=== PATIENT | male | born 1960 | race Asian ===

== ENCOUNTER 2020-11-18 19:01 | Inpatient (IN) | payer MEDICARE, MEDICAID ==
[~2020-11-18] VITALS: Ht 177.8 cm; Wt 80.6 kg
[2020-11-18 19:50] VITALS: BP 101/56
--- NOTE | 2020-11-18 19:59 | PDOC1 ---
History and Physical Date of Admission Date of Admission DATE: 11/18/20 TIME: 19:45 Identification/Chief Complaint Chief Complaint Shortness of breath Source Source: Chart review, Patient History of Present Illness History of Present Illness Patient is a 59-year-old male past medical history CAD, who presents as a transfer from [facility] for concerns of malignant pleural effusion. Reports worsening shortness of breath over the past 2 to 3 weeks. Symptoms are worse with exertion, but he denies any chest pain. He does admit to approximately 90 pound unintentional weight loss over the past year. He is a former smoker, and reports significant coronary artery disease with history of 11 stents. His most recent stress test was 2 days ago and he is not aware of these results. He denies any history of blood clots, is not on anticoagulation, but does take daily aspirin. He was diagnosed with COVID-19 earlier in September 2020. Chest x-ray obtained at [facility] showed right pleural effusion with right basilar atelectasis or infiltrate. Given this medical history, patient was transferred to [facility] for further evaluation with cardiology consult. Labs obtained from [facility]: WBC 14.8, D-dimer 2.23, BNP 531, albumin 2.1 Past Medical History Past Medical History CAD, [place], GERD Past Surgical History Past Surgical History Tonsillectomy Social History Smoke: <1 pack per day ALCOHOL: none Drugs: None ROS Review of System GENERAL: Unintentional weight loss. Denies weakness or fevers. SKIN: No bruising, hair changes or rashes. EYES: No blurred, double or loss of vision. NOSE AND THROAT: No history of nosebleeds, hoarseness or sore throat. HEART: Denies chest pain, denies palpitations. LUNGS: Shortness of breath. Denies cough, hemoptysis, wheezing. GASTROINTESTINAL: Denies nausea, vomiting, abdominal pain. GENITOURINARY: Denies dysuria, frequency, urgency, hematuria. NEUROLOGIC: Denies history of numbness, tingling, tremor or weakness. PSYCHIATRIC: Denies anxiety, denies depression. ENDOCRINE: No history of heat or cold intolerance, polyuria or polydipsia. EXTREMITIES: Denies muscle weakness, joint pain, pain on walking or stiffness. Physical Exam Physical Exam General: Cachectic appearing. Alert, Oriented X3, Cooperative, No acute distress HEENT: PERRLA, EOMI Lungs: Decreased breath sounds on right lung base, Normal air movement Heart: RRR, no murmurs Cardiovascular: S1, S2 Abdomen: Normal bowel sounds, Soft, No tenderness Extremities: No clubbing, No cyanosis Skin: No rashes, No significant lesion Neuro: Normal speech, Normal tone, Sensation intact Psych/Mental Status: Mental status NL, Mood NL VTE Prophylaxis Ordered VTE Prophylaxis Devices: No VTE Pharmacological Prophylaxi: Yes Assessment/Plan Assessment/Plan Right pleural effusion COVID-19 PUI PRAVEENA Vasomotor nephropathy Elevated D-dimer Possible PE Severe malnutrition Plan: Patient's symptoms concerning for pneumonia no effusion Consult to pulmonology Provide IV fluids to resolve PRAVEENA; may be able to obtain CTA chest to rule out PE as well given possible hypercoagulable state when kidney function improves COVID-19 pending; if positive will treat symptomatically, patient currently breathing on room air Provide diuresis and repeat chest x-ray likely in a.m. or Thursday Resume home medications FEN - Cardiac diet PPX - Lovenox FULL CODE Dispo - inpatient for above Justifications for Admission Other Justification SONIYA CASE MD Nov 18, 2020 19:59
[2020-11-18] MEDS ORDERED: MORPHINE SULFATE 2 MG/ML VIAL. IV PRN (20:15)
[2020-11-18] MEDS ORDERED: ZOLPIDEM 5 MG TABLET. PO PRN (20:15)
[2020-11-18] MEDS ORDERED: CALCIUM CARBONATE 500 MG TAB.CHEW PO PRN (20:15)
[2020-11-18] MEDS ORDERED: MAG HYDROX/ALUMINUM HYD/SIMETH 30 ML ORAL.SUSP PO PRN (20:15)
[2020-11-18] MEDS ORDERED: MAGNESIUM HYDROXIDE 2,400 MG/30 ML ORAL.SUSP. PO PRN (20:15)
[2020-11-18] MEDS ORDERED: ACETAMINOPHEN 325 MG TABLET. PO PRN (20:15)
[2020-11-18] MEDS ORDERED: ONDANSETRON PF 4 MG/2 ML VIAL. IVP PRN (20:15)
[2020-11-18] MEDS ORDERED: BISACODYL 10 MG SUPP.RECT. PR PRN (20:15)
[2020-11-18] MEDS ORDERED: FUROSEMIDE 40 MG/4 ML VIAL. IVP ONE (21:15)
[2020-11-18] MEDS ORDERED: ENOXAPARIN 40 MG/0.4 ML SYRINGE. SQ SCH (21:30)
[2020-11-18] MEDS: IV NORMAL SALINE 1000ML BAG 1,000 ML IV SCH (21:47)
[2020-11-18 23:27] VITALS: BP 107/59
[2020-11-19] MEDS ORDERED: CARV12.5 PO (00:15)
[2020-11-19] MEDS ORDERED: FAMO40TA4 PO (00:15)
[2020-11-19] MEDS ORDERED: LEVO50TA5 PO (00:15)
[2020-11-19] MEDS ORDERED: ASPI-630 PO (00:15)
[2020-11-19] MEDS ORDERED: LOSA1TAB19 PO (00:15)
[2020-11-19] MEDS ORDERED: CYCL10TA2 PO (00:15)
[2020-11-19] MEDS ORDERED: TRAM50TA PO (00:15)
[2020-11-19] MEDS ORDERED: CRESTOR40 MG PO (00:15)
[2020-11-19] MEDS ORDERED: METF500T16 PO (00:15)
[2020-11-19] MEDS ORDERED: imdur PO (00:15)
[2020-11-19 03:57] VITALS: BP 102/68
[2020-11-19 07:42] VITALS: BP 116/74
--- NOTE | 2020-11-19 08:24 | PDOC ---
PROGRESS NOTES Date of Service: DATE: 11/19/20 TIME: 08:24 Chief Complaint Chief Complaint VTE Prophylaxis Ordered VTE Prophylaxis Devices: No VTE Pharmacological Prophylaxi: Yes IMPRESSION Assessment/Plan Right pleural effusion COVID-19 PUI PRAVEENA Vasomotor nephropathy Elevated D-dimer Possible PE Severe malnutrition Plan: Patient's symptoms concerning for pneumonia no effusion Consult to pulmonology Provide IV fluids to resolve PRAVEENA; may be able to obtain CTA chest to rule out PE as well given possible hypercoagulable state when kidney function improves COVID-19 pending; if positive will treat symptomatically, patient currently breathing on room air Provide diuresis and repeat chest x-ray likely in a.m. or Thursday Resume home medications FEN - Cardiac diet PPX - Lovenox FULL CODE Dispo - inpatient for above ct chest Justifications for Admission Justifications for Admission Other Justification History of Present Illness History of Present Illness Identification/Chief Complaint Chief Complaint Shortness of breath Source Source: Chart review, Patient History of Present Illness History of Present Illness Patient is a 59-year-old male past medical history CAD, who presents as a transfer from [facility] for concerns of malignant pleural effusion. Reports worsening shortness of breath over the past 2 to 3 weeks. Symptoms are worse with exertion, but he denies any chest pain. He does admit to approximately 90 pound unintentional weight loss over the past year. He is a former smoker, and reports significant coronary artery disease with history of 11 stents. His most recent stress test was 2 days ago and he is not aware of these results. He denies any history of blood clots, is not on anticoagulation, but does take daily aspirin. He was diagnosed with COVID-19 earlier in September 2020. Chest x-ray obtained at [facility] showed right pleural effusion with right basilar atelectasis or infiltrate. Given this medical history, patient was transferred to [facility] for further evaluation with cardiology consult. Labs obtained from [facility]: WBC 14.8, D-dimer 2.23, BNP 531, albumin 2.1 Past Medical History Past Medical History CAD, [place], GERD Past Surgical History Past Surgical History Tonsillectomy Social History Smoke: <1 pack per day ALCOHOL: none Drugs: None ROS Review of System GENERAL: Unintentional weight loss. Denies weakness or fevers. SKIN: No bruising, hair changes or rashes. EYES: No blurred, double or loss of vision. NOSE AND THROAT: No history of nosebleeds, hoarseness or sore throat. HEART: Denies chest pain, denies palpitations. LUNGS: Shortness of breath. Denies cough, hemoptysis, wheezing. GASTROINTESTINAL: Denies nausea, vomiting, abdominal pain. GENITOURINARY: Denies dysuria, frequency, urgency, hematuria. NEUROLOGIC: Denies history of numbness, tingling, tremor or weakness. PSYCHIATRIC: Denies anxiety, denies depression. ENDOCRINE: No history of heat or cold intolerance, polyuria or polydipsia. EXTREMITIES: Denies muscle weakness, joint pain, pain on walking or stiffness. Vitals Vitals Vital Signs Date Time Temp Pulse Resp B/P (MAP) Pulse Ox O2 Delivery O2 Flow Rate FiO2 11/19/20 07:42 97.9 92 18 116/74 (88) 95 Room Air 97.9 Physical Exam Physical Exam Physical Exam Physical Exam General: Cachectic appearing. Alert, Oriented X3, Cooperative, No acute distress HEENT: PERRLA, EOMI Lungs: Decreased breath sounds on right lung base, Normal air movement Heart: RRR, no murmurs Cardiovascular: S1, S2 Abdomen: Normal bowel sounds, Soft, No tenderness Extremities: No clubbing, No cyanosis Skin: No rashes, No significant lesion Neuro: Normal speech, Normal tone, Sensation intact Psych/Mental Status: Mental status NL, Mood NL General: Cooperative, No acute distress Abdomen: No tenderness Labs LABS Signed PATIENT: KENDRICK AGRAWAL ACCOUNT: [id number] : 1960 LOCATION: [address] [place] [address] AGE: 59 SEX: M EXAM STATUS: ADM IN ORD. PHYSICIAN: NIECY PEDERSON MD REASON: Effusion PROCEDURE: CT CHEST WO CONTRAST EXAM: CT Chest with and without IV contrast INDICATION: Reason: Effusion / Spl. Instructions: / History: TECHNIQUE: Multi-detector row CT images were acquired from the thoracic inlet through the upper abdomen with and without the use of IV contrast. Sagittal and coronal images were acquired from the transaxial data. All CT scans performed at this facility utilize dose optimization techniques as appropriate to the exam, including the following: Automated exposure control and adjustment of the mA and/or KV according to patient size (this includes techniques or standardized protocols for targeted exams where dose is indication/reason for exam). IV CONTRAST: Administered COMPARISON: Chest x-ray of 11/18/2020 FINDINGS: CARDIOVASCULAR: Dense multivessel coronary calcifications. Small pericardial effusion, measuring up to 1.1 cm anteriorly. MEDIASTINUM & MARI: Bulky mediastinal adenopathy is present with the largest lymph node measuring 3.5 cm in short axis diameter in the right lower paratracheal angy station. In addition, a right hilar mass is present, poorly delineated around the enlarged lymph nodes but circumferentially encasing and narrowing the right bronchus intermedius to occlusion. Densely calcified left hilar lymph nodes are also noted. LUNGS: Lobar atelectasis of the right middle and lower lobes is present. Patchy groundglass opacities in the peripheral posterior right upper lobe are also noted along with mild peribronchial thickening. PLEURAL SPACE: Small right pleural effusion is present. No pneumothorax. OSSEOUS & SOFT TISSUE: Unremarkable ABDOMEN: The visualized portions of the upper abdomen are unremarkable. IMPRESSION: Right hilar mass causing occlusion of the right middle and right lower lobes, associated with bulky mediastinal adenopathy. These are findings concerning for a primary lung malignancy. Recommend correlation with PET CT imaging and/or bronchoscopic findings. There is only a small right pleural effusion present, likely not sufficient to merit attempt at thoracentesis although could be assessed with ultrasound if so desired.. Electronically signed by: William Minor MD (11/19/2020 10:44 AM) [id number] DICTATED and SIGNED BY: WILLIAM MINOR MD DATE: 11/19/20 [id number] Laboratory Tests Test 11/18/20 21:13 11/19/20 07:03 Glucose (Fingerstick) 88 mg/dL (70-99) 108 mg/dL (70-99) Comment Review of Relevant I have reviewed the following items ranjit (where applicable) has been applied. Labs Laboratory Tests Test 11/18/20 21:13 11/19/20 07:03 Glucose (Fingerstick) 88 mg/dL (70-99) 108 mg/dL (70-99) Laboratory Tests Test 11/18/20 21:13 11/19/20 07:03 Glucose (Fingerstick) 88 mg/dL (70-99) 108 mg/dL (70-99) Medications Current Medications Sodium Chloride 1,000 ml @ 100 mls/hr Q10H IV Last administered on 11/18/20at 21:47; Start 11/18/20 at 20:00 Furosemide (Lasix) 40 mg 1X ONCE IVP Last administered on 11/18/20at 21:47; Start 11/18/20 at 21:15; Stop 11/18/20 at 21:16; Status DC Ondansetron HCl (Zofran) 4 mg PRN Q6HRS PRN IVP NAUSEA/VOMITING; Start 11/18/20 at 20:15 Al Hydroxide/Mg Hydroxide (Mylanta Plus Xs) 30 ml PRN Q3HRS PRN PO HEARTBURN / GAS; Start 11/18/20 at 20:15 Calcium Carbonate/ Glycine (Tums) 500 mg PRN Q3HRS PRN PO UPSET STOMACH; Start 11/18/20 at 20:15 Zolpidem Tartrate (Ambien) 5 mg PRN QHS PRN PO INSOMNIA, MAY REPEAT IN 1HR; Start 11/18/20 at 20:15 Morphine Sulfate (Morphine Sulfate) 2 mg PRN Q1HR PRN IV PAIN; Start 11/18/20 at 20:15 Acetaminophen (Tylenol) 650 mg PRN Q6HRS PRN PO Headaches, Temp > 101.5F; Start 11/18/20 at 20:15 Magnesium Hydroxide (Milk Of Magnesia) 2,400 mg PRN Q12HR PRN PO CONSTIPATION; Start 11/18/20 at 20:15 Bisacodyl (Dulcolax Supp) 10 mg PRN DAILY PRN WI CONSTIPATION; Start 11/18/20 at 20:15 Enoxaparin Sodium (Lovenox 40mg Syringe) 40 mg Q24H SQ Last administered on 11/18/20at 21:47; Start 11/18/20 at 21:30 Active Scripts Active Reported Tramadol Hcl 50 Mg Tablet 50 Mg PO DAILY PRN Aspirin 81 Mg Tab.chew 2 Tab PO HS Cyclobenzaprine Hcl 10 Mg Tablet 1 Tab PO TID PRN Famotidine 40 Mg Tablet 40 Mg PO BID Losartan-Hctz 50-12.5 Mg Tab (Losartan/Hydrochlorothiazide) 1 Each Tablet 1 Tab PO DAILY Coreg (Carvedilol) 12.5 Mg Tablet 12.5 Mg PO BIDWMEALS Levothyroxine Sodium 50 Mcg Tablet 1 Tab PO DAILY Crestor (Rosuvastatin Calcium) 40 Mg Tablet 20 Mg PO HS [imdur] 120 Mg PO DAILY Metformin Hcl 500 Mg Tablet 500 Mg PO BIDWMEALS Vitals/I & O Vital Sign - Last 24 Hours 11/18/20 11/18/20 11/19/20 11/19/20 19:50 23:27 03:57 07:42 Temp 95.5 97.5 97.5 97.9 95.5 97.5 97.5 97.9 Pulse 89 86 90 92 Resp 18 27 16 18 B/P (MAP) 101/56 (71) 107/59 (75) 102/68 (79) 116/74 (88) Pulse Ox 97 99 92 95 O2 Delivery Room Air Room Air Room Air Room Air Intake and Output 11/18/20 11/18/20 11/19/20 15:00 23:00 07:00 Intake Total 330 ml Output Total 1400 ml Balance -1070 ml Justicifation of Admission Dx: Justifications for Admission: Justification of Admission Dx: Yes Respiratory Failure: Severe Resp Distress Comminuty Aquired Pneumonia: Complicated pleural effus DON BURTON MD Nov 19, 2020 08:24
--- NOTE | 2020-11-19 09:07 | CONS ---
DATE OF CONSULTATION: PULMONARY CONSULTATION ATTENDING PHYSICIAN: Cj Lee MD REASON FOR CONSULTATION: Dyspnea, hypoxia, abnormal chest x-ray. HISTORY OF PRESENT ILLNESS: The patient is a 59-year-old male who smoked for 45 years. He recently quit. He has history of CAD and multiple stents. He was brought into the hospital with complaint of progressive shortness of breath for the last 3 weeks. He has some chest pain. He has been coughing and has not been productive of any sputum. No hemoptysis. He has about a 30-pound weight loss in the last few months and overall 90-pound unintentional loss over few years. The patient says he had stress test done 2 days ago and not aware of the results. No history of deep vein thrombosis or pulmonary embolism. He was diagnosed with COVID-19 earlier in 09/2020. Chest x-ray was reviewed and it showed right lower lobe pleural effusion with volume loss. I have been asked to see him for further evaluation. PAST MEDICAL HISTORY: Significant for CAD, multiple stents, history of ME, GERD and suspected COPD, could be severe. He smoked for 45 years. PAST SURGICAL HISTORY: Tonsillectomy. SOCIAL HISTORY: 45 years of tobacco use. No longer smokes cigarettes. ALLERGIES: None. MEDICATIONS: Reviewed as listed in the [facility]AD including Lovenox for DVT prophylaxis. REVIEW OF SYSTEMS: A 12-point system review obtained. Pertinent positives discussed in my history of present illness, otherwise noncontributory. All systems that were negative were reviewed as well. FAMILY HISTORY: Noncontributory to lungs. PHYSICAL EXAMINATION: VITAL SIGNS: Reviewed, pulse ox 95% on room air. GENERAL: Visual exam done due to COVID-19. No obvious respiratory distress. SKIN: No skin rash. EXTREMITIES: No leg edema. LABORATORY DATA: Reviewed. Blood glucose is 88. Rest of the labs are not available yet. IMPRESSION: 1. Dyspnea in a patient who is 59 years old, has significant volume loss right lower lobe could be mass vs pleural effusions vs consolidation. . He has a 30-pound weight loss in the last few months and overall 90-pound weight loss in past year and half. The etiology of his symptoms and x-rays concerning for malignancy. 2. History of COVID-19 pneumonia diagnosed in 09/2020. 3. Long history of tobacco use for 45 years, suspect underlying chronic obstructive pulmonary disease. 4. History of coronary artery disease with multiple stents placed. 5. 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 RECOMMENDATIONS: 1. We will obtain a CT of the chest to better assess for effusion and rule out any mass. 2. He also has hoarseness for the last 2-3 weeks. We will rule out any vocal cord abnormality as well. 3. Diuresis. 4. Empiric antibiotic 5. Obtain echocardiogram. 6. Obtain venous Dopplers of lower extremities since he has been complaining of leg pain. 7. Follow Cardiology recommendation, especially if ejection fraction, comes out to be low. 8. Hold Lovenox today in anticipation for possible thoracentesis. 9. Further recommendations to follow. 10. Discussed with RN. NIECY PEDERSON MD DR: NANCY/danette JOB#: [id number] / [id number] MELODY
[2020-11-19] MEDS: cefTRIAXone IV Push 1 GM VIAL. IVP SCH (10:38)
[2020-11-19 10:49] LABS: ALBUMIN 1.9 g/dL (3.4-5.0); ALBUMIN/GLOBULIN RATIO 0.4 (1.0-1.7); BASO % 0 % (0-3); CALCIUM 8.7 mg/dL (8.5-10.1); CREATININE 3.2 mg/dL (0.7-1.3); EOS % 0 % (0-3); GFR 19.8; HEMATOCRIT 32.8 % (39.0-53.0); HEMOGLOBIN 10.7 g/dL (13.0-17.5); LYMPH # 1.7 x10^3/uL (1.0-4.8); LYMPH % 13 % (24-48); MEAN CORPUSCULAR HEMOGLOBIN 27 pg (25-35); MEAN CORPUSCULAR HGB CONC 33 g/dL (31-37); MEAN CORPUSCULAR VOLUME 83 fL (79-100); MONO # 0.8 x10^3/uL (0.0-1.1); MONO % 6 % (0-9); NEUT # 10.4 x10^3/uL (1.8-7.7); NEUT % 80 % (31-73); PLATELET COUNT 367 x10^3/uL (140-400); POTASSIUM 3.7 mmol/L (3.5-5.1); RED BLOOD COUNT 3.96 x10^6/uL (4.30-5.70); RED CELL DISTRIBUTION WIDTH 14.6 % (11.5-14.5); TOTAL BILIRUBIN 0.4 mg/dL (0.2-1.0); TOTAL PROTEIN 7.1 g/dL (6.4-8.2)
--- NOTE | 2020-11-19 10:51 | RAD ---
EXAM: CT Chest with and without IV contrast INDICATION: Reason: Effusion / Spl. Instructions: / History: TECHNIQUE: Multi-detector row CT images were acquired from the thoracic inlet through the upper abdo men with and without the use of IV contrast. Sagittal and coronal images were acquired from the trans axial data. All CT scans performed at this facility utilize dose optimization techniques as appropria te to the exam, including the following: Automated exposure control and adjustment of the mA and/or K V according to patient size (this includes techniques or standardized protocols for targeted exams wh ere dose is indication/reason for exam). IV CONTRAST: Administered COMPARISON: Chest x-ray of 11/18/2020 FINDINGS: CARDIOVASCULAR: Dense multivessel coronary calcifications. Small pericardial effusion, measuring up to 1.1 cm anteriorly. MEDIASTINUM & MARI: Bulky mediastinal adenopathy is present with the largest lymph node measuring 3.5 cm in short axis diameter in the right lower paratracheal angy station. In addition, a right hilar mass is present, poorly delineated around the enlarged lymph nodes but circumferentially encasing and narrowing the right bronchus intermedius to occlusion. Densely calcified left hilar lymph nodes are also noted. LUNGS: Lobar atelectasis of the right middle and lower lobes is present. Patchy groundglass opacities in the peripheral posterior right upper lobe are also noted along with mild peribronchial thickening . PLEURAL SPACE: Small right pleural effusion is present. No pneumothorax. OSSEOUS & SOFT TISSUE: Unremarkable ABDOMEN: The visualized portions of the upper abdomen are unremarkable. IMPRESSION: Right hilar mass causing occlusion of the right middle and right lower lobes, associated with bulky m ediastinal adenopathy. These are findings concerning for a primary lung malignancy. Recommend correla tion with PET CT imaging and/or bronchoscopic findings. There is only a small right pleural effusion present, likely not sufficient to merit attempt at thoracentesis although could be assessed with ultr asound if so desired.. Electronically signed by: Aspen Minor MD (11/19/2020 10:44 AM) [id number]
[2020-11-19 11:00] VITALS: BP 109/66
[2020-11-19] MEDS: LOSARTAN POTASSIUM 50 MG TABLET. PO SCH (12:39)
[2020-11-19] MEDS: hydroCHLOROthiazide 12.5 MG CAPSULE PO SCH (12:40)
[2020-11-19] MEDS: FAMOTIDINE 20 MG TABLET. PO SCH ×2 (12:40→20:48)
[2020-11-19] MEDS: IV NORMAL SALINE 1000ML BAG 1,000 ML IV SCH ×3 (12:40→22:28)
[2020-11-19] MEDS: LEVOTHYROXINE 50 MCG TABLET PO SCH (12:40)
[2020-11-19 15:18] VITALS: BP 101/61
--- NOTE | 2020-11-19 16:08 | RAD ---
US BILATERAL LOWEREXTREMITY VENOUS DOPPLER History: Reason: pain/swelling / Spl. Instructions: / History: Comparison: None. Discussion: Multiple longitudinal and transverse high resolution real-time images of the venous system of [facility] lower extremity were obtained with color and Doppler sampling. The common femoral, superficial fem oral, popliteal and proximal calf veins are all patent and demonstrate normal flow and compressibilit y. Normal respiratory phasicity and augmentation is present. Impression: 1. No evidence of deep vein thrombosis. Electronically signed by: Harshil Smart DO (11/19/2020 4:05 PM) [facility]
--- NOTE | 2020-11-19 16:32 | RAD ---
Examination: Ultrasound right chest HISTORY: History of right pleural effusion COMPARISON: None available Findings/ impression: Ultrasound of the right chest wall is very limited due to artifact. Obvious pleural effusion is not e vident on the visualized images. Electronically signed by: Thai Dickinson MD (11/19/2020 4:29 PM) [id number]
[2020-11-19] MEDS: CARVEDILOL 12.5 MG TABLET. PO SCH (16:33)
--- NOTE | 2020-11-19 16:47 | NUR ---
SW following for discharge planning. Spoke with RN and reviewed chart. Pt currently NPO, room air, IV Rocephin, COVID negative. Discharge plan is home, self-care. SW available as needed.
[2020-11-19 19:00] VITALS: BP 114/76
--- NOTE | 2020-11-19 19:00 | RAD ---
EXAM: XR CHEST 1V INDICATION: Reason: Right pleural effusion / Spl. Instructions: / History: . TECHNIQUE: Single view COMPARISON: CT chest from earlier the same day and ultrasound chest same day FINDINGS: Stable cardiomegaly. Stable tortuosity to the thoracic aorta. Right hilar and mediastinal adenopathy is redemonstrated, better illustrated on earlier same day ches t CT Lungs again show complete collapse of the right middle and right lower lobes with a trace right pleur al effusion, unchanged in the interval. The patient's right pleural effusion was insufficient to atte mpt thoracentesis. Trace right pleural effusion. No left pleural effusion. No pneumothorax. Advanced degenerative changes in the bilateral glenohumeral joints. IMPRESSION: Bulky mediastinal adenopathy with right lower and middle lobe lobar atelectasis, similar to prior carol ng with a trace right pleural effusion. No pneumothorax. Electronically signed by: Aspen Minor MD (11/19/2020 6:57 PM) [id number]
[2020-11-19] MEDS: ASPIRIN CHEWABLE 81 MG TABLET. PO SCH (20:48)
[2020-11-19] MEDS: ATORVASTATIN CALCIUM 40 MG TABLET. PO SCH (20:48)
[2020-11-19 23:00] VITALS: BP 110/69
[2020-11-20] VITALS (7 sets, daily range): BP systolic 105–133; BP diastolic 67–86
[2020-11-20] MEDS: LEVOTHYROXINE 50 MCG TABLET PO SCH (06:00)
[2020-11-20] MEDS: CARVEDILOL 12.5 MG TABLET. PO SCH ×2 (08:00→16:43)
[2020-11-20] MEDS: LOSARTAN POTASSIUM 50 MG TABLET. PO SCH (08:51)
[2020-11-20] MEDS: hydroCHLOROthiazide 12.5 MG CAPSULE PO SCH (08:51)
[2020-11-20] MEDS: ISOSORBIDE MONONITRATE ER 30 MG TAB.ER.24H PO SCH (08:51)
[2020-11-20] MEDS: FAMOTIDINE 20 MG TABLET. PO SCH ×2 (08:52→20:36)
--- NOTE | 2020-11-20 08:52 | CARD ---
MR#: [id number] Date of Study: 11/20/2020 Ordering Physician: NIECY PEDERSON, Referring Physician: NIECY PEDERSON, Tech: Jaki Jackson [facility] APPROVED REPORT EXAM: Two-dimensional and M-mode echocardiogram with Doppler and color Doppler. Other Information Quality : GoodHR: 86bpm Rhythm : NSR INDICATION CAD Congestive Heart Failure RISK FACTORS Hypertension 2D DIMENSIONS RVDd2.8 (2.9-3.5cm)Left Atrium(2D)3.3 (1.6-4.0cm) IVSd1.5 (0.7-1.1cm)Aortic Root(2D)3.4 (2.0-3.7cm) LVDd3.9 (3.9-5.9cm)LVOT Diameter2.2 (1.8-2.4cm) PWd1.2 (0.7-1.1cm)LVDs2.2 (2.5-4.0cm) FS (%) 42.5 %SV48.2 ml LVEF(%)74.3 (>50%) Aortic Valve AoV Peak Jean.135.9cm/sAoV VTI21.6cm AO Peak GR.7.4mmHgLVOT Peak Jean.103.7cm/s AO Mean GR.4mmHgAVA (VMAX)2.87cm2 Mitral Valve MV E Olekwefj35.4cm/sMV DECEL [id number] MV A Bbujrdcu96.8cm/sE/A Ratio0.9 Pulmonary Valve PV Peak Ssmpjnsf56.6cm/s Tricuspid Valve TR P. Tnpasgpn045oo/sTR Peak Gr.25mmHg LEFT VENTRICLE There is mild concentric left ventricular hypertrophy. The left ventricular systolic function is norm al and the ejection fraction is within normal range. Estimated ejection fraction 60-65% There is norm al LV segmental wall motion. Transmitral Doppler flow pattern is Grade I-abnormal relaxation pattern. RIGHT VENTRICLE The right ventricle is normal size. The right ventricle is mildly hypertrophied. The right ventricula r systolic function is normal. ATRIA The left atrium size is normal. The right atrium size is normal. The interatrial septum is intact wit h no evidence for an atrial septal defect or patent foramen ovale as noted on 2-D or Doppler imaging. AORTIC VALVE The aortic valve is minimally calcified and opens well. Doppler and Color Flow revealed trace aortic regurgitation. There is no significant aortic valvular stenosis. MITRAL VALVE The mitral valve is normal in structure and function. There is no evidence of mitral valve prolapse. There is no mitral valve stenosis. Doppler and Color Flow revealed no mitral valve regurgitation note d. TRICUSPID VALVE The tricuspid valve is normal in structure and function. Doppler and Color Flow revealed mild tricusp id regurgitation. Estimated PAP 28 mmHg. There is no tricuspid valve stenosis. PULMONIC VALVE Doppler and Color Flow revealed mild pulmonic valvular regurgitation. There is no pulmonic valvular s tenosis. GREAT VESSELS The aortic root is normal in size. The ascending aorta is normal in size. The IVC is normal in size a nd collapses >50% with inspiration. PERICARDIAL EFFUSION Trivial anterior pericardial effusion. No evidence of hemodynamic compromise. Critical Notification Critical Value: No <Conclusion> The left ventricular systolic function is normal and the ejection fraction is within normal range. E stimated ejection fraction 60-65% There is normal LV segmental wall motion. Signed by : Aldo Cox, Electronically Approved : 11/20/2020 08:51:24
[2020-11-20] MEDS ORDERED: EPINEPHrine 1 MG/ML VIAL INJ PRN (09:00)
[2020-11-20] MEDS ORDERED: LIDOCAINE 4% TOPICAL 50 ML SOLUTION. MM PRN (09:00)
[2020-11-20] MEDS ORDERED: LIDOCAINE 1% Multi-Dose 20 ML VIAL. INJ PRN (09:00)
[2020-11-20] MEDS ORDERED: ALBUTEROL SULFATE 2.5 MG/3 ML NEBU. NEB PRN (09:00)
[2020-11-20] MEDS ORDERED: LIDOCAINE 2% VISCOUS 100 ML BOTTLE. MM PRN (09:00)
[2020-11-20] MEDS ORDERED: LIDOCAINE 4% TOPICAL 50 ML SOLUTION. ONE (09:04)
[2020-11-20] MEDS ORDERED: LIDOCAINE 2% VISCOUS 100 ML BOTTLE. ONE (09:04)
[2020-11-20] MEDS ORDERED: LIDOCAINE 1% Multi-Dose 20 ML VIAL. ONE (09:04)
[2020-11-20] MEDS ORDERED: EPINEPHrine 1 MG/ML VIAL ONE (09:04)
--- NOTE | 2020-11-20 09:34 | PDOC ---
PULMONARY PROGRESS NOTES DATE: 11/20/20 TIME: 09:28 Subjective no soa, hoarse Vitals Vital Signs Date Time Temp Pulse Resp B/P (MAP) Pulse Ox O2 Delivery O2 Flow Rate FiO2 11/20/20 08:51 97 116/78 11/20/20 07:44 97.3 20 97 Room Air 97.3 General: Alert, No acute distress Lungs: Clear Cardiovascular: S1 Abdomen: Soft Neuro Exam: Alert Extremities: No Edema Skin: Warm Labs Laboratory Tests Test 11/18/20 19:15 11/18/20 21:13 11/19/20 07:03 11/19/20 09:50 Coronavirus (PCR) Not detected (Not Detected) Glucose (Fingerstick) 88 mg/dL (70-99) 108 mg/dL (70-99) White Blood Count 13.0 x10^3/uL (4.0-11.0) Red Blood Count 3.96 x10^6/uL (4.30-5.70) Hemoglobin 10.7 g/dL (13.0-17.5) Hematocrit 32.8 % (39.0-53.0) Mean Corpuscular Volume 83 fL (79-100) Mean Corpuscular Hemoglobin 27 pg (25-35) Mean Corpuscular Hemoglobin Concent 33 g/dL (31-37) Red Cell Distribution Width 14.6 % (11.5-14.5) Platelet Count 367 x10^3/uL (140-400) Neutrophils (%) (Auto) 80 % (31-73) Lymphocytes (%) (Auto) 13 % (24-48) Monocytes (%) (Auto) 6 % (0-9) Eosinophils (%) (Auto) 0 % (0-3) Basophils (%) (Auto) 0 % (0-3) Neutrophils # (Auto) 10.4 x10^3/uL (1.8-7.7) Lymphocytes # (Auto) 1.7 x10^3/uL (1.0-4.8) Monocytes # (Auto) 0.8 x10^3/uL (0.0-1.1) Eosinophils # (Auto) 0.0 x10^3/uL (0.0-0.7) Basophils # (Auto) 0.0 x10^3/uL (0.0-0.2) Sodium Level 137 mmol/L (136-145) Potassium Level 3.7 mmol/L (3.5-5.1) Chloride Level 100 mmol/L (98-107) Carbon Dioxide Level 22 mmol/L (21-32) Anion Gap 15 (6-14) Blood Urea Nitrogen 39 mg/dL (8-26) Creatinine 3.2 mg/dL (0.7-1.3) Estimated GFR (Cockcroft-Gault) 19.8 BUN/Creatinine Ratio 12 (6-20) Glucose Level 139 mg/dL (70-99) Calcium Level 8.7 mg/dL (8.5-10.1) Total Bilirubin 0.4 mg/dL (0.2-1.0) Aspartate Amino Transf (AST/SGOT) 20 U/L (15-37) Alanine Aminotransferase (ALT/SGPT) 18 U/L (16-63) Alkaline Phosphatase 99 U/L (46-116) Total Protein 7.1 g/dL (6.4-8.2) Albumin 1.9 g/dL (3.4-5.0) Albumin/Globulin Ratio 0.4 (1.0-1.7) Procalcitonin 3.24 ng/mL (0.00-0.10) Test 11/19/20 11:31 11/19/20 16:14 11/19/20 20:16 11/20/20 07:42 Glucose (Fingerstick) 126 mg/dL (70-99) 158 mg/dL (70-99) 120 mg/dL (70-99) 116 mg/dL (70-99) Laboratory Tests Test 11/19/20 09:50 11/19/20 11:31 11/19/20 16:14 11/19/20 20:16 White Blood Count 13.0 x10^3/uL (4.0-11.0) Red Blood Count 3.96 x10^6/uL (4.30-5.70) Hemoglobin 10.7 g/dL (13.0-17.5) Hematocrit 32.8 % (39.0-53.0) Mean Corpuscular Volume 83 fL (79-100) Mean Corpuscular Hemoglobin 27 pg (25-35) Mean Corpuscular Hemoglobin Concent 33 g/dL (31-37) Red Cell Distribution Width 14.6 % (11.5-14.5) Platelet Count 367 x10^3/uL (140-400) Neutrophils (%) (Auto) 80 % (31-73) Lymphocytes (%) (Auto) 13 % (24-48) Monocytes (%) (Auto) 6 % (0-9) Eosinophils (%) (Auto) 0 % (0-3) Basophils (%) (Auto) 0 % (0-3) Neutrophils # (Auto) 10.4 x10^3/uL (1.8-7.7) Lymphocytes # (Auto) 1.7 x10^3/uL (1.0-4.8) Monocytes # (Auto) 0.8 x10^3/uL (0.0-1.1) Eosinophils # (Auto) 0.0 x10^3/uL (0.0-0.7) Basophils # (Auto) 0.0 x10^3/uL (0.0-0.2) Sodium Level 137 mmol/L (136-145) Potassium Level 3.7 mmol/L (3.5-5.1) Chloride Level 100 mmol/L (98-107) Carbon Dioxide Level 22 mmol/L (21-32) Anion Gap 15 (6-14) Blood Urea Nitrogen 39 mg/dL (8-26) Creatinine 3.2 mg/dL (0.7-1.3) Estimated GFR (Cockcroft-Gault) 19.8 BUN/Creatinine Ratio 12 (6-20) Glucose Level 139 mg/dL (70-99) Calcium Level 8.7 mg/dL (8.5-10.1) Total Bilirubin 0.4 mg/dL (0.2-1.0) Aspartate Amino Transf (AST/SGOT) 20 U/L (15-37) Alanine Aminotransferase (ALT/SGPT) 18 U/L (16-63) Alkaline Phosphatase 99 U/L (46-116) Total Protein 7.1 g/dL (6.4-8.2) Albumin 1.9 g/dL (3.4-5.0) Albumin/Globulin Ratio 0.4 (1.0-1.7) Procalcitonin 3.24 ng/mL (0.00-0.10) Glucose (Fingerstick) 126 mg/dL (70-99) 158 mg/dL (70-99) 120 mg/dL (70-99) Test 11/20/20 07:42 Glucose (Fingerstick) 116 mg/dL (70-99) Medications Active Scripts Medications Dose Route/Sig Max Daily Dose Days Date Category Tramadol Hcl 50 Mg Tablet 50 Mg PO DAILY PRN 11/19/20 Reported Aspirin 81 Mg Tab.chew 2 Tab PO HS 11/19/20 Reported Cyclobenzaprine Hcl 10 Mg Tablet 1 Tab PO TID PRN 11/19/20 Reported Famotidine 40 Mg Tablet 40 Mg PO BID 11/19/20 Reported Losartan-Hctz 50-12.5 Mg Tab (Losartan/Hydrochlorothiazide) 1 Each Tablet 1 Tab PO DAILY 11/19/20 Reported Coreg (Carvedilol) 12.5 Mg Tablet 12.5 Mg PO BIDWMEALS 11/19/20 Reported Levothyroxine Sodium 50 Mcg Tablet 1 Tab PO DAILY 11/19/20 Reported Crestor (Rosuvastatin Calcium) 40 Mg Tablet 20 Mg PO HS 11/19/20 Reported [imdur] 120 Mg PO DAILY 11/19/20 Reported Metformin Hcl 500 Mg Tablet 500 Mg PO BIDWMEALS 11/19/20 Reported Impression . 1. Dyspnea in a patient who is 59 years old, has significant volume loss right lower lobe could be mass vs pleural effusions vs consolidation. . He has a 30-pound weight loss in the last few months and overall 90-pound weight loss in past year and half. The etiology of his symptoms and x-rays concerning for malignancy. 2. History of COVID-19 pneumonia diagnosed in 09/2020. 3. Long history of tobacco use for 45 years, suspect underlying chronic obstructive pulmonary disease. 4. History of coronary artery disease with multiple stents placed. 5. 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 Page of Plan . 1. CT of the chest reviewed. Large right hilar mass with compression of RML/ RUL/ Mediastinal adenopathy, highly suggestive of lung primary. will proceed with Bronch 2. He also has hoarseness for the last 2-3 weeks. We will rule out any vocal cord abnormality as well. 3. US of chest with no effusion 4. Empiric antibiotic 5. Obtain echocardiogram. 6. Neg venous Dopplers of lower extremities 7. Follow Cardiology recommendation, 8. Hold Lovenox today for bronch 9. Further recommendations to follow. 10. Discussed with RN. NIECY PEDERSON MD DR: NANCY/danette JOB#: [id number] / [id number] NIECY PEDERSON MD Nov 20, 2020 09:34
[2020-11-20 09:35] LABS: BASO % 0 % (0-3); EOS % 0 % (0-3); HEMATOCRIT 33.7 % (39.0-53.0); HEMOGLOBIN 11.1 g/dL (13.0-17.5); LYMPH # 1.5 x10^3/uL (1.0-4.8); LYMPH % 16 % (24-48); MEAN CORPUSCULAR HEMOGLOBIN 27 pg (25-35); MEAN CORPUSCULAR HGB CONC 33 g/dL (31-37); MEAN CORPUSCULAR VOLUME 83 fL (79-100); MONO # 0.7 x10^3/uL (0.0-1.1); MONO % 7 % (0-9); NEUT # 7.2 x10^3/uL (1.8-7.7); NEUT % 76 % (31-73); PLATELET COUNT 367 x10^3/uL (140-400); RED BLOOD COUNT 4.05 x10^6/uL (4.30-5.70); RED CELL DISTRIBUTION WIDTH 14.5 % (11.5-14.5); WHITE BLOOD COUNT 9.4 x10^3/uL (4.0-11.0)
[2020-11-20 09:54] LABS: PROTHROMBIN TIME PATIENT 13.8 SEC (11.7-14.0)
[2020-11-20 10:04] LABS: GFR 21.4; POTASSIUM 3.7 mmol/L (3.5-5.1)
[2020-11-20] MEDS ORDERED: IV RINGERS,LACTATED 1000ML 1,000 ML IV ONE (10:30)
[2020-11-20] MEDS ORDERED: LIDOCAINE 2% PF 5 ML VIAL. ONE (11:08)
[2020-11-20] MEDS ORDERED: PROPOFOL 10 MG/ML (20ML) VIAL. IV ONE (11:08)
--- NOTE | 2020-11-20 11:37 | OP ---
DATE OF SURGERY: BRONCHOSCOPY NOTE INDICATIONS: Lung mass. DESCRIPTION OF PROCEDURE: Informed consent was obtained from the patient. All risks and benefits were explained. He agreed to proceed with the procedure. Propofol was used by Anesthesia for sedation. Bronch was introduced through the left nostril. The upper airway was passed. 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 The trachea was entered. Minimal white secretions seen. The juju was sharp. Upon inspection of the right upper lobe, there was significant narrowing of all the subsegments due to extrinsic compression. The bronchus intermedius was likewise completely compressed extrinsically. I could not pass the scope beyond the bronchus intermedius. There was some mucosal erythema suggestive of submucosal tumor. Cytology brush was obtained from this area and biopsy x 1 was obtained. The patient did have bleeding post-biopsy, which was controlled with epinephrine. No further attempts at biopsies were made. The patient did have a clot in the right main stem bronchus. No active bleeding was noticed. Left lung was examined. All subsegments of left upper lobe, lingula and left lower lobe were examined, no endobronchial lesions seen. Aspirated blood was removed from the left lower lobe. IMPRESSION: 1. Paralyzed left vocal cord. 2. Significant extrinsic compression of all the subsegments of the right upper lobe, but no endobronchial lesion seen. 3. Significant extrinsic compression of the bronchus intermedius. I was unable to pass the bronchoscope beyond bronchus intermedius. There was some mucosal erythema suggestive of mucosal tumor. 4. Biopsy and cytology brush x 1 was performed from this area. 5. Follow the results of the testing. NIECY PEDERSON MD DR: NANCY/danette JOB#: [id number] / [id number]
--- NOTE | 2020-11-20 11:53 | PDOC ---
PROGRESS NOTES Date of Service: DATE: 11/20/20 TIME: 11:51 Chief Complaint Chief Complaint VTE Prophylaxis Ordered VTE Prophylaxis Devices: No VTE Pharmacological Prophylaxi: Yes IMPRESSION Assessment/Plan Right pleural effusion Right hilar mass causing occlusion of the right middle and right lower lobes, associated with bulky mediastinal adenopathy. findings concerning for a primary lung malignancy. // correlation with PET CT imaging and/or bronchoscopic findings. COVID-19 PUI NEG PRAVEENA Vasomotor nephropathy Elevated D-dimer Possible PE RULED OUT Severe malnutrition Plan: Patient's symptoms concerning for pneumonia no effusion Consult to pulmonology Provide IV fluids to resolve PRAVEENA; may be able to obtain CTA chest to rule out PE as well given possible hypercoagulable state when kidney function improves COVID-19 pending; if positive will treat symptomatically, patient currently breathing on room air Provide diuresis and repeat chest x-ray likely in a.m. or Thursday Resume home medications FEN - Cardiac diet PPX - Lovenox FULL CODE Dispo - inpatient for above ct chest Justifications for Admission Justifications for Admission Other Justification History of Present Illness History of Present Illness Identification/Chief Complaint Chief Complaint Shortness of breath Source Source: Chart review, Patient History of Present Illness History of Present Illness Patient is a 59-year-old male past medical history CAD, who presents as a transfer from [facility] for concerns of malignant pleural effusion. Reports worsening shortness of breath over the past 2 to 3 weeks. Symptoms are worse with exertion, but he denies any chest pain. He does admit to approximately 90 pound unintentional weight loss over the past year. He is a former smoker, and reports significant coronary artery disease with history of 11 stents. His most recent stress test was 2 days ago and he is not aware of these results. He denies any history of blood clots, is not on anticoagulation, but does take daily aspirin. He was diagnosed with COVID-19 earlier in September 2020. Chest x-ray obtained at [facility] showed right pleural effusion with right basilar atelectasis or infiltrate. Given this medical history, patient was transferred to [facility] for further evaluation with cardiology consult. Labs obtained from [facility]: WBC 14.8, D-dimer 2.23, BNP 531, albumin 2.1 Past Medical History Past Medical History CAD, VA, GERD Past Surgical History Past Surgical History Tonsillectomy Social History Smoke: <1 pack per day ALCOHOL: none Drugs: None ROS Review of System GENERAL: Unintentional weight loss. Denies weakness or fevers. SKIN: No bruising, hair changes or rashes. EYES: No blurred, double or loss of vision. NOSE AND THROAT: No history of nosebleeds, hoarseness or sore throat. HEART: Denies chest pain, denies palpitations. LUNGS: Shortness of breath. Denies cough, hemoptysis, wheezing. GASTROINTESTINAL: Denies nausea, vomiting, abdominal pain. GENITOURINARY: Denies dysuria, frequency, urgency, hematuria. NEUROLOGIC: Denies history of numbness, tingling, tremor or weakness. PSYCHIATRIC: Denies anxiety, denies depression. ENDOCRINE: No history of heat or cold intolerance, polyuria or polydipsia. EXTREMITIES: Denies muscle weakness, joint pain, pain on walking or stiffness. Vitals Vitals Vital Signs Date Time Temp Pulse Resp B/P (MAP) Pulse Ox O2 Delivery O2 Flow Rate FiO2 11/20/20 11:41 88 18 104/69 97 Simple Mask 10 11/20/20 11:32 97.4 97.4 Physical Exam Physical Exam Physical Exam Physical Exam General: Cachectic appearing. Alert, Oriented X3, Cooperative, No acute distress HEENT: PERRLA, EOMI Lungs: Decreased breath sounds on right lung base, Normal air movement Heart: RRR, no murmurs Cardiovascular: S1, S2 Abdomen: Normal bowel sounds, Soft, No tenderness Extremities: No clubbing, No cyanosis Skin: No rashes, No significant lesion Neuro: Normal speech, Normal tone, Sensation intact Psych/Mental Status: Mental status NL, Mood NL General: Cooperative, No acute distress Lungs: Clear Abdomen: No tenderness Labs LABS PATIENT: KENDRICK AGRAWAL ACCOUNT: [id number] : 1960 LOC: [address] [place] [address] AGE: 59 SEX: M STATUS: ADM IN LOCATION: [address] [place] [address] DATE OF SURGERY: BRONCHOSCOPY NOTE INDICATIONS: Lung mass. DESCRIPTION OF PROCEDURE: Informed consent was obtained from the patient. All risks and benefits were explained. He agreed to proceed with the procedure. Propofol was used by Anesthesia for sedation. Bronch was introduced through the left nostril. The upper airway was passed. 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 The trachea was entered. Minimal white secretions seen. The juju was sharp. Upon inspection of the right upper lobe, there was significant narrowing of all the subsegments due to extrinsic compression. The bronchus intermedius was likewise completely compressed extrinsically. I could not pass the scope beyond the bronchus intermedius. There was some mucosal erythema suggestive of submucosal tumor. Cytology brush was obtained from this area and biopsy x 1 was obtained. The patient did have bleeding post-biopsy, which was controlled with epinephrine. No further attempts at biopsies were made. The patient did have a clot in the right main stem bronchus. No active bleeding was noticed. Left lung was examined. All subsegments of left upper lobe, lingula and left lower lobe were examined, no endobronchial lesions seen. Aspirated blood was removed from the left lower lobe. IMPRESSION: 1. Paralyzed left vocal cord. 2. Significant extrinsic compression of all the subsegments of the right upper lobe, but no endobronchial lesion seen. 3. Significant extrinsic compression of the bronchus intermedius. I was unable to pass the bronchoscope beyond bronchus intermedius. There was some mucosal erythema suggestive of mucosal tumor. 4. Biopsy and cytology brush x 1 was performed from this area. 5. Follow the results of the testing. Eufemia PEDROZA PATIENT: KENDRICK AGRAWAL ACCOUNT: [id number] : 1960 LOCATION: [address] [place] [address] AGE: 59 SEX: M EXAM STATUS: ADM IN ORD. PHYSICIAN: NIECY PEDERSON MD REASON: Effusion PROCEDURE: CT CHEST WO CONTRAST EXAM: CT Chest with and without IV contrast INDICATION: Reason: Effusion / Spl. Instructions: / History: TECHNIQUE: Multi-detector row CT images were acquired from the thoracic inlet through the upper abdomen with and without the use of IV contrast. Sagittal and coronal images were acquired from the transaxial data. All CT scans performed at this facility utilize dose optimization techniques as appropriate to the exam, including the following: Automated exposure control and adjustment of the mA and/or KV according to patient size (this includes techniques or standardized protocols for targeted exams where dose is indication/reason for exam). IV CONTRAST: Administered COMPARISON: Chest x-ray of 11/18/2020 FINDINGS: CARDIOVASCULAR: Dense multivessel coronary calcifications. Small pericardial effusion, measuring up to 1.1 cm anteriorly. MEDIASTINUM & MARI: Bulky mediastinal adenopathy is present with the largest lymph node measuring 3.5 cm in short axis diameter in the right lower paratracheal angy station. In addition, a right hilar mass is present, poorly delineated around the enlarged lymph nodes but circumferentially encasing and narrowing the right bronchus intermedius to occlusion. Densely calcified left hilar lymph nodes are also noted. LUNGS: Lobar atelectasis of the right middle and lower lobes is present. Patchy groundglass opacities in the peripheral posterior right upper lobe are also noted along with mild peribronchial thickening. PLEURAL SPACE: Small right pleural effusion is present. No pneumothorax. OSSEOUS & SOFT TISSUE: Unremarkable ABDOMEN: The visualized portions of the upper abdomen are unremarkable. IMPRESSION: Right hilar mass causing occlusion of the right middle and right lower lobes, associated with bulky mediastinal adenopathy. These are findings concerning for a primary lung malignancy. Recommend correlation with PET CT imaging and/or bronchoscopic findings. There is only a small right pleural effusion present, likely not sufficient to merit attempt at thoracentesis although could be assessed with ultrasound if so desired.. Electronically signed by: William Minor MD (11/19/2020 10:44 AM) [id number] DICTATED and SIGNED BY: WILLIAM MINOR MD DATE: 11/19/20 [id number] Laboratory Tests Test 11/19/20 16:14 11/19/20 20:16 11/20/20 07:42 11/20/20 08:48 Glucose (Fingerstick) 158 mg/dL (70-99) 120 mg/dL (70-99) 116 mg/dL (70-99) White Blood Count 9.4 x10^3/uL (4.0-11.0) Red Blood Count 4.05 x10^6/uL (4.30-5.70) Hemoglobin 11.1 g/dL (13.0-17.5) Hematocrit 33.7 % (39.0-53.0) Mean Corpuscular Volume 83 fL (79-100) Mean Corpuscular Hemoglobin 27 pg (25-35) Mean Corpuscular Hemoglobin Concent 33 g/dL (31-37) Red Cell Distribution Width 14.5 % (11.5-14.5) Platelet Count 367 x10^3/uL (140-400) Neutrophils (%) (Auto) 76 % (31-73) Lymphocytes (%) (Auto) 16 % (24-48) Monocytes (%) (Auto) 7 % (0-9) Eosinophils (%) (Auto) 0 % (0-3) Basophils (%) (Auto) 0 % (0-3) Neutrophils # (Auto) 7.2 x10^3/uL (1.8-7.7) Lymphocytes # (Auto) 1.5 x10^3/uL (1.0-4.8) Monocytes # (Auto) 0.7 x10^3/uL (0.0-1.1) Eosinophils # (Auto) 0.0 x10^3/uL (0.0-0.7) Basophils # (Auto) 0.0 x10^3/uL (0.0-0.2) Prothrombin Time 13.8 SEC (11.7-14.0) Prothromb Time International Ratio 1.1 (0.8-1.1) Sodium Level 137 mmol/L (136-145) Potassium Level 3.7 mmol/L (3.5-5.1) Chloride Level 101 mmol/L (98-107) Carbon Dioxide Level 23 mmol/L (21-32) Anion Gap 13 (6-14) Blood Urea Nitrogen 33 mg/dL (8-26) Creatinine 3.0 mg/dL (0.7-1.3) Estimated GFR (Cockcroft-Gault) 21.4 Glucose Level 121 mg/dL (70-99) Calcium Level 9.0 mg/dL (8.5-10.1) Comment Review of Relevant I have reviewed the following items ranjit (where applicable) has been applied. Labs Laboratory Tests Test 11/18/20 19:15 11/18/20 21:13 11/19/20 07:03 11/19/20 09:50 Coronavirus (PCR) Not detected (Not Detected) Glucose (Fingerstick) 88 mg/dL (70-99) 108 mg/dL (70-99) White Blood Count 13.0 x10^3/uL (4.0-11.0) Red Blood Count 3.96 x10^6/uL (4.30-5.70) Hemoglobin 10.7 g/dL (13.0-17.5) Hematocrit 32.8 % (39.0-53.0) Mean Corpuscular Volume 83 fL (79-100) Mean Corpuscular Hemoglobin 27 pg (25-35) Mean Corpuscular Hemoglobin Concent 33 g/dL (31-37) Red Cell Distribution Width 14.6 % (11.5-14.5) Platelet Count 367 x10^3/uL (140-400) Neutrophils (%) (Auto) 80 % (31-73) Lymphocytes (%) (Auto) 13 % (24-48) Monocytes (%) (Auto) 6 % (0-9) Eosinophils (%) (Auto) 0 % (0-3) Basophils (%) (Auto) 0 % (0-3) Neutrophils # (Auto) 10.4 x10^3/uL (1.8-7.7) Lymphocytes # (Auto) 1.7 x10^3/uL (1.0-4.8) Monocytes # (Auto) 0.8 x10^3/uL (0.0-1.1) Eosinophils # (Auto) 0.0 x10^3/uL (0.0-0.7) Basophils # (Auto) 0.0 x10^3/uL (0.0-0.2) Sodium Level 137 mmol/L (136-145) Potassium Level 3.7 mmol/L (3.5-5.1) Chloride Level 100 mmol/L (98-107) Carbon Dioxide Level 22 mmol/L (21-32) Anion Gap 15 (6-14) Blood Urea Nitrogen 39 mg/dL (8-26) Creatinine 3.2 mg/dL (0.7-1.3) Estimated GFR (Cockcroft-Gault) 19.8 BUN/Creatinine Ratio 12 (6-20) Glucose Level 139 mg/dL (70-99) Calcium Level 8.7 mg/dL (8.5-10.1) Total Bilirubin 0.4 mg/dL (0.2-1.0) Aspartate Amino Transf (AST/SGOT) 20 U/L (15-37) Alanine Aminotransferase (ALT/SGPT) 18 U/L (16-63) Alkaline Phosphatase 99 U/L (46-116) Total Protein 7.1 g/dL (6.4-8.2) Albumin 1.9 g/dL (3.4-5.0) Albumin/Globulin Ratio 0.4 (1.0-1.7) Procalcitonin 3.24 ng/mL (0.00-0.10) Test 11/19/20 11:31 11/19/20 16:14 11/19/20 20:16 11/20/20 07:42 Glucose (Fingerstick) 126 mg/dL (70-99) 158 mg/dL (70-99) 120 mg/dL (70-99) 116 mg/dL (70-99) Test 11/20/20 08:48 White Blood Count 9.4 x10^3/uL (4.0-11.0) Red Blood Count 4.05 x10^6/uL (4.30-5.70) Hemoglobin 11.1 g/dL (13.0-17.5) Hematocrit 33.7 % (39.0-53.0) Mean Corpuscular Volume 83 fL (79-100) Mean Corpuscular Hemoglobin 27 pg (25-35) Mean Corpuscular Hemoglobin Concent 33 g/dL (31-37) Red Cell Distribution Width 14.5 % (11.5-14.5) Platelet Count 367 x10^3/uL (140-400) Neutrophils (%) (Auto) 76 % (31-73) Lymphocytes (%) (Auto) 16 % (24-48) Monocytes (%) (Auto) 7 % (0-9) Eosinophils (%) (Auto) 0 % (0-3) Basophils (%) (Auto) 0 % (0-3) Neutrophils # (Auto) 7.2 x10^3/uL (1.8-7.7) Lymphocytes # (Auto) 1.5 x10^3/uL (1.0-4.8) Monocytes # (Auto) 0.7 x10^3/uL (0.0-1.1) Eosinophils # (Auto) 0.0 x10^3/uL (0.0-0.7) Basophils # (Auto) 0.0 x10^3/uL (0.0-0.2) Prothrombin Time 13.8 SEC (11.7-14.0) Prothromb Time International Ratio 1.1 (0.8-1.1) Sodium Level 137 mmol/L (136-145) Potassium Level 3.7 mmol/L (3.5-5.1) Chloride Level 101 mmol/L (98-107) Carbon Dioxide Level 23 mmol/L (21-32) Anion Gap 13 (6-14) Blood Urea Nitrogen 33 mg/dL (8-26) Creatinine 3.0 mg/dL (0.7-1.3) Estimated GFR (Cockcroft-Gault) 21.4 Glucose Level 121 mg/dL (70-99) Calcium Level 9.0 mg/dL (8.5-10.1) Laboratory Tests Test 11/19/20 16:14 11/19/20 20:16 11/20/20 07:42 11/20/20 08:48 Glucose (Fingerstick) 158 mg/dL (70-99) 120 mg/dL (70-99) 116 mg/dL (70-99) White Blood Count 9.4 x10^3/uL (4.0-11.0) Red Blood Count 4.05 x10^6/uL (4.30-5.70) Hemoglobin 11.1 g/dL (13.0-17.5) Hematocrit 33.7 % (39.0-53.0) Mean Corpuscular Volume 83 fL (79-100) Mean Corpuscular Hemoglobin 27 pg (25-35) Mean Corpuscular Hemoglobin Concent 33 g/dL (31-37) Red Cell Distribution Width 14.5 % (11.5-14.5) Platelet Count 367 x10^3/uL (140-400) Neutrophils (%) (Auto) 76 % (31-73) Lymphocytes (%) (Auto) 16 % (24-48) Monocytes (%) (Auto) 7 % (0-9) Eosinophils (%) (Auto) 0 % (0-3) Basophils (%) (Auto) 0 % (0-3) Neutrophils # (Auto) 7.2 x10^3/uL (1.8-7.7) Lymphocytes # (Auto) 1.5 x10^3/uL (1.0-4.8) Monocytes # (Auto) 0.7 x10^3/uL (0.0-1.1) Eosinophils # (Auto) 0.0 x10^3/uL (0.0-0.7) Basophils # (Auto) 0.0 x10^3/uL (0.0-0.2) Prothrombin Time 13.8 SEC (11.7-14.0) Prothromb Time International Ratio 1.1 (0.8-1.1) Sodium Level 137 mmol/L (136-145) Potassium Level 3.7 mmol/L (3.5-5.1) Chloride Level 101 mmol/L (98-107) Carbon Dioxide Level 23 mmol/L (21-32) Anion Gap 13 (6-14) Blood Urea Nitrogen 33 mg/dL (8-26) Creatinine 3.0 mg/dL (0.7-1.3) Estimated GFR (Cockcroft-Gault) 21.4 Glucose Level 121 mg/dL (70-99) Calcium Level 9.0 mg/dL (8.5-10.1) Medications Current Medications Sodium Chloride 1,000 ml @ 100 mls/hr Q10H IV Last administered on 11/19/20at 22:28; Start 11/18/20 at 20:00 Furosemide (Lasix) 40 mg 1X ONCE IVP Last administered on 11/18/20at 21:47; Start 11/18/20 at 21:15; Stop 11/18/20 at 21:16; Status DC Ondansetron HCl (Zofran) 4 mg PRN Q6HRS PRN IVP NAUSEA/VOMITING; Start 11/18/20 at 20:15 Al Hydroxide/Mg Hydroxide (Mylanta Plus Xs) 30 ml PRN Q3HRS PRN PO HEARTBURN / GAS; Start 11/18/20 at 20:15 Calcium Carbonate/ Glycine (Tums) 500 mg PRN Q3HRS PRN PO UPSET STOMACH; Start 11/18/20 at 20:15 Zolpidem Tartrate (Ambien) 5 mg PRN QHS PRN PO INSOMNIA, MAY REPEAT IN 1HR; Start 11/18/20 at 20:15 Morphine Sulfate (Morphine Sulfate) 2 mg PRN Q1HR PRN IV PAIN; Start 11/18/20 at 20:15 Acetaminophen (Tylenol) 650 mg PRN Q6HRS PRN PO Headaches, Temp > 101.5F; Start 11/18/20 at 20:15 Magnesium Hydroxide (Milk Of Magnesia) 2,400 mg PRN Q12HR PRN PO CONSTIPATION; Start 11/18/20 at 20:15 Bisacodyl (Dulcolax Supp) 10 mg PRN DAILY PRN [place] CONSTIPATION; Start 11/18/20 at 20:15 Enoxaparin Sodium (Lovenox 40mg Syringe) 40 mg Q24H SQ Last administered on 11/18/20at 21:47; Start 11/18/20 at 21:30; Stop 11/19/20 at 08:44; Status DC Ceftriaxone Sodium (Rocephin) 1 gm Q24H IVP Last administered on 11/19/20at 10:38; Start 11/19/20 at 09:00 Aspirin (Aspirin Chewable) 162 mg HS PO Last administered on 11/19/20at 20:48; Start 11/19/20 at 21:00 Carvedilol (Coreg) 12.5 mg BIDWMEALS PO ; Start 11/19/20 at 17:00 Cyclobenzaprine HCl (Flexeril) 10 mg PRN TID PRN PO MUSCLE PAIN; Start 11/19/20 at 10:45 Levothyroxine Sodium (Synthroid) 50 mcg DAILY06 PO Last administered on 11/19/20at 12:40; Start 11/19/20 at 12:00 Tramadol HCl (Ultram) 50 mg PRN DAILY PRN PO PAIN; Start 11/19/20 at 10:45 Famotidine (Pepcid) 20 mg BID PO Last administered on 11/19/20at 20:48; Start 11/19/20 at 12:00 Losartan Potassium (Cozaar) 50 mg DAILY PO Last administered on 11/19/20at 12:39; Start 11/19/20 at 12:00 Atorvastatin Calcium (Lipitor) 80 mg QHS PO Last administered on 11/19/20at 20:48; Start 11/19/20 at 21:00 Isosorbide Mononitrate (Imdur) 120 mg DAILY PO ; Start 11/20/20 at 09:00 Hydrochlorothiazide (Microzide) 12.5 mg DAILY PO Last administered on 11/19/20at 12:40; Start 11/19/20 at 12:00 Albuterol Sulfate (Ventolin Neb Soln) 2.5 mg PRN 1X PRN NEB SHORTNESS OF BREATH Last administered on 11/20/20at 10:32; Start 11/20/20 at 09:00; Stop 11/21/20 at 08:59 Lidocaine HCl (Lidocaine 2% Viscous) 100 ml PRN 1X PRN MM FOR PROCEDURE Last administered on 11/20/20at 10:28; Start 11/20/20 at 09:00; Stop 11/21/20 at 08:59 Lidocaine HCl (Lidocaine 1% 20ml Vial) 20 ml PRN 1X PRN INJ SEE COMMENTS Last administered on 11/20/20at 10:32; Start 11/20/20 at 09:00; Stop 11/21/20 at 08:59 Epinephrine HCl (Adrenalin) 1 mg PRN 1X PRN INJ SEE COMMENTS Last administered on 11/20/20at 11:30; Start 11/20/20 at 09:00; Stop 11/21/20 at 08:59 Lidocaine HCl (Lidocaine 4% Topical) 50 ml PRN 1X PRN MM SEE COMMENTS Last administered on 11/20/20at 10:33; Start 11/20/20 at 09:00; Stop 11/21/20 at 08:59 Epinephrine HCl (Adrenalin) 1 mg STK-MED ONCE .ROUTE ; Start 11/20/20 at 09:04; Stop 11/20/20 at 09:04; Status DC Lidocaine HCl (Lidocaine 1% 20ml Vial) 20 ml STK-MED ONCE .ROUTE ; Start 11/20/20 at 09:04; Stop 11/20/20 at 09:04; Status DC Lidocaine HCl (Lidocaine 2% Viscous) 100 ml STK-MED ONCE .ROUTE ; Start 11/20/20 at 09:04; Stop 11/20/20 at 09:04; Status DC Lidocaine HCl (Lidocaine 4% Topical) 50 ml STK-MED ONCE .ROUTE ; Start 11/20/20 at 09:04; Stop 11/20/20 at 09:04; Status DC Ringer's Solution 1,000 ml @ 75 mls/hr 1X ONCE IV Last administered on 11/20at 10:25; Start 11/20/20 at 10:30; Stop 11/20/20 at 23:49 Propofol (Diprivan) 200 mg STK-MED ONCE IV ; Start 11/20/20 at 11:08; Stop 11/20/20 at 11:08; Status DC Lidocaine HCl (Lidocaine Pf 2% Vial) 5 ml STK-MED ONCE .ROUTE ; Start 11/20/20 at 11:08; Stop 11/20/20 at 11:08; Status DC Active Scripts Active Reported Tramadol Hcl 50 Mg Tablet 50 Mg PO DAILY PRN Aspirin 81 Mg Tab.chew 2 Tab PO HS Cyclobenzaprine Hcl 10 Mg Tablet 1 Tab PO TID PRN Famotidine 40 Mg Tablet 40 Mg PO BID Losartan-Hctz 50-12.5 Mg Tab (Losartan/Hydrochlorothiazide) 1 Each Tablet 1 Tab PO DAILY Coreg (Carvedilol) 12.5 Mg Tablet 12.5 Mg PO BIDWMEALS Levothyroxine Sodium 50 Mcg Tablet 1 Tab PO DAILY Crestor (Rosuvastatin Calcium) 40 Mg Tablet 20 Mg PO HS [imdur] 120 Mg PO DAILY Metformin Hcl 500 Mg Tablet 500 Mg PO BIDWMEALS Vitals/I & O Vital Sign - Last 24 Hours 11/19/20 11/19/20 11/19/20 11/19/20 12:39 15:18 16:33 19:00 Temp 97.3 96.8 97.3 96.8 Pulse 90 98 98 86 Resp 18 18 B/P (MAP) 109/66 101/61 (74) 101/61 114/76 (89) Pulse Ox 98 93 O2 Delivery Room Air Room Air 11/19/20 11/19/20 11/20/20 11/20/20 20:00 23:00 03:00 07:44 Temp 98.0 95.6 97.3 98.0 95.6 97.3 Pulse 87 87 97 Resp 18 24 20 B/P (MAP) 110/69 (83) 108/72 (84) 116/78 (91) Pulse Ox 94 96 97 O2 Delivery Room Air Room Air Room Air Room Air 11/20/20 11/20/20 11/20/20 11/20/20 08:00 08:00 08:51 08:51 Pulse 97 97 97 B/P (MAP) 116/78 116/78 116/78 O2 Delivery Room Air 11/20/20 11/20/20 11/20/20 11/20/20 10:14 10:19 11:26 11:32 Temp 97.3 97.4 97.3 97.4 Pulse 106 89 90 Resp 20 16 20 B/P (MAP) 111/67 120/77 (91) Pulse Ox 96 97 97 O2 Delivery Room Air Simple Mask Room Air O2 Flow Rate 10 11/20/20 11:41 Pulse 88 Resp 18 B/P (MAP) 104/69 Pulse Ox 97 O2 Delivery Simple Mask O2 Flow Rate 10 Intake and Output 11/19/20 11/19/20 11/20/20 15:00 23:00 07:00 Intake Total 180 ml 640 ml 100 ml Output Total 500 ml 1100 ml 900 ml Balance -320 ml -460 ml -800 ml Justicifation of Admission Dx: Justifications for Admission: Justification of Admission Dx: Yes Respiratory Failure: Severe Resp Distress Comminuty Aquired Pneumonia: Complicated pleural effus DON BURTON MD Nov 20, 2020 11:53
[2020-11-20] MEDS: IV NORMAL SALINE 1000ML BAG 1,000 ML IV SCH (12:00)
[2020-11-20] MEDS: cefTRIAXone IV Push 1 GM VIAL. IVP SCH (12:09)
--- NOTE | 2020-11-20 14:06 | NUR ---
SW following for discharge planning. Spoke with RN and reviewed chart. Pt to get a bronchoscopy today. Discharge plan is home, self-care when stable. SW available as needed. Addendum: 11/21/20 at 1313 by AL OSULLIVAN Pt identified as BPCI. No further needs from this SW. Discharge planners to follow.
[2020-11-20] MEDS: ATORVASTATIN CALCIUM 40 MG TABLET. PO SCH (20:36)
[2020-11-20] MEDS: ASPIRIN CHEWABLE 81 MG TABLET. PO SCH (20:36)
[2020-11-21] MEDS: IV NORMAL SALINE 1000ML BAG 1,000 ML IV SCH ×3 (02:42→19:58)
[2020-11-21 03:00] VITALS: BP 105/74
[2020-11-21] MEDS: LEVOTHYROXINE 50 MCG TABLET PO SCH (06:02)
[2020-11-21 06:53] LABS: ALBUMIN 1.8 g/dL (3.4-5.0); ALBUMIN/GLOBULIN RATIO 0.4 (1.0-1.7); CALCIUM 8.7 mg/dL (8.5-10.1); CREATININE 2.7 mg/dL (0.7-1.3); GFR 24.1; POTASSIUM 3.1 mmol/L (3.5-5.1); TOTAL BILIRUBIN 0.4 mg/dL (0.2-1.0); TOTAL PROTEIN 6.5 g/dL (6.4-8.2)
[2020-11-21 06:55] LABS: BASO # 0.1 x10^3/uL (0.0-0.2); BASO % 1 % (0-3); EOS % 1 % (0-3); HEMATOCRIT 31.2 % (39.0-53.0); HEMOGLOBIN 10.5 g/dL (13.0-17.5); LYMPH # 1.5 x10^3/uL (1.0-4.8); LYMPH % 19 % (24-48); MEAN CORPUSCULAR HEMOGLOBIN 28 pg (25-35); MEAN CORPUSCULAR HGB CONC 34 g/dL (31-37); MEAN CORPUSCULAR VOLUME 83 fL (79-100); MONO # 0.6 x10^3/uL (0.0-1.1); MONO % 7 % (0-9); NEUT # 5.9 x10^3/uL (1.8-7.7); NEUT % 73 % (31-73); PLATELET COUNT 299 x10^3/uL (140-400); RED BLOOD COUNT 3.78 x10^6/uL (4.30-5.70); RED CELL DISTRIBUTION WIDTH 14.7 % (11.5-14.5); WHITE BLOOD COUNT 8.1 x10^3/uL (4.0-11.0)
[2020-11-21 07:00] VITALS: BP 109/76
--- NOTE | 2020-11-21 09:40 | PDOC ---
PULMONARY PROGRESS NOTES DATE: 11/21/20 TIME: 09:34 Subjective Remains on room air, continues to be hoarse NO SOA, No cough Vitals Vital Signs Date Time Temp Pulse Resp B/P (MAP) Pulse Ox O2 Delivery O2 Flow Rate FiO2 11/21/20 07:00 97.6 91 18 109/76 (87) 96 Room Air 97.6 11/20/20 11:41 10 ROS: No Nausea, No Chest Pain, No Abdominal Pain, No Increase Cough General: Alert, No acute distress Lungs: Clear Cardiovascular: S1 Abdomen: Soft Neuro Exam: Alert Extremities: No Edema Skin: Warm Labs Laboratory Tests Test 11/19/20 09:50 11/19/20 11:31 11/19/20 16:14 11/19/20 20:16 White Blood Count 13.0 x10^3/uL (4.0-11.0) Red Blood Count 3.96 x10^6/uL (4.30-5.70) Hemoglobin 10.7 g/dL (13.0-17.5) Hematocrit 32.8 % (39.0-53.0) Mean Corpuscular Volume 83 fL (79-100) Mean Corpuscular Hemoglobin 27 pg (25-35) Mean Corpuscular Hemoglobin Concent 33 g/dL (31-37) Red Cell Distribution Width 14.6 % (11.5-14.5) Platelet Count 367 x10^3/uL (140-400) Neutrophils (%) (Auto) 80 % (31-73) Lymphocytes (%) (Auto) 13 % (24-48) Monocytes (%) (Auto) 6 % (0-9) Eosinophils (%) (Auto) 0 % (0-3) Basophils (%) (Auto) 0 % (0-3) Neutrophils # (Auto) 10.4 x10^3/uL (1.8-7.7) Lymphocytes # (Auto) 1.7 x10^3/uL (1.0-4.8) Monocytes # (Auto) 0.8 x10^3/uL (0.0-1.1) Eosinophils # (Auto) 0.0 x10^3/uL (0.0-0.7) Basophils # (Auto) 0.0 x10^3/uL (0.0-0.2) Sodium Level 137 mmol/L (136-145) Potassium Level 3.7 mmol/L (3.5-5.1) Chloride Level 100 mmol/L (98-107) Carbon Dioxide Level 22 mmol/L (21-32) Anion Gap 15 (6-14) Blood Urea Nitrogen 39 mg/dL (8-26) Creatinine 3.2 mg/dL (0.7-1.3) Estimated GFR (Cockcroft-Gault) 19.8 BUN/Creatinine Ratio 12 (6-20) Glucose Level 139 mg/dL (70-99) Calcium Level 8.7 mg/dL (8.5-10.1) Total Bilirubin 0.4 mg/dL (0.2-1.0) Aspartate Amino Transf (AST/SGOT) 20 U/L (15-37) Alanine Aminotransferase (ALT/SGPT) 18 U/L (16-63) Alkaline Phosphatase 99 U/L (46-116) Total Protein 7.1 g/dL (6.4-8.2) Albumin 1.9 g/dL (3.4-5.0) Albumin/Globulin Ratio 0.4 (1.0-1.7) Procalcitonin 3.24 ng/mL (0.00-0.10) Glucose (Fingerstick) 126 mg/dL (70-99) 158 mg/dL (70-99) 120 mg/dL (70-99) Test 11/20/20 07:42 11/20/20 08:48 11/20/20 12:22 11/20/20 16:31 Glucose (Fingerstick) 116 mg/dL (70-99) 122 mg/dL (70-99) 102 mg/dL (70-99) White Blood Count 9.4 x10^3/uL (4.0-11.0) Red Blood Count 4.05 x10^6/uL (4.30-5.70) Hemoglobin 11.1 g/dL (13.0-17.5) Hematocrit 33.7 % (39.0-53.0) Mean Corpuscular Volume 83 fL (79-100) Mean Corpuscular Hemoglobin 27 pg (25-35) Mean Corpuscular Hemoglobin Concent 33 g/dL (31-37) Red Cell Distribution Width 14.5 % (11.5-14.5) Platelet Count 367 x10^3/uL (140-400) Neutrophils (%) (Auto) 76 % (31-73) Lymphocytes (%) (Auto) 16 % (24-48) Monocytes (%) (Auto) 7 % (0-9) Eosinophils (%) (Auto) 0 % (0-3) Basophils (%) (Auto) 0 % (0-3) Neutrophils # (Auto) 7.2 x10^3/uL (1.8-7.7) Lymphocytes # (Auto) 1.5 x10^3/uL (1.0-4.8) Monocytes # (Auto) 0.7 x10^3/uL (0.0-1.1) Eosinophils # (Auto) 0.0 x10^3/uL (0.0-0.7) Basophils # (Auto) 0.0 x10^3/uL (0.0-0.2) Prothrombin Time 13.8 SEC (11.7-14.0) Prothromb Time International Ratio 1.1 (0.8-1.1) Sodium Level 137 mmol/L (136-145) Potassium Level 3.7 mmol/L (3.5-5.1) Chloride Level 101 mmol/L (98-107) Carbon Dioxide Level 23 mmol/L (21-32) Anion Gap 13 (6-14) Blood Urea Nitrogen 33 mg/dL (8-26) Creatinine 3.0 mg/dL (0.7-1.3) Estimated GFR (Cockcroft-Gault) 21.4 Glucose Level 121 mg/dL (70-99) Calcium Level 9.0 mg/dL (8.5-10.1) Test 11/20/20 21:04 11/21/20 06:10 11/21/20 07:19 Glucose (Fingerstick) 109 mg/dL (70-99) 113 mg/dL (70-99) White Blood Count 8.1 x10^3/uL (4.0-11.0) Red Blood Count 3.78 x10^6/uL (4.30-5.70) Hemoglobin 10.5 g/dL (13.0-17.5) Hematocrit 31.2 % (39.0-53.0) Mean Corpuscular Volume 83 fL (79-100) Mean Corpuscular Hemoglobin 28 pg (25-35) Mean Corpuscular Hemoglobin Concent 34 g/dL (31-37) Red Cell Distribution Width 14.7 % (11.5-14.5) Platelet Count 299 x10^3/uL (140-400) Neutrophils (%) (Auto) 73 % (31-73) Lymphocytes (%) (Auto) 19 % (24-48) Monocytes (%) (Auto) 7 % (0-9) Eosinophils (%) (Auto) 1 % (0-3) Basophils (%) (Auto) 1 % (0-3) Neutrophils # (Auto) 5.9 x10^3/uL (1.8-7.7) Lymphocytes # (Auto) 1.5 x10^3/uL (1.0-4.8) Monocytes # (Auto) 0.6 x10^3/uL (0.0-1.1) Eosinophils # (Auto) 0.0 x10^3/uL (0.0-0.7) Basophils # (Auto) 0.1 x10^3/uL (0.0-0.2) Sodium Level 135 mmol/L (136-145) Potassium Level 3.1 mmol/L (3.5-5.1) Chloride Level 101 mmol/L (98-107) Carbon Dioxide Level 22 mmol/L (21-32) Anion Gap 12 (6-14) Blood Urea Nitrogen 27 mg/dL (8-26) Creatinine 2.7 mg/dL (0.7-1.3) Estimated GFR (Cockcroft-Gault) 24.1 BUN/Creatinine Ratio 10 (6-20) Glucose Level 112 mg/dL (70-99) Calcium Level 8.7 mg/dL (8.5-10.1) Total Bilirubin 0.4 mg/dL (0.2-1.0) Aspartate Amino Transf (AST/SGOT) 25 U/L (15-37) Alanine Aminotransferase (ALT/SGPT) 15 U/L (16-63) Alkaline Phosphatase 83 U/L (46-116) Total Protein 6.5 g/dL (6.4-8.2) Albumin 1.8 g/dL (3.4-5.0) Albumin/Globulin Ratio 0.4 (1.0-1.7) Laboratory Tests Test 1/12/21 12:22 11/20/20 16:31 11/20/20 21:04 11/21/20 06:10 Glucose (Fingerstick) 122 mg/dL (70-99) 102 mg/dL (70-99) 109 mg/dL (70-99) White Blood Count 8.1 x10^3/uL (4.0-11.0) Red Blood Count 3.78 x10^6/uL (4.30-5.70) Hemoglobin 10.5 g/dL (13.0-17.5) Hematocrit 31.2 % (39.0-53.0) Mean Corpuscular Volume 83 fL (79-100) Mean Corpuscular Hemoglobin 28 pg (25-35) Mean Corpuscular Hemoglobin Concent 34 g/dL (31-37) Red Cell Distribution Width 14.7 % (11.5-14.5) Platelet Count 299 x10^3/uL (140-400) Neutrophils (%) (Auto) 73 % (31-73) Lymphocytes (%) (Auto) 19 % (24-48) Monocytes (%) (Auto) 7 % (0-9) Eosinophils (%) (Auto) 1 % (0-3) Basophils (%) (Auto) 1 % (0-3) Neutrophils # (Auto) 5.9 x10^3/uL (1.8-7.7) Lymphocytes # (Auto) 1.5 x10^3/uL (1.0-4.8) Monocytes # (Auto) 0.6 x10^3/uL (0.0-1.1) Eosinophils # (Auto) 0.0 x10^3/uL (0.0-0.7) Basophils # (Auto) 0.1 x10^3/uL (0.0-0.2) Sodium Level 135 mmol/L (136-145) Potassium Level 3.1 mmol/L (3.5-5.1) Chloride Level 101 mmol/L (98-107) Carbon Dioxide Level 22 mmol/L (21-32) Anion Gap 12 (6-14) Blood Urea Nitrogen 27 mg/dL (8-26) Creatinine 2.7 mg/dL (0.7-1.3) Estimated GFR (Cockcroft-Gault) 24.1 BUN/Creatinine Ratio 10 (6-20) Glucose Level 112 mg/dL (70-99) Calcium Level 8.7 mg/dL (8.5-10.1) Total Bilirubin 0.4 mg/dL (0.2-1.0) Aspartate Amino Transf (AST/SGOT) 25 U/L (15-37) Alanine Aminotransferase (ALT/SGPT) 15 U/L (16-63) Alkaline Phosphatase 83 U/L (46-116) Total Protein 6.5 g/dL (6.4-8.2) Albumin 1.8 g/dL (3.4-5.0) Albumin/Globulin Ratio 0.4 (1.0-1.7) Test 11/21/20 07:19 Glucose (Fingerstick) 113 mg/dL (70-99) Medications Active Scripts Medications Dose Route/Sig Max Daily Dose Days Date Category Tramadol Hcl 50 Mg Tablet 50 Mg PO DAILY PRN 11/19/20 Reported Aspirin 81 Mg Tab.chew 2 Tab PO HS 11/19/20 Reported Cyclobenzaprine Hcl 10 Mg Tablet 1 Tab PO TID PRN 11/19/20 Reported Famotidine 40 Mg Tablet 40 Mg PO BID 11/19/20 Reported Losartan-Hctz 50-12.5 Mg Tab (Losartan/Hydrochlorothiazide) 1 Each Tablet 1 Tab PO DAILY 11/19/20 Reported Coreg (Carvedilol) 12.5 Mg Tablet 12.5 Mg PO BIDWMEALS 11/19/20 Reported Levothyroxine Sodium 50 Mcg Tablet 1 Tab PO DAILY 11/19/20 Reported Crestor (Rosuvastatin Calcium) 40 Mg Tablet 20 Mg PO HS 11/19/20 Reported [imdur] 120 Mg PO DAILY 11/19/20 Reported Metformin Hcl 500 Mg Tablet 500 Mg PO BIDWMEALS 11/19/20 Reported Impression . 1. Dyspnea in a patient who is 59 years old, has significant volume loss right lower lobe ct chest findings c/w Primary lung malignancy. . He has a 30-pound weight loss in the last few months and overall 90-pound weight loss in past year and half. The etiology of his symptoms and x-rays concerning for malignancy. 2. History of COVID-19 pneumonia diagnosed in 09/2020. 3. Long history of tobacco use for 45 years, suspect underlying chronic obstructive pulmonary disease. 4. History of coronary artery disease with multiple stents placed. 5. 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 Page of Plan . CT of the chest reviewed. Large right hilar mass with compression of RML/ RUL/ Mediastinal adenopathy, highly suggestive of lung primary S/P bronch on 11/20/20--Significant extrinsic compression of all the subsegments of the right upper lobe, but no endobronchial lesion seen---Significant extrinsic compression of the bronchus intermedius. s/p mucosal bx, await results.If non-diagnostic, consider ct guided lung mass Bx. consult HEM/ONC left vocal cord paralysis Empiric antibiotic ECHO- EF WNL Neg venous Dopplers of lower extremities Follow Cardiology recommendation DVT/GI PPX Discussed with RN and Patient NIECY PEDERSON MD Nov 21, 2020 09:40
[2020-11-21] MEDS: LOSARTAN POTASSIUM 50 MG TABLET. PO SCH (09:45)
[2020-11-21] MEDS: CARVEDILOL 12.5 MG TABLET. PO SCH ×2 (09:46→17:00)
[2020-11-21] MEDS: ASPIRIN CHEWABLE 81 MG TABLET. PO SCH (09:46)
[2020-11-21] MEDS: FAMOTIDINE 20 MG TABLET. PO SCH ×2 (09:46→20:05)
[2020-11-21] MEDS: ISOSORBIDE MONONITRATE ER 30 MG TAB.ER.24H PO SCH (09:47)
[2020-11-21] MEDS: hydroCHLOROthiazide 12.5 MG CAPSULE PO SCH (09:47)
[2020-11-21] MEDS: cefTRIAXone IV Push 1 GM VIAL. IVP SCH (09:48)
[2020-11-21] MEDS: CYCLOBENZAPRINE 10 MG TABLET. PO PRN (10:05)
[2020-11-21 11:00] VITALS: BP 100/65
--- NOTE | 2020-11-21 12:19 | PDOC ---
PROGRESS NOTES Date of Service: DATE: 11/21/20 TIME: 12:19 Chief Complaint Chief Complaint VTE Prophylaxis Ordered VTE Prophylaxis Devices: No VTE Pharmacological Prophylaxi: Yes IMPRESSION Assessment/Plan Right pleural effusion Right hilar mass causing occlusion of the right middle and right lower lobes, associated with bulky mediastinal adenopathy. findings concerning for a primary lung malignancy. // correlation with PET CT imaging and/or bronchoscopic findings. COVID-19 PUI NEG PRAVEENA Vasomotor nephropathy Elevated D-dimer Possible PE RULED OUT Severe malnutrition PRAVEENA Plan: Patient's symptoms concerning for pneumonia no effusion Consult to pulmonology Provide IV fluids to resolve PRAVEENA; may be able to obtain CTA chest to rule out PE as well given possible hypercoagulable state when kidney function improves COVID-19 pending; if positive will treat symptomatically, patient currently breathing on room air Provide diuresis and repeat chest x-ray likely in a.m. or Thursday Resume home medications FEN - Cardiac diet PPX - Lovenox FULL CODE Dispo - inpatient for above ct chest NEPHROLOGY CONSULT AVOID NEPHROTOXIC DRUGS 37 MIN PT EXAM, CHART REVIEW, > 50% OF TIME SPENT WITH EXAM, CHART REVIEW, PT CARE COORDINATUION Justifications for Admission Justifications for Admission Other Justification History of Present Illness History of Present Illness Identification/Chief Complaint Chief Complaint Shortness of breath Source Source: Chart review, Patient History of Present Illness History of Present Illness Patient is a 59-year-old male past medical history CAD, who presents as a transfer from [facility] for concerns of malignant pleural effusion. Reports worsening shortness of breath over the past 2 to 3 weeks. Symptoms are worse with exertion, but he denies any chest pain. He does admit to approximately 90 pound unintentional weight loss over the past year. He is a former smoker, and reports significant coronary artery disease with history of 11 stents. His most recent stress test was 2 days ago and he is not aware of these results. He denies any history of blood clots, is not on anticoagulation, but does take daily aspirin. He was diagnosed with COVID-19 earlier in September 2020. Chest x-ray obtained at [facility] showed right pleural effusion with right basilar atelectasis or infiltrate. Given this medical history, patient was transferred to [facility] for further evaluation with cardiology consult. Labs obtained from [facility]: WBC 14.8, D-dimer 2.23, BNP 531, albumin 2.1 Past Medical History Past Medical History CAD, PR, GERD Past Surgical History Past Surgical History Tonsillectomy Social History Smoke: <1 pack per day ALCOHOL: none Drugs: None ROS Review of System GENERAL: Unintentional weight loss. Denies weakness or fevers. SKIN: No bruising, hair changes or rashes. EYES: No blurred, double or loss of vision. NOSE AND THROAT: No history of nosebleeds, hoarseness or sore throat. HEART: Denies chest pain, denies palpitations. LUNGS: Shortness of breath. Denies cough, hemoptysis, wheezing. GASTROINTESTINAL: Denies nausea, vomiting, abdominal pain. GENITOURINARY: Denies dysuria, frequency, urgency, hematuria. NEUROLOGIC: Denies history of numbness, tingling, tremor or weakness. PSYCHIATRIC: Denies anxiety, denies depression. ENDOCRINE: No history of heat or cold intolerance, polyuria or polydipsia. EXTREMITIES: Denies muscle weakness, joint pain, pain on walking or stiffness. Vitals Vitals Vital Signs Date Time Temp Pulse Resp B/P (MAP) Pulse Ox O2 Delivery O2 Flow Rate FiO2 11/21/20 11:00 98.1 91 16 100/65 (77) 95 Room Air 98.1 11/20/20 11:41 10 Physical Exam Physical Exam Physical Exam Physical Exam General: Cachectic appearing. Alert, Oriented X3, Cooperative, No acute distress HEENT: PERRLA, EOMI Lungs: Decreased breath sounds on right lung base, Normal air movement Heart: RRR, no murmurs Cardiovascular: S1, S2 Abdomen: Normal bowel sounds, Soft, No tenderness Extremities: No clubbing, No cyanosis Skin: No rashes, No significant lesion Neuro: Normal speech, Normal tone, Sensation intact Psych/Mental Status: Mental status NL, Mood NL General: Cooperative, No acute distress Lungs: Clear Abdomen: No tenderness Labs LABS Laboratory Tests Test 11/20/20 12:22 11/20/20 16:31 11/20/20 21:04 11/21/20 06:10 Glucose (Fingerstick) 122 mg/dL (70-99) 102 mg/dL (70-99) 109 mg/dL (70-99) White Blood Count 8.1 x10^3/uL (4.0-11.0) Red Blood Count 3.78 x10^6/uL (4.30-5.70) Hemoglobin 10.5 g/dL (13.0-17.5) Hematocrit 31.2 % (39.0-53.0) Mean Corpuscular Volume 83 fL (79-100) Mean Corpuscular Hemoglobin 28 pg (25-35) Mean Corpuscular Hemoglobin Concent 34 g/dL (31-37) Red Cell Distribution Width 14.7 % (11.5-14.5) Platelet Count 299 x10^3/uL (140-400) Neutrophils (%) (Auto) 73 % (31-73) Lymphocytes (%) (Auto) 19 % (24-48) Monocytes (%) (Auto) 7 % (0-9) Eosinophils (%) (Auto) 1 % (0-3) Basophils (%) (Auto) 1 % (0-3) Neutrophils # (Auto) 5.9 x10^3/uL (1.8-7.7) Lymphocytes # (Auto) 1.5 x10^3/uL (1.0-4.8) Monocytes # (Auto) 0.6 x10^3/uL (0.0-1.1) Eosinophils # (Auto) 0.0 x10^3/uL (0.0-0.7) Basophils # (Auto) 0.1 x10^3/uL (0.0-0.2) Sodium Level 135 mmol/L (136-145) Potassium Level 3.1 mmol/L (3.5-5.1) Chloride Level 101 mmol/L (98-107) Carbon Dioxide Level 22 mmol/L (21-32) Anion Gap 12 (6-14) Blood Urea Nitrogen 27 mg/dL (8-26) Creatinine 2.7 mg/dL (0.7-1.3) Estimated GFR (Cockcroft-Gault) 24.1 BUN/Creatinine Ratio 10 (6-20) Glucose Level 112 mg/dL (70-99) Calcium Level 8.7 mg/dL (8.5-10.1) Total Bilirubin 0.4 mg/dL (0.2-1.0) Aspartate Amino Transf (AST/SGOT) 25 U/L (15-37) Alanine Aminotransferase (ALT/SGPT) 15 U/L (16-63) Alkaline Phosphatase 83 U/L (46-116) Total Protein 6.5 g/dL (6.4-8.2) Albumin 1.8 g/dL (3.4-5.0) Albumin/Globulin Ratio 0.4 (1.0-1.7) Test 11/21/20 07:19 11/21/20 10:52 Glucose (Fingerstick) 113 mg/dL (70-99) 157 mg/dL (70-99) Comment Review of Relevant I have reviewed the following items ranjit (where applicable) has been applied. Labs Laboratory Tests Test 11/19/20 16:14 11/19/20 20:16 11/20/20 07:42 11/20/20 08:48 Glucose (Fingerstick) 158 mg/dL (70-99) 120 mg/dL (70-99) 116 mg/dL (70-99) White Blood Count 9.4 x10^3/uL (4.0-11.0) Red Blood Count 4.05 x10^6/uL (4.30-5.70) Hemoglobin 11.1 g/dL (13.0-17.5) Hematocrit 33.7 % (39.0-53.0) Mean Corpuscular Volume 83 fL (79-100) Mean Corpuscular Hemoglobin 27 pg (25-35) Mean Corpuscular Hemoglobin Concent 33 g/dL (31-37) Red Cell Distribution Width 14.5 % (11.5-14.5) Platelet Count 367 x10^3/uL (140-400) Neutrophils (%) (Auto) 76 % (31-73) Lymphocytes (%) (Auto) 16 % (24-48) Monocytes (%) (Auto) 7 % (0-9) Eosinophils (%) (Auto) 0 % (0-3) Basophils (%) (Auto) 0 % (0-3) Neutrophils # (Auto) 7.2 x10^3/uL (1.8-7.7) Lymphocytes # (Auto) 1.5 x10^3/uL (1.0-4.8) Monocytes # (Auto) 0.7 x10^3/uL (0.0-1.1) Eosinophils # (Auto) 0.0 x10^3/uL (0.0-0.7) Basophils # (Auto) 0.0 x10^3/uL (0.0-0.2) Prothrombin Time 13.8 SEC (11.7-14.0) Prothromb Time International Ratio 1.1 (0.8-1.1) Sodium Level 137 mmol/L (136-145) Potassium Level 3.7 mmol/L (3.5-5.1) Chloride Level 101 mmol/L (98-107) Carbon Dioxide Level 23 mmol/L (21-32) Anion Gap 13 (6-14) Blood Urea Nitrogen 33 mg/dL (8-26) Creatinine 3.0 mg/dL (0.7-1.3) Estimated GFR (Cockcroft-Gault) 21.4 Glucose Level 121 mg/dL (70-99) Calcium Level 9.0 mg/dL (8.5-10.1) Test 11/20/20 12:22 11/20/20 16:31 11/20/20 21:04 11/21/20 06:10 Glucose (Fingerstick) 122 mg/dL (70-99) 102 mg/dL (70-99) 109 mg/dL (70-99) White Blood Count 8.1 x10^3/uL (4.0-11.0) Red Blood Count 3.78 x10^6/uL (4.30-5.70) Hemoglobin 10.5 g/dL (13.0-17.5) Hematocrit 31.2 % (39.0-53.0) Mean Corpuscular Volume 83 fL (79-100) Mean Corpuscular Hemoglobin 28 pg (25-35) Mean Corpuscular Hemoglobin Concent 34 g/dL (31-37) Red Cell Distribution Width 14.7 % (11.5-14.5) Platelet Count 299 x10^3/uL (140-400) Neutrophils (%) (Auto) 73 % (31-73) Lymphocytes (%) (Auto) 19 % (24-48) Monocytes (%) (Auto) 7 % (0-9) Eosinophils (%) (Auto) 1 % (0-3) Basophils (%) (Auto) 1 % (0-3) Neutrophils # (Auto) 5.9 x10^3/uL (1.8-7.7) Lymphocytes # (Auto) 1.5 x10^3/uL (1.0-4.8) Monocytes # (Auto) 0.6 x10^3/uL (0.0-1.1) Eosinophils # (Auto) 0.0 x10^3/uL (0.0-0.7) Basophils # (Auto) 0.1 x10^3/uL (0.0-0.2) Sodium Level 135 mmol/L (136-145) Potassium Level 3.1 mmol/L (3.5-5.1) Chloride Level 101 mmol/L (98-107) Carbon Dioxide Level 22 mmol/L (21-32) Anion Gap 12 (6-14) Blood Urea Nitrogen 27 mg/dL (8-26) Creatinine 2.7 mg/dL (0.7-1.3) Estimated GFR (Cockcroft-Gault) 24.1 BUN/Creatinine Ratio 10 (6-20) Glucose Level 112 mg/dL (70-99) Calcium Level 8.7 mg/dL (8.5-10.1) Total Bilirubin 0.4 mg/dL (0.2-1.0) Aspartate Amino Transf (AST/SGOT) 25 U/L (15-37) Alanine Aminotransferase (ALT/SGPT) 15 U/L (16-63) Alkaline Phosphatase 83 U/L (46-116) Total Protein 6.5 g/dL (6.4-8.2) Albumin 1.8 g/dL (3.4-5.0) Albumin/Globulin Ratio 0.4 (1.0-1.7) Test 11/21/20 07:19 11/21/20 10:52 Glucose (Fingerstick) 113 mg/dL (70-99) 157 mg/dL (70-99) Laboratory Tests Test 11/20/20 12:22 11/20/20 16:31 11/20/20 21:04 11/21/20 06:10 Glucose (Fingerstick) 122 mg/dL (70-99) 102 mg/dL (70-99) 109 mg/dL (70-99) White Blood Count 8.1 x10^3/uL (4.0-11.0) Red Blood Count 3.78 x10^6/uL (4.30-5.70) Hemoglobin 10.5 g/dL (13.0-17.5) Hematocrit 31.2 % (39.0-53.0) Mean Corpuscular Volume 83 fL (79-100) Mean Corpuscular Hemoglobin 28 pg (25-35) Mean Corpuscular Hemoglobin Concent 34 g/dL (31-37) Red Cell Distribution Width 14.7 % (11.5-14.5) Platelet Count 299 x10^3/uL (140-400) Neutrophils (%) (Auto) 73 % (31-73) Lymphocytes (%) (Auto) 19 % (24-48) Monocytes (%) (Auto) 7 % (0-9) Eosinophils (%) (Auto) 1 % (0-3) Basophils (%) (Auto) 1 % (0-3) Neutrophils # (Auto) 5.9 x10^3/uL (1.8-7.7) Lymphocytes # (Auto) 1.5 x10^3/uL (1.0-4.8) Monocytes # (Auto) 0.6 x10^3/uL (0.0-1.1) Eosinophils # (Auto) 0.0 x10^3/uL (0.0-0.7) Basophils # (Auto) 0.1 x10^3/uL (0.0-0.2) Sodium Level 135 mmol/L (136-145) Potassium Level 3.1 mmol/L (3.5-5.1) Chloride Level 101 mmol/L (98-107) Carbon Dioxide Level 22 mmol/L (21-32) Anion Gap 12 (6-14) Blood Urea Nitrogen 27 mg/dL (8-26) Creatinine 2.7 mg/dL (0.7-1.3) Estimated GFR (Cockcroft-Gault) 24.1 BUN/Creatinine Ratio 10 (6-20) Glucose Level 112 mg/dL (70-99) Calcium Level 8.7 mg/dL (8.5-10.1) Total Bilirubin 0.4 mg/dL (0.2-1.0) Aspartate Amino Transf (AST/SGOT) 25 U/L (15-37) Alanine Aminotransferase (ALT/SGPT) 15 U/L (16-63) Alkaline Phosphatase 83 U/L (46-116) Total Protein 6.5 g/dL (6.4-8.2) Albumin 1.8 g/dL (3.4-5.0) Albumin/Globulin Ratio 0.4 (1.0-1.7) Test 11/21/20 07:19 11/21/20 10:52 Glucose (Fingerstick) 113 mg/dL (70-99) 157 mg/dL (70-99) Medications Current Medications Sodium Chloride 1,000 ml @ 100 mls/hr Q10H IV Last administered on 11/21/20at 11:18; Start 11/18/20 at 20:00 Furosemide (Lasix) 40 mg 1X ONCE IVP Last administered on 11/18/20at 21:47; Start 11/18/20 at 21:15; Stop 11/18/20 at 21:16; Status DC Ondansetron HCl (Zofran) 4 mg PRN Q6HRS PRN IVP NAUSEA/VOMITING; Start 11/18/20 at 20:15 Al Hydroxide/Mg Hydroxide (Mylanta Plus Xs) 30 ml PRN Q3HRS PRN PO HEARTBURN / GAS; Start 11/18/20 at 20:15 Calcium Carbonate/ Glycine (Tums) 500 mg PRN Q3HRS PRN PO UPSET STOMACH; Start 11/18/20 at 20:15 Zolpidem Tartrate (Ambien) 5 mg PRN QHS PRN PO INSOMNIA, MAY REPEAT IN 1HR; Start 11/18/20 at 20:15 Morphine Sulfate (Morphine Sulfate) 2 mg PRN Q1HR PRN IV PAIN; Start 11/18/20 at 20:15 Acetaminophen (Tylenol) 650 mg PRN Q6HRS PRN PO Headaches, Temp > 101.5F; Start 11/18/20 at 20:15 Magnesium Hydroxide (Milk Of Magnesia) 2,400 mg PRN Q12HR PRN PO CONSTIPATION; Start 11/18/20 at 20:15 Bisacodyl (Dulcolax Supp) 10 mg PRN DAILY PRN NV CONSTIPATION; Start 11/18/20 at 20:15 Enoxaparin Sodium (Lovenox 40mg Syringe) 40 mg Q24H SQ Last administered on 11/18/20at 21:47; Start 11/18/20 at 21:30; Stop 11/19/20 at 08:44; Status DC Ceftriaxone Sodium (Rocephin) 1 gm Q24H IVP Last administered on 11/21/20 09:48; Start 11/19/20 at 09:00 Aspirin (Aspirin Chewable) 162 mg HS PO Last administered on 11/21/20 09:46; Start 11/19/20 at 21:00 Carvedilol (Coreg) 12.5 mg BIDWMEALS PO Last administered on 11/21/20 09:46; Start 11/19/20 at 17:00 Cyclobenzaprine HCl (Flexeril) 10 mg PRN TID PRN PO MUSCLE PAIN Last administered on 11/21/20 10:05; Start 11/19/20 at 10:45 Levothyroxine Sodium (Synthroid) 50 mcg DAILY06 PO Last administered on 11/21/20 06:02; Start 11/19/20 at 12:00 Tramadol HCl (Ultram) 50 mg PRN DAILY PRN PO PAIN; Start 11/19/20 at 10:45 Famotidine (Pepcid) 20 mg BID PO Last administered on 11/21/20 09:46; Start 11/19/20 at 12:00 Losartan Potassium (Cozaar) 50 mg DAILY PO Last administered on 11/21/20 09:45; Start 11/19/20 at 12:00 Atorvastatin Calcium (Lipitor) 80 mg QHS PO Last administered on 11/20/20 20:36; Start 11/19/20 at 21:00 Isosorbide Mononitrate (Imdur) 120 mg DAILY PO Last administered on 11/21/20 09:47; Start 11/20/20 at 09:00 Hydrochlorothiazide (Microzide) 12.5 mg DAILY PO Last administered on 11/21/20 09:47; Start 11/19/20 at 12:00 Albuterol Sulfate (Ventolin Neb Soln) 2.5 mg PRN 1X PRN NEB SHORTNESS OF BREATH Last administered on 11/20/20 10:32; Start 11/20/20 at 09:00; Stop 11/21/20 at 08:59; Status DC Lidocaine HCl (Lidocaine 2% Viscous) 100 ml PRN 1X PRN MM FOR PROCEDURE Last administered on 11/20/20 10:28; Start 11/20/20 at 09:00; Stop 11/21/20 at 08:59; Status DC Lidocaine HCl (Lidocaine 1% 20ml Vial) 20 ml PRN 1X PRN INJ SEE COMMENTS Last administered on 11/20/20at 10:32; Start 11/20/20 at 09:00; Stop 11/21/20 at 08:59; Status DC Epinephrine HCl (Adrenalin) 1 mg PRN 1X PRN INJ SEE COMMENTS Last administered on 11/20/20at 11:30; Start 11/20/20 at 09:00; Stop 11/21/20 at 08:59; Status DC Lidocaine HCl (Lidocaine 4% Topical) 50 ml PRN 1X PRN MM SEE COMMENTS Last administered on 11/20/20at 10:33; Start 11/20/20 at 09:00; Stop 11/21/20 at 08:59; Status DC Epinephrine HCl (Adrenalin) 1 mg STK-MED ONCE .ROUTE ; Start 11/20/20 at 09:04; Stop 11/20/20 at 09:04; Status DC Lidocaine HCl (Lidocaine 1% 20ml Vial) 20 ml STK-MED ONCE .ROUTE ; Start 11/20/20 at 09:04; Stop 11/20/20 at 09:04; Status DC Lidocaine HCl (Lidocaine 2% Viscous) 100 ml STK-MED ONCE .ROUTE ; Start 11/20/20 at 09:04; Stop 11/20/20 at 09:04; Status DC Lidocaine HCl (Lidocaine 4% Topical) 50 ml STK-MED ONCE .ROUTE ; Start 11/20/20 at 09:04; Stop 11/20/20 at 09:04; Status DC Ringer's Solution 1,000 ml @ 75 mls/hr 1X ONCE IV Last administered on 11/20/20at 10:25; Start 11/20/20 at 10:30; Stop 11/20/20 at 23:49; Status DC Propofol (Diprivan) 200 mg STK-MED ONCE IV ; Start 11/20/20 at 11:08; Stop 11/20/20 at 11:08; Status DC Lidocaine HCl (Lidocaine Pf 2% Vial) 5 ml STK-MED ONCE .ROUTE ; Start 11/20/20 at 11:08; Stop 11/20/20 at 11:08; Status DC Active Scripts Active Reported Tramadol Hcl 50 Mg Tablet 50 Mg PO DAILY PRN Aspirin 81 Mg Tab.chew 2 Tab PO HS Cyclobenzaprine Hcl 10 Mg Tablet 1 Tab PO TID PRN Famotidine 40 Mg Tablet 40 Mg PO BID Losartan-Hctz 50-12.5 Mg Tab (Losartan/Hydrochlorothiazide) 1 Each Tablet 1 Tab PO DAILY Coreg (Carvedilol) 12.5 Mg Tablet 12.5 Mg PO BIDWMEALS Levothyroxine Sodium 50 Mcg Tablet 1 Tab PO DAILY Crestor (Rosuvastatin Calcium) 40 Mg Tablet 20 Mg PO HS [imdur] 120 Mg PO DAILY Metformin Hcl 500 Mg Tablet 500 Mg PO BIDWMEALS Vitals/I & O Vital Sign - Last 24 Hours 11/20/20 11/20/20 11/20/20 11/20/20 15:13 16:43 17:50 19:00 Temp 97.6 98.4 98.7 97.6 98.4 98.7 Pulse 95 95 104 103 Resp 20 20 16 B/P (MAP) 105/67 (80) 105/67 133/86 (102) 124/82 (96) Pulse Ox 96 94 94 O2 Delivery Room Air Room Air 11/20/20 11/20/20 11/21/20 11/21/20 20:00 23:00 03:00 03:00 Temp 97.6 97.8 97.8 97.6 97.8 97.8 Pulse 93 93 93 Resp 18 18 18 B/P (MAP) 114/75 (88) 105/74 (84) 105/74 (84) Pulse Ox 96 96 96 O2 Delivery Room Air Room Air 11/21/20 11/21/20 11/21/20 11/21/20 07:00 09:45 09:46 09:47 Temp 97.6 97.6 Pulse 91 91 91 91 Resp 18 B/P (MAP) 109/76 (87) 109/76 109/76 109/76 Pulse Ox 96 O2 Delivery Room Air 11/21/20 11:00 Temp 98.1 98.1 Pulse 91 Resp 16 B/P (MAP) 100/65 (77) Pulse Ox 95 O2 Delivery Room Air Intake and Output 11/20/20 11/20/20 11/21/20 15:00 23:00 07:00 Intake Total 630 ml 400 ml 960 ml Output Total 600 ml 1800 ml Balance 30 ml 400 ml -840 ml Justicifation of Admission Dx: Justifications for Admission: Justification of Admission Dx: Yes Respiratory Failure: Severe Resp Distress Comminuty Aquired Pneumonia: Complicated pleural effus DON BURTON MD Nov 21, 2020 12:19
[2020-11-21 15:00] VITALS: BP_SYST 93; BP_SYST 96; BP_DIAS 56; BP_DIAS 57
--- NOTE | 2020-11-21 18:38 | PDOC2 ---
CONSULT Date of Consult Date of Consult DATE: 11/21/20 TIME: 18:29 Reason for Consult Reason for Consult: PRAVEENA Referring Physician Referring Physician: JOSEPHINE Identification/Chief Complaint Chief Complaint SOB Source Source: Chart review, Patient History of Present Illness Reason for Visit: THIS IS A 59 YR OLD WITH SOB. IMAGING IN WALKER NOTABLE FOR PLEURAL EFFUSION. PT ALSO NOTED TO HAVE PRAVEENA WITH CR OF 3.2. HAS HAD UNINTENTIONAL WT LOSS OF OVER 90 LBS IN LAST COUPLE YEARS. HAS SIGNIFICANT SMOKING HX. CURRENTLY BEING SEEN BY PULMONARY. HE HAD HAD A CT SCAN WITH AND WITHOUT CONTRAST AND NOTED TO HAVE A R HILAR MASS OCCLUDING THE RIGHT MIDDLE AND LOWER LOBES WITH MEDIASTINAL LYMPHADENOPATHY. NO KNOWN CKD. NO KNOWN HX OF ANY OTHER PROBLEMS. DENIED ANY NEPHROTOXIN USE. Past Medical History Cardiovascular: HTN Endocrine: Diabetes, Hypothyroidism Social History <1 pack per day ALCOHOL: none Drugs: None Lives: with Family Current Medications Current Medications Current Medications Sodium Chloride 1,000 ml @ 100 mls/hr Q10H IV Last administered on 11/21/20at 11:18; Start 11/18/20 at 20:00 Furosemide (Lasix) 40 mg 1X ONCE IVP Last administered on 11/18/20at 21:47; Start 11/18/20 at 21:15; Stop 11/18/20 at 21:16; Status DC Ondansetron HCl (Zofran) 4 mg PRN Q6HRS PRN IVP NAUSEA/VOMITING; Start 11/18/20 at 20:15 Al Hydroxide/Mg Hydroxide (Mylanta Plus Xs) 30 ml PRN Q3HRS PRN PO HEARTBURN / GAS; Start 11/18/20 at 20:15; Stop 11/21/20 at 14:55; Status DC Calcium Carbonate/ Glycine (Tums) 500 mg PRN Q3HRS PRN PO UPSET STOMACH; Start 11/18/20 at 20:15 Zolpidem Tartrate (Ambien) 5 mg PRN QHS PRN PO INSOMNIA, MAY REPEAT IN 1HR; Start 11/18/20 at 20:15 Morphine Sulfate (Morphine Sulfate) 2 mg PRN Q1HR PRN IV PAIN; Start 11/18/20 at 20:15 Acetaminophen (Tylenol) 650 mg PRN Q6HRS PRN PO Headaches, Temp > 101.5F; Start 11/18/20 at 20:15 Magnesium Hydroxide (Milk Of Magnesia) 2,400 mg PRN Q12HR PRN PO CONSTIPATION; Start 11/18/20 at 20:15; Stop 11/21/20 at 14:55; Status DC Bisacodyl (Dulcolax Supp) 10 mg PRN DAILY PRN MT CONSTIPATION; Start 11/18/20 at 20:15 Enoxaparin Sodium (Lovenox 40mg Syringe) 40 mg Q24H SQ Last administered on 11/18/20at 21:47; Start 11/18/20 at 21:30; Stop 11/19/20 at 08:44; Status DC Ceftriaxone Sodium (Rocephin) 1 gm Q24H IVP Last administered on 11/21/20at 09:48; Start 11/19/20 at 09:00; Stop 11/21/20 at 15:38; Status DC Aspirin (Aspirin Chewable) 162 mg HS PO Last administered on 11/21/20at 09:46; Start 11/19/20 at 21:00 Carvedilol (Coreg) 12.5 mg BIDWMEALS PO Last administered on 11/21/20at 09:46; Start 11/19/20 at 17:00 Cyclobenzaprine HCl (Flexeril) 10 mg PRN TID PRN PO MUSCLE PAIN Last administered on 11/21/20at 10:05; Start 11/19/20 at 10:45 Levothyroxine Sodium (Synthroid) 50 mcg DAILY06 PO Last administered on 11/21/20at 06:02; Start 11/19/20 at 12:00 Tramadol HCl (Ultram) 50 mg PRN DAILY PRN PO PAIN; Start 11/19/20 at 10:45 Famotidine (Pepcid) 20 mg BID PO Last administered on 11/21/20at 09:46; Start 11/19/20 at 12:00 Losartan Potassium (Cozaar) 50 mg DAILY PO Last administered on 11/21/20at 09:45; Start 11/19/20 at 12:00 Atorvastatin Calcium (Lipitor) 80 mg QHS PO Last administered on 11/20/20at 20:36; Start 11/19/20 at 21:00 Isosorbide Mononitrate (Imdur) 120 mg DAILY PO Last administered on 11/21/20at 09:47; Start 11/20/20 at 09:00 Hydrochlorothiazide (Microzide) 12.5 mg DAILY PO Last administered on 11/21/20at 09:47; Start 11/19/20 at 12:00 Albuterol Sulfate (Ventolin Neb Soln) 2.5 mg PRN 1X PRN NEB SHORTNESS OF BREATH Last administered on 11/20/20at 10:32; Start 11/20/20 at 09:00; Stop 11/21/20 at 08:59; Status DC Lidocaine HCl (Lidocaine 2% Viscous) 100 ml PRN 1X PRN MM FOR PROCEDURE Last administered on 11/20/20at 10:28; Start 11/20/20 at 09:00; Stop 11/21/20 at 08:59; Status DC Lidocaine HCl (Lidocaine 1% 20ml Vial) 20 ml PRN 1X PRN INJ SEE COMMENTS Last administered on 11/20/20at 10:32; Start 11/20/20 at 09:00; Stop 11/21/20 at 08:59; Status DC Epinephrine HCl (Adrenalin) 1 mg PRN 1X PRN INJ SEE COMMENTS Last administered on 11/20/20at 11:30; Start 11/20/20 at 09:00; Stop 11/21/20 at 08:59; Status DC Lidocaine HCl (Lidocaine 4% Topical) 50 ml PRN 1X PRN MM SEE COMMENTS Last administered on 11/20/20at 10:33; Start 11/20/20 at 09:00; Stop 11/21/20 at 08:59; Status DC Epinephrine HCl (Adrenalin) 1 mg STK-MED ONCE .ROUTE ; Start 11/20/20 at 09:04; Stop 11/20/20 at 09:04; Status DC Lidocaine HCl (Lidocaine 1% 20ml Vial) 20 ml STK-MED ONCE .ROUTE ; Start 11/20/20 at 09:04; Stop 11/20/20 at 09:04; Status DC Lidocaine HCl (Lidocaine 2% Viscous) 100 ml STK-MED ONCE .ROUTE ; Start 11/20/20 at 09:04; Stop 11/20/20 at 09:04; Status DC Lidocaine HCl (Lidocaine 4% Topical) 50 ml STK-MED ONCE .ROUTE ; Start 11/20/20 at 09:04; Stop 11/20/20 at 09:04; Status DC Ringer's Solution 1,000 ml @ 75 mls/hr 1X ONCE IV Last administered on 11/20/20at 10:25; Start 11/20/20 at 10:30; Stop 11/20/20 at 23:49; Status DC Propofol (Diprivan) 200 mg STK-MED ONCE IV ; Start 11/20/20 at 11:08; Stop 11/20/20 at 11:08; Status DC Lidocaine HCl (Lidocaine Pf 2% Vial) 5 ml STK-MED ONCE .ROUTE ; Start 11/20/20 at 11:08; Stop 11/20/20 at 11:08; Status DC Heparin Sodium (Porcine) (Heparin Sodium) 5,000 unit Q8HRS SQ ; Start 11/21/20 at 22:00 Cefdinir (Omnicef) 300 mg QHS PO ; Start 11/21/20 at 21:00 Active Scripts Active Reported Tramadol Hcl 50 Mg Tablet 50 Mg PO DAILY PRN Aspirin 81 Mg Tab.chew 2 Tab PO HS Cyclobenzaprine Hcl 10 Mg Tablet 1 Tab PO TID PRN Famotidine 40 Mg Tablet 40 Mg PO BID Losartan-Hctz 50-12.5 Mg Tab (Losartan/Hydrochlorothiazide) 1 Each Tablet 1 Tab PO DAILY Coreg (Carvedilol) 12.5 Mg Tablet 12.5 Mg PO BIDWMEALS Levothyroxine Sodium 50 Mcg Tablet 1 Tab PO DAILY Crestor (Rosuvastatin Calcium) 40 Mg Tablet 20 Mg PO HS [imdur] 120 Mg PO DAILY Metformin Hcl 500 Mg Tablet 500 Mg PO BIDWMEALS Allergies Allergies: Coded Allergies: No Known Drug Allergies (Unverified , 11/20/20) ROS General: YES: Fatigue, Malaise PSYCHOLOGICAL ROS: YES: Anxiety Eyes: Yes Decreased vision HEENT: YES: Heacaches Respiratory: YES: Cough, Shortness of breath Gastrointestinal: Yes Constipation Genitourinary: YES Other (NOCTURIA) Musculoskeletal: Yes Muscular Weakness Neurological: Yes Weakness Skin: Yes Dry Skin Physical Exam General: Alert, Oriented X3, Cooperative, No acute distress HEENT: Atraumatic, PERRLA Lungs: Other (DECREASED AT BASES) Heart: Regular rate Abdomen: Normal bowel sounds, Soft, No tenderness Extremities: No cyanosis Skin: No breakdown Neuro: Normal speech Psych/Mental Status: Mental status NL, Mood NL MUSCULOSKELETAL: No joint tenderness, No deformity, No swelling Vitals VITALS Vital Signs Date Time Temp Pulse Resp B/P (MAP) Pulse Ox O2 Delivery O2 Flow Rate FiO2 11/21/20 15:00 96/57 (70) 11/21/20 15:00 98.0 88 18 97 Room Air 98.0 11/20/20 11:41 10 Labs Labs Laboratory Tests Test 11/19/20 20:16 11/20/20 07:42 11/20/20 08:48 11/20/20 12:22 Glucose (Fingerstick) 120 mg/dL (70-99) 116 mg/dL (70-99) 122 mg/dL (70-99) White Blood Count 9.4 x10^3/uL (4.0-11.0) Red Blood Count 4.05 x10^6/uL (4.30-5.70) Hemoglobin 11.1 g/dL (13.0-17.5) Hematocrit 33.7 % (39.0-53.0) Mean Corpuscular Volume 83 fL (79-100) Mean Corpuscular Hemoglobin 27 pg (25-35) Mean Corpuscular Hemoglobin Concent 33 g/dL (31-37) Red Cell Distribution Width 14.5 % (11.5-14.5) Platelet Count 367 x10^3/uL (140-400) Neutrophils (%) (Auto) 76 % (31-73) Lymphocytes (%) (Auto) 16 % (24-48) Monocytes (%) (Auto) 7 % (0-9) Eosinophils (%) (Auto) 0 % (0-3) Basophils (%) (Auto) 0 % (0-3) Neutrophils # (Auto) 7.2 x10^3/uL (1.8-7.7) Lymphocytes # (Auto) 1.5 x10^3/uL (1.0-4.8) Monocytes # (Auto) 0.7 x10^3/uL (0.0-1.1) Eosinophils # (Auto) 0.0 x10^3/uL (0.0-0.7) Basophils # (Auto) 0.0 x10^3/uL (0.0-0.2) Prothrombin Time 13.8 SEC (11.7-14.0) Prothromb Time International Ratio 1.1 (0.8-1.1) Sodium Level 137 mmol/L (136-145) Potassium Level 3.7 mmol/L (3.5-5.1) Chloride Level 101 mmol/L (98-107) Carbon Dioxide Level 23 mmol/L (21-32) Anion Gap 13 (6-14) Blood Urea Nitrogen 33 mg/dL (8-26) Creatinine 3.0 mg/dL (0.7-1.3) Estimated GFR (Cockcroft-Gault) 21.4 Glucose Level 121 mg/dL (70-99) Calcium Level 9.0 mg/dL (8.5-10.1) Test 11/20/20 16:31 11/20/20 21:04 11/21/20 06:10 11/21/20 07:19 Glucose (Fingerstick) 102 mg/dL (70-99) 109 mg/dL (70-99) 113 mg/dL (70-99) White Blood Count 8.1 x10^3/uL (4.0-11.0) Red Blood Count 3.78 x10^6/uL (4.30-5.70) Hemoglobin 10.5 g/dL (13.0-17.5) Hematocrit 31.2 % (39.0-53.0) Mean Corpuscular Volume 83 fL (79-100) Mean Corpuscular Hemoglobin 28 pg (25-35) Mean Corpuscular Hemoglobin Concent 34 g/dL (31-37) Red Cell Distribution Width 14.7 % (11.5-14.5) Platelet Count 299 x10^3/uL (140-400) Neutrophils (%) (Auto) 73 % (31-73) Lymphocytes (%) (Auto) 19 % (24-48) Monocytes (%) (Auto) 7 % (0-9) Eosinophils (%) (Auto) 1 % (0-3) Basophils (%) (Auto) 1 % (0-3) Neutrophils # (Auto) 5.9 x10^3/uL (1.8-7.7) Lymphocytes # (Auto) 1.5 x10^3/uL (1.0-4.8) Monocytes # (Auto) 0.6 x10^3/uL (0.0-1.1) Eosinophils # (Auto) 0.0 x10^3/uL (0.0-0.7) Basophils # (Auto) 0.1 x10^3/uL (0.0-0.2) Sodium Level 135 mmol/L (136-145) Potassium Level 3.1 mmol/L (3.5-5.1) Chloride Level 101 mmol/L (98-107) Carbon Dioxide Level 22 mmol/L (21-32) Anion Gap 12 (6-14) Blood Urea Nitrogen 27 mg/dL (8-26) Creatinine 2.7 mg/dL (0.7-1.3) Estimated GFR (Cockcroft-Gault) 24.1 BUN/Creatinine Ratio 10 (6-20) Glucose Level 112 mg/dL (70-99) Calcium Level 8.7 mg/dL (8.5-10.1) Total Bilirubin 0.4 mg/dL (0.2-1.0) Aspartate Amino Transf (AST/SGOT) 25 U/L (15-37) Alanine Aminotransferase (ALT/SGPT) 15 U/L (16-63) Alkaline Phosphatase 83 U/L (46-116) Total Protein 6.5 g/dL (6.4-8.2) Albumin 1.8 g/dL (3.4-5.0) Albumin/Globulin Ratio 0.4 (1.0-1.7) Test 11/21/20 10:52 11/21/20 17:34 Glucose (Fingerstick) 157 mg/dL (70-99) 126 mg/dL (70-99) Laboratory Tests Test 11/20/20 21:04 11/21/20 06:10 11/21/20 07:19 11/21/20 10:52 Glucose (Fingerstick) 109 mg/dL (70-99) 113 mg/dL (70-99) 157 mg/dL (70-99) White Blood Count 8.1 x10^3/uL (4.0-11.0) Red Blood Count 3.78 x10^6/uL (4.30-5.70) Hemoglobin 10.5 g/dL (13.0-17.5) Hematocrit 31.2 % (39.0-53.0) Mean Corpuscular Volume 83 fL (79-100) Mean Corpuscular Hemoglobin 28 pg (25-35) Mean Corpuscular Hemoglobin Concent 34 g/dL (31-37) Red Cell Distribution Width 14.7 % (11.5-14.5) Platelet Count 299 x10^3/uL (140-400) Neutrophils (%) (Auto) 73 % (31-73) Lymphocytes (%) (Auto) 19 % (24-48) Monocytes (%) (Auto) 7 % (0-9) Eosinophils (%) (Auto) 1 % (0-3) Basophils (%) (Auto) 1 % (0-3) Neutrophils # (Auto) 5.9 x10^3/uL (1.8-7.7) Lymphocytes # (Auto) 1.5 x10^3/uL (1.0-4.8) Monocytes # (Auto) 0.6 x10^3/uL (0.0-1.1) Eosinophils # (Auto) 0.0 x10^3/uL (0.0-0.7) Basophils # (Auto) 0.1 x10^3/uL (0.0-0.2) Sodium Level 135 mmol/L (136-145) Potassium Level 3.1 mmol/L (3.5-5.1) Chloride Level 101 mmol/L (98-107) Carbon Dioxide Level 22 mmol/L (21-32) Anion Gap 12 (6-14) Blood Urea Nitrogen 27 mg/dL (8-26) Creatinine 2.7 mg/dL (0.7-1.3) Estimated GFR (Cockcroft-Gault) 24.1 BUN/Creatinine Ratio 10 (6-20) Glucose Level 112 mg/dL (70-99) Calcium Level 8.7 mg/dL (8.5-10.1) Total Bilirubin 0.4 mg/dL (0.2-1.0) Aspartate Amino Transf (AST/SGOT) 25 U/L (15-37) Alanine Aminotransferase (ALT/SGPT) 15 U/L (16-63) Alkaline Phosphatase 83 U/L (46-116) Total Protein 6.5 g/dL (6.4-8.2) Albumin 1.8 g/dL (3.4-5.0) Albumin/Globulin Ratio 0.4 (1.0-1.7) Test 11/21/20 17:34 Glucose (Fingerstick) 126 mg/dL (70-99) Assessment/Plan Assessment/Plan IMP PRAVEENA WITH CR OF 3.2 PROB ECVD DYSPNEA PROB LUNG CA WT LOSS HX OF COID 19 POS IN NOV TOBACCO USE PLAN CONT WITH HYDRATION HOLD HIS ARB CHECK UA IF CONCERNS OF [place] THEN WILL CONSIDER BX WILL FOLLOW IRENE ARIAS MD Nov 21, 2020 18:38
[2020-11-21 19:00] VITALS: BP 96/53
[2020-11-21] MEDS: CEFDINIR 300 MG CAPSULE PO SCH (20:05)
[2020-11-21] MEDS: ATORVASTATIN CALCIUM 40 MG TABLET. PO SCH (20:06)
[2020-11-21] MEDS: traMADol 50 MG TABLET PO PRN (20:06)
[2020-11-21] MEDS: HEPARIN for SUB-Q USE 5,000 UNIT/ML VIAL. SQ SCH (22:06)
[2020-11-21 23:00] VITALS: BP 111/69
[2020-11-22] VITALS (7 sets, daily range): BP systolic 98–122; BP diastolic 61–75
[2020-11-22] MEDS: HEPARIN for SUB-Q USE 5,000 UNIT/ML VIAL. SQ SCH ×3 (06:00→21:48)
[2020-11-22] MEDS: LEVOTHYROXINE 50 MCG TABLET PO SCH (06:31)
[2020-11-22] MEDS: IV NORMAL SALINE 1000ML BAG 1,000 ML IV SCH ×3 (06:33→21:40)
--- NOTE | 2020-11-22 06:48 | RAD ---
CLINICAL HISTORY: PRAVEENA COMPARISON: None available. TECHNIQUE: Ultrasound examination of the bilateral kidneys and urinary bladder was performed. FINDINGS: The right kidney measures 13.2 cm in bipolar length. The renal cortex is normal in thickness. Renal e chogenicity is normal. There is no evidence for hydronephrosis, shadowing renal calculus or focal ab normality . The left kidney measures 12.6 cm in bipolar length. The renal cortex is normal in thickness. Renal ec hogenicity is normal. There is no evidence for hydronephrosis, shadowing renal calculus or focal abno rmality. Images of the partially filled urinary bladder are unremarkable. IMPRESSION: Normal sonographic survey of the kidneys and bladder. Electronically signed by: Aman London MD (11/22/2020 6:45 AM) BAL
--- NOTE | 2020-11-22 08:32 | PDOC ---
PULMONARY PROGRESS NOTES DATE: 11/22/20 TIME: 08:32 Subjective Remains on room air, continues to be hoarse NO SOA, No cough Vitals Vital Signs Date Time Temp Pulse Resp B/P (MAP) Pulse Ox O2 Delivery O2 Flow Rate FiO2 11/22/20 03:00 97.7 88 20 107/72 (84) 97 Room Air 97.7 11/21/20 21:06 10.0 ROS: No Nausea, No Chest Pain, No Abdominal Pain, No Increase Cough General: Alert, No acute distress Lungs: Clear Cardiovascular: S1 Abdomen: Soft Neuro Exam: Alert Extremities: No Edema Skin: Warm Labs Laboratory Tests Test 11/20/20 08:48 11/20/20 12:22 11/20/20 16:31 11/20/20 21:04 White Blood Count 9.4 x10^3/uL (4.0-11.0) Red Blood Count 4.05 x10^6/uL (4.30-5.70) Hemoglobin 11.1 g/dL (13.0-17.5) Hematocrit 33.7 % (39.0-53.0) Mean Corpuscular Volume 83 fL (79-100) Mean Corpuscular Hemoglobin 27 pg (25-35) Mean Corpuscular Hemoglobin Concent 33 g/dL (31-37) Red Cell Distribution Width 14.5 % (11.5-14.5) Platelet Count 367 x10^3/uL (140-400) Neutrophils (%) (Auto) 76 % (31-73) Lymphocytes (%) (Auto) 16 % (24-48) Monocytes (%) (Auto) 7 % (0-9) Eosinophils (%) (Auto) 0 % (0-3) Basophils (%) (Auto) 0 % (0-3) Neutrophils # (Auto) 7.2 x10^3/uL (1.8-7.7) Lymphocytes # (Auto) 1.5 x10^3/uL (1.0-4.8) Monocytes # (Auto) 0.7 x10^3/uL (0.0-1.1) Eosinophils # (Auto) 0.0 x10^3/uL (0.0-0.7) Basophils # (Auto) 0.0 x10^3/uL (0.0-0.2) Prothrombin Time 13.8 SEC (11.7-14.0) Prothromb Time International Ratio 1.1 (0.8-1.1) Sodium Level 137 mmol/L (136-145) Potassium Level 3.7 mmol/L (3.5-5.1) Chloride Level 101 mmol/L (98-107) Carbon Dioxide Level 23 mmol/L (21-32) Anion Gap 13 (6-14) Blood Urea Nitrogen 33 mg/dL (8-26) Creatinine 3.0 mg/dL (0.7-1.3) Estimated GFR (Cockcroft-Gault) 21.4 Glucose Level 121 mg/dL (70-99) Calcium Level 9.0 mg/dL (8.5-10.1) Glucose (Fingerstick) 122 mg/dL (70-99) 102 mg/dL (70-99) 109 mg/dL (70-99) Test 11/21/20 06:10 11/21/20 07:19 11/21/20 10:52 11/21/20 17:34 White Blood Count 8.1 x10^3/uL (4.0-11.0) Red Blood Count 3.78 x10^6/uL (4.30-5.70) Hemoglobin 10.5 g/dL (13.0-17.5) Hematocrit 31.2 % (39.0-53.0) Mean Corpuscular Volume 83 fL (79-100) Mean Corpuscular Hemoglobin 28 pg (25-35) Mean Corpuscular Hemoglobin Concent 34 g/dL (31-37) Red Cell Distribution Width 14.7 % (11.5-14.5) Platelet Count 299 x10^3/uL (140-400) Neutrophils (%) (Auto) 73 % (31-73) Lymphocytes (%) (Auto) 19 % (24-48) Monocytes (%) (Auto) 7 % (0-9) Eosinophils (%) (Auto) 1 % (0-3) Basophils (%) (Auto) 1 % (0-3) Neutrophils # (Auto) 5.9 x10^3/uL (1.8-7.7) Lymphocytes # (Auto) 1.5 x10^3/uL (1.0-4.8) Monocytes # (Auto) 0.6 x10^3/uL (0.0-1.1) Eosinophils # (Auto) 0.0 x10^3/uL (0.0-0.7) Basophils # (Auto) 0.1 x10^3/uL (0.0-0.2) Sodium Level 135 mmol/L (136-145) Potassium Level 3.1 mmol/L (3.5-5.1) Chloride Level 101 mmol/L (98-107) Carbon Dioxide Level 22 mmol/L (21-32) Anion Gap 12 (6-14) Blood Urea Nitrogen 27 mg/dL (8-26) Creatinine 2.7 mg/dL (0.7-1.3) Estimated GFR (Cockcroft-Gault) 24.1 BUN/Creatinine Ratio 10 (6-20) Glucose Level 112 mg/dL (70-99) Calcium Level 8.7 mg/dL (8.5-10.1) Total Bilirubin 0.4 mg/dL (0.2-1.0) Aspartate Amino Transf (AST/SGOT) 25 U/L (15-37) Alanine Aminotransferase (ALT/SGPT) 15 U/L (16-63) Alkaline Phosphatase 83 U/L (46-116) Total Protein 6.5 g/dL (6.4-8.2) Albumin 1.8 g/dL (3.4-5.0) Albumin/Globulin Ratio 0.4 (1.0-1.7) Glucose (Fingerstick) 113 mg/dL (70-99) 157 mg/dL (70-99) 126 mg/dL (70-99) Test 11/21/20 20:36 11/22/20 07:16 Glucose (Fingerstick) 137 mg/dL (70-99) 121 mg/dL (70-99) Laboratory Tests Test 11/21/20 10:52 11/21/20 17:34 11/21/20 20:36 11/22/20 07:16 Glucose (Fingerstick) 157 mg/dL (70-99) 126 mg/dL (70-99) 137 mg/dL (70-99) 121 mg/dL (70-99) Medications Active Scripts Medications Dose Route/Sig Max Daily Dose Days Date Category Tramadol Hcl 50 Mg Tablet 50 Mg PO DAILY PRN 11/19/20 Reported Aspirin 81 Mg Tab.chew 2 Tab PO HS 11/19/20 Reported Cyclobenzaprine Hcl 10 Mg Tablet 1 Tab PO TID PRN 11/19/20 Reported Famotidine 40 Mg Tablet 40 Mg PO BID 11/19/20 Reported Losartan-Hctz 50-12.5 Mg Tab (Losartan/Hydrochlorothiazide) 1 Each Tablet 1 Tab PO DAILY 11/19/20 Reported Coreg (Carvedilol) 12.5 Mg Tablet 12.5 Mg PO BIDWMEALS 11/19/20 Reported Levothyroxine Sodium 50 Mcg Tablet 1 Tab PO DAILY 11/19/20 Reported Crestor (Rosuvastatin Calcium) 40 Mg Tablet 20 Mg PO HS 11/19/20 Reported [imdur] 120 Mg PO DAILY 11/19/20 Reported Metformin Hcl 500 Mg Tablet 500 Mg PO BIDWMEALS 11/19/[address] chest IMPRESSION: Right hilar mass causing occlusion of the right middle and right lower lobes, associated with bulky mediastinal adenopathy. These are findings concerning for a primary lung malignancy. Recommend correlation with PET CT imaging and/or bronchoscopic findings. There is only a small right pleural effusion present, likely not sufficient to merit attempt at thoracentesis although could be assessed with ultrasound if so desired.. Impression . 1. Dyspnea in a patient who is 59 years old, has significant volume loss right lower lobe ct chest findings c/w Primary lung malignancy. . He has a 30-pound weight loss in the last few months and overall 90-pound weight loss in past year and half. The etiology of his symptoms and x-rays concerning for malignancy. 2. History of COVID-19 pneumonia diagnosed in 09/2020. 3. Long history of tobacco use for 45 years, suspect underlying chronic obstructive pulmonary disease. 4. History of coronary artery disease with multiple stents placed. 5. 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 Plan . Patient is stable from a respiratory standpoint, remains on room air Follow hematology/oncology recommendations, currently awaiting biopsy results CT of the chest reviewed. Large right hilar mass with compression of RML/ RUL/ Mediastinal adenopathy, highly suggestive of lung primary S/P bronch on 11/20/20--Significant extrinsic compression of all the subsegments of the right upper lobe, but no endobronchial lesion seen---Significant extrinsic compression of the bronchus intermedius. s/p mucosal bx, await results.If non-diagnostic, consider ct guided lung mass Bx. left vocal cord paralysis Empiric antibiotic, now on p.o. cefdinir ECHO- EF WNL Neg venous Dopplers of lower extremities Follow Cardiology recommendation DVT/GI PPX Discussed with RN and Patient Disposition: Could discharge home in the next 24 to 48 hours once pathology from bronchoscopy is resulted and hematology and oncology is okay with discharge. Follow-up in the pulmonary office in January PRESTON VILLALPANDO MD Nov 22, 2020 08:32
--- NOTE | 2020-11-22 08:33 | PDOC2 ---
CONSULT Date of Consult Date of Consult DATE: 11/22/20 TIME: 08:26 Reason for Consult Reason for Consult: Suspected lung cancer Referring Physician Referring Physician: Dr. Santiago Identification/Chief Complaint Chief Complaint Shortness of breath Source Source: Chart review, Patient History of Present Illness Reason for Visit: Michele Abdul is a 59-year-old male with history of tobacco abuse and coronary artery disease who has been admitted to the hospital for further evaluation and management of suspected lung cancer. Michele reports that he has had progressively worsening dyspnea and chest pain over the past 3 weeks. He reports having had a stress test a week ago that he has not heard results of. He was seen in the [facility] emergency room. He received a CT chest for further evaluation of his symptoms. CT showed bulky mediastinal adenopathy with the largest lymph node measuring 3.5 cm in short axis diameter in the right lower paratracheal angy station. In addition, a right hilar mass was also noted, poorly delineated around the enlarged lymph nodes but circumferentially encasing and narrowing the right bronchus intermedius to occlusion. He has been seen by pulmonology and received bronchoscopy. This showed significant extrinsic compression of all the subsegments of the right upper lobe, but no endobronchial lesion. There was also significant compression of the bronchus intermedius. Biopsies were obtained and are pending at this time. Oncology consultation has been sought due to suspected malignancy Past Medical History Cardiovascular: HTN Endocrine: Diabetes, Hypothyroidism Social History <1 pack per day ALCOHOL: none Drugs: None Lives: with Family Current Medications Current Medications Current Medications Sodium Chloride 1,000 ml @ 100 mls/hr Q10H IV Last administered on 11/22/20at 06:33; Start 11/18/20 at 20:00 Furosemide (Lasix) 40 mg 1X ONCE IVP Last administered on 11/18/20at 21:47; Start 11/18/20 at 21:15; Stop 11/18/20 at 21:16; Status DC Ondansetron HCl (Zofran) 4 mg PRN Q6HRS PRN IVP NAUSEA/VOMITING; Start 11/18/20 at 20:15 Al Hydroxide/Mg Hydroxide (Mylanta Plus Xs) 30 ml PRN Q3HRS PRN PO HEARTBURN / GAS; Start 11/18/20 at 20:15; Stop 11/21/20 at 14:55; Status DC Calcium Carbonate/ Glycine (Tums) 500 mg PRN Q3HRS PRN PO UPSET STOMACH; Start 11/18/20 at 20:15 Zolpidem Tartrate (Ambien) 5 mg PRN QHS PRN PO INSOMNIA, MAY REPEAT IN 1HR; Start 11/18/20 at 20:15 Morphine Sulfate (Morphine Sulfate) 2 mg PRN Q1HR PRN IV PAIN; Start 11/18/20 at 20:15 Acetaminophen (Tylenol) 650 mg PRN Q6HRS PRN PO Headaches, Temp > 101.5F; Start 11/18/20 at 20:15 Magnesium Hydroxide (Milk Of Magnesia) 2,400 mg PRN Q12HR PRN PO CONSTIPATION; Start 11/18/20 at 20:15; Stop 11/21/20 at 14:55; Status DC Bisacodyl (Dulcolax Supp) 10 mg PRN DAILY PRN [place] CONSTIPATION; Start 11/18/20 at 20:15 Enoxaparin Sodium (Lovenox 40mg Syringe) 40 mg Q24H SQ Last administered on 11/18/20at 21:47; Start 11/18/20 at 21:30; Stop 11/19/20 at 08:44; Status DC Ceftriaxone Sodium (Rocephin) 1 gm Q24H IVP Last administered on 11/21/20at 09:48; Start 11/19/20 at 09:00; Stop 11/21/20 at 15:38; Status DC Aspirin (Aspirin Chewable) 162 mg HS PO Last administered on 11/21/20at 09:46; Start 11/19/20 at 21:00 Carvedilol (Coreg) 12.5 mg BIDWMEALS PO Last administered on 11/21/20at 09:46; Start 11/19/20 at 17:00 Cyclobenzaprine HCl (Flexeril) 10 mg PRN TID PRN PO MUSCLE PAIN Last administered on 11/21/20at 10:05; Start 11/19/20 at 10:45 Levothyroxine Sodium (Synthroid) 50 mcg DAILY06 PO Last administered on 11/22/20at 06:31; Start 11/19/20 at 12:00 Tramadol HCl (Ultram) 50 mg PRN DAILY PRN PO PAIN Last administered on 11/21/20at 20:06; Start 11/19/20 at 10:45 Famotidine (Pepcid) 20 mg BID PO Last administered on 11/21/20at 20:05; Start 11/19/20 at 12:00 Losartan Potassium (Cozaar) 50 mg DAILY PO Last administered on 11/21/20at 09:45; Start 11/19/20 at 12:00 Atorvastatin Calcium (Lipitor) 80 mg QHS PO Last administered on 11/21/20at 20:06; Start 11/19/20 at 21:00 Isosorbide Mononitrate (Imdur) 120 mg DAILY PO Last administered on 11/21/20at 09:47; Start 11/20/20 at 09:00 Hydrochlorothiazide (Microzide) 12.5 mg DAILY PO Last administered on 11/21/20at 09:47; Start 11/19/20 at 12:00 Albuterol Sulfate (Ventolin Neb Soln) 2.5 mg PRN 1X PRN NEB SHORTNESS OF BREATH Last administered on 11/20/20at 10:32; Start 11/20/20 at 09:00; Stop 11/21/20 at 08:59; Status DC Lidocaine HCl (Lidocaine 2% Viscous) 100 ml PRN 1X PRN MM FOR PROCEDURE Last administered on 11/20/20at 10:28; Start 11/20/20 at 09:00; Stop 11/21/20 at 08:59; Status DC Lidocaine HCl (Lidocaine 1% 20ml Vial) 20 ml PRN 1X PRN INJ SEE COMMENTS Last administered on 11/20/20at 10:32; Start 11/20/20 at 09:00; Stop 11/21/20 at 08:59; Status DC Epinephrine HCl (Adrenalin) 1 mg PRN 1X PRN INJ SEE COMMENTS Last administered on 11/20/20at 11:30; Start 11/20/20 at 09:00; Stop 11/21/20 at 08:59; Status DC Lidocaine HCl (Lidocaine 4% Topical) 50 ml PRN 1X PRN MM SEE COMMENTS Last administered on 11/20/20at 10:33; Start 11/20/20 at 09:00; Stop 11/21/20 at 0 8:59; Status DC Epinephrine HCl (Adrenalin) 1 mg STK-MED ONCE .ROUTE ; Start 11/20/20 at 09:04; Stop 11/20/20 at 09:04; Status DC Lidocaine HCl (Lidocaine 1% 20ml Vial) 20 ml STK-MED ONCE .ROUTE ; Start 11/20/20 at 09:04; Stop 11/20/20 at 09:04; Status DC Lidocaine HCl (Lidocaine 2% Viscous) 100 ml STK-MED ONCE .ROUTE ; Start 11/20/20 at 09:04; Stop 11/20/20 at 09:04; Status DC Lidocaine HCl (Lidocaine 4% Topical) 50 ml STK-MED ONCE .ROUTE ; Start 11/20/20 at 09:04; Stop 11/20/20 at 09:04; Status DC Ringer's Solution 1,000 ml @ 75 mls/hr 1X ONCE IV Last administered on 11/20/20at 10:25; Start 11/20/20 at 10:30; Stop 11/20/20 at 23:49; Status DC Propofol (Diprivan) 200 mg STK-MED ONCE IV ; Start 11/20/20 at 11:08; Stop 11/20/20 at 11:08; Status DC Lidocaine HCl (Lidocaine Pf 2% Vial) 5 ml STK-MED ONCE .ROUTE ; Start 11/20/20 at 11:08; Stop 11/20/20 at 11:08; Status DC Heparin Sodium (Porcine) (Heparin Sodium) 5,000 unit Q8HRS SQ Last administered on 11/21/20at 22:06; Start 11/21/20 at 22:00 Cefdinir (Omnicef) 300 mg QHS PO Last administered on 11/21/20at 20:05; Start 11/21/20 at 21:00 Active Scripts Active Reported Tramadol Hcl 50 Mg Tablet 50 Mg PO DAILY PRN Aspirin 81 Mg Tab.chew 2 Tab PO HS Cyclobenzaprine Hcl 10 Mg Tablet 1 Tab PO TID PRN Famotidine 40 Mg Tablet 40 Mg PO BID Losartan-Hctz 50-12.5 Mg Tab (Losartan/Hydrochlorothiazide) 1 Each Tablet 1 Tab PO DAILY Coreg (Carvedilol) 12.5 Mg Tablet 12.5 Mg PO BIDWMEALS Levothyroxine Sodium 50 Mcg Tablet 1 Tab PO DAILY Crestor (Rosuvastatin Calcium) 40 Mg Tablet 20 Mg PO HS [imdur] 120 Mg PO DAILY Metformin Hcl 500 Mg Tablet 500 Mg PO BIDWMEALS Allergies Allergies: Coded Allergies: No Known Drug Allergies (Unverified , 11/20/20) ROS General: YES: Fatigue, Malaise PSYCHOLOGICAL ROS: No: Hallucinations, Hostility Eyes: No Eye Pain, No Itchy Eyes HEENT: No: Oral lesions, Sinus pain Hematological and Lymphatic: No: Brusing, Night Sweats ENDOCRINE: YES: Malaise/lethargy Respiratory: YES: Cough, Pleuritic Pain, Shortness of breath Cardiovascular: No Palpitations Gastrointestinal: No Nausea, No Vomiting, No Abdominal Pain Genitourinary: No Dysuria, No Flank Pain Musculoskeletal: No Gait Disturbance, No Joint Pain Neurological: No Behavorial Changes, No Bowel/Bladder ControlChng Skin: No Dry Skin, No Eczema Physical Exam General: Alert, Oriented X3 HEENT: Atraumatic Lungs: Clear to auscultation Heart: Regular rate, Normal S1, Normal S2 Abdomen: Normal bowel sounds, Soft Extremities: No clubbing, No cyanosis Skin: No rashes Neuro: Normal speech Psych/Mental Status: Mental status NL MUSCULOSKELETAL: No deformity, No swelling Vitals VITALS Vital Signs Date Time Temp Pulse Resp B/P (MAP) Pulse Ox O2 Delivery O2 Flow Rate FiO2 11/22/20 03:00 97.7 88 20 107/72 (84) 97 Room Air 97.7 11/21/20 21:06 10.0 Labs Labs Laboratory Tests Test 11/20/20 08:48 11/20/20 12:22 11/20/20 16:31 11/20/20 21:04 White Blood Count 9.4 x10^3/uL (4.0-11.0) Red Blood Count 4.05 x10^6/uL (4.30-5.70) Hemoglobin 11.1 g/dL (13.0-17.5) Hematocrit 33.7 % (39.0-53.0) Mean Corpuscular Volume 83 fL (79-100) Mean Corpuscular Hemoglobin 27 pg (25-35) Mean Corpuscular Hemoglobin Concent 33 g/dL (31-37) Red Cell Distribution Width 14.5 % (11.5-14.5) Platelet Count 367 x10^3/uL (140-400) Neutrophils (%) (Auto) 76 % (31-73) Lymphocytes (%) (Auto) 16 % (24-48) Monocytes (%) (Auto) 7 % (0-9) Eosinophils (%) (Auto) 0 % (0-3) Basophils (%) (Auto) 0 % (0-3) Neutrophils # (Auto) 7.2 x10^3/uL (1.8-7.7) Lymphocytes # (Auto) 1.5 x10^3/uL (1.0-4.8) Monocytes # (Auto) 0.7 x10^3/uL (0.0-1.1) Eosinophils # (Auto) 0.0 x10^3/uL (0.0-0.7) Basophils # (Auto) 0.0 x10^3/uL (0.0-0.2) Prothrombin Time 13.8 SEC (11.7-14.0) Prothromb Time International Ratio 1.1 (0.8-1.1) Sodium Level 137 mmol/L (136-145) Potassium Level 3.7 mmol/L (3.5-5.1) Chloride Level 101 mmol/L (98-107) Carbon Dioxide Level 23 mmol/L (21-32) Anion Gap 13 (6-14) Blood Urea Nitrogen 33 mg/dL (8-26) Creatinine 3.0 mg/dL (0.7-1.3) Estimated GFR (Cockcroft-Gault) 21.4 Glucose Level 121 mg/dL (70-99) Calcium Level 9.0 mg/dL (8.5-10.1) Glucose (Fingerstick) 122 mg/dL (70-99) 102 mg/dL (70-99) 109 mg/dL (70-99) Test 11/21/20 06:10 11/21/20 07:19 11/21/20 10:52 11/21/20 17:34 White Blood Count 8.1 x10^3/uL (4.0-11.0) Red Blood Count 3.78 x10^6/uL (4.30-5.70) Hemoglobin 10.5 g/dL (13.0-17.5) Hematocrit 31.2 % (39.0-53.0) Mean Corpuscular Volume 83 fL (79-100) Mean Corpuscular Hemoglobin 28 pg (25-35) Mean Corpuscular Hemoglobin Concent 34 g/dL (31-37) Red Cell Distribution Width 14.7 % (11.5-14.5) Platelet Count 299 x10^3/uL (140-400) Neutrophils (%) (Auto) 73 % (31-73) Lymphocytes (%) (Auto) 19 % (24-48) Monocytes (%) (Auto) 7 % (0-9) Eosinophils (%) (Auto) 1 % (0-3) Basophils (%) (Auto) 1 % (0-3) Neutrophils # (Auto) 5.9 x10^3/uL (1.8-7.7) Lymphocytes # (Auto) 1.5 x10^3/uL (1.0-4.8) Monocytes # (Auto) 0.6 x10^3/uL (0.0-1.1) Eosinophils # (Auto) 0.0 x10^3/uL (0.0-0.7) Basophils # (Auto) 0.1 x10^3/uL (0.0-0.2) Sodium Level 135 mmol/L (136-145) Potassium Level 3.1 mmol/L (3.5-5.1) Chloride Level 101 mmol/L (98-107) Carbon Dioxide Level 22 mmol/L (21-32) Anion Gap 12 (6-14) Blood Urea Nitrogen 27 mg/dL (8-26) Creatinine 2.7 mg/dL (0.7-1.3) Estimated GFR (Cockcroft-Gault) 24.1 BUN/Creatinine Ratio 10 (6-20) Glucose Level 112 mg/dL (70-99) Calcium Level 8.7 mg/dL (8.5-10.1) Total Bilirubin 0.4 mg/dL (0.2-1.0) Aspartate Amino Transf (AST/SGOT) 25 U/L (15-37) Alanine Aminotransferase (ALT/SGPT) 15 U/L (16-63) Alkaline Phosphatase 83 U/L (46-116) Total Protein 6.5 g/dL (6.4-8.2) Albumin 1.8 g/dL (3.4-5.0) Albumin/Globulin Ratio 0.4 (1.0-1.7) Glucose (Fingerstick) 113 mg/dL (70-99) 157 mg/dL (70-99) 126 mg/dL (70-99) Test 11/21/20 20:36 11/22/20 07:16 Glucose (Fingerstick) 137 mg/dL (70-99) 121 mg/dL (70-99) Laboratory Tests Test 11/21/20 10:52 11/21/20 17:34 11/21/20 20:36 11/22/20 07:16 Glucose (Fingerstick) 157 mg/dL (70-99) 126 mg/dL (70-99) 137 mg/dL (70-99) 121 mg/dL (70-99) Assessment/Plan Assessment/Plan Assessment: Suspected lung cancer Coronary artery disease Tobacco use Normocytic anemia, likely anemia of chronic disease Recommendations: -Agree with following up results of bronchoscopy biopsy. Would recommend CT- guided lung biopsy if this is negative -Suspect primary lung cancer. He would require PET/CT and MRI brain that can be arranged as outpatient -No additional inpatient work-up required from my standpoint if bronchoscopy biopsy is diagnostic -Patient was provided contact information for my office for scheduling a follow- up visit. We will plan on seeing early next week to review results of biopsy and plan additional work-up -Continue to follow pulmonology recommendations -Rest per Dr. Lexa Burns MD Medical Oncology/Hematology Ph: [phone] ANASTASIYA BURNS MD Nov 22, 2020 08:33
--- NOTE | 2020-11-22 08:35 | PDOC ---
PROGRESS NOTES Date of Service: DATE: 11/22/20 TIME: 08:35 Chief Complaint Chief Complaint VTE Prophylaxis Ordered VTE Prophylaxis Devices: No VTE Pharmacological Prophylaxi: Yes IMPRESSION Assessment/Plan Right pleural effusion Right hilar mass causing occlusion of the right middle and right lower lobes, associated with bulky mediastinal adenopathy. findings concerning for a primary lung malignancy. // correlation with PET CT imaging and/or bronchoscopic findings. COVID-19 PUI NEG PRAVEENA Vasomotor nephropathy Elevated D-dimer Possible PE RULED OUT Severe malnutrition PRAVEENA, slow to improve require PET/CT and MRI brain that can be arranged as outpatient Plan: Patient's symptoms concerning for pneumonia no effusion Consult to pulmonology Provide IV fluids to resolve PRAVEENA; may be able to obtain CTA chest to rule out PE as well given possible hypercoagulable state when kidney function improves COVID-19 pending; if positive will treat symptomatically, patient currently breathing on room air Provide diuresis and repeat chest x-ray likely in a.m. or Thursday Resume home medications FEN - Cardiac diet PPX - Lovenox FULL CODE Dispo - inpatient for above ct chest NEPHROLOGY CONSULT AVOID NEPHROTOXIC DRUGS oncology consult 37 MIN PT EXAM, CHART REVIEW, > 50% OF TIME SPENT WITH EXAM, CHART REVIEW, PT CARE COORDINATUION Justifications for Admission Justifications for Admission Other Justification History of Present Illness History of Present Illness Identification/Chief Complaint Chief Complaint Shortness of breath Source Source: Chart review, Patient History of Present Illness History of Present Illness Patient is a 59-year-old male past medical history CAD, who presents as a transfer from [facility] for concerns of malignant pleural effusion. Reports worsening shortness of breath over the past 2 to 3 weeks. Symptoms are worse with exertion, but he denies any chest pain. He does admit to approximately 90 pound unintentional weight loss over the past year. He is a former smoker, and reports significant coronary artery disease with history of 11 stents. His most recent stress test was 2 days ago and he is not aware of these results. He denies any history of blood clots, is not on anticoagulation, but does take daily aspirin. He was diagnosed with COVID-19 earlier in September 2020. Chest x-ray obtained at [facility] showed right pleural effusion with right basilar atelectasis or infiltrate. Given this medical history, patient was transferred to [facility] for further evaluation with cardiology consult. Labs obtained from [facility]: WBC 14.8, D-dimer 2.23, BNP 531, albumin 2.1 Past Medical History Past Medical History CAD, AL, GERD Past Surgical History Past Surgical History Tonsillectomy Social History Smoke: <1 pack per day ALCOHOL: none Drugs: None ROS Review of System GENERAL: Unintentional weight loss. Denies weakness or fevers. SKIN: No bruising, hair changes or rashes. EYES: No blurred, double or loss of vision. NOSE AND THROAT: No history of nosebleeds, hoarseness or sore throat. HEART: Denies chest pain, denies palpitations. LUNGS: Shortness of breath. Denies cough, hemoptysis, wheezing. GASTROINTESTINAL: Denies nausea, vomiting, abdominal pain. GENITOURINARY: Denies dysuria, frequency, urgency, hematuria. NEUROLOGIC: Denies history of numbness, tingling, tremor or weakness. PSYCHIATRIC: Denies anxiety, denies depression. ENDOCRINE: No history of heat or cold intolerance, polyuria or polydipsia. EXTREMITIES: Denies muscle weakness, joint pain, pain on walking or stiffness. Vitals Vitals Vital Signs Date Time Temp Pulse Resp B/P (MAP) Pulse Ox O2 Delivery O2 Flow Rate FiO2 11/22/20 03:00 97.7 88 20 107/72 (84) 97 Room Air 97.7 11/21/20 21:06 10.0 Physical Exam Physical Exam Physical Exam Physical Exam General: Cachectic appearing. Alert, Oriented X3, Cooperative, No acute distress HEENT: PERRLA, EOMI Lungs: Decreased breath sounds on right lung base, Normal air movement Heart: RRR, no murmurs Cardiovascular: S1, S2 Abdomen: Normal bowel sounds, Soft, No tenderness Extremities: No clubbing, No cyanosis Skin: No rashes, No significant lesion Neuro: Normal speech, Normal tone, Sensation intact Psych/Mental Status: Mental status NL, Mood NL General: Alert, Oriented X3 Heart: Regular rate, Normal S1, Normal S2 Lungs: Clear Abdomen: Normal bowel sounds, Soft Extremities: No clubbing, No cyanosis Skin: No rashes Labs LABS Laboratory Tests Test 11/21/20 10:52 11/21/20 17:34 11/21/20 20:36 11/22/20 07:16 Glucose (Fingerstick) 157 mg/dL (70-99) 126 mg/dL (70-99) 137 mg/dL (70-99) 121 mg/dL (70-99) Comment Review of Relevant I have reviewed the following items ranjit (where applicable) has been applied. Labs Laboratory Tests Test 11/20/20 08:48 11/20/20 12:22 11/20/20 16:31 11/20/20 21:04 White Blood Count 9.4 x10^3/uL (4.0-11.0) Red Blood Count 4.05 x10^6/uL (4.30-5.70) Hemoglobin 11.1 g/dL (13.0-17.5) Hematocrit 33.7 % (39.0-53.0) Mean Corpuscular Volume 83 fL (79-100) Mean Corpuscular Hemoglobin 27 pg (25-35) Mean Corpuscular Hemoglobin Concent 33 g/dL (31-37) Red Cell Distribution Width 14.5 % (11.5-14.5) Platelet Count 367 x10^3/uL (140-400) Neutrophils (%) (Auto) 76 % (31-73) Lymphocytes (%) (Auto) 16 % (24-48) Monocytes (%) (Auto) 7 % (0-9) Eosinophils (%) (Auto) 0 % (0-3) Basophils (%) (Auto) 0 % (0-3) Neutrophils # (Auto) 7.2 x10^3/uL (1.8-7.7) Lymphocytes # (Auto) 1.5 x10^3/uL (1.0-4.8) Monocytes # (Auto) 0.7 x10^3/uL (0.0-1.1) Eosinophils # (Auto) 0.0 x10^3/uL (0.0-0.7) Basophils # (Auto) 0.0 x10^3/uL (0.0-0.2) Prothrombin Time 13.8 SEC (11.7-14.0) Prothromb Time International Ratio 1.1 (0.8-1.1) Sodium Level 137 mmol/L (136-145) Potassium Level 3.7 mmol/L (3.5-5.1) Chloride Level 101 mmol/L (98-107) Carbon Dioxide Level 23 mmol/L (21-32) Anion Gap 13 (6-14) Blood Urea Nitrogen 33 mg/dL (8-26) Creatinine 3.0 mg/dL (0.7-1.3) Estimated GFR (Cockcroft-Gault) 21.4 Glucose Level 121 mg/dL (70-99) Calcium Level 9.0 mg/dL (8.5-10.1) Glucose (Fingerstick) 122 mg/dL (70-99) 102 mg/dL (70-99) 109 mg/dL (70-99) Test 11/21/20 06:10 11/21/20 07:19 11/21/20 10:52 11/21/20 17:34 White Blood Count 8.1 x10^3/uL (4.0-11.0) Red Blood Count 3.78 x10^6/uL (4.30-5.70) Hemoglobin 10.5 g/dL (13.0-17.5) Hematocrit 31.2 % (39.0-53.0) Mean Corpuscular Volume 83 fL (79-100) Mean Corpuscular Hemoglobin 28 pg (25-35) Mean Corpuscular Hemoglobin Concent 34 g/dL (31-37) Red Cell Distribution Width 14.7 % (11.5-14.5) Platelet Count 299 x10^3/uL (140-400) Neutrophils (%) (Auto) 73 % (31-73) Lymphocytes (%) (Auto) 19 % (24-48) Monocytes (%) (Auto) 7 % (0-9) Eosinophils (%) (Auto) 1 % (0-3) Basophils (%) (Auto) 1 % (0-3) Neutrophils # (Auto) 5.9 x10^3/uL (1.8-7.7) Lymphocytes # (Auto) 1.5 x10^3/uL (1.0-4.8) Monocytes # (Auto) 0.6 x10^3/uL (0.0-1.1) Eosinophils # (Auto) 0.0 x10^3/uL (0.0-0.7) Basophils # (Auto) 0.1 x10^3/uL (0.0-0.2) Sodium Level 135 mmol/L (136-145) Potassium Level 3.1 mmol/L (3.5-5.1) Chloride Level 101 mmol/L (98-107) Carbon Dioxide Level 22 mmol/L (21-32) Anion Gap 12 (6-14) Blood Urea Nitrogen 27 mg/dL (8-26) Creatinine 2.7 mg/dL (0.7-1.3) Estimated GFR (Cockcroft-Gault) 24.1 BUN/Creatinine Ratio 10 (6-20) Glucose Level 112 mg/dL (70-99) Calcium Level 8.7 mg/dL (8.5-10.1) Total Bilirubin 0.4 mg/dL (0.2-1.0) Aspartate Amino Transf (AST/SGOT) 25 U/L (15-37) Alanine Aminotransferase (ALT/SGPT) 15 U/L (16-63) Alkaline Phosphatase 83 U/L (46-116) Total Protein 6.5 g/dL (6.4-8.2) Albumin 1.8 g/dL (3.4-5.0) Albumin/Globulin Ratio 0.4 (1.0-1.7) Glucose (Fingerstick) 113 mg/dL (70-99) 157 mg/dL (70-99) 126 mg/dL (70-99) Test 11/21/20 20:36 11/22/20 07:16 Glucose (Fingerstick) 137 mg/dL (70-99) 121 mg/dL (70-99) Laboratory Tests Test 11/21/20 10:52 11/21/20 17:34 11/21/20 20:36 11/22/20 07:16 Glucose (Fingerstick) 157 mg/dL (70-99) 126 mg/dL (70-99) 137 mg/dL (70-99) 121 mg/dL (70-99) Medications Current Medications Sodium Chloride 1,000 ml @ 100 mls/hr Q10H IV Last administered on 11/22/20at 06:33; Start 11/18/20 at 20:00 Furosemide (Lasix) 40 mg 1X ONCE IVP Last administered on 11/18/20at 21:47; Start 11/18/20 at 21:15; Stop 11/18/20 at 21:16; Status DC Ondansetron HCl (Zofran) 4 mg PRN Q6HRS PRN IVP NAUSEA/VOMITING; Start 11/18/20 at 20:15 Al Hydroxide/Mg Hydroxide (Mylanta Plus Xs) 30 ml PRN Q3HRS PRN PO HEARTBURN / GAS; Start 11/18/20 at 20:15; Stop 11/21/20 at 14:55; Status DC Calcium Carbonate/ Glycine (Tums) 500 mg PRN Q3HRS PRN PO UPSET STOMACH; Start 11/18/20 at 20:15 Zolpidem Tartrate (Ambien) 5 mg PRN QHS PRN PO INSOMNIA, MAY REPEAT IN 1HR; Start 11/18/20 at 20:15 Morphine Sulfate (Morphine Sulfate) 2 mg PRN Q1HR PRN IV PAIN; Start 11/18/20 at 20:15 Acetaminophen (Tylenol) 650 mg PRN Q6HRS PRN PO Headaches, Temp > 101.5F; Start 11/18/20 at 20:15 Magnesium Hydroxide (Milk Of Magnesia) 2,400 mg PRN Q12HR PRN PO CONSTIPATION; Start 11/18/20 at 20:15; Stop 11/21/20 at 14:55; Status DC Bisacodyl (Dulcolax Supp) 10 mg PRN DAILY PRN FL CONSTIPATION; Start 11/18/20 at 20:15 Enoxaparin Sodium (Lovenox 40mg Syringe) 40 mg Q24H SQ Last administered on 11/18/20at 21:47; Start 11/18/20 at 21:30; Stop 11/19/20 at 08:44; Status DC Ceftriaxone Sodium (Rocephin) 1 gm Q24H IVP Last administered on 11/21/20at 09:48; Start 11/19/20 at 09:00; Stop 11/21/20 at 15:38; Status DC Aspirin (Aspirin Chewable) 162 mg HS PO Last administered on 11/21/20at 09:46; Start 11/19/20 at 21:00 Carvedilol (Coreg) 12.5 mg BIDWMEALS PO Last administered on 11/21/20at 09:46; Start 11/19/20 at 17:00 Cyclobenzaprine HCl (Flexeril) 10 mg PRN TID PRN PO MUSCLE PAIN Last administered on 11/21/20 10:05; Start 11/19/20 at 10:45 Levothyroxine Sodium (Synthroid) 50 mcg DAILY06 PO Last administered on 11/22/20 06:31; Start 11/19/20 at 12:00 Tramadol HCl (Ultram) 50 mg PRN DAILY PRN PO PAIN Last administered on 11/21/20 20:06; Start 11/19/20 at 10:45 Famotidine (Pepcid) 20 mg BID PO Last administered on 11/21/20 20:05; Start 11/19/20 at 12:00 Losartan Potassium (Cozaar) 50 mg DAILY PO Last administered on 11/21/20 09:45; Start 11/19/20 at 12:00 Atorvastatin Calcium (Lipitor) 80 mg QHS PO Last administered on 11/21/20 20:06; Start 11/19/20 at 21:00 Isosorbide Mononitrate (Imdur) 120 mg DAILY PO Last administered on 11/21/20at 09:47; Start 11/20/20 at 09:00 Hydrochlorothiazide (Microzide) 12.5 mg DAILY PO Last administered on 11/21/20 09:47; Start 11/19/20 at 12:00 Albuterol Sulfate (Ventolin Neb Soln) 2.5 mg PRN 1X PRN NEB SHORTNESS OF BREATH Last administered on 11/20/20 10:32; Start 11/20/20 at 09:00; Stop 11/21/20 at 08:59; Status DC Lidocaine HCl (Lidocaine 2% Viscous) 100 ml PRN 1X PRN MM FOR PROCEDURE Last administered on 11/20/20 10:28; Start 11/20/20 at 09:00; Stop 11/21/20 at 08:59; Status DC Lidocaine HCl (Lidocaine 1% 20ml Vial) 20 ml PRN 1X PRN INJ SEE COMMENTS Last administered on 11/20/20 10:32; Start 11/20/20 at 09:00; Stop 11/21/20 at 08:59; Status DC Epinephrine HCl (Adrenalin) 1 mg PRN 1X PRN INJ SEE COMMENTS Last administered on 11/20/20 11:30; Start 11/20/20 at 09:00; Stop 11/21/20 at 08:59; Status DC Lidocaine HCl (Lidocaine 4% Topical) 50 ml PRN 1X PRN MM SEE COMMENTS Last administered on 11/20/20at 10:33; Start 11/20/20 at 09:00; Stop 11/21/20 at 08:59; Status DC Epinephrine HCl (Adrenalin) 1 mg STK-MED ONCE .ROUTE ; Start 11/20/20 at 09:04; Stop 11/20/20 at 09:04; Status DC Lidocaine HCl (Lidocaine 1% 20ml Vial) 20 ml STK-MED ONCE .ROUTE ; Start 11/20/20 at 09:04; Stop 11/20/20 at 09:04; Status DC Lidocaine HCl (Lidocaine 2% Viscous) 100 ml STK-MED ONCE .ROUTE ; Start 11/20/20 at 09:04; Stop 11/20/20 at 09:04; Status DC Lidocaine HCl (Lidocaine 4% Topical) 50 ml STK-MED ONCE .ROUTE ; Start 11/20/20 at 09:04; Stop 11/20/20 at 09:04; Status DC Ringer's Solution 1,000 ml @ 75 mls/hr 1X ONCE IV Last administered on 11/20/20at 10:25; Start 11/20/20 at 10:30; Stop 11/20/20 at 23:49; Status DC Propofol (Diprivan) 200 mg STK-MED ONCE IV ; Start 11/20/20 at 11:08; Stop 11/20/20 at 11:08; Status DC Lidocaine HCl (Lidocaine Pf 2% Vial) 5 ml STK-MED ONCE .ROUTE ; Start 11/20/20 at 11:08; Stop 11/20/20 at 11:08; Status DC Heparin Sodium (Porcine) (Heparin Sodium) 5,000 unit Q8HRS SQ Last administered on 11/21/20at 22:06; Start 11/21/20 at 22:00 Cefdinir (Omnicef) 300 mg QHS PO Last administered on 11/21/20at 20:05; Start 11/21/20 at 21:00 Active Scripts Active Reported Tramadol Hcl 50 Mg Tablet 50 Mg PO DAILY PRN Aspirin 81 Mg Tab.chew 2 Tab PO HS Cyclobenzaprine Hcl 10 Mg Tablet 1 Tab PO TID PRN Famotidine 40 Mg Tablet 40 Mg PO BID Losartan-Hctz 50-12.5 Mg Tab (Losartan/Hydrochlorothiazide) 1 Each Tablet 1 Tab PO DAILY Coreg (Carvedilol) 12.5 Mg Tablet 12.5 Mg PO BIDWMEALS Levothyroxine Sodium 50 Mcg Tablet 1 Tab PO DAILY Crestor (Rosuvastatin Calcium) 40 Mg Tablet 20 Mg PO HS [imdur] 120 Mg PO DAILY Metformin Hcl 500 Mg Tablet 500 Mg PO BIDWMEALS Vitals/I & O Vital Sign - Last 24 Hours 11/21/20 11/21/20 11/21/20 11/21/20 09:45 09:46 09:47 11:00 Temp 98.1 98.1 Pulse 91 91 91 91 Resp 16 B/P (MAP) 109/76 109/76 109/76 100/65 (77) Pulse Ox 95 O2 Delivery Room Air 11/21/20 11/21/20 11/21/20 11/21/20 15:00 15:00 17:00 19:00 Temp 98.0 97.9 98.0 97.9 Pulse 88 88 79 Resp 18 22 B/P (MAP) 93/56 (68) 96/57 (70) 96/57 96/53 (67) Pulse Ox 97 96 O2 Delivery Room Air Room Air 11/21/20 11/21/20 11/21/20 11/21/20 20:00 20:06 21:06 23:00 Temp 97.9 97.9 Pulse 90 Resp 20 18 20 B/P (MAP) 111/69 (83) Pulse Ox 97 97 95 O2 Delivery Room Air Room Air Room Air Room Air O2 Flow Rate 10.0 11/22/20 03:00 Temp 97.7 97.7 Pulse 88 Resp 20 B/P (MAP) 107/72 (84) Pulse Ox 97 O2 Delivery Room Air Intake and Output 11/21/20 11/21/20 11/22/20 15:00 23:00 07:00 Intake Total 500 ml 260 ml Output Total 250 ml 800 ml Balance 500 ml 10 ml -800 ml Justicifation of Admission Dx: Justifications for Admission: Justification of Admission Dx: Yes Respiratory Failure: Severe Resp Distress Comminuty Aquired Pneumonia: Complicated pleural effus DON BURTON MD Nov 22, 2020 08:35
[2020-11-22 09:30] LABS: BASO # 0.1 x10^3/uL (0.0-0.2); BASO % 1 % (0-3); EOS # 0.1 x10^3/uL (0.0-0.7); EOS % 1 % (0-3); HEMOGLOBIN 9.8 g/dL (13.0-17.5); LYMPH # 1.7 x10^3/uL (1.0-4.8); LYMPH % 19 % (24-48); MEAN CORPUSCULAR HEMOGLOBIN 27 pg (25-35); MEAN CORPUSCULAR HGB CONC 33 g/dL (31-37); MEAN CORPUSCULAR VOLUME 83 fL (79-100); MONO # 0.7 x10^3/uL (0.0-1.1); MONO % 8 % (0-9); NEUT # 6.4 x10^3/uL (1.8-7.7); NEUT % 72 % (31-73); PLATELET COUNT 318 x10^3/uL (140-400); RED BLOOD COUNT 3.62 x10^6/uL (4.30-5.70); RED CELL DISTRIBUTION WIDTH 14.7 % (11.5-14.5); WHITE BLOOD COUNT 8.9 x10^3/uL (4.0-11.0)
[2020-11-22] MEDS: hydroCHLOROthiazide 12.5 MG CAPSULE PO SCH (09:51)
[2020-11-22] MEDS: ISOSORBIDE MONONITRATE ER 30 MG TAB.ER.24H PO SCH (09:51)
[2020-11-22] MEDS: FAMOTIDINE 20 MG TABLET. PO SCH ×2 (09:51→21:40)
[2020-11-22] MEDS: LOSARTAN POTASSIUM 50 MG TABLET. PO SCH (09:52)
[2020-11-22] MEDS: CARVEDILOL 12.5 MG TABLET. PO SCH ×2 (09:52→18:36)
[2020-11-22 10:09] LABS: ALBUMIN 1.8 g/dL (3.4-5.0); ALBUMIN/GLOBULIN RATIO 0.4 (1.0-1.7); CALCIUM 8.8 mg/dL (8.5-10.1); CREATININE 2.3 mg/dL (0.7-1.3); GFR 29.1; POTASSIUM 3.4 mmol/L (3.5-5.1); TOTAL BILIRUBIN 0.4 mg/dL (0.2-1.0); TOTAL PROTEIN 6.6 g/dL (6.4-8.2)
--- NOTE | 2020-11-22 11:40 | PDOC ---
Renal-Progress Notes Vitals Vitals Vital Signs Date Time Temp Pulse Resp B/P (MAP) Pulse Ox O2 Delivery O2 Flow Rate FiO2 11/22/20 09:52 85 111/75 11/22/20 08:00 Room Air 11/22/20 07:00 97.7 16 93 97.7 11/21/20 21:06 10.0 Weight Weight [ ] I.O. Intake and Output Intake and Output 11/22/20 07:00 Intake Total 760 ml Output Total 1050 ml Balance -290 ml Intake Oral 760 ml Output Urine Total 1050 ml Labs Labs Laboratory Tests Test 11/21/20 17:34 11/21/20 20:36 11/22/20 07:16 11/22/20 08:35 Glucose (Fingerstick) 126 mg/dL (70-99) 137 mg/dL (70-99) 121 mg/dL (70-99) White Blood Count 8.9 x10^3/uL (4.0-11.0) Red Blood Count 3.62 x10^6/uL (4.30-5.70) Hemoglobin 9.8 g/dL (13.0-17.5) Hematocrit 30.0 % (39.0-53.0) Mean Corpuscular Volume 83 fL (79-100) Mean Corpuscular Hemoglobin 27 pg (25-35) Mean Corpuscular Hemoglobin Concent 33 g/dL (31-37) Red Cell Distribution Width 14.7 % (11.5-14.5) Platelet Count 318 x10^3/uL (140-400) Neutrophils (%) (Auto) 72 % (31-73) Lymphocytes (%) (Auto) 19 % (24-48) Monocytes (%) (Auto) 8 % (0-9) Eosinophils (%) (Auto) 1 % (0-3) Basophils (%) (Auto) 1 % (0-3) Neutrophils # (Auto) 6.4 x10^3/uL (1.8-7.7) Lymphocytes # (Auto) 1.7 x10^3/uL (1.0-4.8) Monocytes # (Auto) 0.7 x10^3/uL (0.0-1.1) Eosinophils # (Auto) 0.1 x10^3/uL (0.0-0.7) Basophils # (Auto) 0.1 x10^3/uL (0.0-0.2) Sodium Level 137 mmol/L (136-145) Potassium Level 3.4 mmol/L (3.5-5.1) Chloride Level 103 mmol/L (98-107) Carbon Dioxide Level 24 mmol/L (21-32) Anion Gap 10 (6-14) Blood Urea Nitrogen 21 mg/dL (8-26) Creatinine 2.3 mg/dL (0.7-1.3) Estimated GFR (Cockcroft-Gault) 29.1 BUN/Creatinine Ratio 9 (6-20) Glucose Level 110 mg/dL (70-99) Calcium Level 8.8 mg/dL (8.5-10.1) Total Bilirubin 0.4 mg/dL (0.2-1.0) Aspartate Amino Transf (AST/SGOT) 26 U/L (15-37) Alanine Aminotransferase (ALT/SGPT) 19 U/L (16-63) Alkaline Phosphatase 81 U/L (46-116) Total Protein 6.6 g/dL (6.4-8.2) Albumin 1.8 g/dL (3.4-5.0) Albumin/Globulin Ratio 0.4 (1.0-1.7) Review of Systems Constitutional: yes: alert Ears/Nose/Throat: Yes: no symptom reported Eyes: Yes: no symptom reported Pulmonary: Yes dyspnea Cardiovascular: Yes no symptom reported Gastrointestional: Yes: no symptom reported Genitourinary: Yes: no symptom reported Musculoskeletal: Yes: no symptom reported Skin: Yes no symptom reported Psychiatric/Neurological: Yes: no symptom reported Physical Exam General Appearance: no apparent distress Skin: warm Respiratory: decreased breath sounds Heart: S1S2 Abdomen: soft Genitourinary: bladder flat Extremities: pulses present Neurology: alert Assessment Assessment IMP PRAVEENA WITH CR DOWN TO 2.3 HYPOKALEMIA PROB ECVD DYSPNEA PROB LUNG CA WT LOSS HX OF COID 19 POS IN NOV TOBACCO USE PLAN CONT WITH HYDRATION HOLD HIS ARB REPLACE K CHECK UA IF CONCERNS OF [place] DUE TO SOLID TUMOR THEN WILL CONSIDER RENAL BX WILL FOLLOW IRENE ARIAS MD Nov 22, 2020 11:40
[2020-11-22] MEDS ORDERED: POTASSIUM CHLORIDE 20 MEQ TABLET.ER. PO ONE (11:45)
[2020-11-22] MEDS: CYCLOBENZAPRINE 10 MG TABLET. PO PRN ×2 (13:34→21:39)
--- NOTE | 2020-11-22 15:13 | PDOC2 ---
CONSULT Date of Consult Date of Consult DATE: 11/22/20 TIME: 14:42 Reason for Consult Reason for Consult: Lung cancer Identification/Chief Complaint Chief Complaint Dyspnea Source Source: Chart review, Patient History of Present Illness Reason for Visit: Mr. Abdul is a 59-year-old man who presented with 3 weeks of worsening dyspnea. He also has 90 pound unintentional weight loss over the past year. No chest pain or hemoptysis. Chest x-ray on 11/18/2020 from [facility] showed right basilar consolidation or atelectasis and concern for malignant pleural effusion. He was transferred to [facility]. Repeat chest x-ray on 11/19/2020 showed bulky mediastinal adenopathy with right lower lobe atelectasis. CT chest on 11/19/2020 showed a large right hilar mass causing occlusion of the right middle and lower lobe bronchi as well as bulky mediastinal adenopathy. Small right pleural effusion. Ultrasound right chest on 11/19/2020 showed pleural effusion was not evident on the visualized images. On 11/20/2020, he underwent bronchoscopy. 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 Significant extrinsic compression at all subsegments of the right upper lobe and bronchus intermedius. The bronchoscope was not able to be passed beyond bronchus intermedius. 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 He has new onset hoarseness for about 3 weeks. No headache, vision changes, chest pain, or bone pain. Past Medical History Cardiovascular: CAD, HTN, Hyperlipidemia Pulmonary: COPD Endocrine: Diabetes, Hypothyroidism Past Surgical History Past Surgical History Cardiac stent placement Family History Family History: Cancer (Sister with breast cancer.) Social History Social History He is a . Main supportive care is his sister. <1 pack per day ALCOHOL: none Drugs: None Lives: with Family Current Medications Current Medications Current Medications Sodium Chloride 1,000 ml @ 100 mls/hr Q10H IV Last administered on 11/22/20at 13:36; Start 11/18/20 at 20:00 Furosemide (Lasix) 40 mg 1X ONCE IVP Last administered on 11/18/20at 21:47; Start 11/18/20 at 21:15; Stop 11/18/20 at 21:16; Status DC Ondansetron HCl (Zofran) 4 mg PRN Q6HRS PRN IVP NAUSEA/VOMITING; Start 11/18/20 at 20:15 Al Hydroxide/Mg Hydroxide (Mylanta Plus Xs) 30 ml PRN Q3HRS PRN PO HEARTBURN / GAS; Start 11/18/20 at 20:15; Stop 11/21/20 at 14:55; Status DC Calcium Carbonate/ Glycine (Tums) 500 mg PRN Q3HRS PRN PO UPSET STOMACH; Start 11/18/20 at 20:15 Zolpidem Tartrate (Ambien) 5 mg PRN QHS PRN PO INSOMNIA, MAY REPEAT IN 1HR; Start 11/18/20 at 20:15 Morphine Sulfate (Morphine Sulfate) 2 mg PRN Q1HR PRN IV PAIN; Start 11/18/20 at 20:15 Acetaminophen (Tylenol) 650 mg PRN Q6HRS PRN PO Headaches, Temp > 101.5F; Start 11/18/20 at 20:15 Magnesium Hydroxide (Milk Of Magnesia) 2,400 mg PRN Q12HR PRN PO CONSTIPATION; Start 11/18/20 at 20:15; Stop 11/21/20 at 14:55; Status DC Bisacodyl (Dulcolax Supp) 10 mg PRN DAILY PRN ID CONSTIPATION; Start 11/18/20 at 20:15 Enoxaparin Sodium (Lovenox 40mg Syringe) 40 mg Q24H SQ Last administered on 11/18/20at 21:47; Start 11/18/20 at 21:30; Stop 11/19/20 at 08:44; Status DC Ceftriaxone Sodium (Rocephin) 1 gm Q24H IVP Last administered on 11/21/20at 09:48; Start 11/19/20 at 09:00; Stop 11/21/20 at 15:38; Status DC Aspirin (Aspirin Chewable) 162 mg HS PO Last administered on 11/21/20at 09:46; Start 11/19/20 at 21:00 Carvedilol (Coreg) 12.5 mg BIDWMEALS PO Last administered on 11/22/20at 09:52; Start 11/19/20 at 17:00 Cyclobenzaprine HCl (Flexeril) 10 mg PRN TID PRN PO MUSCLE PAIN Last administered on 11/22/20at 13:34; Start 11/19/20 at 10:45 Levothyroxine Sodium (Synthroid) 50 mcg DAILY06 PO Last administered on 11/22/20 06:31; Start 11/19/20 at 12:00 Tramadol HCl (Ultram) 50 mg PRN DAILY PRN PO PAIN Last administered on 11/21/20 20:06; Start 11/19/20 at 10:45 Famotidine (Pepcid) 20 mg BID PO Last administered on 11/22/20 09:51; Start 11/19/20 at 12:00 Losartan Potassium (Cozaar) 50 mg DAILY PO Last administered on 11/22/20 09:52; Start 11/19/20 at 12:00 Atorvastatin Calcium (Lipitor) 80 mg QHS PO Last administered on 11/21/20 20:06; Start 11/19/20 at 21:00 Isosorbide Mononitrate (Imdur) 120 mg DAILY PO Last administered on 11/22/20 09:51; Start 11/20/20 at 09:00 Hydrochlorothiazide (Microzide) 12.5 mg DAILY PO Last administered on 11/22/20 09:51; Start 11/19/20 at 12:00 Albuterol Sulfate (Ventolin Neb Soln) 2.5 mg PRN 1X PRN NEB SHORTNESS OF BREATH Last administered on 11/20/20 10:32; Start 11/20/20 at 09:00; Stop 11/21/20 at 08:59; Status DC Lidocaine HCl (Lidocaine 2% Viscous) 100 ml PRN 1X PRN MM FOR PROCEDURE Last administered on 11/20/20 10:28; Start 11/20/20 at 09:00; Stop 11/21/20 at 08:59; Status DC Lidocaine HCl (Lidocaine 1% 20ml Vial) 20 ml PRN 1X PRN INJ SEE COMMENTS Last administered on 11/20/20 10:32; Start 11/20/20 at 09:00; Stop 11/21/20 at 08:59; Status DC Epinephrine HCl (Adrenalin) 1 mg PRN 1X PRN INJ SEE COMMENTS Last administered on 11/20/20 11:30; Start 11/20/20 at 09:00; Stop 11/21/20 at 08:59; Status DC Lidocaine HCl (Lidocaine 4% Topical) 50 ml PRN 1X PRN MM SEE COMMENTS Last administered on 11/20/20at 10:33; Start 11/20/20 at 09:00; Stop 11/21/20 at 08:59; Status DC Epinephrine HCl (Adrenalin) 1 mg STK-MED ONCE .ROUTE ; Start 11/20/20 at 09:04; Stop 11/20/20 at 09:04; Status DC Lidocaine HCl (Lidocaine 1% 20ml Vial) 20 ml STK-MED ONCE .ROUTE ; Start 11/20/20 at 09:04; Stop 11/20/20 at 09:04; Status DC Lidocaine HCl (Lidocaine 2% Viscous) 100 ml STK-MED ONCE .ROUTE ; Start 11/20/20 at 09:04; Stop 11/20/20 at 09:04; Status DC Lidocaine HCl (Lidocaine 4% Topical) 50 ml STK-MED ONCE .ROUTE ; Start 11/20/20 at 09:04; Stop 11/20/20 at 09:04; Status DC Ringer's Solution 1,000 ml @ 75 mls/hr 1X ONCE IV Last administered on 11/20/20at 10:25; Start 11/20/20 at 10:30; Stop 11/20/20 at 23:49; Status DC Propofol (Diprivan) 200 mg STK-MED ONCE IV ; Start 11/20/20 at 11:08; Stop 11/20/20 at 11:08; Status DC Lidocaine HCl (Lidocaine Pf 2% Vial) 5 ml STK-MED ONCE .ROUTE ; Start 11/20/20 at 11:08; Stop 11/20/20 at 11:08; Status DC Heparin Sodium (Porcine) (Heparin Sodium) 5,000 unit Q8HRS SQ Last administered on 11/22/20at 13:58; Start 11/21/20 at 22:00 Cefdinir (Omnicef) 300 mg QHS PO Last administered on 11/21/20at 20:05; Start 11/21/20 at 21:00 Potassium Chloride (Klor-Con) 20 meq 1X ONCE PO Last administered on 11/22/20at 13:35; Start 11/22/20 at 11:45; Stop 11/22/20 at 11:46; Status DC Active Scripts Active Reported Tramadol Hcl 50 Mg Tablet 50 Mg PO DAILY PRN Aspirin 81 Mg Tab.chew 2 Tab PO HS Cyclobenzaprine Hcl 10 Mg Tablet 1 Tab PO TID PRN Famotidine 40 Mg Tablet 40 Mg PO BID Losartan-Hctz 50-12.5 Mg Tab (Losartan/Hydrochlorothiazide) 1 Each Tablet 1 Tab PO DAILY Coreg (Carvedilol) 12.5 Mg Tablet 12.5 Mg PO BIDWMEALS Levothyroxine Sodium 50 Mcg Tablet 1 Tab PO DAILY Crestor (Rosuvastatin Calcium) 40 Mg Tablet 20 Mg PO HS [imdur] 120 Mg PO DAILY Metformin Hcl 500 Mg Tablet 500 Mg PO BIDWMEALS Allergies Allergies: Coded Allergies: No Known Drug Allergies (Unverified , 11/20/20) Physical Exam General: Alert, Oriented X3, Cooperative, No acute distress HEENT: Atraumatic, PERRLA, EOMI, Mucous membr. moist/pink Lungs: Other (Dullness right base. No wheezing or crackles.) Heart: Regular rate, Normal S1, Normal S2, No murmurs Abdomen: Soft, No tenderness, No masses Extremities: No clubbing, No cyanosis, No edema Skin: No rashes Neuro: Normal speech (Hoarse), Strength at 5/5 X4 ext, Cranial nerves 3-12 NL Psych/Mental Status: Mental status NL MUSCULOSKELETAL: No swelling Vitals VITALS Vital Signs Date Time Temp Pulse Resp B/P (MAP) Pulse Ox O2 Delivery O2 Flow Rate FiO2 11/22/20 11:00 97.5 81 16 98/61 (73) 95 Room Air 97.5 11/21/20 21:06 10.0 Labs Labs Laboratory Tests Test 11/20/20 16:31 11/20/20 21:04 11/21/20 06:10 11/21/20 07:19 Glucose (Fingerstick) 102 mg/dL (70-99) 109 mg/dL (70-99) 113 mg/dL (70-99) White Blood Count 8.1 x10^3/uL (4.0-11.0) Red Blood Count 3.78 x10^6/uL (4.30-5.70) Hemoglobin 10.5 g/dL (13.0-17.5) Hematocrit 31.2 % (39.0-53.0) Mean Corpuscular Volume 83 fL (79-100) Mean Corpuscular Hemoglobin 28 pg (25-35) Mean Corpuscular Hemoglobin Concent 34 g/dL (31-37) Red Cell Distribution Width 14.7 % (11.5-14.5) Platelet Count 299 x10^3/uL (140-400) Neutrophils (%) (Auto) 73 % (31-73) Lymphocytes (%) (Auto) 19 % (24-48) Monocytes (%) (Auto) 7 % (0-9) Eosinophils (%) (Auto) 1 % (0-3) Basophils (%) (Auto) 1 % (0-3) Neutrophils # (Auto) 5.9 x10^3/uL (1.8-7.7) Lymphocytes # (Auto) 1.5 x10^3/uL (1.0-4.8) Monocytes # (Auto) 0.6 x10^3/uL (0.0-1.1) Eosinophils # (Auto) 0.0 x10^3/uL (0.0-0.7) Basophils # (Auto) 0.1 x10^3/uL (0.0-0.2) Sodium Level 135 mmol/L (136-145) Potassium Level 3.1 mmol/L (3.5-5.1) Chloride Level 101 mmol/L (98-107) Carbon Dioxide Level 22 mmol/L (21-32) Anion Gap 12 (6-14) Blood Urea Nitrogen 27 mg/dL (8-26) Creatinine 2.7 mg/dL (0.7-1.3) Estimated GFR (Cockcroft-Gault) 24.1 BUN/Creatinine Ratio 10 (6-20) Glucose Level 112 mg/dL (70-99) Calcium Level 8.7 mg/dL (8.5-10.1) Total Bilirubin 0.4 mg/dL (0.2-1.0) Aspartate Amino Transf (AST/SGOT) 25 U/L (15-37) Alanine Aminotransferase (ALT/SGPT) 15 U/L (16-63) Alkaline Phosphatase 83 U/L (46-116) Total Protein 6.5 g/dL (6.4-8.2) Albumin 1.8 g/dL (3.4-5.0) Albumin/Globulin Ratio 0.4 (1.0-1.7) Test 11/21/20 10:52 11/21/20 17:34 11/21/20 20:36 11/22/20 07:16 Glucose (Fingerstick) 157 mg/dL (70-99) 126 mg/dL (70-99) 137 mg/dL (70-99) 121 mg/dL (70-99) Test 11/22/20 08:35 11/22/20 12:15 White Blood Count 8.9 x10^3/uL (4.0-11.0) Red Blood Count 3.62 x10^6/uL (4.30-5.70) Hemoglobin 9.8 g/dL (13.0-17.5) Hematocrit 30.0 % (39.0-53.0) Mean Corpuscular Volume 83 fL (79-100) Mean Corpuscular Hemoglobin 27 pg (25-35) Mean Corpuscular Hemoglobin Concent 33 g/dL (31-37) Red Cell Distribution Width 14.7 % (11.5-14.5) Platelet Count 318 x10^3/uL (140-400) Neutrophils (%) (Auto) 72 % (31-73) Lymphocytes (%) (Auto) 19 % (24-48) Monocytes (%) (Auto) 8 % (0-9) Eosinophils (%) (Auto) 1 % (0-3) Basophils (%) (Auto) 1 % (0-3) Neutrophils # (Auto) 6.4 x10^3/uL (1.8-7.7) Lymphocytes # (Auto) 1.7 x10^3/uL (1.0-4.8) Monocytes # (Auto) 0.7 x10^3/uL (0.0-1.1) Eosinophils # (Auto) 0.1 x10^3/uL (0.0-0.7) Basophils # (Auto) 0.1 x10^3/uL (0.0-0.2) Sodium Level 137 mmol/L (136-145) Potassium Level 3.4 mmol/L (3.5-5.1) Chloride Level 103 mmol/L (98-107) Carbon Dioxide Level 24 mmol/L (21-32) Anion Gap 10 (6-14) Blood Urea Nitrogen 21 mg/dL (8-26) Creatinine 2.3 mg/dL (0.7-1.3) Estimated GFR (Cockcroft-Gault) 29.1 BUN/Creatinine Ratio 9 (6-20) Glucose Level 110 mg/dL (70-99) Calcium Level 8.8 mg/dL (8.5-10.1) Total Bilirubin 0.4 mg/dL (0.2-1.0) Aspartate Amino Transf (AST/SGOT) 26 U/L (15-37) Alanine Aminotransferase (ALT/SGPT) 19 U/L (16-63) Alkaline Phosphatase 81 U/L (46-116) Total Protein 6.6 g/dL (6.4-8.2) Albumin 1.8 g/dL (3.4-5.0) Albumin/Globulin Ratio 0.4 (1.0-1.7) Glucose (Fingerstick) 156 mg/dL (70-99) Laboratory Tests Test 11/21/20 17:34 11/21/20 20:36 11/22/20 07:16 11/22/20 08:35 Glucose (Fingerstick) 126 mg/dL (70-99) 137 mg/dL (70-99) 121 mg/dL (70-99) White Blood Count 8.9 x10^3/uL (4.0-11.0) Red Blood Count 3.62 x10^6/uL (4.30-5.70) Hemoglobin 9.8 g/dL (13.0-17.5) Hematocrit 30.0 % (39.0-53.0) Mean Corpuscular Volume 83 fL (79-100) Mean Corpuscular Hemoglobin 27 pg (25-35) Mean Corpuscular Hemoglobin Concent 33 g/dL (31-37) Red Cell Distribution Width 14.7 % (11.5-14.5) Platelet Count 318 x10^3/uL (140-400) Neutrophils (%) (Auto) 72 % (31-73) Lymphocytes (%) (Auto) 19 % (24-48) Monocytes (%) (Auto) 8 % (0-9) Eosinophils (%) (Auto) 1 % (0-3) Basophils (%) (Auto) 1 % (0-3) Neutrophils # (Auto) 6.4 x10^3/uL (1.8-7.7) Lymphocytes # (Auto) 1.7 x10^3/uL (1.0-4.8) Monocytes # (Auto) 0.7 x10^3/uL (0.0-1.1) Eosinophils # (Auto) 0.1 x10^3/uL (0.0-0.7) Basophils # (Auto) 0.1 x10^3/uL (0.0-0.2) Sodium Level 137 mmol/L (136-145) Potassium Level 3.4 mmol/L (3.5-5.1) Chloride Level 103 mmol/L (98-107) Carbon Dioxide Level 24 mmol/L (21-32) Anion Gap 10 (6-14) Blood Urea Nitrogen 21 mg/dL (8-26) Creatinine 2.3 mg/dL (0.7-1.3) Estimated GFR (Cockcroft-Gault) 29.1 BUN/Creatinine Ratio 9 (6-20) Glucose Level 110 mg/dL (70-99) Calcium Level 8.8 mg/dL (8.5-10.1) Total Bilirubin 0.4 mg/dL (0.2-1.0) Aspartate Amino Transf (AST/SGOT) 26 U/L (15-37) Alanine Aminotransferase (ALT/SGPT) 19 U/L (16-63) Alkaline Phosphatase 81 U/L (46-116) Total Protein 6.6 g/dL (6.4-8.2) Albumin 1.8 g/dL (3.4-5.0) Albumin/Globulin Ratio 0.4 (1.0-1.7) Test 11/22/20 12:15 Glucose (Fingerstick) 156 mg/dL (70-99) Assessment/Plan Assessment/Plan 59-year-old male with small cell carcinoma of the right lung, 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 Plan We discussed staging work-up with PET/CT and MRI brain with patient and his sister, who called in on the phone. We discussed outpatient follow-up in 1-2 weeks to review imaging results and to formulate a treatment plan. His sister also request for medical records to be sent to for second opinion. Patient and his sister , however, agreed that we should proceed with PET/CT and MRI brain so as not to delay his care. WOODY COOMBS MD Nov 22, 2020 15:13
--- NOTE | 2020-11-22 17:39 | PATHOLOGY ---
Note [facility] Accession Number: [id number] TESTS RESULT FLAG UNITS REF RANGE LAB Clinician Provided Cytology Information No. of containers..01 Slide Source: [A] 01 BRUSHING RUL DIAGNOSIS: [A] 02 BRUSHING RUL POSITIVE FOR MALIGNANCY. 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 RESULTS REPORTED TO DR MARTÍNEZ ON 11/22/20 AT 1:30 PM. Signed out by: 02 Dez Patterson MD, Pathologist NPI- [id number] Performed by: Edith Echeverria, Delivery Room Clerk ([facility]) Gross description: 1 FX /LCS 11/21/2020 1807 Local FLAG LEGEND: L-Low Normal,H-High Normal,LL-Alert Low,HH-Alert High <-Panic Low,>-Panic High,A-Abnormal,AA-Critical Abnormal Performed at: [address] [place] [address] Lamonte Barth MD, [address] [facility] [address] [place] [address] Dez Patterson MD, Performed at: [address], [place], [place] [id number] MD Lamonte Barth MD Phone: [phone]
--- NOTE | 2020-11-22 17:39 | PATHOLOGY ---
Note [facility] Accession Number: [id number] TESTS RESULT FLAG UNITS REF RANGE LAB Clinician Provided Cytology Information No. of containers..01 Other (Miscellaneous) Source: [A] 01 BRUSH TIP DIAGNOSIS: [A] 02 BRUSH TIP POSITVE FOR MALIGNANT CELLS. 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 RESULTS ARE REPORTED TO DR MARTÍNEZ ON 11/22/20 AT 1:30 PM. Signed out by: 02 Dez Patterson MD, Pathologist NPI- [id number] Performed by: Edith Echeverria, Receptionist/Telephone Operator ([facility]) Gross description: 1 TP /LCS 11/21/2020 1809 Local FLAG LEGEND: L-Low Normal,H-High Normal,LL-Alert Low,HH-Alert High <-Panic Low,>-Panic High,A-Abnormal,AA-Critical Abnormal Performed at: [address] [place] [address] Lamonte Barth MD, 02 [facility] [address] [place] [address] Dez Patterson MD, Performed at: [address], [place], [place] [id number] MD Lamonte Barth MD Phone: [phone]
[2020-11-22] MEDS: traMADol 50 MG TABLET PO PRN (18:42)
[2020-11-22] MEDS: ASPIRIN CHEWABLE 81 MG TABLET. PO SCH (21:39)
[2020-11-22] MEDS: CEFDINIR 300 MG CAPSULE PO SCH (21:40)
[2020-11-22] MEDS: ATORVASTATIN CALCIUM 40 MG TABLET. PO SCH (21:40)
[2020-11-23 03:00] VITALS: BP 112/68
[2020-11-23] MEDS: LEVOTHYROXINE 50 MCG TABLET PO SCH (05:49)
[2020-11-23] MEDS: HEPARIN for SUB-Q USE 5,000 UNIT/ML VIAL. SQ SCH (05:53)
[2020-11-23 06:51] LABS: BILIRUBIN,URINE NEGATIVE (NEG); CLARITY,URINE CLEAR; COLOR,URINE YELLOW; NITRITE,URINE NEGATIVE (NEG); PROTEIN,URINE NEGATIVE (NEG-TRACE); UROBILINOGEN,URINE 0.2 mg/dL (0.2 mg/dL)
[2020-11-23 07:00] VITALS: BP 117/78
[2020-11-23 07:11] LABS: HYALINE CASTS, URINE OCCASIONAL /HPF
[2020-11-23 07:12] LABS: BACTERIA,URINE 0 /HPF (0-FEW); RBC,URINE 0 /HPF (0-2); WBC,URINE 0 /HPF (0-4)
[2020-11-23 08:34] LABS: BASO # 0.1 x10^3/uL (0.0-0.2); BASO % 1 % (0-3); EOS # 0.1 x10^3/uL (0.0-0.7); EOS % 2 % (0-3); HEMOGLOBIN 9.9 g/dL (13.0-17.5); LYMPH # 1.6 x10^3/uL (1.0-4.8); LYMPH % 20 % (24-48); MEAN CORPUSCULAR HEMOGLOBIN 28 pg (25-35); MEAN CORPUSCULAR HGB CONC 33 g/dL (31-37); MEAN CORPUSCULAR VOLUME 83 fL (79-100); MONO # 0.6 x10^3/uL (0.0-1.1); MONO % 7 % (0-9); NEUT # 5.8 x10^3/uL (1.8-7.7); NEUT % 70 % (31-73); PLATELET COUNT 288 x10^3/uL (140-400); RED CELL DISTRIBUTION WIDTH 14.5 % (11.5-14.5); WHITE BLOOD COUNT 8.2 x10^3/uL (4.0-11.0)
--- NOTE | 2020-11-23 08:43 | PDOC ---
PROGRESS NOTES Date of Service: DATE: 11/23/20 TIME: 08:43 Chief Complaint Chief Complaint VTE Prophylaxis Ordered VTE Prophylaxis Devices: No VTE Pharmacological Prophylaxi: Yes DISCHARGE DX Assessment/Plan Right pleural effusion Right hilar mass causing occlusion of the right middle and right lower lobes, associated with bulky mediastinal adenopathy. findings concerning for a primary lung malignancy. // correlation with PET CT imaging and/or bronchoscopic findings. SMALL CELL CARCINOMA COVID-19 PUI NEG PRAVEENA Vasomotor nephropathy, ACUTE Elevated D-dimer Possible PE RULED OUT Severe malnutrition PRAVEENA, slow to improve require PET/CT and MRI brain that can be arranged as outpatient Plan: Patient's symptoms concerning for pneumonia no effusion Consult to pulmonology Provide IV fluids to resolve PRAVEENA; may be able to obtain CTA chest to rule out PE as well given possible hypercoagulable state when kidney function improves COVID-19 pending; if positive will treat symptomatically, patient currently breathing on room air Provide diuresis and repeat chest x-ray likely in a.m or Thursday Resume home medications FEN - Cardiac diet PPX - Lovenox FULL CODE Dispo - inpatient for above ct chest NEPHROLOGY CONSULT AVOID NEPHROTOXIC DRUGS oncology consult MRI HEAD PET SCAN OUTPT D/W DR VILALLPANDO Note [facility] Accession Number: [id number] TESTS RESULT FLAG UNITS REF RANGE LAB Clinician Provided Cytology Information No. of containers..01 Slide Source: [A] 01 BRUSHING RUL DIAGNOSIS: [A] 02 BRUSHING RUL POSITIVE FOR MALIGNANCY. 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 RESULTS REPORTED TO DR MARTÍNEZ ON 11/22/20 AT 1:30 PM. Signed out by: 02 Dez Patterson MD, Pathologist NPI- [id number] Performed by: 01 Edith Echeverria, Dental Hygienist Mobile Coordinator ([facility]) Gross description: 1 FX /LCS 11/21/2020 1807 Local FLAG LEGEND: L-Low Normal,H-High Normal,LL-Alert Low,HH-Alert High <-Panic Low,>-Panic High,A-Abnormal,AA-Critical Abnormal Performed at: 01 [facility] 37 MIN PT EXAM, D/C PLANNING CHART REVIEW, > 50% OF TIME SPENT WITH EXAM, CHART REVIEW, PT CARE COORDINATUION Justifications for Admission Justifications for Admission Other Justification History of Present Illness History of Present Illness Identification/Chief Complaint Chief Complaint Shortness of breath Source Source: Chart review, Patient History of Present Illness History of Present Illness Patient is a 59-year-old male past medical history CAD, who presents as a transfer from [facility] for concerns of malignant pleural effusion. Reports worsening shortness of breath over the past 2 to 3 weeks. Symptoms are worse with exertion, but he denies any chest pain. He does admit to approximately 90 pound unintentional weight loss over the past year. He is a former smoker, and reports significant coronary artery disease with history of 11 stents. His most recent stress test was 2 days ago and he is not aware of these results. He denies any history of blood clots, is not on anticoagulation, but does take daily aspirin. He was diagnosed with COVID-19 earlier in September 2020. Chest x-ray obtained at [facility] showed right pleural effusion with right basilar atelectasis or infiltrate. Given this medical history, humera velez was transferred to [facility] for further evaluation with cardiology consult. Labs obtained from [facility]: WBC 14.8, D-dimer 2.23, BNP 531, albumin 2.1 Past Medical History Past Medical History CAD, [place], GERD Past Surgical History Past Surgical History Tonsillectomy Social History Smoke: <1 pack per day ALCOHOL: none Drugs: None ROS Review of System GENERAL: Unintentional weight loss. Denies weakness or fevers. SKIN: No bruising, hair changes or rashes. EYES: No blurred, double or loss of vision. NOSE AND THROAT: No history of nosebleeds, hoarseness or sore throat. HEART: Denies chest pain, denies palpitations. LUNGS: Shortness of breath. Denies cough, hemoptysis, wheezing. GASTROINTESTINAL: Denies nausea, vomiting, abdominal pain. GENITOURINARY: Denies dysuria, frequency, urgency, hematuria. NEUROLOGIC: Denies history of numbness, tingling, tremor or weakness. PSYCHIATRIC: Denies anxiety, denies depression. ENDOCRINE: No history of heat or cold intolerance, polyuria or polydipsia. EXTREMITIES: Denies muscle weakness, joint pain, pain on walking or stiffness. Vitals Vitals Vital Signs Date Time Temp Pulse Resp B/P (MAP) Pulse Ox O2 Delivery O2 Flow Rate FiO2 11/23/20 03:00 97.5 87 20 112/68 (83) 94 Room Air 97.5 Physical Exam Physical Exam Physical Exam Physical Exam General: Cachectic appearing. Alert, Oriented X3, Cooperative, No acute distress HEENT: PERRLA, EOMI Lungs: Decreased breath sounds on right lung base, Normal air movement Heart: RRR, no murmurs Cardiovascular: S1, S2 Abdomen: Normal bowel sounds, Soft, No tenderness Extremities: No clubbing, No cyanosis Skin: No rashes, No significant lesion Neuro: Normal speech, Normal tone, Sensation intact Psych/Mental Status: Mental status NL, Mood NL General: Alert, Oriented X3, Cooperative, No acute distress Heart: Regular rate, Normal S1, Normal S2, No murmurs Lungs: Clear Abdomen: Normal bowel sounds, Soft, No tenderness, No masses Extremities: No clubbing, No cyanosis, No edema Skin: No rashes Labs LABS Laboratory Tests Test 11/22/20 12:15 11/22/20 16:35 11/22/20 21:09 11/23/20 01:25 Glucose (Fingerstick) 156 mg/dL (70-99) 109 mg/dL (70-99) 131 mg/dL (70-99) Urine Collection Type Unknown Urine Color Yellow Urine Clarity Clear Urine pH 5.0 (<5.0-8.0) Urine Specific [place] 1.010 (1.000-1.030) Urine Protein Negative mg/dL (NEG-TRACE) Urine Glucose (UA) Negative mg/dL (NEG) Urine Ketones (Stick) Negative mg/dL (NEG) Urine Blood Negative (NEG) Urine Nitrite Negative (NEG) Urine Bilirubin Negative (NEG) Urine Urobilinogen Dipstick 0.2 mg/dL (0.2 mg/dL) Urine Leukocyte Esterase Negative (NEG) Urine RBC 0 /HPF (0-2) Urine WBC 0 /HPF (0-4) Urine Squamous Epithelial Cells Occ /LPF Urine Bacteria 0 /HPF (0-FEW) Urine Hyaline Casts Occasional /HPF Test 11/23/20 07:49 11/23/20 07:55 White Blood Count 8.2 x10^3/uL (4.0-11.0) Red Blood Count 3.60 x10^6/uL (4.30-5.70) Hemoglobin 9.9 g/dL (13.0-17.5) Hematocrit 30.0 % (39.0-53.0) Mean Corpuscular Volume 83 fL (79-100) Mean Corpuscular Hemoglobin 28 pg (25-35) Mean Corpuscular Hemoglobin Concent 33 g/dL (31-37) Red Cell Distribution Width 14.5 % (11.5-14.5) Platelet Count 288 x10^3/uL (140-400) Neutrophils (%) (Auto) 70 % (31-73) Lymphocytes (%) (Auto) 20 % (24-48) Monocytes (%) (Auto) 7 % (0-9) Eosinophils (%) (Auto) 2 % (0-3) Basophils (%) (Auto) 1 % (0-3) Neutrophils # (Auto) 5.8 x10^3/uL (1.8-7.7) Lymphocytes # (Auto) 1.6 x10^3/uL (1.0-4.8) Monocytes # (Auto) 0.6 x10^3/uL (0.0-1.1) Eosinophils # (Auto) 0.1 x10^3/uL (0.0-0.7) Basophils # (Auto) 0.1 x10^3/uL (0.0-0.2) Glucose (Fingerstick) 117 mg/dL (70-99) Comment Review of Relevant I have reviewed the following items ranjit (where applicable) has been applied. Labs Laboratory Tests Test 11/21/20 10:52 11/21/20 17:34 11/21/20 20:36 11/22/20 07:16 Glucose (Fingerstick) 157 mg/dL (70-99) 126 mg/dL (70-99) 137 mg/dL (70-99) 121 mg/dL (70-99) Test 11/22/20 08:35 11/22/20 12:15 11/22/20 16:35 11/22/20 21:09 White Blood Count 8.9 x10^3/uL (4.0-11.0) Red Blood Count 3.62 x10^6/uL (4.30-5.70) Hemoglobin 9.8 g/dL (13.0-17.5) Hematocrit 30.0 % (39.0-53.0) Mean Corpuscular Volume 83 fL (79-100) Mean Corpuscular Hemoglobin 27 pg (25-35) Mean Corpuscular Hemoglobin Concent 33 g/dL (31-37) Red Cell Distribution Width 14.7 % (11.5-14.5) Platelet Count 318 x10^3/uL (140-400) Neutrophils (%) (Auto) 72 % (31-73) Lymphocytes (%) (Auto) 19 % (24-48) Monocytes (%) (Auto) 8 % (0-9) Eosinophils (%) (Auto) 1 % (0-3) Basophils (%) (Auto) 1 % (0-3) Neutrophils # (Auto) 6.4 x10^3/uL (1.8-7.7) Lymphocytes # (Auto) 1.7 x10^3/uL (1.0-4.8) Monocytes # (Auto) 0.7 x10^3/uL (0.0-1.1) Eosinophils # (Auto) 0.1 x10^3/uL (0.0-0.7) Basophils # (Auto) 0.1 x10^3/uL (0.0-0.2) Sodium Level 137 mmol/L (136-145) Potassium Level 3.4 mmol/L (3.5-5.1) Chloride Level 103 mmol/L (98-107) Carbon Dioxide Level 24 mmol/L (21-32) Anion Gap 10 (6-14) Blood Urea Nitrogen 21 mg/dL (8-26) Creatinine 2.3 mg/dL (0.7-1.3) Estimated GFR (Cockcroft-Gault) 29.1 BUN/Creatinine Ratio 9 (6-20) Glucose Level 110 mg/dL (70-99) Calcium Level 8.8 mg/dL (8.5-10.1) Total Bilirubin 0.4 mg/dL (0.2-1.0) Aspartate Amino Transf (AST/SGOT) 26 U/L (15-37) Alanine Aminotransferase (ALT/SGPT) 19 U/L (16-63) Alkaline Phosphatase 81 U/L (46-116) Total Protein 6.6 g/dL (6.4-8.2) Albumin 1.8 g/dL (3.4-5.0) Albumin/Globulin Ratio 0.4 (1.0-1.7) Glucose (Fingerstick) 156 mg/dL (70-99) 109 mg/dL (70-99) 131 mg/dL (70-99) Test 11/23/20 01:25 11/23/20 07:49 11/23/20 07:55 Urine Collection Type Unknown Urine Color Yellow Urine Clarity Clear Urine pH 5.0 (<5.0-8.0) Urine Specific [place] 1.010 (1.000-1.030) Urine Protein Negative mg/dL (NEG-TRACE) Urine Glucose (UA) Negative mg/dL (NEG) Urine Ketones (Stick) Negative mg/dL (NEG) Urine Blood Negative (NEG) Urine Nitrite Negative (NEG) Urine Bilirubin Negative (NEG) Urine Urobilinogen Dipstick 0.2 mg/dL (0.2 mg/dL) Urine Leukocyte Esterase Negative (NEG) Urine RBC 0 /HPF (0-2) Urine WBC 0 /HPF (0-4) Urine Squamous Epithelial Cells Occ /LPF Urine Bacteria 0 /HPF (0-FEW) Urine Hyaline Casts Occasional /HPF White Blood Count 8.2 x10^3/uL (4.0-11.0) Red Blood Count 3.60 x10^6/uL (4.30-5.70) Hemoglobin 9.9 g/dL (13.0-17.5) Hematocrit 30.0 % (39.0-53.0) Mean Corpuscular Volume 83 fL (79-100) Mean Corpuscular Hemoglobin 28 pg (25-35) Mean Corpuscular Hemoglobin Concent 33 g/dL (31-37) Red Cell Distribution Width 14.5 % (11.5-14.5) Platelet Count 288 x10^3/uL (140-400) Neutrophils (%) (Auto) 70 % (31-73) Lymphocytes (%) (Auto) 20 % (24-48) Monocytes (%) (Auto) 7 % (0-9) Eosinophils (%) (Auto) 2 % (0-3) Basophils (%) (Auto) 1 % (0-3) Neutrophils # (Auto) 5.8 x10^3/uL (1.8-7.7) Lymphocytes # (Auto) 1.6 x10^3/uL (1.0-4.8) Monocytes # (Auto) 0.6 x10^3/uL (0.0-1.1) Eosinophils # (Auto) 0.1 x10^3/uL (0.0-0.7) Basophils # (Auto) 0.1 x10^3/uL (0.0-0.2) Glucose (Fingerstick) 117 mg/dL (70-99) Laboratory Tests Test 11/22/20 12:15 11/22/20 16:35 11/22/20 21:09 11/23/20 01:25 Glucose (Fingerstick) 156 mg/dL (70-99) 109 mg/dL (70-99) 131 mg/dL (70-99) Urine Collection Type Unknown Urine Color Yellow Urine Clarity Clear Urine pH 5.0 (<5.0-8.0) Urine Specific [place] 1.010 (1.000-1.030) Urine Protein Negative mg/dL (NEG-TRACE) Urine Glucose (UA) Negative mg/dL (NEG) Urine Ketones (Stick) Negative mg/dL (NEG) Urine Blood Negative (NEG) Urine Nitrite Negative (NEG) Urine Bilirubin Negative (NEG) Urine Urobilinogen Dipstick 0.2 mg/dL (0.2 mg/dL) Urine Leukocyte Esterase Negative (NEG) Urine RBC 0 /HPF (0-2) Urine WBC 0 /HPF (0-4) Urine Squamous Epithelial Cells Occ /LPF Urine Bacteria 0 /HPF (0-FEW) Urine Hyaline Casts Occasional /HPF Test 11/23/20 07:49 11/23/20 07:55 White Blood Count 8.2 x10^3/uL (4.0-11.0) Red Blood Count 3.60 x10^6/uL (4.30-5.70) Hemoglobin 9.9 g/dL (13.0-17.5) Hematocrit 30.0 % (39.0-53.0) Mean Corpuscular Volume 83 fL (79-100) Mean Corpuscular Hemoglobin 28 pg (25-35) Mean Corpuscular Hemoglobin Concent 33 g/dL (31-37) Red Cell Distribution Width 14.5 % (11.5-14.5) Platelet Count 288 x10^3/uL (140-400) Neutrophils (%) (Auto) 70 % (31-73) Lymphocytes (%) (Auto) 20 % (24-48) Monocytes (%) (Auto) 7 % (0-9) Eosinophils (%) (Auto) 2 % (0-3) Basophils (%) (Auto) 1 % (0-3) Neutrophils # (Auto) 5.8 x10^3/uL (1.8-7.7) Lymphocytes # (Auto) 1.6 x10^3/uL (1.0-4.8) Monocytes # (Auto) 0.6 x10^3/uL (0.0-1.1) Eosinophils # (Auto) 0.1 x10^3/uL (0.0-0.7) Basophils # (Auto) 0.1 x10^3/uL (0.0-0.2) Glucose (Fingerstick) 117 mg/dL (70-99) Medications Current Medications Sodium Chloride 1,000 ml @ 100 mls/hr Q10H IV Last administered on 11/22/20at 21:40; Start 11/18/20 at 20:00 Furosemide (Lasix) 40 mg 1X ONCE IVP Last administered on 11/18/20at 21:47; Start 11/18/20 at 21:15; Stop 11/18/20 at 21:16; Status DC Ondansetron HCl (Zofran) 4 mg PRN Q6HRS PRN IVP NAUSEA/VOMITING; Start 11/18/20 at 20:15 Al Hydroxide/Mg Hydroxide (Mylanta Plus Xs) 30 ml PRN Q3HRS PRN PO HEARTBURN / GAS; Start 11/18/20 at 20:15; Stop 11/21/20 at 14:55; Status DC Calcium Carbonate/ Glycine (Tums) 500 mg PRN Q3HRS PRN PO UPSET STOMACH; Start 11/18/20 at 20:15 Zolpidem Tartrate (Ambien) 5 mg PRN QHS PRN PO INSOMNIA, MAY REPEAT IN 1HR; Start 11/18/20 at 20:15 Morphine Sulfate (Morphine Sulfate) 2 mg PRN Q1HR PRN IV PAIN; Start 11/18/20 at 20:15 Acetaminophen (Tylenol) 650 mg PRN Q6HRS PRN PO Headaches, Temp > 101.5F; Start 11/18/20 at 20:15 Magnesium Hydroxide (Milk Of Magnesia) 2,400 mg PRN Q12HR PRN PO CONSTIPATION; Start 11/18/20 at 20:15; Stop 11/21/20 at 14:55; Status DC Bisacodyl (Dulcolax Supp) 10 mg PRN DAILY PRN [place] CONSTIPATION; Start 11/18/20 at 20:15 Enoxaparin Sodium (Lovenox 40mg Syringe) 40 mg Q24H SQ Last administered on 11/18/20at 21:47; Start 11/18/20 at 21:30; Stop 11/19/20 at 08:44; Status DC Ceftriaxone Sodium (Rocephin) 1 gm Q24H IVP Last administered on 11/21/20at 09:48; Start 11/19/20 at 09:00; Stop 11/21/20 at 15:38; Status DC Aspirin (Aspirin Chewable) 162 mg HS PO Last administered on 11/22/20at 21:39; Start 11/19/20 at 21:00 Carvedilol (Coreg) 12.5 mg BIDWMEALS PO Last administered on 11/22/20at 18:36; Start 11/19/20 at 17:00 Cyclobenzaprine HCl (Flexeril) 10 mg PRN TID PRN PO MUSCLE PAIN Last administer ed on 11/22/20at 21:39; Start 11/19/20 at 10:45 Levothyroxine Sodium (Synthroid) 50 mcg DAILY06 PO Last administered on 11/23/20at 05:49; Start 11/19/20 at 12:00 Tramadol HCl (Ultram) 50 mg PRN DAILY PRN PO PAIN Last administered on 11/22/20at 18:42; Start 11/19/20 at 10:45 Famotidine (Pepcid) 20 mg BID PO Last administered on 11/22/20at 21:40; Start 11/19/20 at 12:00 Losartan Potassium (Cozaar) 50 mg DAILY PO Last administered on 11/22/20at 09:52; Start 11/19/20 at 12:00 Atorvastatin Calcium (Lipitor) 80 mg QHS PO Last administered on 11/22/20at 21:40; Start 11/19/20 at 21:00 Isosorbide Mononitrate (Imdur) 120 mg DAILY PO Last administered on 11/22/20at 09:51; Start 11/20/20 at 09:00 Hydrochlorothiazide (Microzide) 12.5 mg DAILY PO Last administered on 11/22/20at 09:51; Start 11/19/20 at 12:00 Albuterol Sulfate (Ventolin Neb Soln) 2.5 mg PRN 1X PRN NEB SHORTNESS OF BREATH Last administered on 11/20/20at 10:32; Start 11/20/20 at 09:00; Stop 11/21/20 at 08:59; Status DC Lidocaine HCl (Lidocaine 2% Viscous) 100 ml PRN 1X PRN MM FOR PROCEDURE Last administered on 11/20/20at 10:28; Start 11/20/20 at 09:00; Stop 11/21/20 at 08:59; Status DC Lidocaine HCl (Lidocaine 1% 20ml Vial) 20 ml PRN 1X PRN INJ SEE COMMENTS Last administered on 11/20/20at 10:32; Start 11/20/20 at 09:00; Stop 11/21/20 at 08:59; Status DC Epinephrine HCl (Adrenalin) 1 mg PRN 1X PRN INJ SEE COMMENTS Last administered on 11/20/20at 11:30; Start 11/20/20 at 09:00; Stop 11/21/20 at 08:59; Status DC Lidocaine HCl (Lidocaine 4% Topical) 50 ml PRN 1X PRN MM SEE COMMENTS Last administered on 11/20/20at 10:33; Start 11/20/20 at 09:00; Stop 11/21/20 at 08:59; Status DC Epinephrine HCl (Adrenalin) 1 mg STK-MED ONCE .ROUTE ; Start 11/20/20 at 09:04; Stop 11/20/20 at 09:04; Status DC Lidocaine HCl (Lidocaine 1% 20ml Vial) 20 ml STK-MED ONCE .ROUTE ; Start 11/20/20 at 09:04; Stop 11/20/20 at 09:04; Status DC Lidocaine HCl (Lidocaine 2% Viscous) 100 ml STK-MED ONCE .ROUTE ; Start 11/20/20 at 09:04; Stop 11/20/20 at 09:04; Status DC Lidocaine HCl (Lidocaine 4% Topical) 50 ml STK-MED ONCE .ROUTE ; Start 11/20/20 at 09:04; Stop 11/20/20 at 09:04; Status DC Ringer's Solution 1,000 ml @ 75 mls/hr 1X ONCE IV Last administered on 11/20/20at 10:25; Start 11/20/20 at 10:30; Stop 11/20/20 at 23:49; Status DC Propofol (Diprivan) 200 mg STK-MED ONCE IV ; Start 11/20/20 at 11:08; Stop 11/20/20 at 11:08; Status DC Lidocaine HCl (Lidocaine Pf 2% Vial) 5 ml STK-MED ONCE .ROUTE ; Start 11/20/20 at 11:08; Stop 11/20/20 at 11:08; Status DC Heparin Sodium (Porcine) (Heparin Sodium) 5,000 unit Q8HRS SQ Last administered on 11/23/20at 05:53; Start 11/21/20 at 22:00 Cefdinir (Omnicef) 300 mg QHS PO Last administered on 11/22/20at 21:40; Start 11/21/20 at 21:00 Potassium Chloride (Klor-Con) 20 meq 1X ONCE PO Last administered on 11/22/20at 13:35; Start 11/22/20 at 11:45; Stop 11/22/20 at 11:46; Status DC Active Scripts Active Reported Tramadol Hcl 50 Mg Tablet 50 Mg PO DAILY PRN Aspirin 81 Mg Tab.chew 2 Tab PO HS Cyclobenzaprine Hcl 10 Mg Tablet 1 Tab PO TID PRN Famotidine 40 Mg Tablet 40 Mg PO BID Losartan-Hctz 50-12.5 Mg Tab (Losartan/Hydrochlorothiazide) 1 Each Tablet 1 Tab PO DAILY Coreg (Carvedilol) 12.5 Mg Tablet 12.5 Mg PO BIDWMEALS Levothyroxine Sodium 50 Mcg Tablet 1 Tab PO DAILY Crestor (Rosuvastatin Calcium) 40 Mg Tablet 20 Mg PO HS [imdur] 120 Mg PO DAILY Metformin Hcl 500 Mg Tablet 500 Mg PO BIDWMEALS Vitals/I & O Vital Sign - Last 24 Hours 11/22/20 11/22/20 11/22/20 11/22/20 09:51 09:52 09:52 11:00 Temp 97.5 97.5 Pulse 85 85 85 81 Resp 16 B/P (MAP) 111/75 111/75 111/75 98/61 (73) Pulse Ox 95 O2 Delivery Room Air 11/22/20 11/22/20 11/22/20 11/22/20 15:00 18:36 18:42 19:00 Temp 97.7 98.1 97.7 98.1 Pulse 81 81 85 Resp 16 18 20 B/P (MAP) 111/68 (82) 111/68 118/72 (87) Pulse Ox 92 92 93 O2 Delivery Room Air Room Air Room Air 11/22/20 11/22/20 11/22/20 11/23/20 20:00 20:00 23:00 03:00 Temp 98.1 97.5 98.1 97.5 Pulse 85 87 Resp 14 18 20 B/P (MAP) 122/75 (91) 112/68 (83) Pulse Ox 92 94 O2 Delivery Room Air Room Air Room Air Room Air Intake and Output 11/22/20 11/22/20 11/23/20 15:00 23:00 07:00 Intake Total 800 ml 2200 ml 450 ml Output Total 1000 ml Balance 800 ml 2200 ml -550 ml Justicifation of Admission Dx: Justifications for Admission: Justification of Admission Dx: Yes Respiratory Failure: Severe Resp Distress Comminuty Aquired Pneumonia: Complicated pleural effus DON BURTON MD Nov 23, 2020 08:43
--- NOTE | 2020-11-23 08:46 | PDOC ---
PULMONARY PROGRESS NOTES DATE: 11/23/20 TIME: 08:46 Subjective Remains on room air, continues to be hoarse NO SOA, No cough Vitals Vital Signs Date Time Temp Pulse Resp B/P (MAP) Pulse Ox O2 Delivery O2 Flow Rate FiO2 11/23/20 03:00 97.5 87 20 112/68 (83) 94 Room Air 97.5 ROS: No Nausea, No Chest Pain, No Abdominal Pain, No Increase Cough General: Alert, No acute distress Lungs: Clear Cardiovascular: S1 Abdomen: Soft Neuro Exam: Alert Extremities: No Edema Skin: Warm Labs Laboratory Tests Test 11/21/20 10:52 11/21/20 17:34 11/21/20 20:36 11/22/20 07:16 Glucose (Fingerstick) 157 mg/dL (70-99) 126 mg/dL (70-99) 137 mg/dL (70-99) 121 mg/dL (70-99) Test 11/22/20 08:35 11/22/20 12:15 11/22/20 16:35 11/22/20 21:09 White Blood Count 8.9 x10^3/uL (4.0-11.0) Red Blood Count 3.62 x10^6/uL (4.30-5.70) Hemoglobin 9.8 g/dL (13.0-17.5) Hematocrit 30.0 % (39.0-53.0) Mean Corpuscular Volume 83 fL (79-100) Mean Corpuscular Hemoglobin 27 pg (25-35) Mean Corpuscular Hemoglobin Concent 33 g/dL (31-37) Red Cell Distribution Width 14.7 % (11.5-14.5) Platelet Count 318 x10^3/uL (140-400) Neutrophils (%) (Auto) 72 % (31-73) Lymphocytes (%) (Auto) 19 % (24-48) Monocytes (%) (Auto) 8 % (0-9) Eosinophils (%) (Auto) 1 % (0-3) Basophils (%) (Auto) 1 % (0-3) Neutrophils # (Auto) 6.4 x10^3/uL (1.8-7.7) Lymphocytes # (Auto) 1.7 x10^3/uL (1.0-4.8) Monocytes # (Auto) 0.7 x10^3/uL (0.0-1.1) Eosinophils # (Auto) 0.1 x10^3/uL (0.0-0.7) Basophils # (Auto) 0.1 x10^3/uL (0.0-0.2) Sodium Level 137 mmol/L (136-145) Potassium Level 3.4 mmol/L (3.5-5.1) Chloride Level 103 mmol/L (98-107) Carbon Dioxide Level 24 mmol/L (21-32) Anion Gap 10 (6-14) Blood Urea Nitrogen 21 mg/dL (8-26) Creatinine 2.3 mg/dL (0.7-1.3) Estimated GFR (Cockcroft-Gault) 29.1 BUN/Creatinine Ratio 9 (6-20) Glucose Level 110 mg/dL (70-99) Calcium Level 8.8 mg/dL (8.5-10.1) Total Bilirubin 0.4 mg/dL (0.2-1.0) Aspartate Amino Transf (AST/SGOT) 26 U/L (15-37) Alanine Aminotransferase (ALT/SGPT) 19 U/L (16-63) Alkaline Phosphatase 81 U/L (46-116) Total Protein 6.6 g/dL (6.4-8.2) Albumin 1.8 g/dL (3.4-5.0) Albumin/Globulin Ratio 0.4 (1.0-1.7) Glucose (Fingerstick) 156 mg/dL (70-99) 109 mg/dL (70-99) 131 mg/dL (70-99) Test 11/23/20 01:25 11/23/20 07:49 11/23/20 07:55 Urine Collection Type Unknown Urine Color Yellow Urine Clarity Clear Urine pH 5.0 (<5.0-8.0) Urine Specific [place] 1.010 (1.000-1.030) Urine Protein Negative mg/dL (NEG-TRACE) Urine Glucose (UA) Negative mg/dL (NEG) Urine Ketones (Stick) Negative mg/dL (NEG) Urine Blood Negative (NEG) Urine Nitrite Negative (NEG) Urine Bilirubin Negative (NEG) Urine Urobilinogen Dipstick 0.2 mg/dL (0.2 mg/dL) Urine Leukocyte Esterase Negative (NEG) Urine RBC 0 /HPF (0-2) Urine WBC 0 /HPF (0-4) Urine Squamous Epithelial Cells Occ /LPF Urine Bacteria 0 /HPF (0-FEW) Urine Hyaline Casts Occasional /HPF White Blood Count 8.2 x10^3/uL (4.0-11.0) Red Blood Count 3.60 x10^6/uL (4.30-5.70) Hemoglobin 9.9 g/dL (13.0-17.5) Hematocrit 30.0 % (39.0-53.0) Mean Corpuscular Volume 83 fL (79-100) Mean Corpuscular Hemoglobin 28 pg (25-35) Mean Corpuscular Hemoglobin Concent 33 g/dL (31-37) Red Cell Distribution Width 14.5 % (11.5-14.5) Platelet Count 288 x10^3/uL (140-400) Neutrophils (%) (Auto) 70 % (31-73) Lymphocytes (%) (Auto) 20 % (24-48) Monocytes (%) (Auto) 7 % (0-9) Eosinophils (%) (Auto) 2 % (0-3) Basophils (%) (Auto) 1 % (0-3) Neutrophils # (Auto) 5.8 x10^3/uL (1.8-7.7) Lymphocytes # (Auto) 1.6 x10^3/uL (1.0-4.8) Monocytes # (Auto) 0.6 x10^3/uL (0.0-1.1) Eosinophils # (Auto) 0.1 x10^3/uL (0.0-0.7) Basophils # (Auto) 0.1 x10^3/uL (0.0-0.2) Glucose (Fingerstick) 117 mg/dL (70-99) Laboratory Tests Test 11/22/20 12:15 11/22/20 16:35 11/22/20 21:09 11/23/20 01:25 Glucose (Fingerstick) 156 mg/dL (70-99) 109 mg/dL (70-99) 131 mg/dL (70-99) Urine Collection Type Unknown Urine Color Yellow Urine Clarity Clear Urine pH 5.0 (<5.0-8.0) Urine Specific [place] 1.010 (1.000-1.030) Urine Protein Negative mg/dL (NEG-TRACE) Urine Glucose (UA) Negative mg/dL (NEG) Urine Ketones (Stick) Negative mg/dL (NEG) Urine Blood Negative (NEG) Urine Nitrite Negative (NEG) Urine Bilirubin Negative (NEG) Urine Urobilinogen Dipstick 0.2 mg/dL (0.2 mg/dL) Urine Leukocyte Esterase Negative (NEG) Urine RBC 0 /HPF (0-2) Urine WBC 0 /HPF (0-4) Urine Squamous Epithelial Cells Occ /LPF Urine Bacteria 0 /HPF (0-FEW) Urine Hyaline Casts Occasional /HPF Test 11/23/20 07:49 11/23/20 07:55 White Blood Count 8.2 x10^3/uL (4.0-11.0) Red Blood Count 3.60 x10^6/uL (4.30-5.70) Hemoglobin 9.9 g/dL (13.0-17.5) Hematocrit 30.0 % (39.0-53.0) Mean Corpuscular Volume 83 fL (79-100) Mean Corpuscular Hemoglobin 28 pg (25-35) Mean Corpuscular Hemoglobin Concent 33 g/dL (31-37) Red Cell Distribution Width 14.5 % (11.5-14.5) Platelet Count 288 x10^3/uL (140-400) Neutrophils (%) (Auto) 70 % (31-73) Lymphocytes (%) (Auto) 20 % (24-48) Monocytes (%) (Auto) 7 % (0-9) Eosinophils (%) (Auto) 2 % (0-3) Basophils (%) (Auto) 1 % (0-3) Neutrophils # (Auto) 5.8 x10^3/uL (1.8-7.7) Lymphocytes # (Auto) 1.6 x10^3/uL (1.0-4.8) Monocytes # (Auto) 0.6 x10^3/uL (0.0-1.1) Eosinophils # (Auto) 0.1 x10^3/uL (0.0-0.7) Basophils # (Auto) 0.1 x10^3/uL (0.0-0.2) Glucose (Fingerstick) 117 mg/dL (70-99) Medications Active Scripts Medications Dose Route/Sig Max Daily Dose Days Date Category Tramadol Hcl 50 Mg Tablet 50 Mg PO DAILY PRN 11/19/20 Reported Aspirin 81 Mg Tab.chew 2 Tab PO HS 11/19/20 Reported Cyclobenzaprine Hcl 10 Mg Tablet 1 Tab PO TID PRN 11/19/20 Reported Famotidine 40 Mg Tablet 40 Mg PO BID 11/19/20 Reported Losartan-Hctz 50-12.5 Mg Tab (Losartan/Hydrochlorothiazide) 1 Each Tablet 1 Tab PO DAILY 11/19/20 Reported Coreg (Carvedilol) 12.5 Mg Tablet 12.5 Mg PO BIDWMEALS 11/19/20 Reported Levothyroxine Sodium 50 Mcg Tablet 1 Tab PO DAILY 11/19/20 Reported Crestor (Rosuvastatin Calcium) 40 Mg Tablet 20 Mg PO HS 11/19/20 Reported [imdur] 120 Mg PO DAILY 11/19/20 Reported Metformin Hcl 500 Mg Tablet 500 Mg PO BIDWMEALS 11/19/[address] chest IMPRESSION: Right hilar mass causing occlusion of the right middle and right lower lobes, associated with bulky mediastinal adenopathy. These are findings concerning for a primary lung malignancy. Recommend correlation with PET CT imaging and/or bronchoscopic findings. There is only a small right pleural effusion present, likely not sufficient to merit attempt at thoracentesis although could be assessed with ultrasound if so desired.. PATHO: Source: [A] 01 BRUSHING RUL DIAGNOSIS: [A] 02 BRUSHING RUL POSITIVE FOR MALIGNANCY. 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 RESULTS REPORTED TO DR MARTÍNEZ ON 11/22/20 AT 1:30 PM. Signed out by: Jayde Patterson MD, Pathologist NPI- [id number] Performed by: Jason Echeverria, Faculty Physician ([facility]) Gross description: 1 FX /LCS 11/21/2020 1807 Local FLAG LEGEND: L-Low Normal,H-High Normal,LL-Alert Low,HH-Alert High <-Panic Low,>-Panic High,A-Abnormal,AA-Critical Abnormal Source: [A] 01 BRUSH TIP DIAGNOSIS: [A] 02 BRUSH TIP POSITVE FOR MALIGNANT CELLS. 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 RESULTS ARE REPORTED TO DR MARTÍNEZ ON 11/22/20 AT 1:30 PM. Signed out by: 02 Dez Patterson MD, Pathologist NPI- [id number] Performed by: 01 Edith Echeverria, Faculty Physician ([facility]) Gross description: 01 1 TP /LCS 11/21/2020 1809 Local Impression . 1. Dyspnea in a patient who is 59 years old, has significant volume loss right lower lobe ct chest findings c/w Primary lung malignancy status post bronchoscopy with positive pathology for small cell [place] . He has a 30-pound weight loss in the last few months and overall 90-pound weight loss in past year and half. The etiology of his symptoms and x-rays concerning for malignancy. 2. History of COVID-19 pneumonia diagnosed in 09/2020. 3. Long history of tobacco use for 45 years, suspect underlying chronic obstructive pulmonary disease. 4. History of coronary artery disease with multiple stents placed. 5. 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 Plan . Patient is stable from a respiratory standpoint, remains on room air Follow hematology/oncology recommendations, plan for outpatient MRI CT of the chest reviewed. Large right hilar mass with compression of RML/ RUL/ Mediastinal adenopathy, S/P bronch on 11/20/20--Significant extrinsic compression of all the subsegments of the right upper lobe, but no endobronchial lesion seen---Significant extrinsic compression of the bronchus intermedius. 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 cefdinir ECHO- EF WNL Neg venous Dopplers of lower extremities Follow Cardiology recommendation DVT/GI PPX Discussed with RN and Patient Okay to discharge home today Follow-up in the pulmonary office in January PRESTON VILLALPANDO MD Nov 23, 2020 08:46
[2020-11-23 08:48] LABS: ALBUMIN 1.8 g/dL (3.4-5.0); CALCIUM 8.4 mg/dL (8.5-10.1); CREATININE 1.9 mg/dL (0.7-1.3); GFR 36.2; PHOSPHORUS 2.9 mg/dL (2.6-4.7); POTASSIUM 3.5 mmol/L (3.5-5.1)
[2020-11-23] MEDS: FAMOTIDINE 20 MG TABLET. PO SCH (09:46)
[2020-11-23] MEDS: LOSARTAN POTASSIUM 50 MG TABLET. PO SCH (09:46)
[2020-11-23] MEDS: hydroCHLOROthiazide 12.5 MG CAPSULE PO SCH (09:46)
[2020-11-23] MEDS: CARVEDILOL 12.5 MG TABLET. PO SCH (09:47)
[2020-11-23] MEDS: ISOSORBIDE MONONITRATE ER 30 MG TAB.ER.24H PO SCH (09:47)
[2020-11-23 11:00] VITALS: BP 103/66
--- NOTE | 2020-11-23 11:19 | PDOC3 ---
Discharge Summary Date of Admission: Nov 18, 2020 Date of Discharge: Nov 23, 2020 Follow-Up: Other (1 WEEK) Admitting Diagnosis comment: DISCHARGE DX Assessment/Plan Right pleural effusion Right hilar mass causing occlusion of the right middle and right lower lobes, associated with bulky mediastinal adenopathy. findings concerning for a primary lung malignancy. // correlation with PET CT imaging and/or bronchoscopic findings. SMALL CELL CARCINOMA COVID-19 PUI NEG PRAVEENA Vasomotor nephropathy, ACUTE WITH HYPOTENSION CR 3.2 ON ADMIT Elevated D-dimer Possible PE RULED OUT Severe malnutrition PRAVEENA, slow to improve require PET/CT and MRI brain that can be arranged as outpatient Plan: Patient's symptoms concerning for pneumonia no effusion Consult to pulmonology Provide IV fluids to resolve PRAVEENA; may be able to obtain CTA chest to rule out PE as well given possible hypercoagulable state when kidney function improves COVID-19 pending; if positive will treat symptomatically, patient currently breathing on room air Provide diuresis and repeat chest x-ray /CT Resume home medications FEN - Cardiac diet PPX - Lovenox FULL CODE Dispo - inpatient for above ct chest NEPHROLOGY CONSULT IV FLUID SUPPORT AVOID NEPHROTOXIC DRUGS oncology consult MRI HEAD PET SCAN OUTPT D/W DR VILLALPANDO Note [facility] Accession Number: [id number] TESTS RESULT FLAG UNITS REF RANGE LAB Clinician Provided Cytology Information No. of containers..01 Slide Source: [A] 01 BRUSHING RUL DIAGNOSIS: [A] 02 BRUSHING RUL POSITIVE FOR MALIGNANCY. 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 RESULTS REPORTED TO DR MARTÍNEZ ON 11/22/20 AT 1:30 PM. Signed out by: 02 Dez Patterson MD, Pathologist NPI- [id number] Performed by: Edith Echeverria, Medical Records Clerk ([facility]) Gross description: 01 1 FX /LCS 11/21/2020 1807 Local FLAG LEGEND: L-Low Normal,H-High Normal,LL-Alert Low,HH-Alert High <-Panic Low,>-Panic High,A-Abnormal,AA-Critical Abnormal Performed at: 01 [facility] PATIENT: KENDRICK ABDUL ACCOUNT: [id number] : 1960 LOCATION: [address] [place] [address] AGE: 59 SEX: M EXAM STATUS: ADM IN ORD. PHYSICIAN: NIECY PEDERSON MD REASON: Effusion PROCEDURE: CT CHEST WO CONTRAST EXAM: CT Chest with and without IV contrast INDICATION: Reason: Effusion / Spl. Instructions: / History: TECHNIQUE: Multi-detector row CT images were acquired from the thoracic inlet through the upper abdomen with and without the use of IV contrast. Sagittal and coronal images were acquired from the transaxial data. All CT scans performed at this facility utilize dose optimization techniques as appropriate to the exam, including the following: Automated exposure control and adjustment of the mA and/or KV according to patient size (this includes techniques or standardized protocols for targeted exams where dose is indication/reason for exam). IV CONTRAST: Administered COMPARISON: Chest x-ray of 11/18/2020 FINDINGS: CARDIOVASCULAR: Dense multivessel coronary calcifications. Small pericardial effusion, measuring up to 1.1 cm anteriorly. MEDIASTINUM & MARI: Bulky mediastinal adenopathy is present with the largest lymph node measuring 3.5 cm in short axis diameter in the right lower paratracheal angy station. In addition, a right hilar mass is present, poorly delineated around the enlarged lymph nodes but circumferentially encasing and narrowing the right bronchus intermedius to occlusion. Densely calcified left hilar lymph nodes are also noted. LUNGS: Lobar atelectasis of the right middle and lower lobes is present. Patchy groundglass opacities in the peripheral posterior right upper lobe are also noted along with mild peribronchial thickening. PLEURAL SPACE: Small right pleural effusion is present. No pneumothorax. OSSEOUS & SOFT TISSUE: Unremarkable ABDOMEN: The visualized portions of the upper abdomen are unremarkable. IMPRESSION: Right hilar mass causing occlusion of the right middle and right lower lobes, associated with bulky mediastinal adenopathy. These are findings concerning for a primary lung malignancy. Recommend correlation with PET CT imaging and/or bronchoscopic findings. There is only a small right pleural effusion present, likely not sufficient to merit attempt at thoracentesis although could be assessed with ultrasound if so desired.. Electronically signed by: William Minor MD (11/19/2020 10:44 AM) [id number] DICTATED and SIGNED BY: WILLIAM MINOR MD DATE: 11/19/20 [id number] 0 37 MIN PT EXAM, D/C PLANNING CHART REVIEW, > 50% OF TIME SPENT WITH EXAM, CHART REVIEW, PT CARE COORDINATUION Justifications for Admission Justifications for Admission Other Justification History of Present Illness History of Present Illness Identification/Chief Complaint Chief Complaint Shortness of breath Source Source: Chart review, Patient History of Present Illness History of Present Illness Patient is a 59-year-old male past medical history CAD, who presents as a transfer from [facility] for concerns of malignant pleural effusion. Reports worsening shortness of breath over the past 2 to 3 weeks. Symptoms are worse with exertion, but he denies any chest pain. He does admit to approximately 90 pound unintentional weight loss over the past year. He is a former smoker, and reports significant coronary artery disease with history of 11 stents. His most recent stress test was 2 days ago and he is not aware of these results. He denies any history of blood clots, is not on anticoagulation, but does take daily aspirin. He was diagnosed with COVID-19 earlier in September 2020. Chest x-ray obtained at [facility] showed right pleural effusion with right basilar atelectasis or infiltrate. Given this medical history, patient was transferred to [facility] for further evaluation with cardiology consult. Labs obtained from [facility]: WBC 14.8, D-dimer 2.23, BNP 531, albumin 2.1 Past Medical History Past Medical History CAD, [place], GERD Past Surgical History Past Surgical History Tonsillectomy Social History Smoke: <1 pack per day ALCOHOL: none Drugs: None ROS Review of System GENERAL: Unintentional weight loss. Denies weakness or fevers. SKIN: No bruising, hair changes or rashes. EYES: No blurred, double or loss of vision. NOSE AND THROAT: No history of nosebleeds, hoarseness or sore throat. HEART: Denies chest pain, denies palpitations. LUNGS: Shortness of breath. Denies cough, hemoptysis, wheezing. GASTROINTESTINAL: Denies nausea, vomiting, abdominal pain. GENITOURINARY: Denies dysuria, frequency, urgency, hematuria. NEUROLOGIC: Denies history of numbness, tingling, tremor or weakness. PSYCHIATRIC: Denies anxiety, denies depression. ENDOCRINE: No history of heat or cold intolerance, polyuria or polydipsia. EXTREMITIES: Denies muscle weakness, joint pain, pain on walking or stiffness. Vitals Vitals Vital Signs Date Time Temp Pulse Resp B/P (MAP) Pulse Ox O2 Delivery O2 Flow Rate FiO2 11/23/20 03:00 97.5 87 20 112/68 (83) 94 Room Air 97.5 Physical Exam Physical Exam Physical Exam Physical Exam General: Cachectic appearing. Alert, Oriented X3, Cooperative, No acute distress HEENT: PERRLA, EOMI Lungs: Decreased breath sounds on right lung base, Normal air movement Heart: RRR, no murmurs Cardiovascular: S1, S2 Abdomen: Normal bowel sounds, Soft, No tenderness Extremities: No clubbing, No cyanosis Skin: No rashes, No significant lesion Neuro: Normal speech, Normal tone, Sensation intact Psych/Mental Status: Mental status NL, Mood NL General: Alert, Oriented X3, Cooperative, No acute distress Heart: Regular rate, Normal S1, Normal S2, No murmurs Lungs: Clear Abdomen: Normal bowel sounds, Soft, No tenderness, No masses Extremities: No clubbing, No cyanosis, No edema Skin: No rashes Brief Hospital Course Mr. Abdul is a 59 old [sex] who presented with [ ] Discharge Medications Current Medications Sodium Chloride 1,000 ml @ 100 mls/hr Q10H IV Last administered on 11/22/20at 21:40; Start 11/18/20 at 20:00 Furosemide (Lasix) 40 mg 1X ONCE IVP Last administered on 11/18/20at 21:47; Start 11/18/20 at 21:15; Stop 11/18/20 at 21:16; Status DC Ondansetron HCl (Zofran) 4 mg PRN Q6HRS PRN IVP NAUSEA/VOMITING; Start 11/18/20 at 20:15 Al Hydroxide/Mg Hydroxide (Mylanta Plus Xs) 30 ml PRN Q3HRS PRN PO HEARTBURN / GAS; Start 11/18/20 at 20:15; Stop 11/21/20 at 14:55; Status DC Calcium Carbonate/ Glycine (Tums) 500 mg PRN Q3HRS PRN PO UPSET STOMACH; Start 11/18/20 at 20:15 Zolpidem Tartrate (Ambien) 5 mg PRN QHS PRN PO INSOMNIA, MAY REPEAT IN 1HR; Start 11/18/20 at 20:15 Morphine Sulfate (Morphine Sulfate) 2 mg PRN Q1HR PRN IV PAIN; Start 11/18/20 at 20:15 Acetaminophen (Tylenol) 650 mg PRN Q6HRS PRN PO Headaches, Temp > 101.5F; Start 11/18/20 at 20:15 Magnesium Hydroxide (Milk Of Magnesia) 2,400 mg PRN Q12HR PRN PO CONSTIPATION; Start 11/18/20 at 20:15; Stop 11/21/20 at 14:55; Status DC Bisacodyl (Dulcolax Supp) 10 mg PRN DAILY PRN MI CONSTIPATION; Start 11/18/20 at 20:15 Enoxaparin Sodium (Lovenox 40mg Syringe) 40 mg Q24H SQ Last administered on 11/18/20at 21:47; Start 11/18/20 at 21:30; Stop 11/19/20 at 08:44; Status DC Ceftriaxone Sodium (Rocephin) 1 gm Q24H IVP Last administered on 11/21/20at 0 9:48; Start 11/19/20 at 09:00; Stop 11/21/20 at 15:38; Status DC Aspirin (Aspirin Chewable) 162 mg HS PO Last administered on 11/22/20at 21:39; Start 11/19/20 at 21:00 Carvedilol (Coreg) 12.5 mg BIDWMEALS PO Last administered on 11/23/20 09:47; Start 11/19/20 at 17:00 Cyclobenzaprine HCl (Flexeril) 10 mg PRN TID PRN PO MUSCLE PAIN Last administered on 11/22/20 21:39; Start 11/19/20 at 10:45 Levothyroxine Sodium (Synthroid) 50 mcg DAILY06 PO Last administered on 11/23/20 05:49; Start 11/19/20 at 12:00 Tramadol HCl (Ultram) 50 mg PRN DAILY PRN PO PAIN Last administered on 11/22/20 18:42; Start 11/19/20 at 10:45 Famotidine (Pepcid) 20 mg BID PO Last administered on 11/23/20 09:46; Start 11/19/20 at 12:00 Losartan Potassium (Cozaar) 50 mg DAILY PO Last administered on 11/23/20 09:46; Start 11/19/20 at 12:00 Atorvastatin Calcium (Lipitor) 80 mg QHS PO Last administered on 11/22/20 21:40; Start 11/19/20 at 21:00 Isosorbide Mononitrate (Imdur) 120 mg DAILY PO Last administered on 11/23/20 09:47; Start 11/20/20 at 09:00 Hydrochlorothiazide (Microzide) 12.5 mg DAILY PO Last administered on 11/23/20 09:46; Start 11/19/20 at 12:00 Albuterol Sulfate (Ventolin Neb Soln) 2.5 mg PRN 1X PRN NEB SHORTNESS OF BREATH Last administered on 11/20/20 10:32; Start 11/20/20 at 09:00; Stop 11/21/20 at 08:59; Status DC Lidocaine HCl (Lidocaine 2% Viscous) 100 ml PRN 1X PRN MM FOR PROCEDURE Last administered on 11/20/20 10:28; Start 11/20/20 at 09:00; Stop 11/21/20 at 08:59; Status DC Lidocaine HCl (Lidocaine 1% 20ml Vial) 20 ml PRN 1X PRN INJ SEE COMMENTS Last administered on 11/20/20 10:32; Start 11/20/20 at 09:00; Stop 11/21/20 at 08: 59; Status DC Epinephrine HCl (Adrenalin) 1 mg PRN 1X PRN INJ SEE COMMENTS Last administered on 11/20/20at 11:30; Start 11/20/20 at 09:00; Stop 11/21/20 at 08:59; Status DC Lidocaine HCl (Lidocaine 4% Topical) 50 ml PRN 1X PRN MM SEE COMMENTS Last administered on 11/20/20at 10:33; Start 11/20/20 at 09:00; Stop 11/21/20 at 08:59; Status DC Epinephrine HCl (Adrenalin) 1 mg STK-MED ONCE .ROUTE ; Start 11/20/20 at 09:04; Stop 11/20/20 at 09:04; Status DC Lidocaine HCl (Lidocaine 1% 20ml Vial) 20 ml STK-MED ONCE .ROUTE ; Start 11/20/20 at 09:04; Stop 11/20/20 at 09:04; Status DC Lidocaine HCl (Lidocaine 2% Viscous) 100 ml STK-MED ONCE .ROUTE ; Start 11/20/20 at 09:04; Stop 11/20/20 at 09:04; Status DC Lidocaine HCl (Lidocaine 4% Topical) 50 ml STK-MED ONCE .ROUTE ; Start 11/20/20 at 09:04; Stop 11/20/20 at 09:04; Status DC Ringer's Solution 1,000 ml @ 75 mls/hr 1X ONCE IV Last administered on 11/20/20at 10:25; Start 11/20/20 at 10:30; Stop 11/20/20 at 23:49; Status DC Propofol (Diprivan) 200 mg STK-MED ONCE IV ; Start 11/20/20 at 11:08; Stop 11/20/20 at 11:08; Status DC Lidocaine HCl (Lidocaine Pf 2% Vial) 5 ml STK-MED ONCE .ROUTE ; Start 11/20/20 at 11:08; Stop 11/20/20 at 11:08; Status DC Heparin Sodium (Porcine) (Heparin Sodium) 5,000 unit Q8HRS SQ Last administered on 11/23/20at 05:53; Start 11/21/20 at 22:00 Cefdinir (Omnicef) 300 mg QHS PO Last administered on 11/22/20at 21:40; Start 11/21/20 at 21:00 Potassium Chloride (Klor-Con) 20 meq 1X ONCE PO Last administered on 11/22/20at 13:35; Start 11/22/20 at 11:45; Stop 11/22/20 at 11:46; Status DC Active Scripts Active Reported Tramadol Hcl 50 Mg Tablet 50 Mg PO DAILY PRN Aspirin 81 Mg Tab.chew 2 Tab PO HS Cyclobenzaprine Hcl 10 Mg Tablet 1 Tab PO TID PRN Famotidine 40 Mg Tablet 40 Mg PO BID Losartan-Hctz 50-12.5 Mg Tab (Losartan/Hydrochlorothiazide) 1 Each Tablet 1 Tab PO DAILY Coreg (Carvedilol) 12.5 Mg Tablet 12.5 Mg PO BIDWMEALS Levothyroxine Sodium 50 Mcg Tablet 1 Tab PO DAILY Crestor (Rosuvastatin Calcium) 40 Mg Tablet 20 Mg PO HS [imdur] 120 Mg PO DAILY Metformin Hcl 500 Mg Tablet 500 Mg PO BIDWMEALS Vital Signs Vital Signs Date Time Temp Pulse Resp B/P (MAP) Pulse Ox O2 Delivery O2 Flow Rate FiO2 11/23/20 09:47 81 117/78 11/23/20 07:00 97.9 18 94 Room Air 97.9 Labs Laboratory Tests Test 11/21/20 17:34 11/21/20 20:36 11/22/20 07:16 11/22/20 08:35 Glucose (Fingerstick) 126 mg/dL (70-99) 137 mg/dL (70-99) 121 mg/dL (70-99) White Blood Count 8.9 x10^3/uL (4.0-11.0) Red Blood Count 3.62 x10^6/uL (4.30-5.70) Hemoglobin 9.8 g/dL (13.0-17.5) Hematocrit 30.0 % (39.0-53.0) Mean Corpuscular Volume 83 fL (79-100) Mean Corpuscular Hemoglobin 27 pg (25-35) Mean Corpuscular Hemoglobin Concent 33 g/dL (31-37) Red Cell Distribution Width 14.7 % (11.5-14.5) Platelet Count 318 x10^3/uL (140-400) Neutrophils (%) (Auto) 72 % (31-73) Lymphocytes (%) (Auto) 19 % (24-48) Monocytes (%) (Auto) 8 % (0-9) Eosinophils (%) (Auto) 1 % (0-3) Basophils (%) (Auto) 1 % (0-3) Neutrophils # (Auto) 6.4 x10^3/uL (1.8-7.7) Lymphocytes # (Auto) 1.7 x10^3/uL (1.0-4.8) Monocytes # (Auto) 0.7 x10^3/uL (0.0-1.1) Eosinophils # (Auto) 0.1 x10^3/uL (0.0-0.7) Basophils # (Auto) 0.1 x10^3/uL (0.0-0.2) Sodium Level 137 mmol/L (136-145) Potassium Level 3.4 mmol/L (3.5-5.1) Chloride Level 103 mmol/L (98-107) Carbon Dioxide Level 24 mmol/L (21-32) Anion Gap 10 (6-14) Blood Urea Nitrogen 21 mg/dL (8-26) Creatinine 2.3 mg/dL (0.7-1.3) Estimated GFR (Cockcroft-Gault) 29.1 BUN/Creatinine Ratio 9 (6-20) Glucose Level 110 mg/dL (70-99) Calcium Level 8.8 mg/dL (8.5-10.1) Total Bilirubin 0.4 mg/dL (0.2-1.0) Aspartate Amino Transf (AST/SGOT) 26 U/L (15-37) Alanine Aminotransferase (ALT/SGPT) 19 U/L (16-63) Alkaline Phosphatase 81 U/L (46-116) Total Protein 6.6 g/dL (6.4-8.2) Albumin 1.8 g/dL (3.4-5.0) Albumin/Globulin Ratio 0.4 (1.0-1.7) Test 11/22/20 12:15 11/22/20 16:35 11/22/20 21:09 11/23/20 01:25 Glucose (Fingerstick) 156 mg/dL (70-99) 109 mg/dL (70-99) 131 mg/dL (70-99) Urine Collection Type Unknown Urine Color Yellow Urine Clarity Clear Urine pH 5.0 (<5.0-8.0) Urine Specific [place] 1.010 (1.000-1.030) Urine Protein Negative mg/dL (NEG-TRACE) Urine Glucose (UA) Negative mg/dL (NEG) Urine Ketones (Stick) Negative mg/dL (NEG) Urine Blood Negative (NEG) Urine Nitrite Negative (NEG) Urine Bilirubin Negative (NEG) Urine Urobilinogen Dipstick 0.2 mg/dL (0.2 mg/dL) Urine Leukocyte Esterase Negative (NEG) Urine RBC 0 /HPF (0-2) Urine WBC 0 /HPF (0-4) Urine Squamous Epithelial Cells Occ /LPF Urine Bacteria 0 /HPF (0-FEW) Urine Hyaline Casts Occasional /HPF Test 11/23/20 07:49 11/23/20 07:55 White Blood Count 8.2 x10^3/uL (4.0-11.0) Red Blood Count 3.60 x10^6/uL (4.30-5.70) Hemoglobin 9.9 g/dL (13.0-17.5) Hematocrit 30.0 % (39.0-53.0) Mean Corpuscular Volume 83 fL (79-100) Mean Corpuscular Hemoglobin 28 pg (25-35) Mean Corpuscular Hemoglobin Concent 33 g/dL (31-37) Red Cell Distribution Width 14.5 % (11.5-14.5) Platelet Count 288 x10^3/uL (140-400) Neutrophils (%) (Auto) 70 % (31-73) Lymphocytes (%) (Auto) 20 % (24-48) Monocytes (%) (Auto) 7 % (0-9) Eosinophils (%) (Auto) 2 % (0-3) Basophils (%) (Auto) 1 % (0-3) Neutrophils # (Auto) 5.8 x10^3/uL (1.8-7.7) Lymphocytes # (Auto) 1.6 x10^3/uL (1.0-4.8) Monocytes # (Auto) 0.6 x10^3/uL (0.0-1.1) Eosinophils # (Auto) 0.1 x10^3/uL (0.0-0.7) Basophils # (Auto) 0.1 x10^3/uL (0.0-0.2) Sodium Level 137 mmol/L (136-145) Potassium Level 3.5 mmol/L (3.5-5.1) Chloride Level 102 mmol/L (98-107) Carbon Dioxide Level 25 mmol/L (21-32) Anion Gap 10 (6-14) Blood Urea Nitrogen 19 mg/dL (8-26) Creatinine 1.9 mg/dL (0.7-1.3) Estimated GFR (Cockcroft-Gault) 36.2 Glucose Level 107 mg/dL (70-99) Calcium Level 8.4 mg/dL (8.5-10.1) Phosphorus Level 2.9 mg/dL (2.6-4.7) Magnesium Level 1.5 mg/dL (1.8-2.4) Albumin 1.8 g/dL (3.4-5.0) Glucose (Fingerstick) 117 mg/dL (70-99) Laboratory Tests Test 11/22/20 12:15 11/22/20 16:35 11/22/20 21:09 11/23/20 01:25 Glucose (Fingerstick) 156 mg/dL (70-99) 109 mg/dL (70-99) 131 mg/dL (70-99) Urine Collection Type Unknown Urine Color Yellow Urine Clarity Clear Urine pH 5.0 (<5.0-8.0) Urine Specific [place] 1.010 (1.000-1.030) Urine Protein Negative mg/dL (NEG-TRACE) Urine Glucose (UA) Negative mg/dL (NEG) Urine Ketones (Stick) Negative mg/dL (NEG) Urine Blood Negative (NEG) Urine Nitrite Negative (NEG) Urine Bilirubin Negative (NEG) Urine Urobilinogen Dipstick 0.2 mg/dL (0.2 mg/dL) Urine Leukocyte Esterase Negative (NEG) Urine RBC 0 /HPF (0-2) Urine WBC 0 /HPF (0-4) Urine Squamous Epithelial Cells Occ /LPF Urine Bacteria 0 /HPF (0-FEW) Urine Hyaline Casts Occasional /HPF Test 11/23/20 07:49 11/23/20 07:55 White Blood Count 8.2 x10^3/uL (4.0-11.0) Red Blood Count 3.60 x10^6/uL (4.30-5.70) Hemoglobin 9.9 g/dL (13.0-17.5) Hematocrit 30.0 % (39.0-53.0) Mean Corpuscular Volume 83 fL (79-100) Mean Corpuscular Hemoglobin 28 pg (25-35) Mean Corpuscular Hemoglobin Concent 33 g/dL (31-37) Red Cell Distribution Width 14.5 % (11.5-14.5) Platelet Count 288 x10^3/uL (140-400) Neutrophils (%) (Auto) 70 % (31-73) Lymphocytes (%) (Auto) 20 % (24-48) Monocytes (%) (Auto) 7 % (0-9) Eosinophils (%) (Auto) 2 % (0-3) Basophils (%) (Auto) 1 % (0-3) Neutrophils # (Auto) 5.8 x10^3/uL (1.8-7.7) Lymphocytes # (Auto) 1.6 x10^3/uL (1.0-4.8) Monocytes # (Auto) 0.6 x10^3/uL (0.0-1.1) Eosinophils # (Auto) 0.1 x10^3/uL (0.0-0.7) Basophils # (Auto) 0.1 x10^3/uL (0.0-0.2) Sodium Level 137 mmol/L (136-145) Potassium Level 3.5 mmol/L (3.5-5.1) Chloride Level 102 mmol/L (98-107) Carbon Dioxide Level 25 mmol/L (21-32) Anion Gap 10 (6-14) Blood Urea Nitrogen 19 mg/dL (8-26) Creatinine 1.9 mg/dL (0.7-1.3) Estimated GFR (Cockcroft-Gault) 36.2 Glucose Level 107 mg/dL (70-99) Calcium Level 8.4 mg/dL (8.5-10.1) Phosphorus Level 2.9 mg/dL (2.6-4.7) Magnesium Level 1.5 mg/dL (1.8-2.4) Albumin 1.8 g/dL (3.4-5.0) Glucose (Fingerstick) 117 mg/dL (70-99) Allergies Allergies Coded Allergies Type Severity Reaction Last Updated Verified No Known Drug Allergies 11/20/20 No Justicifation of Admission Dx: Justifications for Admission: Justification of Admission Dx: Yes Respiratory Failure: Severe Resp Distress Comminuty Aquired Pneumonia: Complicated pleural effus FULBRDON PALM MD 15, 2021 11:19
[2020-11-23] MEDS ORDERED: BISA10SU4 PR (11:21)
[2020-11-23] MEDS ORDERED: ACET325T9 PO (11:21)
[2020-11-23] MEDS ORDERED: CEFD300C PO (11:21)
--- NOTE | 2020-11-23 11:23 | DISCH ---
DISCHARGE INSTRUCTIONS Condition on Discharge Condition on Discharge: Guarded Activity After Discharge Activity Instructions for Disc: Activity as tolerated, Avoid exertion Lifting Instructions after Dis: No heavy lifting, No pulling or pushing Driving Instructions after Dis: Do not drive Diet after Discharge Diet after Discharge: Diabetic No Calorie Level Liquid Texture: Thin Liquid Checks after Discharge Checks after discharge: Check blood press - daily Contacting the DRAlia after DC Call your doctor for: If your condition worsens Follow-Up Follow up with: SEE DR [facility] Treatment/Equipment after DC Adaptive Equipment Issued: None DON BURTON MD Nov 23, 2020 11:23
--- NOTE | 2020-11-23 13:12 | PDOC ---
Renal-Progress Notes Subjective Notes Notes NO NEW COMPLAINTS History of Present Illness Hx of present illness STABLE Vitals Vitals Vital Signs Date Time Temp Pulse Resp B/P (MAP) Pulse Ox O2 Delivery O2 Flow Rate FiO2 11/23/20 11:00 97.8 72 18 103/66 (78) 97 Room Air 97.8 Weight Weight [ ] I.O. Intake and Output Intake and Output 11/23/20 07:00 Intake Total 3450 ml Output Total 1000 ml Balance 2450 ml Intake Oral 450 ml IV Total 3000 ml Output Urine Total 1000 ml # Voids 1 Labs Labs Laboratory Tests Test 11/22/20 16:35 11/22/20 21:09 11/23/20 01:25 11/23/20 07:49 Glucose (Fingerstick) 109 mg/dL (70-99) 131 mg/dL (70-99) Urine Collection Type Unknown Urine Color Yellow Urine Clarity Clear Urine pH 5.0 (<5.0-8.0) Urine Specific [place] 1.010 (1.000-1.030) Urine Protein Negative mg/dL (NEG-TRACE) Urine Glucose (UA) Negative mg/dL (NEG) Urine Ketones (Stick) Negative mg/dL (NEG) Urine Blood Negative (NEG) Urine Nitrite Negative (NEG) Urine Bilirubin Negative (NEG) Urine Urobilinogen Dipstick 0.2 mg/dL (0.2 mg/dL) Urine Leukocyte Esterase Negative (NEG) Urine RBC 0 /HPF (0-2) Urine WBC 0 /HPF (0-4) Urine Squamous Epithelial Cells Occ /LPF Urine Bacteria 0 /HPF (0-FEW) Urine Hyaline Casts Occasional /HPF White Blood Count 8.2 x10^3/uL (4.0-11.0) Red Blood Count 3.60 x10^6/uL (4.30-5.70) Hemoglobin 9.9 g/dL (13.0-17.5) Hematocrit 30.0 % (39.0-53.0) Mean Corpuscular Volume 83 fL (79-100) Mean Corpuscular Hemoglobin 28 pg (25-35) Mean Corpuscular Hemoglobin Concent 33 g/dL (31-37) Red Cell Distribution Width 14.5 % (11.5-14.5) Platelet Count 288 x10^3/uL (140-400) Neutrophils (%) (Auto) 70 % (31-73) Lymphocytes (%) (Auto) 20 % (24-48) Monocytes (%) (Auto) 7 % (0-9) Eosinophils (%) (Auto) 2 % (0-3) Basophils (%) (Auto) 1 % (0-3) Neutrophils # (Auto) 5.8 x10^3/uL (1.8-7.7) Lymphocytes # (Auto) 1.6 x10^3/uL (1.0-4.8) Monocytes # (Auto) 0.6 x10^3/uL (0.0-1.1) Eosinophils # (Auto) 0.1 x10^3/uL (0.0-0.7) Basophils # (Auto) 0.1 x10^3/uL (0.0-0.2) Sodium Level 137 mmol/L (136-145) Potassium Level 3.5 mmol/L (3.5-5.1) Chloride Level 102 mmol/L (98-107) Carbon Dioxide Level 25 mmol/L (21-32) Anion Gap 10 (6-14) Blood Urea Nitrogen 19 mg/dL (8-26) Creatinine 1.9 mg/dL (0.7-1.3) Estimated GFR (Cockcroft-Gault) 36.2 Glucose Level 107 mg/dL (70-99) Calcium Level 8.4 mg/dL (8.5-10.1) Phosphorus Level 2.9 mg/dL (2.6-4.7) Magnesium Level 1.5 mg/dL (1.8-2.4) Albumin 1.8 g/dL (3.4-5.0) Test 11/23/20 07:55 11/23/20 12:16 Glucose (Fingerstick) 117 mg/dL (70-99) 141 mg/dL (70-99) Review of Systems Constitutional: yes: alert Ears/Nose/Throat: Yes: no symptom reported Eyes: Yes: no symptom reported Pulmonary: Yes dyspnea Cardiovascular: Yes no symptom reported Gastrointestional: Yes: no symptom reported Genitourinary: Yes: no symptom reported Musculoskeletal: Yes: no symptom reported Skin: Yes no symptom reported Psychiatric/Neurological: Yes: no symptom reported Physical Exam General Appearance: no apparent distress Skin: warm Respiratory: decreased breath sounds Heart: S1S2 Abdomen: soft Genitourinary: bladder flat Extremities: pulses present Neurology: alert Assessment Assessment IMP PRAVEENA WITH CR DOWN TO 1.9 HYPOKALEMIA PROB ECVD DYSPNEA PROB LUNG CA WT LOSS HX OF COID 19 POS IN NOV TOBACCO USE PLAN CONT WITH HYDRATION HOLD HIS ARB WILL FOLLOW IRENE ARIAS MD Nov 23, 2020 13:12
--- NOTE | 2020-11-23 14:00 | NUR ---
DISCHARGE INSTRUCTIONS GIVEN, QUESTIONS AND CONCERNS ANSWERED, PATIENT VERBALIZED UNDERSTANDING OF DISCHARGE INFORMATION INCLUDING TAKING ALL MEDICATIONS INSTRUCTED AND FOLLOWING UP WITH HIS PRIMARY PROVIDER AND DR. COOMBS INSTRUCTED WELL OBTAINING HIS BRAIN MRI OUTPATIENT.
--- NOTE | 2020-11-23 14:20 | NUR ---
PATIENT LEAVES THE UNIT PER W/C AND ACCOMPANIED BY HIS FAMILY MEMBER, EMOTIONAL SUPPORT GIVEN, FOLLOW UP APPOINTMENTS ENCOURAGED.
--- NOTE | 2020-11-26 10:07 | PATHOLOGY ---
[facility] Accession Number: [id number] . 01 Material submitted: . lung - BBX RUL. Modifiers: right, upper . 01 Clinical history: . LUNG MASS BRONCHOSCOPY . 02 Diagnosis: Bronchial biopsy, right upper lobe mass bronchial biopsy: - SMALL CELL UNDIFFERENTIATED CARCINOMA. SEE COMMENT. LBQ 11/23/2020 0933 Local . 02 Comment: Sections of the right upper lobe mass bronchial biopsy reveal a malignant epithelial neoplasm. The neoplasm appears to undermine the bronchial mucosal epithelium. The malignant cells are present in solid sheets and cords and is composed of small cells having a high N/C ratio. The tumor cells possess rounded to ovoid nuclei having a finely dispersed chromatin. There is nuclear molding. The tumor shows crush artifact. Mitotic figures and apoptosis are present. The tumor does not show evidence of keratinization or gland formation. A panel of immunoperoxidase stains is obtained on A1 and yields the following results: . Cytokeratin 7: Tumor cells positive AE1/AE3: Tumor cells positive TTF-1: Tumor cells positive Synaptophysin: Tumor cells positive CD56: Tumor cells positive CK5/6: Tumor cells negative . The morphologic and immunophenotypic findings are supportive of the diagnosis of small cell undifferentiated carcinoma. The results are reported to Dr. Santiago on 11/22/2020 at 1:30 pm. The case is also examined by Dr. Barth, who concurs with the diagnosis. . (JPM/db/pit; 11/22/2020) . Special stains performed: CK7, AE1/AE3, TTF-1, synaptophysin, CD56, CK5/6 all performed on A1 . 02 Electronically signed: . Dez Patterson MD, Pathologist NPI- [id number] . 01 Gross description: . The specimen is received in formalin, labeled "Michele Abdul, BBX". The specimen is additionally labeled on the requisition as, "BBX RUL". Received is a segment of pale jang soft tissue measuring 0.3 cm in maximum dimensions. The specimen is submitted entirely in cassette A1. (CAA; 11/21/2020) QAC/QAC 11/21/2020 1248 Local . 02 Pathologist provided ICD-10: C34.11 . 02 CPT . 936975, [id number], [id number] Specimen Comment: A courtesy copy of this report has been sent to [phone] Specimen Comment: Report sent to Specimen Comment: A duplicate report has been generated due to demographic updates. Performed at: 01 [facility] [address], [place] [id number] MD Lamonte Barth MD Phone: [phone] Performed at: 02 [facility] [address] [place], [place] [id number] MD Dez Patterson MD Phone: [phone]
[2020-11-28] MEDS ORDERED: SERT-266 PO (08:19)
[2020-11-28] MEDS ORDERED: LIDO30CR2 TP (08:19)
[2021-02-16] MEDS ORDERED: MAGN400C PO (16:30)
[2021-02-16] MEDS ORDERED: BENZ100C PO (16:30)
== END 2020-11-23 14:20 | disposition home or self-care (01) | DRG 180 ==
LOC: 6 SOUTH 19:01 → 5 NORTH 11-20 18:03
PROVIDERS: ADMIT Family Medicine; ATTEND Family Medicine
PROC: 0BB38ZX Excision of Right Main Bronchus, Via Natural or Artificial Opening Endoscopic, Diagnostic (ICD-10-PCS; principal; 2020-11-18)
DX: C34.91 Malignant neoplasm of unspecified part of right bronchus or lung (principal); N17.0 Acute kidney failure with tubular necrosis; E43 Unspecified severe protein-calorie malnutrition; J96.90 Respiratory failure, unspecified, unspecified whether with hypoxia or hypercapnia; J18.9 Pneumonia, unspecified organism; J90 Pleural effusion, not elsewhere classified; J98.11 Atelectasis; R64 Cachexia; D63.8 Anemia in other chronic diseases classified elsewhere; E03.9 Hypothyroidism, unspecified; E11.9 Type 2 diabetes mellitus without complications; E78.5 Hyperlipidemia, unspecified; E87.6 Hypokalemia; K21.9 Gastro-esophageal reflux disease without esophagitis; F17.210 Nicotine dependence, cigarettes, uncomplicated; I10 Essential (primary) hypertension; I25.10 Atherosclerotic heart disease of native coronary artery without angina pectoris; I25.2 Old myocardial infarction; J38.01 Paralysis of vocal cords and larynx, unilateral; J44.9 Chronic obstructive pulmonary disease, unspecified; J98.09 Other diseases of bronchus, not elsewhere classified; Z79.82 Long term (current) use of aspirin; Z80.3 Family history of malignant neoplasm of breast; Z85.118 Personal history of other malignant neoplasm of bronchus and lung; Z87.01 Personal history of pneumonia (recurrent); Z95.5 Presence of coronary angioplasty implant and graft; Z20.822 Contact with and (suspected) exposure to COVID-19
CPT/HCPCS: 31622; 36415; 71045; 71250; 76604; 76770; 80048; 80053; 80069; 81001; 82962; 83735; 84145; 85025; 85610; 88104; 88112; 88305; 88341; 88342; 93306; 93970; 94640; J0171; J0696; J1644; J1650; J1940; J2704; J3490; J7030; J7120; U0003; G0378; J7613

== ENCOUNTER 2020-11-28 07:17 | Outpatient (CLI) | payer MEDICARE, MEDICAID ==
[~2020-11-28] VITALS: Ht 177.8 cm; Wt 77.1 kg
[2020-11-28] VITALS (7 sets, daily range): BP systolic 114–144; BP diastolic 73–87
[~2020-11-28 07:17] MED LIST: ACET325T9 PO; ASPI-630 PO; BISA10SU4 PR; CARV12.5 PO; CEFD300C PO; CRESTOR40 MG PO; CYCL10TA2 PO; FAMO40TA4 PO; LEVO50TA5 PO; LOSA1TAB19 PO; METF500T16 PO; TRAM50TA PO; imdur PO
[2020-11-28] MEDS ORDERED: LIDOCAINE 2%/EPI 1:100,000 20 ML VIAL. ONE (08:18)
[2020-11-28] MEDS ORDERED: ONDA8TAB15 PO (08:19)
[2020-11-28] MEDS ORDERED: PANT20TA2 PO (08:19)
[2020-11-28] MEDS ORDERED: LACT20SO PO (08:19)
[2020-11-28] MEDS ORDERED: CYCL10TA2 PO (08:19)
[2020-11-28] MEDS ORDERED: PROC10TA57 PO (08:19)
[2020-11-28] MEDS ORDERED: LIDO30CR TP (08:19)
[2020-11-28] MEDS ORDERED: SERT25TA4 PO (08:19)
[2020-11-28] MEDS ORDERED: ceFAZolin SODIUM IV Push 1 GM VIAL. IVP ONE ×2 (08:30→08:39)
[2020-11-28] MEDS ORDERED: MIDAZOLAM HCL/PF 2 MG/2 ML VIAL. ONE (08:39)
[2020-11-28] MEDS ORDERED: fentaNYL PF VIAL 100 MCG/2 ML VIAL ONE (08:39)
[2020-11-28] MEDS ORDERED: LIDOCAINE 1%/EPI 1:100,000 20 ML VIAL. INJ ONE (09:00)
[2020-11-28] MEDS ORDERED: ceFAZolin SODIUM IV Push 1 GM VIAL. IVP PRN (09:00)
[2020-11-28] MEDS ORDERED: fentaNYL PF VIAL 100 MCG/2 ML VIAL IV ONE (09:00)
[2020-11-28] MEDS ORDERED: MIDAZOLAM HCL/PF 2 MG/2 ML VIAL. IV ONE (09:00)
[2020-11-28] MEDS ORDERED: HEPARIN PF 500 UNIT/5 ML DISP.SYRIN. IVP ONE ×2 (09:17→09:30)
--- NOTE | 2020-11-28 09:45 | PDOC ---
MODERATE SEDATION ASSESSMENT RISKS/ALTERNATIVES Risks/Alternatives Risks and alternatives of this type of sedation and procedure discussed with: RISK/ALTERNATIVES: Patient H & P ON CHART H & P H & P on chart and reviewed for co-morbid conditions and appropriate labs. H&P ON CHART: Yes STATUS PREG STATUS ASSESSED: Yes MEDS/ALLERGIES REVIEWED Meds/Allergies Reviewed Medications and Allergies including time and route of recently administered narcotics and sedatives. MEDS/ALLERGIES REVIEWED: Yes ASA RATING ASA RATING: III AIRWAY ASSESSMENT Airway Assessment Airway patency, oral function limitations, presence of caps, crowns, dentures, partials, and ability to extend neck assessed. AIRWAY ASSESSMENT: Yes MALLAMPATI SCORE MALLAMPATI SCORE: II PRE-SEDATION ASSESSMENT PRE-SEDATION ASSESSMENT: Yes DAISHA GORDILLO MD Nov 28, 2020 09:45
--- NOTE | 2020-11-28 09:47 | PDOC ---
Exam Plant Quality Manager Plant Quality Manager amy Bmw Sales Consultant Bmw Sales Consultant dinh Pre-Procedure Diagnosis Pre-Procedure Diagnosis Lung cancer Post-Procedure Diagnosis Post-Procedure Diagnosis Same Procedure Performed Procedure Performed Placement of left IJport Type of Anesthesia Type of Anesthesia Mod Sed Estimated Blood Loss EBL: 10 Specimens Specimans None Drain/Tubes Drains/Tubes Left IJ bard powerport Condition of Patient Condition of Patient Stable Disposition Disposition To [facility] for recovery DAISHA GORDILLO MD Nov 28, 2020 09:47
--- NOTE | 2020-11-28 11:03 | NUR ---
Patient d/c, taken to vehicle via wheelchair. All belongings w/ patient at time of d/c. VS stable. No bleeding at site. Instructions provided on incision care, sedation. Patient verbalized understanding. Patient's sister transporting.
--- NOTE | 2020-11-28 15:41 | RAD ---
Procedure: Ultrasound and fluoroscopically guided placement of left internal jugular power port.. 11/28/2020 1:33 PM Clinical Indication: CANCER TREATMENT Sedation: Conscious sedation was administered for 47 minutes. The patient was monitored by a qualified independent observer throughout the time of sedation. Please refer to the medical record for exact doses of medications utilized to achieve moderate sedation. Fluoroscopy time: 6.7 minutes Dose area product: 14 Gycm2 Consent: The procedure was explained in its entirety to the patient or the patients designated call center representative by a member of the treatment team, including a discussion of the risks, benefits and commonly accepted alternatives to the procedure, as well as the expected consequences of no therapy whatsoever. Discussion of the risks included, but was not limited to, those that are most frequent and those that are rare but possibly severe or life-threatening, as well as the possibility of unforeseen complications. Technique and Findings: All elements of maximal sterile barrier technique including the use of a cap, mask, sterile gown, sterile gloves, large sterile sheet, appropriate hand hygiene, and 2% chlorhexidine for cutaneous antisepsis (or acceptable alternative antiseptic per current guidelines) were followed for this procedure. Following informed consent, and a timeout procedure, the patient was prepped and draped in the usual sterile fashion. Ultrasound interrogation of the left neck revealed patency and compressibility of the left internal jugular vein. A 21-gauge micropuncture was then used to gain access to this vein under ultrasound guidance. A hard copy ultrasound image was recorded. The needle was exchanged over a wire for a sheath. Notably, due to a large right hilar/mediastinal mass, a wire would not easily pass into the IVC. This required various guidewire/catheter combinations to achieve. A 1 inch incision was made several centimeters inferior to the venotomy site. A catheter was tunneled from this site dermatotomy site in the neck. Catheter was advanced through peel-away sheath such that its tip was in the proximal right atrium with the patient supine. The catheter was trimmed to length and connected to the port reservoir. The port was found to flush and aspirate normally. The wound was closed in layers using 4-0 Vicryl suture. Sterile dressings were applied. Impression: Successful ultrasound and fluoroscopically guided placement of a left internal jugular PowerPort
== END 2020-11-28 11:02 | disposition home or self-care (01) ==
LOC: INTRAD 07:17
PROVIDERS: ATTEND Physician Assistant
DX: Z45.2 Encounter for adjustment and management of vascular access device (principal); C34.90 Malignant neoplasm of unspecified part of unspecified bronchus or lung
CPT/HCPCS: 36561; 76937; 77001; 99152; 99153; C1751; C1769; C1892; J0690; J1642; J2250; J3010; J3490

== ENCOUNTER → 2020-11-30 | Outpatient (CLI) | payer MEDICARE, MEDICAID ==
[2020-11-28 10:50] VITALS: BP 116/73
[~2020-11-30] MED LIST changes: +BENZ100C PO; +GADOTERATE 7.5 MMOL/15ML VIAL. IVP ONE; +LACT20SO PO; +LIDO30CR2 TP; +MAGN400C PO; +ONDA8TAB15 PO; +PANT20TA2 PO; +PROC10TA57 PO; +SERT-266 PO
--- NOTE | 2020-11-30 10:10 | RAD ---
MRI BRAIN WO+W Date: 11/30/2020 8:09 AM Indication: Reason: METS CHECK. Hx LESION ON LUNG /15mL CLARISCAN / Spl. Instructions: / History: Comparison: None. Technique: Multiplanar multisequence MRI of the brain was performed with and without intravenous cont rast using the standard protocol. 15 cc Clariscan contrast was administered intravenously during the exam. Findings: No acute infarct. No acute or chronic hemorrhage. The ventricles are normal in size and configuration without hydrocephalus. Mild scattered FLAIR hyperintensities in the subcortical and periventricular deep white matter, a nonspecific finding, most commonly seen with chronic small vessel ischemic disea se. No abnormal enhancement. The scalp and calvarium are normal. The pituitary and sella are normal. No Chiari malformation. The v isualized upper cervical spine is normal. The visualized orbits and globes are normal. Moderate to severe left maxillary sinus mucosal thickeni ng. The mastoid air cells are clear. Abnormal left vertebral artery flow-void. IMPRESSION: 1. No evidence of intracranial metastatic disease. 2. Mild chronic small vessel ischemic disease. 3. Abnormal left vertebral artery flow-void, which could indicate slow flow or occlusion. This could be further characterized with CTA or MRA. Electronically signed by: Robbie Diaz MD (11/30/2020 10:07 AM) [id number]
--- NOTE | 2020-11-30 14:53 | RAD ---
EXAM: NM PET/CT SKULL BASE TO MID THIGH EXAM DATE: 11/30/2020 INDICATION: Initial staging lung cancer. RADIOPHARMACEUTICAL: 11.65 mCi of F-18 Fluorodeoxyglucose (FDG) I.V. via the left antecubital fossa. TECHNIQUE: Patient weight: 170 pounds. Following at least four-hour fasting, the patient's blood gluc ose was 119 mg/dl. Approximately 1 hour after administration of FDG, overlapping emission scanning w as performed from the orbital meatal line through the pelvis. A low-dose CT was performed for attenu ation correction purposes and anatomic localization. Fused images of PET and CT were reviewed. Any s tandardized uptake values (SUV) reported are maximum values within a volume region of interest, expre ssed in gm/ml. COMPARISON: CT chest without IV contrast of 11/19/2020 FINDINGS: PET: In the head and neck, asymmetric right-sided lower neck FDG uptake to max SUV of 6.15 is seen, in the approximate location of the right level 4 cervical lymph nodes although a discrete lymph node is not confidently identified. Note is made that patient has bilateral carotid calcifications, bulkier on t he right than on the left. Atherosclerotic uptake is not excluded. Otherwise, no abnormal FDG uptake in the head and neck is identified. In the chest, previously described bulky mediastinal lymph nodes show abnormal FDG uptake to max SUV of 8.54. Soft tissue mass encasing and occluding the bronchus intermedius shows FDG uptake to max SUV of 9.13. There is extensive mediastinal and right greater than left hilar uptake but in the infrahil ar angy station on the left, FDG uptake to max SUV of 6.98 is seen. The consolidated right lower lobe shows extensive abnormal FDG uptake to max SUV of 10.9 with areas o f central photopenia that could reflect atelectatic lung. In the abdomen, there is focal uptake to max SUV of 4.71 directly beneath the celiac artery which is densely calcified. This focal uptake likely correlates with a lymph node measuring 5.6 mm (image 199 of series 3). Otherwise, no abnormal FDG uptake in the abdomen is identified. In the pelvis, there is equivocal focal uptake along the left iliac bone to max SUV of 4.26. No assoc iated osseous abnormality seen on CT correlate of images. Bones otherwise show degenerative changes w ith no abnormal FDG uptake. CT: In the head and neck, no adenopathy is seen. A left tunneled chest port from a jugular approach is present, tip terminating in the distal SVC. In the chest, bulky mediastinal adenopathy is partly obscured by lack of IV contrast and by consolida maia right lower lobe. A large right pleural effusion is present and there is low density in the right lower lobe that could represent necrotic tumor. It correlates with the area of photopenia in the cor relate of PET images. No pneumothorax. Dense multivessel coronary calcifications. In the abdomen and pelvis, liver shows a 1.1 cm low-density oval lesion in hepatic segment 6 (image 2 43 of series 3). No mass, adenopathy, ascites, fluid collection. Scattered colonic diverticulosis. Sc attered arterial calcifications with tortuosity of the abdominal aorta. In the pelvis, prostate measures 4.7 cm. No pelvic adenopathy, mass or fluid collection. No ascites. The urinary bladder is unremarkable. IMPRESSION: 1. Very large tumor burden in the right chest infiltrating the mediastinum and right hilum including the bronchus intermedius with extensive uptake in the periphery of the consolidated right lower lobe, some of which could represent postobstructive pneumonitis. There is a large right pleural effusion t hat may be loculated. 2. Abnormal uptake in the right lower neck could represent adenopathy but more detailed anatomic eval uation could be pursued if clinically warranted with soft tissue neck CT with IV contrast. 3. Abnormal FDG uptake in a infraceliac upper abdominal lymph node is also suspicious for angy metas tatic disease. Electronically signed by: Aspen Minor MD (11/30/2020 2:51 PM) [id number]
== END ==
LOC: MRI 09:56
PROVIDERS: ATTEND Radiology Radiation Oncology
DX: C34.31 Malignant neoplasm of lower lobe, right bronchus or lung (principal); C34.01 Malignant neoplasm of right main bronchus; J34.89 Other specified disorders of nose and nasal sinuses; I67.82 Cerebral ischemia; K57.30 Diverticulosis of large intestine without perforation or abscess without bleeding; I70.8 Atherosclerosis of other arteries; J90 Pleural effusion, not elsewhere classified
CPT/HCPCS: 70553; 78815; A9552; A9575

== ENCOUNTER → 2020-12-03 | Outpatient (CLI) | payer MEDICARE, MEDICAID ==
[2020-11-28 10:50] VITALS: BP 116/73
[~2020-12-03] MED LIST changes: -BENZ100C PO; -GADOTERATE 7.5 MMOL/15ML VIAL. IVP ONE; +LIDO30CR TP; -LIDO30CR2 TP; -MAGN400C PO; -SERT-266 PO; +SERT25TA4 PO
[2020-12-03 09:26] LABS: BASO # 0.1 x10^3/uL (0.0-0.2); BASO % 1 % (0-3); EOS # 0.1 x10^3/uL (0.0-0.7); EOS % 1 % (0-3); HEMATOCRIT 27.9 % (39.0-53.0); HEMOGLOBIN 9.2 g/dL (13.0-17.5); LYMPH # 1.4 x10^3/uL (1.0-4.8); LYMPH % 18 % (24-48); MEAN CORPUSCULAR HEMOGLOBIN 27 pg (25-35); MEAN CORPUSCULAR HGB CONC 33 g/dL (31-37); MEAN CORPUSCULAR VOLUME 83 fL (79-100); MONO # 0.4 x10^3/uL (0.0-1.1); MONO % 6 % (0-9); NEUT # 5.4 x10^3/uL (1.8-7.7); NEUT % 74 % (31-73); PLATELET COUNT 235 x10^3/uL (140-400); RED BLOOD COUNT 3.36 x10^6/uL (4.30-5.70); RED CELL DISTRIBUTION WIDTH 15.5 % (11.5-14.5); WHITE BLOOD COUNT 7.3 x10^3/uL (4.0-11.0)
[2020-12-03 09:42] LABS: CALCIUM 8.3 mg/dL (8.5-10.1); CREATININE 1.8 mg/dL (0.7-1.3); GFR 38.6; POTASSIUM 3.1 mmol/L (3.5-5.1)
[2020-12-03 09:48] LABS: ALBUMIN/GLOBULIN RATIO 0.4 (1.0-1.7); TOTAL BILIRUBIN 0.4 mg/dL (0.2-1.0); TOTAL PROTEIN 6.9 g/dL (6.4-8.2)
== END ==
LOC: ONCLAB 09:05
PROVIDERS: ATTEND Internal Medicine Hematology & Oncology
DX: C34.01 Malignant neoplasm of right main bronchus (principal)
CPT/HCPCS: 36415; 80053; 85025

== ENCOUNTER → 2020-12-10 | Outpatient (CLI) | payer MEDICARE, MEDICAID ==
[2020-11-28 10:50] VITALS: BP 116/73
[~2020-12-10] MED LIST changes: +SERT-266 PO; -SERT25TA4 PO
--- NOTE | 2020-12-11 08:19 | RAD ---
AP and Lateral Views of the Chest 12/10/2020 1:22 PM Indication: Reason: SMALL CELL CARCINOMA OF LUNG. INCREASED COUGH. / Spl. Instructions: / History: Comparison: Interval increase in right pleural effusion now moderate. Underlying atelectasis, with li armand postobstructive component is again present. Left lung remains grossly clear. Left internal jugu lar port is in expected position. Severe degenerative changes of the shoulders. No acute osseous dickey ges are identified. IMPRESSION: 1. Increased right pleural effusion now moderate 2. persistent right hilar fullness with likely component of postobstructive atelectasis Electronically signed by: Mauro Arroyo MD (12/11/2020 8:17 AM) [id number]
--- NOTE | 2021-01-16 13:48 | EKG ---
SINUS TACHYCARDIA VENTRICULAR PREMATURE COMPLEX(ES) Electronically Signed On 12-10-2020 14:37:13 [employer]AC[employer] by Aldo Cox MD No previous ECG available for comparison MTDD
== END ==
LOC: EKG 12:56
PROVIDERS: ATTEND Physician Assistant
DX: C34.01 Malignant neoplasm of right main bronchus (principal); J90 Pleural effusion, not elsewhere classified
CPT/HCPCS: 71046; 93005

== ENCOUNTER → 2020-12-14 | Outpatient (CLI) | payer MEDICARE, MEDICAID ==
[2020-12-11 10:54] VITALS: BP 128/84
[~2020-12-14] MED LIST changes: +BENZ100C PO; -LIDO30CR TP; +LIDO30CR2 TP; +MAGN400C PO
[2020-12-14 12:33] LABS: BASO % 1 % (0-3); EOS # 0.1 x10^3/uL (0.0-0.7); EOS % 9 % (0-3); HEMATOCRIT 23.5 % (39.0-53.0); HEMOGLOBIN 7.8 g/dL (13.0-17.5); LYMPH # 0.3 x10^3/uL (1.0-4.8); LYMPH % 50 % (24-48); MEAN CORPUSCULAR HEMOGLOBIN 27 pg (25-35); MEAN CORPUSCULAR HGB CONC 33 g/dL (31-37); MEAN CORPUSCULAR VOLUME 81 fL (79-100); MONO # 0.1 x10^3/uL (0.0-1.1); MONO % 14 % (0-9); NEUT # 0.2 x10^3/uL (1.8-7.7); NEUT % 26 % (31-73); PLATELET COUNT 117 x10^3/uL (140-400); RED CELL DISTRIBUTION WIDTH 15.7 % (11.5-14.5)
[2020-12-14 12:41] LABS: CALCIUM 9.2 mg/dL (8.5-10.1); CREATININE 1.1 mg/dL (0.7-1.3); GFR 68.1; POTASSIUM 4.1 mmol/L (3.5-5.1)
[2020-12-14 12:49] LABS: WHITE BLOOD COUNT 0.6 x10^3/uL (4.0-11.0)
== END ==
LOC: ONCLAB 11:20
PROVIDERS: ATTEND Physician Assistant
DX: C34.01 Malignant neoplasm of right main bronchus (principal)
CPT/HCPCS: 36415; 80048; 85025

== ENCOUNTER → 2020-12-17 | Outpatient (CLI) | payer MEDICARE, MEDICAID ==
[2020-12-11 10:54] VITALS: BP 128/84
[~2020-12-17] MED LIST changes: -BENZ100C PO; +LIDO30CR TP; -LIDO30CR2 TP; -MAGN400C PO
[2020-12-17 09:57] LABS: BASO % 1 % (0-3); EOS # 0.1 x10^3/uL (0.0-0.7); EOS % 3 % (0-3); HEMATOCRIT 26.6 % (39.0-53.0); HEMOGLOBIN 8.8 g/dL (13.0-17.5); LYMPH # 0.4 x10^3/uL (1.0-4.8); LYMPH % 14 % (24-48); MEAN CORPUSCULAR HEMOGLOBIN 27 pg (25-35); MEAN CORPUSCULAR HGB CONC 33 g/dL (31-37); MEAN CORPUSCULAR VOLUME 82 fL (79-100); MONO # 0.5 x10^3/uL (0.0-1.1); MONO % 16 % (0-9); NEUT # 1.9 x10^3/uL (1.8-7.7); NEUT % 67 % (31-73); PLATELET COUNT 145 x10^3/uL (140-400); RED BLOOD COUNT 3.25 x10^6/uL (4.30-5.70); RED CELL DISTRIBUTION WIDTH 16.3 % (11.5-14.5); WHITE BLOOD COUNT 2.9 x10^3/uL (4.0-11.0)
[2020-12-17 10:06] LABS: CALCIUM 8.8 mg/dL (8.5-10.1); CREATININE 1.2 mg/dL (0.7-1.3); GFR 61.6; POTASSIUM 4.3 mmol/L (3.5-5.1)
== END ==
LOC: ONCLAB 09:42
PROVIDERS: ATTEND Physician Assistant
DX: C34.01 Malignant neoplasm of right main bronchus (principal); E55.9 Vitamin D deficiency, unspecified
CPT/HCPCS: 36415; 80048; 82306; 83735; 85025

== ENCOUNTER → 2020-12-21 | Outpatient (CLI) | payer MEDICARE, MEDICAID ==
[2020-12-11 10:54] VITALS: BP 128/84
[2020-12-21 11:34] LABS: BASO % 1 % (0-3); EOS # 0.1 x10^3/uL (0.0-0.7); EOS % 2 % (0-3); HEMOGLOBIN 8.3 g/dL (13.0-17.5); LYMPH # 0.3 x10^3/uL (1.0-4.8); LYMPH % 9 % (24-48); MEAN CORPUSCULAR HEMOGLOBIN 28 pg (25-35); MEAN CORPUSCULAR HGB CONC 35 g/dL (31-37); MEAN CORPUSCULAR VOLUME 81 fL (79-100); MONO # 0.8 x10^3/uL (0.0-1.1); MONO % 22 % (0-9); NEUT # 2.5 x10^3/uL (1.8-7.7); NEUT % 67 % (31-73); PLATELET COUNT 172 x10^3/uL (140-400); RED BLOOD COUNT 2.96 x10^6/uL (4.30-5.70); WHITE BLOOD COUNT 3.8 x10^3/uL (4.0-11.0)
[2020-12-21 11:54] LABS: CALCIUM 8.9 mg/dL (8.5-10.1); CREATININE 1.1 mg/dL (0.7-1.3); GFR 68.1; POTASSIUM 4.2 mmol/L (3.5-5.1)
[2020-12-21 11:59] LABS: % BANDS 8 % (0-9); % BASOS 1 % (0-3); % EOS 2 % (0-5); % LYMPHS 9 % (24-48); % METAS 1 % (0-0); % MONOS 14 % (0-10); % SEGS 65 % (35-66)
[2020-12-21 12:00] LABS: ANISOCYTOSIS SLIGHT; PLT ESTIMATE ADEQUATE (ADEQUATE)
== END ==
LOC: ONCLAB 10:09
PROVIDERS: ATTEND Physician Assistant
DX: C34.01 Malignant neoplasm of right main bronchus (principal)
CPT/HCPCS: 36415; 80048; 85007; 85025

== ENCOUNTER → 2020-12-24 | Outpatient (CLI) | payer MEDICARE, MEDICAID ==
[2020-12-11 10:54] VITALS: BP 128/84
[2020-12-24 09:16] LABS: BASO # 0.1 x10^3/uL (0.0-0.2); BASO % 0 % (0-3); EOS % 0 % (0-3); HEMATOCRIT 23.6 % (39.0-53.0); HEMOGLOBIN 7.6 g/dL (13.0-17.5); LYMPH # 0.5 x10^3/uL (1.0-4.8); LYMPH % 2 % (24-48); MEAN CORPUSCULAR HEMOGLOBIN 27 pg (25-35); MEAN CORPUSCULAR HGB CONC 32 g/dL (31-37); MEAN CORPUSCULAR VOLUME 83 fL (79-100); MONO # 0.6 x10^3/uL (0.0-1.1); MONO % 2 % (0-9); NEUT # 28.6 x10^3/uL (1.8-7.7); NEUT % 96 % (31-73); PLATELET COUNT 294 x10^3/uL (140-400); RED BLOOD COUNT 2.86 x10^6/uL (4.30-5.70); RED CELL DISTRIBUTION WIDTH 17.3 % (11.5-14.5); WHITE BLOOD COUNT 29.8 x10^3/uL (4.0-11.0)
[2020-12-24 09:30] LABS: CALCIUM 8.9 mg/dL (8.5-10.1); CREATININE 1.1 mg/dL (0.7-1.3); GFR 67.8; POTASSIUM 4.1 mmol/L (3.5-5.1)
[2020-12-24 09:35] LABS: ALBUMIN 2.3 g/dL (3.4-5.0); ALBUMIN/GLOBULIN RATIO 0.5 (1.0-1.7); TOTAL BILIRUBIN 0.2 mg/dL (0.2-1.0); TOTAL PROTEIN 6.6 g/dL (6.4-8.2)
== END ==
LOC: ONCLAB 09:01
PROVIDERS: ATTEND Internal Medicine Hematology & Oncology
DX: C34.01 Malignant neoplasm of right main bronchus (principal)
CPT/HCPCS: 36415; 80053; 85025

== ENCOUNTER → 2020-12-31 | Outpatient (CLI) | payer MEDICARE, MEDICAID ==
[2020-12-11 10:54] VITALS: BP 128/84
[2020-12-31 09:19] LABS: BASO % 1 % (0-3); EOS # 0.1 x10^3/uL (0.0-0.7); EOS % 2 % (0-3); LYMPH # 0.2 x10^3/uL (1.0-4.8); LYMPH % 5 % (24-48); MEAN CORPUSCULAR HEMOGLOBIN 27 pg (25-35); MEAN CORPUSCULAR HGB CONC 33 g/dL (31-37); MEAN CORPUSCULAR VOLUME 83 fL (79-100); MONO # 0.1 x10^3/uL (0.0-1.1); MONO % 3 % (0-9); NEUT # 4.2 x10^3/uL (1.8-7.7); NEUT % 91 % (31-73); PLATELET COUNT 222 x10^3/uL (140-400); RED BLOOD COUNT 2.49 x10^6/uL (4.30-5.70); RED CELL DISTRIBUTION WIDTH 18.6 % (11.5-14.5); WHITE BLOOD COUNT 4.6 x10^3/uL (4.0-11.0)
[2020-12-31 09:26] LABS: HEMATOCRIT 20.6 % (39.0-53.0); HEMOGLOBIN 6.7 g/dL (13.0-17.5)
[2020-12-31 09:30] LABS: CALCIUM 8.5 mg/dL (8.5-10.1); CREATININE 1.1 mg/dL (0.7-1.3); GFR 67.8; POTASSIUM 4.6 mmol/L (3.5-5.1)
[2020-12-31 09:33] LABS: ALBUMIN 2.5 g/dL (3.4-5.0); ALBUMIN/GLOBULIN RATIO 0.7 (1.0-1.7); TOTAL BILIRUBIN 0.3 mg/dL (0.2-1.0); TOTAL PROTEIN 6.3 g/dL (6.4-8.2)
[2020-12-31 10:56] LABS: % BANDS 2 % (0-9); % EOS 2 % (0-5); % LYMPHS 8 % (24-48); % MONOS 2 % (0-10); % SEGS 86 % (35-66)
[2020-12-31 10:57] LABS: ANISOCYTOSIS PRESENT; PLT ESTIMATE ADEQUATE (ADEQUATE)
[2020-12-31 11:00] LABS: BASO % 1 % (0-3); EOS # 0.1 x10^3/uL (0.0-0.7); EOS % 2 % (0-3); HEMOGLOBIN 7.2 g/dL (13.0-17.5); LYMPH # 0.3 x10^3/uL (1.0-4.8); LYMPH % 6 % (24-48); MEAN CORPUSCULAR HEMOGLOBIN 27 pg (25-35); MEAN CORPUSCULAR HGB CONC 33 g/dL (31-37); MEAN CORPUSCULAR VOLUME 83 fL (79-100); MONO # 0.2 x10^3/uL (0.0-1.1); MONO % 3 % (0-9); NEUT # 4.3 x10^3/uL (1.8-7.7); NEUT % 89 % (31-73); PLATELET COUNT 231 x10^3/uL (140-400); RED BLOOD COUNT 2.66 x10^6/uL (4.30-5.70); RED CELL DISTRIBUTION WIDTH 18.4 % (11.5-14.5); WHITE BLOOD COUNT 4.8 x10^3/uL (4.0-11.0)
[2020-12-31 13:13] LABS: MAGNESIUM 1.7 mg/dL (1.8-2.4)
== END ==
LOC: ONCLAB 08:40
PROVIDERS: ATTEND Physician Assistant
DX: C34.01 Malignant neoplasm of right main bronchus (principal)
CPT/HCPCS: 36415; 80053; 83735; 85007; 85025

== ENCOUNTER → 2021-01-03 | Outpatient (CLI) | payer MEDICARE, OTHER ==
[2021-01-01 10:55] VITALS: BP 135/68
[~2021-01-03] MED LIST changes: +BENZ100C PO; -LIDO30CR TP; +LIDO30CR2 TP; +MAGN400C PO
[2021-01-03 09:20] LABS: BASO % 2 % (0-3); EOS % 5 % (0-3); HEMATOCRIT 23.1 % (39.0-53.0); HEMOGLOBIN 7.6 g/dL (13.0-17.5); LYMPH # 0.1 x10^3/uL (1.0-4.8); LYMPH % 12 % (24-48); MEAN CORPUSCULAR HEMOGLOBIN 27 pg (25-35); MEAN CORPUSCULAR HGB CONC 33 g/dL (31-37); MEAN CORPUSCULAR VOLUME 83 fL (79-100); MONO # 0.3 x10^3/uL (0.0-1.1); MONO % 25 % (0-9); NEUT # 0.6 x10^3/uL (1.8-7.7); NEUT % 56 % (31-73); PLATELET COUNT 107 x10^3/uL (140-400); RED BLOOD COUNT 2.77 x10^6/uL (4.30-5.70); RED CELL DISTRIBUTION WIDTH 17.5 % (11.5-14.5)
[2021-01-03 09:24] LABS: CALCIUM 8.2 mg/dL (8.5-10.1); CREATININE 1.1 mg/dL (0.7-1.3); GFR 67.8; POTASSIUM 4.4 mmol/L (3.5-5.1)
[2021-01-03 09:26] LABS: WHITE BLOOD COUNT 1.1 x10^3/uL (4.0-11.0)
== END ==
LOC: ONCLAB 08:53
PROVIDERS: ATTEND Physician Assistant
DX: C34.01 Malignant neoplasm of right main bronchus (principal)
CPT/HCPCS: 36415; 80048; 85025

== ENCOUNTER → 2021-01-07 | Outpatient (CLI) | payer MEDICARE, OTHER ==
[2021-01-01 10:55] VITALS: BP 135/68
[2021-01-07 09:23] LABS: BASO % 1 % (0-3); EOS # 0.1 x10^3/uL (0.0-0.7); EOS % 2 % (0-3); HEMATOCRIT 22.9 % (39.0-53.0); HEMOGLOBIN 7.7 g/dL (13.0-17.5); LYMPH # 0.3 x10^3/uL (1.0-4.8); LYMPH % 6 % (24-48); MEAN CORPUSCULAR HEMOGLOBIN 28 pg (25-35); MEAN CORPUSCULAR HGB CONC 34 g/dL (31-37); MEAN CORPUSCULAR VOLUME 85 fL (79-100); MONO # 0.4 x10^3/uL (0.0-1.1); MONO % 10 % (0-9); NEUT # 3.5 x10^3/uL (1.8-7.7); NEUT % 81 % (31-73); RED BLOOD COUNT 2.71 x10^6/uL (4.30-5.70); RED CELL DISTRIBUTION WIDTH 18.1 % (11.5-14.5); WHITE BLOOD COUNT 4.4 x10^3/uL (4.0-11.0)
[2021-01-07 09:33] LABS: CALCIUM 8.5 mg/dL (8.5-10.1); CREATININE 1.1 mg/dL (0.7-1.3); GFR 67.8
[2021-01-07 09:41] LABS: ALBUMIN 2.6 g/dL (3.4-5.0); ALBUMIN/GLOBULIN RATIO 0.7 (1.0-1.7); MAGNESIUM 1.8 mg/dL (1.8-2.4); TOTAL BILIRUBIN 0.4 mg/dL (0.2-1.0); TOTAL PROTEIN 6.3 g/dL (6.4-8.2)
[2021-01-07 10:03] LABS: PLATELET COUNT 38 x10^3/uL (140-400)
[2021-01-07 10:05] LABS: ANISOCYTOSIS PRESENT; PLT ESTIMATE DECREASED (ADEQUATE)
== END ==
LOC: ONCLAB 09:03
PROVIDERS: ATTEND Physician Assistant
DX: C34.01 Malignant neoplasm of right main bronchus (principal)
CPT/HCPCS: 36415; 80053; 83735; 85025

== ENCOUNTER → 2021-01-10 | Outpatient (CLI) | payer MEDICARE, OTHER ==
[2021-01-01 10:55] VITALS: BP 135/68
[~2021-01-10] MED LIST changes: -BENZ100C PO; +LIDO30CR TP; -LIDO30CR2 TP; -MAGN400C PO
[2021-01-10 11:23] LABS: BASO % 1 % (0-3); EOS % 2 % (0-3); HEMATOCRIT 21.8 % (39.0-53.0); HEMOGLOBIN 7.3 g/dL (13.0-17.5); LYMPH # 0.2 x10^3/uL (1.0-4.8); LYMPH % 10 % (24-48); MEAN CORPUSCULAR HEMOGLOBIN 29 pg (25-35); MEAN CORPUSCULAR HGB CONC 34 g/dL (31-37); MEAN CORPUSCULAR VOLUME 85 fL (79-100); MONO # 0.3 x10^3/uL (0.0-1.1); MONO % 15 % (0-9); NEUT # 1.5 x10^3/uL (1.8-7.7); NEUT % 72 % (31-73); PLATELET COUNT 39 x10^3/uL (140-400); RED BLOOD COUNT 2.55 x10^6/uL (4.30-5.70); WHITE BLOOD COUNT 2.1 x10^3/uL (4.0-11.0)
[2021-01-10 12:45] LABS: % BANDS 6 % (0-9); % EOS 2 % (0-5); % LYMPHS 11 % (24-48); % MONOS 9 % (0-10); % SEGS 72 % (35-66); PLT ESTIMATE DECREASED (ADEQUATE)
[2021-01-10 12:46] LABS: ANISOCYTOSIS SLIGHT
== END ==
LOC: ONCLAB 10:48
PROVIDERS: ATTEND Physician Assistant
DX: C34.01 Malignant neoplasm of right main bronchus (principal)
CPT/HCPCS: 36415; 85007; 85025

== ENCOUNTER → 2021-01-14 | Outpatient (CLI) | payer MEDICARE, OTHER ==
[2021-01-01 10:55] VITALS: BP 135/68
[2021-01-14 09:11] LABS: BASO % 0 % (0-3); EOS # 0.1 x10^3/uL (0.0-0.7); EOS % 1 % (0-3); LYMPH # 0.3 x10^3/uL (1.0-4.8); LYMPH % 5 % (24-48); MEAN CORPUSCULAR HEMOGLOBIN 29 pg (25-35); MEAN CORPUSCULAR HGB CONC 34 g/dL (31-37); MEAN CORPUSCULAR VOLUME 87 fL (79-100); MONO # 0.3 x10^3/uL (0.0-1.1); MONO % 5 % (0-9); NEUT # 5.3 x10^3/uL (1.8-7.7); NEUT % 88 % (31-73); PLATELET COUNT 63 x10^3/uL (140-400); RED BLOOD COUNT 2.33 x10^6/uL (4.30-5.70); RED CELL DISTRIBUTION WIDTH 20.7 % (11.5-14.5)
[2021-01-14 09:18] LABS: CALCIUM 8.5 mg/dL (8.5-10.1); GFR 75.7; POTASSIUM 4.1 mmol/L (3.5-5.1)
[2021-01-14 09:24] LABS: ALBUMIN 2.6 g/dL (3.4-5.0); ALBUMIN/GLOBULIN RATIO 0.7 (1.0-1.7); MAGNESIUM 1.8 mg/dL (1.8-2.4); TOTAL BILIRUBIN 0.3 mg/dL (0.2-1.0); TOTAL PROTEIN 6.2 g/dL (6.4-8.2)
[2021-01-14 09:35] LABS: HEMATOCRIT 20.2 % (39.0-53.0); HEMOGLOBIN 6.8 g/dL (13.0-17.5)
[2021-01-14 12:36] LABS: % EOS 1 % (0-5); % LYMPHS 7 % (24-48); % MONOS 2 % (0-10); % SEGS 90 % (35-66)
[2021-01-14 12:37] LABS: PLT ESTIMATE DECREASED (ADEQUATE)
[2021-01-14 12:38] LABS: ANISOCYTOSIS MOD
== END ==
LOC: ONCLAB 08:49
PROVIDERS: ATTEND Internal Medicine Hematology & Oncology
DX: C34.01 Malignant neoplasm of right main bronchus (principal)
CPT/HCPCS: 36415; 80053; 83735; 85007; 85025

== ENCOUNTER → 2021-01-21 | Outpatient (CLI) | payer MEDICARE, OTHER ==
[2021-01-14 13:31] VITALS: BP 140/81
[2021-01-21 09:07] LABS: BASO % 0 % (0-3); EOS # 0.1 x10^3/uL (0.0-0.7); EOS % 1 % (0-3); HEMOGLOBIN 8.7 g/dL (13.0-17.5); LYMPH % 10 % (24-48); MEAN CORPUSCULAR HEMOGLOBIN 30 pg (25-35); MEAN CORPUSCULAR HGB CONC 34 g/dL (31-37); MEAN CORPUSCULAR VOLUME 90 fL (79-100); MONO # 0.9 x10^3/uL (0.0-1.1); MONO % 9 % (0-9); NEUT % 79 % (31-73); PLATELET COUNT 149 x10^3/uL (140-400); RED CELL DISTRIBUTION WIDTH 25.3 % (11.5-14.5); WHITE BLOOD COUNT 10.1 x10^3/uL (4.0-11.0)
[2021-01-21 09:17] LABS: CALCIUM 8.6 mg/dL (8.5-10.1); CREATININE 1.2 mg/dL (0.7-1.3); GFR 61.3; POTASSIUM 3.7 mmol/L (3.5-5.1)
[2021-01-21 09:23] LABS: ALBUMIN 2.8 g/dL (3.4-5.0); ALBUMIN/GLOBULIN RATIO 0.7 (1.0-1.7); MAGNESIUM 1.9 mg/dL (1.8-2.4); TOTAL BILIRUBIN 0.4 mg/dL (0.2-1.0); TOTAL PROTEIN 6.7 g/dL (6.4-8.2)
== END ==
LOC: ONCLAB 08:46
PROVIDERS: ATTEND Physician Assistant
DX: C34.01 Malignant neoplasm of right main bronchus (principal)
CPT/HCPCS: 36415; 80053; 83735; 85025

== ENCOUNTER → 2021-01-28 | Outpatient (CLI) | payer MEDICARE, OTHER ==
[2021-01-14 13:31] VITALS: BP 140/81
[2021-01-28 09:34] LABS: CALCIUM 8.5 mg/dL (8.5-10.1); GFR 75.7; POTASSIUM 4.6 mmol/L (3.5-5.1)
[2021-01-28 09:40] LABS: ALBUMIN 2.8 g/dL (3.4-5.0); ALBUMIN/GLOBULIN RATIO 0.8 (1.0-1.7); BASO % 1 % (0-3); EOS % 2 % (0-3); HEMATOCRIT 22.7 % (39.0-53.0); HEMOGLOBIN 7.6 g/dL (13.0-17.5); LYMPH # 0.3 x10^3/uL (1.0-4.8); LYMPH % 17 % (24-48); MAGNESIUM 1.9 mg/dL (1.8-2.4); MEAN CORPUSCULAR HEMOGLOBIN 30 pg (25-35); MEAN CORPUSCULAR HGB CONC 33 g/dL (31-37); MEAN CORPUSCULAR VOLUME 90 fL (79-100); MONO # 0.2 x10^3/uL (0.0-1.1); MONO % 11 % (0-9); NEUT # 1.3 x10^3/uL (1.8-7.7); NEUT % 70 % (31-73); PLATELET COUNT 106 x10^3/uL (140-400); RED BLOOD COUNT 2.52 x10^6/uL (4.30-5.70); RED CELL DISTRIBUTION WIDTH 23.3 % (11.5-14.5); TOTAL BILIRUBIN 0.4 mg/dL (0.2-1.0); TOTAL PROTEIN 6.5 g/dL (6.4-8.2)
[2021-01-28 09:44] LABS: WHITE BLOOD COUNT 1.8 x10^3/uL (4.0-11.0)
[2021-01-28 12:30] LABS: % BANDS 23 % (0-9); % BASOS 1 % (0-3); % EOS 4 % (0-5); % LYMPHS 18 % (24-48); % MONOS 8 % (0-10); % SEGS 46 % (35-66)
[2021-01-28 12:31] LABS: PLT ESTIMATE DECREASED (ADEQUATE)
[2021-01-28 12:33] LABS: ANISOCYTOSIS SLIGHT; HYPOCHROMIA SLIGHT; POIKILOCYTOSIS SLIGHT
[2021-01-28 12:36] LABS: TOXIC GRANULATION SLIGHT
== END ==
LOC: ONCLAB 09:00
PROVIDERS: ATTEND Physician Assistant
DX: C34.01 Malignant neoplasm of right main bronchus (principal)
CPT/HCPCS: 36415; 80053; 83735; 85007; 85025

== ENCOUNTER → 2021-01-31 | Outpatient (CLI) | payer MEDICARE, OTHER ==
[2021-01-14 13:31] VITALS: BP 140/81
[2021-01-31 09:24] LABS: BASO % 1 % (0-3); EOS % 1 % (0-3); HEMATOCRIT 21.3 % (39.0-53.0); HEMOGLOBIN 7.2 g/dL (13.0-17.5); LYMPH # 0.4 x10^3/uL (1.0-4.8); LYMPH % 13 % (24-48); MEAN CORPUSCULAR HEMOGLOBIN 30 pg (25-35); MEAN CORPUSCULAR HGB CONC 34 g/dL (31-37); MEAN CORPUSCULAR VOLUME 89 fL (79-100); MONO # 0.5 x10^3/uL (0.0-1.1); MONO % 17 % (0-9); NEUT % 69 % (31-73); PLATELET COUNT 67 x10^3/uL (140-400); RED CELL DISTRIBUTION WIDTH 23.3 % (11.5-14.5); WHITE BLOOD COUNT 2.9 x10^3/uL (4.0-11.0)
== END ==
LOC: ONCLAB 09:07
PROVIDERS: ATTEND Physician Assistant
DX: C34.01 Malignant neoplasm of right main bronchus (principal)
CPT/HCPCS: 36415; 85025

== ENCOUNTER → 2021-02-05 | Outpatient (CLI) | payer MEDICARE, OTHER ==
[2021-02-01 11:48] VITALS: BP 122/75
[2021-02-05 09:28] LABS: BASO % 0 % (0-3); EOS # 0.1 x10^3/uL (0.0-0.7); EOS % 1 % (0-3); HEMATOCRIT 23.9 % (39.0-53.0); HEMOGLOBIN 8.1 g/dL (13.0-17.5); LYMPH # 0.6 x10^3/uL (1.0-4.8); LYMPH % 8 % (24-48); MEAN CORPUSCULAR HEMOGLOBIN 31 pg (25-35); MEAN CORPUSCULAR HGB CONC 34 g/dL (31-37); MEAN CORPUSCULAR VOLUME 92 fL (79-100); MONO # 0.6 x10^3/uL (0.0-1.1); MONO % 8 % (0-9); NEUT # 6.3 x10^3/uL (1.8-7.7); NEUT % 82 % (31-73); PLATELET COUNT 79 x10^3/uL (140-400); RED BLOOD COUNT 2.61 x10^6/uL (4.30-5.70); RED CELL DISTRIBUTION WIDTH 23.3 % (11.5-14.5); WHITE BLOOD COUNT 7.7 x10^3/uL (4.0-11.0)
[2021-02-05 09:33] LABS: CALCIUM 8.3 mg/dL (8.5-10.1); CREATININE 1.2 mg/dL (0.7-1.3); GFR 61.3; POTASSIUM 4.1 mmol/L (3.5-5.1)
[2021-02-05 09:39] LABS: ALBUMIN 2.8 g/dL (3.4-5.0); ALBUMIN/GLOBULIN RATIO 0.8 (1.0-1.7); TOTAL BILIRUBIN 0.4 mg/dL (0.2-1.0); TOTAL PROTEIN 6.4 g/dL (6.4-8.2)
[2021-02-05 10:13] LABS: % BANDS 15 % (0-9); % EOS 1 % (0-5); % LYMPHS 7 % (24-48); % MONOS 7 % (0-10); % SEGS 70 % (35-66); PLT ESTIMATE DECREASED (ADEQUATE); POLYCHROMASIA PRESENT
[2021-02-05 10:14] LABS: ANISOCYTOSIS MOD
== END ==
LOC: ONCLAB 09:03
PROVIDERS: ATTEND Physician Assistant
DX: C34.01 Malignant neoplasm of right main bronchus (principal)
CPT/HCPCS: 36415; 80053; 85007; 85025

== ENCOUNTER → 2021-02-11 | Outpatient (CLI) | payer MEDICARE, OTHER ==
[2021-02-01 11:48] VITALS: BP 122/75
[2021-02-11 09:48] LABS: BASO # 0.1 x10^3/uL (0.0-0.2); BASO % 1 % (0-3); EOS # 0.1 x10^3/uL (0.0-0.7); EOS % 1 % (0-3); HEMATOCRIT 25.7 % (39.0-53.0); HEMOGLOBIN 8.8 g/dL (13.0-17.5); LYMPH # 0.8 x10^3/uL (1.0-4.8); LYMPH % 11 % (24-48); MEAN CORPUSCULAR HEMOGLOBIN 32 pg (25-35); MEAN CORPUSCULAR HGB CONC 34 g/dL (31-37); MEAN CORPUSCULAR VOLUME 93 fL (79-100); MONO # 0.8 x10^3/uL (0.0-1.1); MONO % 12 % (0-9); NEUT # 5.4 x10^3/uL (1.8-7.7); NEUT % 76 % (31-73); PLATELET COUNT 177 x10^3/uL (140-400); RED BLOOD COUNT 2.77 x10^6/uL (4.30-5.70); RED CELL DISTRIBUTION WIDTH 24.4 % (11.5-14.5); WHITE BLOOD COUNT 7.1 x10^3/uL (4.0-11.0)
[2021-02-11 09:53] LABS: CALCIUM 8.8 mg/dL (8.5-10.1); CREATININE 1.2 mg/dL (0.7-1.3); GFR 61.3; POTASSIUM 4.2 mmol/L (3.5-5.1)
[2021-02-11 09:59] LABS: ALBUMIN 3.1 g/dL (3.4-5.0); ALBUMIN/GLOBULIN RATIO 0.8 (1.0-1.7); TOTAL BILIRUBIN 0.4 mg/dL (0.2-1.0); TOTAL PROTEIN 7.1 g/dL (6.4-8.2)
== END ==
LOC: ONCLAB 09:26
PROVIDERS: ATTEND Internal Medicine Hematology & Oncology
DX: C34.01 Malignant neoplasm of right main bronchus (principal)
CPT/HCPCS: 36415; 80053; 83735; 85025

== ENCOUNTER → 2021-02-18 | Outpatient (CLI) | payer MEDICARE, OTHER ==
[2021-02-17 15:00] VITALS: BP 135/91
[~2021-02-18] MED LIST changes: +BENZ100C PO; +MAGN400C PO
[2021-02-18 09:31] LABS: BASO % 1 % (0-3); EOS % 1 % (0-3); HEMOGLOBIN 8.1 g/dL (13.0-17.5); LYMPH # 0.8 x10^3/uL (1.0-4.8); LYMPH % 22 % (24-48); MEAN CORPUSCULAR HEMOGLOBIN 32 pg (25-35); MEAN CORPUSCULAR HGB CONC 34 g/dL (31-37); MEAN CORPUSCULAR VOLUME 94 fL (79-100); MONO # 0.5 x10^3/uL (0.0-1.1); MONO % 13 % (0-9); NEUT # 2.4 x10^3/uL (1.8-7.7); NEUT % 63 % (31-73); PLATELET COUNT 124 x10^3/uL (140-400); RED BLOOD COUNT 2.55 x10^6/uL (4.30-5.70); RED CELL DISTRIBUTION WIDTH 23.2 % (11.5-14.5); WHITE BLOOD COUNT 3.8 x10^3/uL (4.0-11.0)
[2021-02-18 09:40] LABS: CALCIUM 7.9 mg/dL (8.5-10.1); GFR 75.7; POTASSIUM 4.1 mmol/L (3.5-5.1)
[2021-02-18 09:46] LABS: ALBUMIN 2.8 g/dL (3.4-5.0); ALBUMIN/GLOBULIN RATIO 0.8 (1.0-1.7); MAGNESIUM 1.7 mg/dL (1.8-2.4); TOTAL BILIRUBIN 0.4 mg/dL (0.2-1.0); TOTAL PROTEIN 6.5 g/dL (6.4-8.2)
== END ==
LOC: ONCLAB 08:46
PROVIDERS: ATTEND Internal Medicine Hematology & Oncology
DX: C34.01 Malignant neoplasm of right main bronchus (principal)
CPT/HCPCS: 36415; 80053; 83735; 85025

== ENCOUNTER → 2021-02-25 | Outpatient (CLI) | payer MEDICARE, OTHER ==
[2021-02-17 15:00] VITALS: BP 135/91
[2021-02-25 09:18] LABS: BASO % 1 % (0-3); EOS # 0.2 x10^3/uL (0.0-0.7); EOS % 3 % (0-3); HEMATOCRIT 24.8 % (39.0-53.0); HEMOGLOBIN 8.3 g/dL (13.0-17.5); LYMPH % 18 % (24-48); MEAN CORPUSCULAR HEMOGLOBIN 32 pg (25-35); MEAN CORPUSCULAR HGB CONC 34 g/dL (31-37); MEAN CORPUSCULAR VOLUME 96 fL (79-100); MONO # 0.6 x10^3/uL (0.0-1.1); MONO % 11 % (0-9); NEUT # 3.7 x10^3/uL (1.8-7.7); NEUT % 67 % (31-73); PLATELET COUNT 185 x10^3/uL (140-400); RED BLOOD COUNT 2.58 x10^6/uL (4.30-5.70); RED CELL DISTRIBUTION WIDTH 22.2 % (11.5-14.5); WHITE BLOOD COUNT 5.5 x10^3/uL (4.0-11.0)
[2021-02-25 09:21] LABS: CALCIUM 8.4 mg/dL (8.5-10.1); GFR 75.7; POTASSIUM 3.9 mmol/L (3.5-5.1)
[2021-02-25 09:28] LABS: ALBUMIN 2.7 g/dL (3.4-5.0); ALBUMIN/GLOBULIN RATIO 0.7 (1.0-1.7); MAGNESIUM 1.5 mg/dL (1.8-2.4); TOTAL BILIRUBIN 0.3 mg/dL (0.2-1.0); TOTAL PROTEIN 6.6 g/dL (6.4-8.2)
== END ==
LOC: ONCLAB 08:44
PROVIDERS: ATTEND Internal Medicine Hematology & Oncology
DX: C34.01 Malignant neoplasm of right main bronchus (principal)
CPT/HCPCS: 36415; 80053; 83735; 85025

== ENCOUNTER → 2021-03-04 | Outpatient (CLI) | payer MEDICARE, OTHER ==
[2021-02-17 15:00] VITALS: BP 135/91
[2021-03-04 10:34] LABS: BASO % 0 % (0-3); EOS # 0.3 x10^3/uL (0.0-0.7); EOS % 4 % (0-3); HEMATOCRIT 25.5 % (39.0-53.0); HEMOGLOBIN 8.5 g/dL (13.0-17.5); LYMPH # 0.7 x10^3/uL (1.0-4.8); LYMPH % 9 % (24-48); MEAN CORPUSCULAR HEMOGLOBIN 33 pg (25-35); MEAN CORPUSCULAR HGB CONC 33 g/dL (31-37); MEAN CORPUSCULAR VOLUME 98 fL (79-100); MONO # 0.1 x10^3/uL (0.0-1.1); MONO % 2 % (0-9); NEUT # 6.3 x10^3/uL (1.8-7.7); NEUT % 85 % (31-73); PLATELET COUNT 102 x10^3/uL (140-400); RED BLOOD COUNT 2.61 x10^6/uL (4.30-5.70); RED CELL DISTRIBUTION WIDTH 20.3 % (11.5-14.5); WHITE BLOOD COUNT 7.4 x10^3/uL (4.0-11.0)
[2021-03-04 10:36] LABS: CALCIUM 7.9 mg/dL (8.5-10.1); CREATININE 0.8 mg/dL (0.7-1.3); POTASSIUM 4.5 mmol/L (3.5-5.1)
[2021-03-04 10:38] LABS: ALBUMIN 2.9 g/dL (3.4-5.0); ALBUMIN/GLOBULIN RATIO 0.8 (1.0-1.7); MAGNESIUM 1.6 mg/dL (1.8-2.4); PHOSPHORUS 4.4 mg/dL (2.6-4.7); TOTAL BILIRUBIN 0.4 mg/dL (0.2-1.0); TOTAL PROTEIN 6.4 g/dL (6.4-8.2)
[2021-03-04 14:52] LABS: % BANDS 6 % (0-9); % EOS 3 % (0-5); % LYMPHS 9 % (24-48); % MONOS 3 % (0-10); % SEGS 79 % (35-66); PLT ESTIMATE DECREASED (ADEQUATE)
[2021-03-04 14:53] LABS: ANISOCYTOSIS MOD
== END ==
LOC: ONCLAB 09:48
PROVIDERS: ATTEND Physician Assistant
DX: C34.01 Malignant neoplasm of right main bronchus (principal)
CPT/HCPCS: 36415; 80053; 83735; 84100; 85007; 85025

== ENCOUNTER → 2021-03-11 | Outpatient (CLI) | payer MEDICARE, OTHER ==
[2021-02-17 15:00] VITALS: BP 135/91
[~2021-03-11] MED LIST changes: -LIDO30CR TP; +LIDO30CR2 TP
[2021-03-11 10:21] LABS: BASO % 0 % (0-3); EOS # 0.2 x10^3/uL (0.0-0.7); EOS % 4 % (0-3); HEMATOCRIT 23.3 % (39.0-53.0); HEMOGLOBIN 7.9 g/dL (13.0-17.5); LYMPH # 0.6 x10^3/uL (1.0-4.8); LYMPH % 13 % (24-48); MEAN CORPUSCULAR HEMOGLOBIN 33 pg (25-35); MEAN CORPUSCULAR HGB CONC 34 g/dL (31-37); MEAN CORPUSCULAR VOLUME 98 fL (79-100); MONO # 0.4 x10^3/uL (0.0-1.1); MONO % 9 % (0-9); NEUT # 3.5 x10^3/uL (1.8-7.7); NEUT % 73 % (31-73); PLATELET COUNT 42 x10^3/uL (140-400); RED BLOOD COUNT 2.39 x10^6/uL (4.30-5.70); RED CELL DISTRIBUTION WIDTH 19.2 % (11.5-14.5); WHITE BLOOD COUNT 4.8 x10^3/uL (4.0-11.0)
[2021-03-11 10:26] LABS: CALCIUM 8.8 mg/dL (8.5-10.1); CREATININE 1.2 mg/dL (0.7-1.3); GFR 61.3; POTASSIUM 4.3 mmol/L (3.5-5.1)
[2021-03-11 10:32] LABS: ALBUMIN 2.9 g/dL (3.4-5.0); ALBUMIN/GLOBULIN RATIO 0.8 (1.0-1.7); MAGNESIUM 1.9 mg/dL (1.8-2.4); TOTAL BILIRUBIN 0.4 mg/dL (0.2-1.0); TOTAL PROTEIN 6.5 g/dL (6.4-8.2)
[2021-03-11 11:58] LABS: ANISOCYTOSIS SLIGHT; OVALOCYTES FEW; PLT ESTIMATE DECREASED (ADEQUATE); TEAR DROP CELLS FEW
== END ==
LOC: ONCLAB 09:57
PROVIDERS: ATTEND Physician Assistant
DX: C34.01 Malignant neoplasm of right main bronchus (principal)
CPT/HCPCS: 36415; 80053; 83735; 85025

== ENCOUNTER → 2021-03-15 | Outpatient (CLI) | payer MEDICARE, OTHER ==
[2021-03-12 10:30] VITALS: BP 112/72
[2021-03-15 09:59] LABS: BASO % 0 % (0-3); EOS # 0.1 x10^3/uL (0.0-0.7); EOS % 1 % (0-3); HEMATOCRIT 27.2 % (39.0-53.0); HEMOGLOBIN 9.2 g/dL (13.0-17.5); LYMPH # 0.7 x10^3/uL (1.0-4.8); LYMPH % 10 % (24-48); MEAN CORPUSCULAR HEMOGLOBIN 33 pg (25-35); MEAN CORPUSCULAR HGB CONC 34 g/dL (31-37); MEAN CORPUSCULAR VOLUME 97 fL (79-100); MONO # 0.4 x10^3/uL (0.0-1.1); MONO % 6 % (0-9); NEUT # 5.8 x10^3/uL (1.8-7.7); NEUT % 82 % (31-73); PLATELET COUNT 66 x10^3/uL (140-400); RED CELL DISTRIBUTION WIDTH 18.2 % (11.5-14.5); WHITE BLOOD COUNT 7.1 x10^3/uL (4.0-11.0)
== END ==
LOC: ONCLAB 09:40
PROVIDERS: ATTEND Physician Assistant
DX: C34.01 Malignant neoplasm of right main bronchus (principal)
CPT/HCPCS: 36415; 85025

== ENCOUNTER → 2021-03-18 | Outpatient (CLI) | payer MEDICARE, OTHER ==
[2021-03-12 10:30] VITALS: BP 112/72
[2021-03-18 10:24] LABS: BASO % 0 % (0-3); EOS # 0.1 x10^3/uL (0.0-0.7); EOS % 1 % (0-3); HEMATOCRIT 26.8 % (39.0-53.0); HEMOGLOBIN 9.1 g/dL (13.0-17.5); LYMPH # 0.7 x10^3/uL (1.0-4.8); LYMPH % 10 % (24-48); MEAN CORPUSCULAR HEMOGLOBIN 33 pg (25-35); MEAN CORPUSCULAR HGB CONC 34 g/dL (31-37); MEAN CORPUSCULAR VOLUME 97 fL (79-100); MONO # 0.7 x10^3/uL (0.0-1.1); MONO % 10 % (0-9); NEUT # 5.4 x10^3/uL (1.8-7.7); NEUT % 78 % (31-73); PLATELET COUNT 112 x10^3/uL (140-400); RED BLOOD COUNT 2.75 x10^6/uL (4.30-5.70); RED CELL DISTRIBUTION WIDTH 18.4 % (11.5-14.5); WHITE BLOOD COUNT 6.9 x10^3/uL (4.0-11.0)
[2021-03-18 10:43] LABS: CALCIUM 8.3 mg/dL (8.5-10.1); CREATININE 1.2 mg/dL (0.7-1.3); GFR 61.3; POTASSIUM 4.3 mmol/L (3.5-5.1)
[2021-03-18 10:49] LABS: ALBUMIN/GLOBULIN RATIO 0.8 (1.0-1.7); MAGNESIUM 1.8 mg/dL (1.8-2.4); TOTAL BILIRUBIN 0.4 mg/dL (0.2-1.0); TOTAL PROTEIN 6.8 g/dL (6.4-8.2)
== END ==
LOC: ONCLAB 09:52
PROVIDERS: ATTEND Internal Medicine Hematology & Oncology
DX: C34.01 Malignant neoplasm of right main bronchus (principal)
CPT/HCPCS: 36415; 80053; 83735; 85025

== ENCOUNTER → 2021-03-28 | Outpatient (CLI) | payer MEDICARE, OTHER ==
[2021-03-12 10:30] VITALS: BP 112/72
[2021-03-28 11:04] LABS: BASO % 1 % (0-3); EOS % 1 % (0-3); LYMPH # 0.4 x10^3/uL (1.0-4.8); LYMPH % 25 % (24-48); MEAN CORPUSCULAR HEMOGLOBIN 33 pg (25-35); MEAN CORPUSCULAR HGB CONC 34 g/dL (31-37); MEAN CORPUSCULAR VOLUME 99 fL (79-100); MONO # 0.2 x10^3/uL (0.0-1.1); MONO % 14 % (0-9); NEUT # 0.9 x10^3/uL (1.8-7.7); NEUT % 60 % (31-73); PLATELET COUNT 39 x10^3/uL (140-400); RED BLOOD COUNT 2.09 x10^6/uL (4.30-5.70); RED CELL DISTRIBUTION WIDTH 17.6 % (11.5-14.5)
[2021-03-28 11:07] LABS: CALCIUM 8.2 mg/dL (8.5-10.1); GFR 75.7; HEMATOCRIT 20.6 % (39.0-53.0); POTASSIUM 4.3 mmol/L (3.5-5.1); WHITE BLOOD COUNT 1.6 x10^3/uL (4.0-11.0)
[2021-03-28 11:12] LABS: ALBUMIN 2.8 g/dL (3.4-5.0); ALBUMIN/GLOBULIN RATIO 0.8 (1.0-1.7); MAGNESIUM 1.9 mg/dL (1.8-2.4); TOTAL BILIRUBIN 0.3 mg/dL (0.2-1.0); TOTAL PROTEIN 6.4 g/dL (6.4-8.2)
[2021-03-28 11:40] LABS: % BANDS 16 % (0-9); % EOS 2 % (0-5); % LYMPHS 32 % (24-48); % MONOS 6 % (0-10); % SEGS 44 % (35-66); PLT ESTIMATE DECREASED (ADEQUATE)
== END ==
LOC: ONCLAB 10:18
PROVIDERS: ATTEND Internal Medicine Hematology & Oncology
DX: C34.01 Malignant neoplasm of right main bronchus (principal)
CPT/HCPCS: 36415; 80053; 83735; 85007; 85025

== ENCOUNTER → 2021-04-09 | Outpatient (CLI) | payer MEDICARE, OTHER ==
[2021-03-29 14:18] VITALS: BP 140/85
[2021-04-09 12:09] LABS: BASO % 0 % (0-3); EOS # 0.1 x10^3/uL (0.0-0.7); EOS % 1 % (0-3); HEMATOCRIT 25.2 % (39.0-53.0); HEMOGLOBIN 8.5 g/dL (13.0-17.5); LYMPH # 0.6 x10^3/uL (1.0-4.8); LYMPH % 9 % (24-48); MEAN CORPUSCULAR HEMOGLOBIN 33 pg (25-35); MEAN CORPUSCULAR HGB CONC 34 g/dL (31-37); MEAN CORPUSCULAR VOLUME 99 fL (79-100); MONO # 0.8 x10^3/uL (0.0-1.1); MONO % 13 % (0-9); NEUT # 4.8 x10^3/uL (1.8-7.7); NEUT % 77 % (31-73); PLATELET COUNT 173 x10^3/uL (140-400); RED BLOOD COUNT 2.56 x10^6/uL (4.30-5.70); RED CELL DISTRIBUTION WIDTH 18.3 % (11.5-14.5); WHITE BLOOD COUNT 6.2 x10^3/uL (4.0-11.0)
[2021-04-09 12:25] LABS: CALCIUM 8.7 mg/dL (8.5-10.1); CREATININE 1.1 mg/dL (0.7-1.3); GFR 67.8; POTASSIUM 4.1 mmol/L (3.5-5.1)
[2021-04-09 12:33] LABS: ALBUMIN 2.9 g/dL (3.4-5.0); ALBUMIN/GLOBULIN RATIO 0.7 (1.0-1.7); MAGNESIUM 1.8 mg/dL (1.8-2.4); TOTAL BILIRUBIN 0.4 mg/dL (0.2-1.0)
== END ==
LOC: ONCLAB 08:00
PROVIDERS: ATTEND Internal Medicine Hematology & Oncology
DX: C34.01 Malignant neoplasm of right main bronchus (principal)
CPT/HCPCS: 36415; 80053; 83735; 85025

== ENCOUNTER → 2021-04-16 | Outpatient (CLI) | payer MEDICARE, OTHER ==
[2021-03-29 14:18] VITALS: BP 140/85
[2021-04-16 12:26] LABS: BASO % 0 % (0-3); EOS % 1 % (0-3); HEMATOCRIT 22.9 % (39.0-53.0); HEMOGLOBIN 7.9 g/dL (13.0-17.5); LYMPH # 0.5 x10^3/uL (1.0-4.8); LYMPH % 8 % (24-48); MEAN CORPUSCULAR HEMOGLOBIN 34 pg (25-35); MEAN CORPUSCULAR HGB CONC 35 g/dL (31-37); MEAN CORPUSCULAR VOLUME 99 fL (79-100); MONO # 0.3 x10^3/uL (0.0-1.1); MONO % 6 % (0-9); NEUT # 4.7 x10^3/uL (1.8-7.7); NEUT % 85 % (31-73); PLATELET COUNT 116 x10^3/uL (140-400); RED BLOOD COUNT 2.32 x10^6/uL (4.30-5.70); RED CELL DISTRIBUTION WIDTH 17.8 % (11.5-14.5); WHITE BLOOD COUNT 5.5 x10^3/uL (4.0-11.0)
[2021-04-16 12:32] LABS: GFR 75.7; POTASSIUM 4.7 mmol/L (3.5-5.1)
[2021-04-16 12:38] LABS: ALBUMIN/GLOBULIN RATIO 0.8 (1.0-1.7); MAGNESIUM 1.6 mg/dL (1.8-2.4); TOTAL BILIRUBIN 0.4 mg/dL (0.2-1.0); TOTAL PROTEIN 6.8 g/dL (6.4-8.2)
== END ==
LOC: ONCLAB 11:24
PROVIDERS: ATTEND Internal Medicine Hematology & Oncology
DX: C34.01 Malignant neoplasm of right main bronchus (principal)
CPT/HCPCS: 36415; 80053; 83735; 85025

== ENCOUNTER → 2021-04-19 | Outpatient (CLI) | payer MEDICARE, MEDICAID ==
[2021-03-29 14:18] VITALS: BP 140/85
[~2021-04-19] MED LIST changes: +CONTRAST GIVEN. MC PRN; +GADOTERATE 5 MMOL/10ML VIAL. IVP ONE; +IOHEXOL 240 MG/ML 50ML VIAL. PO ONE; +IOHEXOL 300 MG/ML 100ML VIAL. IV ONE
--- NOTE | 2021-04-19 09:57 | RAD ---
MRI BRAIN WO+W Date: 04/19/2021 8:04 AM Indication: CANCER RESTAGING. Hx SMALL CELL CARCINOMA OF RIGHT LUNG Comparison: 11/30/2020. Technique: Multiplanar multisequence MRI of the brain was performed with and without intravenous cont rast using the standard protocol. 17 cc Clariscan contrast was administered intravenously during the exam. Findings: No acute infarct. No acute or chronic hemorrhage. The ventricles are normal in size and configuration without hydrocephalus. Mild scattered FLAIR hyperintensities in the subcortical and periventricular deep white matter, a nonspecific finding, most commonly seen with chronic small vessel ischemic disea se. No abnormal enhancement. The scalp and calvarium are normal. The pituitary and sella are normal. No Chiari malformation. The v isualized upper cervical spine is normal. The visualized orbits and globes are normal. Moderate left maxillary sinus mucosal thickening. Trace left mastoid fluid. Unchanged abnormal left vertebral artery flow-void which could represent slow flow or occlusion. IMPRESSION: No evidence of intracranial metastatic disease. Electronically signed by: Robbie Diaz MD (04/19/2021 9:55 AM) [id number]
--- NOTE | 2021-04-19 12:36 | RAD ---
Study: CT chest, abdomen and pelvis with contrast INDICATION: Small cell carcinoma of the lung. COMPARISON: CTA chest 02/16/2021; PET/CT 11/30/2020 TECHNIQUE: Helical CT imaging performed of the chest, abdomen and pelvis after the intravenous admini stration of 75 cc Omnipaque 300. Coronal and sagittal reformats were obtained. One or more of the following individualized dose reduction techniques were utilized for this examinat ion: 1. Automated exposure control 2. Adjustment of the mA and/or kV according to patient size 3. Use of iterative reconstruction technique. FINDINGS: CT Chest: Left chest wall Port-A-Cath with the tube tip terminating within the SVC. Scattered calcific atherosclerosis to include extensive coronary artery involvement. No aneurysm or d issection of the thoracic aorta. The visualized great vessels are patent. Mediastinal and right hilar adenopathy appears decreased though difficult to closely measure, a pretr acheal lymph node to the right of midline on image 22 series 2 now measures approximately 1.5 cm shor t axis compared to 1.8 cm. Persistent soft tissue fullness at the subcarinal region and surrounding t he bronchus intermedius and additional airways to the right lower lung. No newly identified./Hilar ly mph node with pathologic enlargement. Small amount of pericardial fluid. Loculated pleural effusion on the right is similar to slightly larger in size at a few locations and faintly smaller at others. A loculated component posterior to the right hilum on image 32 series 2 is measured at 4.6 cm transverse by 2.8 cm AP compared to 4.6 cm transverse by 3.2 cm AP. The right low er lobe is again noted to be collapsed. Slightly improved aeration of the bronchi to the collapsed ri ght lower lobe. Similar aeration of bronchi the right middle lobe. Passive atelectasis along the aera maia right upper lobe without a newly seen focal airspace opacity. Left lower lobe granulomas. No newl y seen left lung nodule or localized infiltrate. Axillary lymph nodes have decreased in size. No adenopathy has developed at the lower neck. No change in vertebral body height. No focally aggressive osseous lesion. Multilevel spondylosis and degenerative changes at the shoulders. CT Abdomen/Pelvis: No newly seen focal hepatic parenchymal abnormality. A subcentimeter cystic focus in the left hepatic lobe is unchanged as are cystic foci at the inferior aspect of the right hepatic lobe. Within normal limits gallbladder, biliary tree and pancreas. Splenic granulomas. Splenomegaly at 16 cm craniocauda l with an increase in size from the PET/CT. No newly seen adrenal gland mass. Unchanged kidneys and p rostate. Increased density within the urinary bladder potentially from excreted contrast. Colonic diverticulosis without diverticulitis. Mild constipation. Normal appendix. Nonobstructed smal l bowel. No discrete gastric wall abnormality. Metabolically active lymph node at the right paramidline upper abdomen on the PET/CT is not well iden tified on this exam. No pathologically enlarged lymph nodes seen throughout the abdomen or pelvis. No free fluid or pneumoperitoneum. Scattered calcified and noncalcified atheromatous plaque. Newly identified sclerosis the left iliac bone, image 58 series 4 which was at a site of metabolic ac tivity on the comparison PET/CT suggesting a treated metastasis. A small focus of sclerosis in the ri ght iliac bone on image 59 series 4 measures 5 mm and is unchanged. IMPRESSION: CT Chest: 1. Mediastinal and right hilar adenopathy appears to have decreased in bulk. A senior patient account representative pretra cheal lymph node to the right of midline on image 22 series 2 is now measured at 1.5 cm compared to 1 .8 cm. Persistence of soft tissue fullness at the subcarinal region extending along the airways to th e right lower lung but also appearing slightly decreased in extent from the 02/16/2021 CT chest. Decre ased size of right axillary lymph nodes. 2. Loculated pleural effusion on the right has not significantly changed in the interim. CT Abdomen/Pelvis: 1. Better visualization of a sclerotic focus in the posterior left iliac bone from the comparison PE T/CT. Given positive treatment response elsewhere this is favored to represent a treated metastasis a s opposed to an enlarging sclerotic metastasis. Attention on follow-up. 2. No newly seen liver lesion, adrenal gland nodule or pathologically enlarged lymph nodes. The meta bolically active upper abdominal lymph node on the prior PET/CT is no longer visualized. Electronically signed by: ALEJO RUFF MD (04/19/2021 12:34 PM) [facility]
== END ==
LOC: MRI 07:55
PROVIDERS: ATTEND Internal Medicine Hematology & Oncology
DX: C34.01 Malignant neoplasm of right main bronchus (principal); C34.31 Malignant neoplasm of lower lobe, right bronchus or lung
CPT/HCPCS: 70553; 71260; 74177; A9575; Q9966; Q9967

== ENCOUNTER → 2021-05-02 | Outpatient (CLI) | payer MEDICARE, MEDICAID ==
[2021-03-29 14:18] VITALS: BP 140/85
[~2021-05-02] MED LIST changes: -CONTRAST GIVEN. MC PRN; -GADOTERATE 5 MMOL/10ML VIAL. IVP ONE; -IOHEXOL 240 MG/ML 50ML VIAL. PO ONE; -IOHEXOL 300 MG/ML 100ML VIAL. IV ONE
[2021-05-02 11:39] LABS: BASO % 1 % (0-3); EOS # 0.1 x10^3/uL (0.0-0.7); EOS % 1 % (0-3); HEMATOCRIT 21.4 % (39.0-53.0); HEMOGLOBIN 7.2 g/dL (13.0-17.5); LYMPH # 0.5 x10^3/uL (1.0-4.8); LYMPH % 9 % (24-48); MEAN CORPUSCULAR HEMOGLOBIN 34 pg (25-35); MEAN CORPUSCULAR HGB CONC 34 g/dL (31-37); MEAN CORPUSCULAR VOLUME 102 fL (79-100); MONO # 0.8 x10^3/uL (0.0-1.1); MONO % 13 % (0-9); NEUT # 4.8 x10^3/uL (1.8-7.7); NEUT % 77 % (31-73); PLATELET COUNT 137 x10^3/uL (140-400); RED CELL DISTRIBUTION WIDTH 21.1 % (11.5-14.5); WHITE BLOOD COUNT 6.2 x10^3/uL (4.0-11.0)
[2021-05-02 11:51] LABS: CALCIUM 8.4 mg/dL (8.5-10.1); CREATININE 1.2 mg/dL (0.7-1.3); GFR 61.3; POTASSIUM 4.1 mmol/L (3.5-5.1)
[2021-05-02 12:09] LABS: ALBUMIN 2.9 g/dL (3.4-5.0); ALBUMIN/GLOBULIN RATIO 0.7 (1.0-1.7); TOTAL BILIRUBIN 0.4 mg/dL (0.2-1.0); TOTAL PROTEIN 6.8 g/dL (6.4-8.2)
[2021-05-02 13:15] LABS: PLT ESTIMATE DECREASED (ADEQUATE)
[2021-05-02 13:17] LABS: ANISOCYTOSIS MOD
== END ==
LOC: ONCLAB 10:54
PROVIDERS: ATTEND Internal Medicine Hematology & Oncology
DX: C34.01 Malignant neoplasm of right main bronchus (principal)
CPT/HCPCS: 36415; 80053; 83735; 85025

== ENCOUNTER → 2021-05-14 | Outpatient (CLI) | payer MEDICARE, MEDICAID ==
[2021-03-29 14:18] VITALS: BP 140/85
[2021-05-14 08:58] LABS: BASO % 1 % (0-3); EOS # 0.2 x10^3/uL (0.0-0.7); EOS % 3 % (0-3); HEMATOCRIT 22.7 % (39.0-53.0); HEMOGLOBIN 7.6 g/dL (13.0-17.5); LYMPH # 0.5 x10^3/uL (1.0-4.8); LYMPH % 10 % (24-48); MEAN CORPUSCULAR HEMOGLOBIN 34 pg (25-35); MEAN CORPUSCULAR HGB CONC 33 g/dL (31-37); MEAN CORPUSCULAR VOLUME 102 fL (79-100); MONO # 0.5 x10^3/uL (0.0-1.1); MONO % 11 % (0-9); NEUT # 3.6 x10^3/uL (1.8-7.7); NEUT % 75 % (31-73); PLATELET COUNT 175 x10^3/uL (140-400); RED BLOOD COUNT 2.23 x10^6/uL (4.30-5.70); RED CELL DISTRIBUTION WIDTH 19.6 % (11.5-14.5); WHITE BLOOD COUNT 4.8 x10^3/uL (4.0-11.0)
[2021-05-14 09:06] LABS: CALCIUM 8.7 mg/dL (8.5-10.1); CREATININE 1.1 mg/dL (0.7-1.3)
[2021-05-14 09:07] LABS: GFR 67.8
[2021-05-14 09:13] LABS: ALBUMIN 2.9 g/dL (3.4-5.0); ALBUMIN/GLOBULIN RATIO 0.8 (1.0-1.7); MAGNESIUM 1.9 mg/dL (1.8-2.4); TOTAL BILIRUBIN 0.4 mg/dL (0.2-1.0); TOTAL PROTEIN 6.7 g/dL (6.4-8.2)
== END ==
LOC: ONCLAB 08:08
PROVIDERS: ATTEND Physician Assistant
DX: C34.01 Malignant neoplasm of right main bronchus (principal); Z79.899 Other long term (current) drug therapy
CPT/HCPCS: 36415; 80053; 83735; 84443; 85025

== ENCOUNTER → 2021-05-23 | Outpatient (CLI) | payer MEDICARE, MEDICAID ==
[2021-03-29 14:18] VITALS: BP 140/85
[2021-05-23 10:23] LABS: BASO % 1 % (0-3); EOS # 0.2 x10^3/uL (0.0-0.7); EOS % 4 % (0-3); HEMATOCRIT 25.6 % (39.0-53.0); HEMOGLOBIN 8.5 g/dL (13.0-17.5); LYMPH # 0.6 x10^3/uL (1.0-4.8); LYMPH % 12 % (24-48); MEAN CORPUSCULAR HEMOGLOBIN 33 pg (25-35); MEAN CORPUSCULAR HGB CONC 33 g/dL (31-37); MEAN CORPUSCULAR VOLUME 100 fL (79-100); MONO # 0.4 x10^3/uL (0.0-1.1); MONO % 8 % (0-9); NEUT # 3.8 x10^3/uL (1.8-7.7); NEUT % 75 % (31-73); PLATELET COUNT 157 x10^3/uL (140-400); RED BLOOD COUNT 2.56 x10^6/uL (4.30-5.70); RED CELL DISTRIBUTION WIDTH 17.7 % (11.5-14.5); WHITE BLOOD COUNT 5.1 x10^3/uL (4.0-11.0)
[2021-05-23 10:35] LABS: CALCIUM 8.8 mg/dL (8.5-10.1); CREATININE 1.2 mg/dL (0.7-1.3); GFR 61.3; POTASSIUM 4.1 mmol/L (3.5-5.1)
[2021-05-23 10:42] LABS: ALBUMIN 2.8 g/dL (3.4-5.0); ALBUMIN/GLOBULIN RATIO 0.7 (1.0-1.7); TOTAL BILIRUBIN 0.4 mg/dL (0.2-1.0)
== END ==
LOC: ONCLAB 09:22
PROVIDERS: ATTEND Physician Assistant
DX: C34.01 Malignant neoplasm of right main bronchus (principal); R06.09 Other forms of dyspnea
CPT/HCPCS: 36415; 80053; 83735; 84443; 85025

== ENCOUNTER → 2021-06-06 | Outpatient (CLI) | payer MEDICARE, MEDICAID ==
[2021-03-29 14:18] VITALS: BP 140/85
[2021-06-06 09:50] LABS: BASO % 0 % (0-3); EOS # 0.1 x10^3/uL (0.0-0.7); EOS % 2 % (0-3); HEMATOCRIT 25.8 % (39.0-53.0); HEMOGLOBIN 8.4 g/dL (13.0-17.5); LYMPH # 2.8 x10^3/uL (1.0-4.8); LYMPH % 54 % (24-48); MEAN CORPUSCULAR HEMOGLOBIN 32 pg (25-35); MEAN CORPUSCULAR HGB CONC 33 g/dL (31-37); MEAN CORPUSCULAR VOLUME 98 fL (79-100); MONO # 0.4 x10^3/uL (0.0-1.1); MONO % 8 % (0-9); NEUT # 1.9 x10^3/uL (1.8-7.7); NEUT % 36 % (31-73); PLATELET COUNT 89 x10^3/uL (140-400); RED BLOOD COUNT 2.63 x10^6/uL (4.30-5.70); RED CELL DISTRIBUTION WIDTH 17.2 % (11.5-14.5); WHITE BLOOD COUNT 5.3 x10^3/uL (4.0-11.0)
[2021-06-06 09:55] LABS: CALCIUM 8.4 mg/dL (8.5-10.1); CREATININE 1.2 mg/dL (0.7-1.3); GFR 61.3; POTASSIUM 4.1 mmol/L (3.5-5.1)
[2021-06-06 10:01] LABS: ALBUMIN 2.6 g/dL (3.4-5.0); ALBUMIN/GLOBULIN RATIO 0.7 (1.0-1.7); MAGNESIUM 1.9 mg/dL (1.8-2.4); TOTAL BILIRUBIN 0.3 mg/dL (0.2-1.0); TOTAL PROTEIN 6.6 g/dL (6.4-8.2)
[2021-06-06 13:29] LABS: % ATYL 9 % (0-0); % BANDS 6 % (0-9); % BASOS 1 % (0-3); % EOS 1 % (0-5); % LYMPHS 34 % (24-48); % MONOS 3 % (0-10); % SEGS 46 % (35-66)
[2021-06-06 13:30] LABS: PLT ESTIMATE DECREASED (ADEQUATE)
[2021-06-06 13:31] LABS: ANISOCYTOSIS SLIGHT; OVALOCYTES FEW; POLYCHROMASIA SLIGHT
== END ==
LOC: ONCLAB 09:23
PROVIDERS: ATTEND Physician Assistant
DX: C34.01 Malignant neoplasm of right main bronchus (principal); R06.09 Other forms of dyspnea
CPT/HCPCS: 36415; 80053; 82607; 82746; 83735; 83921; 84443; 85007; 85025

== ENCOUNTER → 2021-06-13 | Outpatient (CLI) | payer MEDICARE, MEDICAID ==
[2021-03-29 14:18] VITALS: BP 140/85
[2021-06-13 09:43] LABS: BASO % 1 % (0-3); EOS # 0.1 x10^3/uL (0.0-0.7); EOS % 3 % (0-3); HEMATOCRIT 27.3 % (39.0-53.0); LYMPH # 1.1 x10^3/uL (1.0-4.8); LYMPH % 28 % (24-48); MEAN CORPUSCULAR HEMOGLOBIN 32 pg (25-35); MEAN CORPUSCULAR HGB CONC 33 g/dL (31-37); MEAN CORPUSCULAR VOLUME 97 fL (79-100); MONO # 0.4 x10^3/uL (0.0-1.1); MONO % 11 % (0-9); NEUT # 2.4 x10^3/uL (1.8-7.7); NEUT % 59 % (31-73); PLATELET COUNT 108 x10^3/uL (140-400); RED BLOOD COUNT 2.81 x10^6/uL (4.30-5.70); RED CELL DISTRIBUTION WIDTH 17.2 % (11.5-14.5); WHITE BLOOD COUNT 4.1 x10^3/uL (4.0-11.0)
[2021-06-13 10:09] LABS: CALCIUM 8.6 mg/dL (8.5-10.1); CREATININE 1.1 mg/dL (0.7-1.3); GFR 67.8; POTASSIUM 4.3 mmol/L (3.5-5.1)
[2021-06-13 10:17] LABS: ALBUMIN 2.7 g/dL (3.4-5.0); ALBUMIN/GLOBULIN RATIO 0.6 (1.0-1.7); MAGNESIUM 1.9 mg/dL (1.8-2.4); TOTAL BILIRUBIN 0.3 mg/dL (0.2-1.0); TOTAL PROTEIN 6.9 g/dL (6.4-8.2)
== END ==
LOC: ONCLAB 08:58
PROVIDERS: ATTEND Physician Assistant
DX: C34.01 Malignant neoplasm of right main bronchus (principal); R00.0 Tachycardia, unspecified; E55.9 Vitamin D deficiency, unspecified
CPT/HCPCS: 36415; 80053; 82306; 83735; 84443; 85025

== ENCOUNTER → 2021-06-27 | Outpatient (CLI) | payer MEDICARE, MEDICAID ==
[2021-03-29 14:18] VITALS: BP 140/85
[2021-06-27 09:48] LABS: ALBUMIN 2.8 g/dL (3.4-5.0); ALBUMIN/GLOBULIN RATIO 0.7 (1.0-1.7); CALCIUM 8.8 mg/dL (8.5-10.1); CREATININE 1.2 mg/dL (0.7-1.3); GFR 61.3; MAGNESIUM 1.8 mg/dL (1.8-2.4); POTASSIUM 4.1 mmol/L (3.5-5.1); TOTAL BILIRUBIN 0.4 mg/dL (0.2-1.0); TOTAL PROTEIN 7.1 g/dL (6.4-8.2)
[2021-06-27 09:56] LABS: BASO % 0 % (0-3); EOS # 0.1 x10^3/uL (0.0-0.7); EOS % 2 % (0-3); HEMATOCRIT 29.3 % (39.0-53.0); HEMOGLOBIN 9.7 g/dL (13.0-17.5); LYMPH # 0.9 x10^3/uL (1.0-4.8); LYMPH % 21 % (24-48); MEAN CORPUSCULAR HEMOGLOBIN 32 pg (25-35); MEAN CORPUSCULAR HGB CONC 33 g/dL (31-37); MEAN CORPUSCULAR VOLUME 95 fL (79-100); MONO # 0.3 x10^3/uL (0.0-1.1); MONO % 7 % (0-9); NEUT # 2.8 x10^3/uL (1.8-7.7); NEUT % 69 % (31-73); PLATELET COUNT 138 x10^3/uL (140-400); RED BLOOD COUNT 3.07 x10^6/uL (4.30-5.70); RED CELL DISTRIBUTION WIDTH 17.2 % (11.5-14.5); WHITE BLOOD COUNT 4.1 x10^3/uL (4.0-11.0)
== END ==
LOC: ONCLAB 09:00
PROVIDERS: ATTEND Physician Assistant
DX: C34.01 Malignant neoplasm of right main bronchus (principal); I10 Essential (primary) hypertension
CPT/HCPCS: 36415; 80053; 83735; 84443; 85025

== ENCOUNTER → 2021-07-17 | Outpatient (CLI) | payer MEDICARE, MEDICAID ==
[2021-03-29 14:18] VITALS: BP 140/85
[2021-07-17 11:30] LABS: BASO % 1 % (0-3); EOS # 0.1 x10^3/uL (0.0-0.7); EOS % 3 % (0-3); HEMOGLOBIN 9.9 g/dL (13.0-17.5); LYMPH # 0.8 x10^3/uL (1.0-4.8); LYMPH % 21 % (24-48); MEAN CORPUSCULAR HEMOGLOBIN 31 pg (25-35); MEAN CORPUSCULAR HGB CONC 33 g/dL (31-37); MEAN CORPUSCULAR VOLUME 93 fL (79-100); MONO # 0.3 x10^3/uL (0.0-1.1); MONO % 8 % (0-9); NEUT # 2.8 x10^3/uL (1.8-7.7); NEUT % 68 % (31-73); PLATELET COUNT 137 x10^3/uL (140-400); RED BLOOD COUNT 3.21 x10^6/uL (4.30-5.70); RED CELL DISTRIBUTION WIDTH 16.8 % (11.5-14.5); WHITE BLOOD COUNT 4.1 x10^3/uL (4.0-11.0)
[2021-07-17 11:40] LABS: CALCIUM 9.1 mg/dL (8.5-10.1); CREATININE 1.4 mg/dL (0.7-1.3); GFR 51.4
[2021-07-17 12:00] LABS: ALBUMIN 2.8 g/dL (3.4-5.0); ALBUMIN/GLOBULIN RATIO 0.7 (1.0-1.7); TOTAL BILIRUBIN 0.3 mg/dL (0.2-1.0); TOTAL PROTEIN 7.1 g/dL (6.4-8.2)
== END ==
LOC: ONCLAB 10:16
PROVIDERS: ATTEND Physician Assistant
DX: C34.01 Malignant neoplasm of right main bronchus (principal); R00.0 Tachycardia, unspecified
CPT/HCPCS: 36415; 80053; 82728; 83540; 83550; 83735; 84443; 85025

== ENCOUNTER → 2021-08-07 | Outpatient (CLI) | payer MEDICARE, MEDICAID ==
[2021-03-29 14:18] VITALS: BP 140/85
[2021-08-07 12:32] LABS: BASO % 1 % (0-3); EOS # 0.1 x10^3/uL (0.0-0.7); EOS % 3 % (0-3); HEMATOCRIT 31.6 % (39.0-53.0); HEMOGLOBIN 10.4 g/dL (13.0-17.5); LYMPH # 0.8 x10^3/uL (1.0-4.8); LYMPH % 19 % (24-48); MEAN CORPUSCULAR HEMOGLOBIN 30 pg (25-35); MEAN CORPUSCULAR HGB CONC 33 g/dL (31-37); MEAN CORPUSCULAR VOLUME 93 fL (79-100); MONO # 0.4 x10^3/uL (0.0-1.1); MONO % 9 % (0-9); NEUT % 69 % (31-73); PLATELET COUNT 147 x10^3/uL (140-400); RED BLOOD COUNT 3.41 x10^6/uL (4.30-5.70); RED CELL DISTRIBUTION WIDTH 17.5 % (11.5-14.5); WHITE BLOOD COUNT 4.4 x10^3/uL (4.0-11.0)
[2021-08-07 12:41] LABS: CREATININE 1.3 mg/dL (0.7-1.3); GFR 55.9; POTASSIUM 3.9 mmol/L (3.5-5.1)
[2021-08-07 12:48] LABS: ALBUMIN 2.8 g/dL (3.4-5.0); ALBUMIN/GLOBULIN RATIO 0.7 (1.0-1.7); TOTAL BILIRUBIN 0.3 mg/dL (0.2-1.0); TOTAL PROTEIN 7.1 g/dL (6.4-8.2)
== END ==
LOC: ONCLAB 10:34
PROVIDERS: ATTEND Internal Medicine Hematology & Oncology
DX: C34.01 Malignant neoplasm of right main bronchus (principal)
CPT/HCPCS: 36415; 80053; 85025

== ENCOUNTER → 2021-08-08 | Outpatient (CLI) | payer MEDICARE, MEDICAID ==
[2021-03-29 14:18] VITALS: BP 140/85
[~2021-08-08] MED LIST changes: +CONTRAST GIVEN. MC PRN; +GADOTERATE 7.5 MMOL/15ML VIAL. IVP ONE; +IOHEXOL 240 MG/ML 50ML VIAL. PO ONE; +IOHEXOL 300 MG/ML 100ML VIAL. IV ONE
--- NOTE | 2021-08-08 13:33 | RAD ---
MRI of the Brain without and with Contrast 08/08/2020 Clinical History: Metastatic Small cell lung cancer. Technique: Unenhanced T2-weighted sagittal and axial and FLAIR, T1-weightedgradient, echo and diffusi on-weighted axial images of the brain were obtained. After the intravenous administration of 15 cc of Clariscan, enhanced T1-weighted axial, sagittal and coronal images of the brain were obtained. Findings: Comparison study is dated 04/19/2021. There is generalized parenchymal atrophy. Patchy, confluent and multiple small focal areas of abnorma lly increased signal intensity are seen within the periventricular and subcortical white matter poste rolateral hemispheres on the FLAIR and T2-weighted images consistent with areas of small vessel ische shira disease. Two ring enhancing mass lesions are seen immediately adjacent to one another within the right occipit al lobe. The smaller medial lesion measures 1.5 x 1.4 x 1.1 cm in craniocaudal, AP and transverse dim ensions. The larger more lateral lesion measures 2.9 x 2.6 x 1.9 cm in AP, craniocaudal and transvers e dimensions. A ring-enhancing mass lesion is seen involving the posterior left temporal lobe. This m easures 0.9 x 0.9 x 0.7 cm in AP, transverse and craniocaudal dimensions. These are consistent with b rain metastasis. There is surrounding edema and associated mass effect without evidence of midline sh ift. No additional area of abnormal contrast enhancement is seen. There is no MRI evidence of acute ischemia/infarction. No extra-axial fluid collection is seen. Technique complete opacification of the left maxillary sinus due to mucosal thickening and secretions is seen. Mild mucosal thickening is seen scattered throughout the remaining paranasal sinuses. There is a minimal right mastoid effusion. A small left mastoid effusion is seen. Normal flow voids are se en within the major vascular structures surrounding the brain parenchyma. IMPRESSION: New enhancing lesions are seen involving the right occipital lobe of the left posterior t emporal lobe concerning for brain metastasis. These measure 0.9 to 2.9 cm in size. There is surroundi ng edema and associated mass effect without evidence of midline shift. These findings were discussed with Dr. Reece's nurse. Electronically signed by: Jason Payne MD (08/08/2021 1:31 PM) [id number]
--- NOTE | 2021-08-08 18:21 | RAD ---
EXAM: CT CHEST, ABDOMEN, AND PELVIS WITH CONTRAST INDICATION: Lung cancer restaging COMPARISON: CT chest abdomen and pelvis 04/19/2021 TECHNIQUE: Helical CT imaging performed of the chest, abdomen and pelvis after administration of 60 m L Omnipaque 300 Sagittal and coronal reformats were obtained. One or more of the following individualized dose reduction techniques were utilized for this examinat ion: 1. Automated exposure control 2. Adjustment of the mA and/or kV according to patient size 3. Use of iterative reconstruction technique. FINDINGS: CHEST: Thyroid gland and thoracic inlet: Normal. Heart and great vessels: Heart is normal in size. There are extensive coronary artery calcifications. Slightly increased, small pericardial effusion. Thoracic aorta is normal in caliber with mild calcif ied atherosclerosis. There is a left chest wall port with tip at the superior cavoatrial junction. Mediastinum and tomasa: No significant change in ill-defined soft tissue in the right hilum encasing ce ntral bronchovascular structures, and ill-defined soft tissue the right paratracheal and subcarinal r egion. There is diffuse esophageal wall thickening and mild esophageal distention. Lungs and pleura: A chronic loculated right pleural effusion is unchanged. There is unchanged right l wilfrido volume loss. Increased right paramediastinal groundglass opacities. Near-complete consolidation o f the right middle and lower lobes is unchanged. There are some areas of hypoattenuation within the c onsolidated lung that have slightly decreased. The left lung is clear. Chest wall and axillae: No axillary lymphadenopathy. Bones: There is moderate degenerative disc disease in the thoracic spine ABDOMEN AND PELVIS: Liver: A few probable cysts in the liver are unchanged. There is no suspicious liver lesion. Gallbladder/Biliary Tree: Normal. Pancreas: Normal. Spleen: No splenomegaly. There are calcified splenic granulomas. Adrenal Glands: Normal. Kidneys/Ureters/Bladder: Normal. No hydronephrosis. Reproductive Organs: Prostate gland is normal. Stomach, small bowel, and colon: The stomach is normal. There is no small bowel obstruction. There is mild sigmoid diverticulosis. Colon is normal. Appendix is normal. Vasculature: No aortic aneurysm. There is severe calcified aortoiliac atherosclerosis. Lymph Nodes: No lymphadenopathy. Peritoneum and retroperitoneum: No free fluid or free air Bones: Unchanged sclerotic lesions in the posterior iliac bones and small scattered sclerotic foci in the pelvis and proximal femora. No definite new bone lesions. There is mild lumbar degenerative disc disease. IMPRESSION: 1. New right paramediastinal groundglass opacities, likely reflecting pneumonitis or radiation peng es. Malignancy not excluded. 2. Unchanged ill-defined soft tissue at the right hilum encasing the central bronchovascular structu res, and in the subcarinal region and low right paratracheal region. This is inseparable from consoli dation of the right middle and lower lobes, which could be due to malignancy, infection, or atelectas is, unchanged. 3. Unchanged loculated right pleural effusion. 4. Unchanged sclerotic lesions in the pelvis. Electronically signed by: Maribel Smith MD (08/08/2021 6:19 PM) [id number]
== END ==
LOC: MRI 09:59
PROVIDERS: ATTEND Internal Medicine Hematology & Oncology
DX: C34.01 Malignant neoplasm of right main bronchus (principal); G93.89 Other specified disorders of brain; R60.0 Localized edema; I31.3 Pericardial effusion (noninflammatory); I25.10 Atherosclerotic heart disease of native coronary artery without angina pectoris; K57.30 Diverticulosis of large intestine without perforation or abscess without bleeding; M99.85 Other biomechanical lesions of pelvic region; I70.0 Atherosclerosis of aorta; J90 Pleural effusion, not elsewhere classified; M47.814 Spondylosis without myelopathy or radiculopathy, thoracic region
CPT/HCPCS: 70553; 71260; 74177; A9575; Q9966; Q9967

== ENCOUNTER → 2021-08-28 | Outpatient (CLI) | payer MEDICARE, MEDICAID ==
[2021-03-29 14:18] VITALS: BP 140/85
[~2021-08-28] MED LIST changes: -CONTRAST GIVEN. MC PRN; +CYCL10TA19 PO; -CYCL10TA2 PO; -GADOTERATE 7.5 MMOL/15ML VIAL. IVP ONE; -IOHEXOL 240 MG/ML 50ML VIAL. PO ONE; -IOHEXOL 300 MG/ML 100ML VIAL. IV ONE
[2021-08-28 10:57] LABS: BASO % 1 % (0-3); EOS # 0.2 x10^3/uL (0.0-0.7); EOS % 4 % (0-3); HEMOGLOBIN 10.4 g/dL (13.0-17.5); LYMPH # 0.7 x10^3/uL (1.0-4.8); LYMPH % 16 % (24-48); MEAN CORPUSCULAR HEMOGLOBIN 30 pg (25-35); MEAN CORPUSCULAR HGB CONC 33 g/dL (31-37); MEAN CORPUSCULAR VOLUME 92 fL (79-100); MONO # 0.4 x10^3/uL (0.0-1.1); MONO % 9 % (0-9); NEUT % 70 % (31-73); PLATELET COUNT 143 x10^3/uL (140-400); RED CELL DISTRIBUTION WIDTH 17.6 % (11.5-14.5); WHITE BLOOD COUNT 4.2 x10^3/uL (4.0-11.0)
[2021-08-28 11:11] LABS: CALCIUM 8.7 mg/dL (8.5-10.1); CREATININE 1.3 mg/dL (0.7-1.3); GFR 55.9; POTASSIUM 4.3 mmol/L (3.5-5.1)
[2021-08-28 11:16] LABS: ALBUMIN/GLOBULIN RATIO 0.7 (1.0-1.7); TOTAL BILIRUBIN 0.4 mg/dL (0.2-1.0); TOTAL PROTEIN 7.1 g/dL (6.4-8.2)
== END ==
LOC: ONCLAB 10:23
PROVIDERS: ATTEND Internal Medicine Hematology & Oncology
DX: C34.01 Malignant neoplasm of right main bronchus (principal); C79.31 Secondary malignant neoplasm of brain
CPT/HCPCS: 36415; 80053; 84443; 85025

== ENCOUNTER → 2021-09-19 | Outpatient (CLI) | payer MEDICARE, MEDICAID ==
[2021-03-29 14:18] VITALS: BP 140/85
[2021-09-19 09:02] LABS: BASO % 1 % (0-3); EOS # 0.1 x10^3/uL (0.0-0.7); EOS % 3 % (0-3); HEMATOCRIT 32.9 % (39.0-53.0); HEMOGLOBIN 10.7 g/dL (13.0-17.5); LYMPH # 0.8 x10^3/uL (1.0-4.8); LYMPH % 19 % (24-48); MEAN CORPUSCULAR HEMOGLOBIN 30 pg (25-35); MEAN CORPUSCULAR HGB CONC 33 g/dL (31-37); MEAN CORPUSCULAR VOLUME 91 fL (79-100); MONO # 0.4 x10^3/uL (0.0-1.1); MONO % 9 % (0-9); NEUT # 2.8 x10^3/uL (1.8-7.7); NEUT % 69 % (31-73); PLATELET COUNT 133 x10^3/uL (140-400); RED CELL DISTRIBUTION WIDTH 17.3 % (11.5-14.5); WHITE BLOOD COUNT 4.1 x10^3/uL (4.0-11.0)
[2021-09-19 09:17] LABS: CALCIUM 8.8 mg/dL (8.5-10.1); CREATININE 1.2 mg/dL (0.7-1.3); GFR 61.3; POTASSIUM 4.3 mmol/L (3.5-5.1)
[2021-09-19 09:23] LABS: ALBUMIN/GLOBULIN RATIO 0.7 (1.0-1.7); TOTAL BILIRUBIN 0.4 mg/dL (0.2-1.0); TOTAL PROTEIN 7.3 g/dL (6.4-8.2)
== END ==
LOC: ONCLAB 08:44
PROVIDERS: ATTEND Internal Medicine Hematology & Oncology
DX: C79.31 Secondary malignant neoplasm of brain (principal); Z79.899 Other long term (current) drug therapy
CPT/HCPCS: 36415; 80053; 80061; 85025

== ENCOUNTER → 2021-10-09 | Outpatient (CLI) | payer MEDICARE, MEDICAID ==
[2021-03-29 14:18] VITALS: BP 140/85
[2021-10-09 12:33] LABS: BASO % 1 % (0-3); EOS # 0.2 x10^3/uL (0.0-0.7); EOS % 4 % (0-3); HEMATOCRIT 33.2 % (39.0-53.0); HEMOGLOBIN 10.6 g/dL (13.0-17.5); LYMPH # 0.8 x10^3/uL (1.0-4.8); LYMPH % 20 % (24-48); MEAN CORPUSCULAR HEMOGLOBIN 30 pg (25-35); MEAN CORPUSCULAR HGB CONC 32 g/dL (31-37); MEAN CORPUSCULAR VOLUME 92 fL (79-100); MONO # 0.4 x10^3/uL (0.0-1.1); MONO % 9 % (0-9); NEUT # 2.6 x10^3/uL (1.8-7.7); NEUT % 67 % (31-73); PLATELET COUNT 112 x10^3/uL (140-400); RED BLOOD COUNT 3.59 x10^6/uL (4.30-5.70); RED CELL DISTRIBUTION WIDTH 16.9 % (11.5-14.5); WHITE BLOOD COUNT 3.9 x10^3/uL (4.0-11.0)
[2021-10-09 12:44] LABS: CALCIUM 8.5 mg/dL (8.5-10.1); CREATININE 1.4 mg/dL (0.7-1.3); GFR 51.4; POTASSIUM 4.3 mmol/L (3.5-5.1)
[2021-10-09 12:50] LABS: ALBUMIN 2.9 g/dL (3.4-5.0); ALBUMIN/GLOBULIN RATIO 0.7 (1.0-1.7); TOTAL BILIRUBIN 0.4 mg/dL (0.2-1.0); TOTAL PROTEIN 6.9 g/dL (6.4-8.2)
== END ==
LOC: ONCLAB 12:12
PROVIDERS: ATTEND Internal Medicine Hematology & Oncology
DX: C79.31 Secondary malignant neoplasm of brain (principal)
CPT/HCPCS: 36415; 80053; 85025

== ENCOUNTER → 2021-10-15 | Outpatient (CLI) | payer MEDICARE, MEDICAID ==
[2021-03-29 14:18] VITALS: BP 140/85
[~2021-10-15] MED LIST changes: +CONTRAST GIVEN. MC PRN; +IOHEXOL 240 MG/ML 50ML VIAL. PO ONE; +IOHEXOL 300 MG/ML 100ML VIAL. IV ONE
--- NOTE | 2021-10-15 16:45 | RAD ---
EXAM: CT CHEST, ABDOMEN, AND PELVIS WITH CONTRAST INDICATION: Lung cancer with metastasis to brain. Restaging. COMPARISON: CT chest abdomen pelvis 08/08/2021 TECHNIQUE: Helical CT imaging performed of the chest, abdomen and pelvis after administration of 60 m L Omnipaque 300 intravenous contrast. Sagittal and coronal reformats were obtained. One or more of the following individualized dose reduction techniques were utilized for this examinat ion: 1. Automated exposure control 2. Adjustment of the mA and/or kV according to patient size 3. Use of iterative reconstruction technique. FINDINGS: CHEST: Thyroid gland and thoracic inlet: The thyroid gland is unremarkable Heart and great vessels: The heart is normal in size. There are extensive coronary calcifications. Sm all pericardial effusion is unchanged. The thoracic aorta is normal in caliber. Mediastinum and tomasa: Ill-defined solid tissue at the right hilum is unchanged. Calcified hilar lymph nodes are unchanged. Lungs and pleura: There is mildly increased right lung volume loss. Perihilar and paramediastinal opa cities in the right upper lobe have mildly increased. Evaluation of the right middle and lower lobes has decreased and areas of low-attenuation within the consolidation are no longer seen. Unchanged chr onic small loculated right pleural effusion. There are calcified granulomas in the left lower lobe. Chest wall and axillae: No axillary lymphadenopathy. There is a left chest wall Port-A-Cath with tip at the superior cavoatrial junction. Bones: No suspicious osseous lesion in the chest. Moderate multilevel degenerative disc disease. ABDOMEN AND PELVIS: Liver: Possible new 5 mm hypodensity in segment 7, evaluation limited by streak artifact. A 1 cm well -circumscribed low-density lesion in segment 6 is unchanged and likely a cyst. A few other subcentime ter hypodensities in the liver are also unchanged. Gallbladder/Biliary Tree: Normal. Pancreas: Normal. Spleen: No splenomegaly. There are calcified granulomas. Adrenal Glands: There is a new 2 cm left adrenal nodule (image 18, series 4). The right adrenal gland is normal. Kidneys/Ureters/Bladder: Kidneys are normal in size and enhance symmetrically. No hydronephrosis. Ure ters are unremarkable. Bladder is normal. Reproductive Organs: Prostate gland is normal. Stomach, small bowel, and colon: Stomach, small bowel, and appendix are normal. There is sigmoid dive rticulosis. Vasculature: Abdominal aorta is normal in caliber. Moderate calcified aortoiliac atherosclerosis. Lymph Nodes: Slightly increased size of small left periaortic lymph nodes adjacent to the left adrena l nodule. Peritoneum and retroperitoneum: No free fluid or free air. Bones: Unchanged ill-defined sclerotic lesion in the left iliac bone. Small scattered sclerotic foci elsewhere in the pelvis are unchanged and nonspecific. No new osseous lesion. IMPRESSION: 1. New 2 cm left adrenal nodule suspicious for metastatic disease. Slightly increased size of small adjacent periaortic lymph nodes. 2. Possible new 5 mm hypodensity in segment 7 of the liver, indeterminate. 3. Slightly increased right paramediastinal and perihilar opacities with associated right lung volum e loss. Findings are likely due to evolving treatment-related changes although residual malignancy no t excluded. Ill-defined soft tissue at the right hilum is unchanged. 4. Mildly decreased consolidative opacities in the right middle and lower lobes with areas of low-at tenuation no longer seen. 5. Unchanged chronic loculated right pleural effusion. 6. Unchanged left posterior iliac bone lesion. Electronically signed by: Maribel Smith MD (10/15/2021 4:42 PM) [id number]
== END ==
LOC: CT 10:02
PROVIDERS: ATTEND Internal Medicine Hematology & Oncology
DX: C79.31 Secondary malignant neoplasm of brain (principal); E27.8 Other specified disorders of adrenal gland; R91.8 Other nonspecific abnormal finding of lung field; K76.89 Other specified diseases of liver; J90 Pleural effusion, not elsewhere classified; M89.9 Disorder of bone, unspecified; I25.10 Atherosclerotic heart disease of native coronary artery without angina pectoris; I70.0 Atherosclerosis of aorta; I89.8 Other specified noninfective disorders of lymphatic vessels and lymph nodes; D73.89 Other diseases of spleen
CPT/HCPCS: 71260; 74177; Q9966; Q9967

== ENCOUNTER → 2021-10-15 | Outpatient (CLI) | payer MEDICARE, MEDICAID ==
[2021-03-29 14:18] VITALS: BP 140/85
[~2021-10-15] MED LIST changes: +ACYC-12 PO; +CALC500T54 PO; +CARV25TA2 PO; -CONTRAST GIVEN. MC PRN; +GABA600T7 PO; +GADOTERATE 7.5 MMOL/15ML VIAL. IVP ONE; -IOHEXOL 240 MG/ML 50ML VIAL. PO ONE; -IOHEXOL 300 MG/ML 100ML VIAL. IV ONE; +ISOS120T4 PO; +LOSA50TA15 PO; +TRAZ-118 PO
--- NOTE | 2021-10-15 13:41 | RAD ---
MRI BRAIN WO+W Date: 10/15/2021 9:19 AM Indication: mets staging to brain Comparison: 08/08/2021. Technique: Multiplanar multisequence MRI of the brain was performed with and without intravenous cont rast using the standard protocol. 15 cc Clariscan contrast was administered intravenously during the exam. Findings: Right occipital peripherally enhancing lesion measuring 1.9 x 1.2 cm previously measured 3.1 x 1.8 cm when measured in the same fashion. Additional previously seen lesion just medial to this lesion as w ell as previously seen left posterior temporal lobe lesions are no longer visualized. Decreased assoc iated edema. No acute infarct. No acute hemorrhage. The ventricles are normal in size and configuration without hy drocephalus. Mild to moderate scattered FLAIR hyperintensities in the subcortical and periventricular deep white matter, a nonspecific finding, most commonly seen with chronic small vessel ischemic dise ase. Mild cerebral volume loss. The scalp and calvarium are normal. The pituitary and sella are normal. No Chiari malformation. The v isualized upper cervical spine is normal. The visualized orbits and globes are normal. Opacification of the left maxillary sinus. The mastoid a ir cells are clear. Normal flow voids within the vertebral, basilar, and internal carotid arteries indicating patency. IMPRESSION: Right occipital lobe 1.9 cm lesion previously measured 3.1 cm. Additional smaller right occipital and left temporal lobe lesions seen on the prior exam are not seen on today's exam. No new enhancing les ions. Electronically signed by: Robbie Diaz MD (10/15/2021 1:39 PM) [id number]
== END ==
LOC: MRI 10:06
PROVIDERS: ATTEND Radiology Radiation Oncology
DX: C79.31 Secondary malignant neoplasm of brain (principal); G93.89 Other specified disorders of brain
CPT/HCPCS: 70553; A9575

== ENCOUNTER → 2021-10-16 | Outpatient (CLI) | payer MEDICARE, MEDICAID ==
[2021-03-29 14:18] VITALS: BP 140/85
[~2021-10-16] MED LIST changes: -ACYC-12 PO; -CALC500T54 PO; -CARV25TA2 PO; -GABA600T7 PO; -GADOTERATE 7.5 MMOL/15ML VIAL. IVP ONE; -ISOS120T4 PO; -LOSA50TA15 PO; -TRAZ-118 PO
[2021-10-16 09:35] LABS: BASO % 1 % (0-3); EOS # 0.1 x10^3/uL (0.0-0.7); EOS % 3 % (0-3); HEMATOCRIT 33.8 % (39.0-53.0); HEMOGLOBIN 10.8 g/dL (13.0-17.5); LYMPH # 0.7 x10^3/uL (1.0-4.8); LYMPH % 17 % (24-48); MEAN CORPUSCULAR HEMOGLOBIN 29 pg (25-35); MEAN CORPUSCULAR HGB CONC 32 g/dL (31-37); MEAN CORPUSCULAR VOLUME 92 fL (79-100); MONO # 0.3 x10^3/uL (0.0-1.1); MONO % 9 % (0-9); NEUT # 2.8 x10^3/uL (1.8-7.7); NEUT % 71 % (31-73); PLATELET COUNT 106 x10^3/uL (140-400); RED BLOOD COUNT 3.69 x10^6/uL (4.30-5.70); WHITE BLOOD COUNT 3.9 x10^3/uL (4.0-11.0)
[2021-10-16 09:50] LABS: CALCIUM 8.7 mg/dL (8.5-10.1); CREATININE 1.2 mg/dL (0.7-1.3); GFR 61.3; POTASSIUM 4.2 mmol/L (3.5-5.1)
[2021-10-16 09:57] LABS: ALBUMIN 2.6 g/dL (3.4-5.0); ALBUMIN/GLOBULIN RATIO 0.6 (1.0-1.7); TOTAL BILIRUBIN 0.4 mg/dL (0.2-1.0); TOTAL PROTEIN 6.8 g/dL (6.4-8.2)
== END ==
LOC: ONCLAB 09:11
PROVIDERS: ATTEND Internal Medicine Hematology & Oncology
DX: C79.31 Secondary malignant neoplasm of brain (principal); E03.9 Hypothyroidism, unspecified; Z79.899 Other long term (current) drug therapy
CPT/HCPCS: 36415; 80053; 84443; 85025

== ENCOUNTER 2021-10-24 08:20 | Outpatient (CLI) | payer MEDICARE, MEDICAID ==
[~2021-10-24] VITALS: Ht 177.8 cm; Wt 88.6 kg
[2021-10-24] VITALS (17 sets, daily range): BP systolic 94–141; BP diastolic 67–92
[2021-10-24] MEDS ORDERED: CARV25TA2 PO (09:09)
[2021-10-24] MEDS ORDERED: TRAZ-118 PO (09:09)
[2021-10-24] MEDS ORDERED: ISOS120T4 PO (09:09)
[2021-10-24] MEDS ORDERED: CALC500T54 PO (09:09)
[2021-10-24] MEDS ORDERED: LOSA50TA15 PO (09:09)
[2021-10-24] MEDS ORDERED: ACYC-12 PO (09:09)
[2021-10-24] MEDS ORDERED: GABA600T7 PO (09:09)
[2021-10-24 09:25] LABS: PROTHROMBIN TIME PATIENT 13.9 SEC (11.7-14.0)
[2021-10-24 09:44] LABS: HEMATOCRIT 34.3 % (39.0-53.0); HEMOGLOBIN 11.1 g/dL (13.0-17.5); RED BLOOD COUNT 3.75 x10^6/uL (4.30-5.70); RED CELL DISTRIBUTION WIDTH 16.9 % (11.5-14.5); WHITE BLOOD COUNT 3.7 x10^3/uL (4.0-11.0)
[2021-10-24] MEDS ORDERED: LIDOCAINE WITH 8.4% SOD BICARB 3 ML DISP.SYRIN. ONE (10:42)
[2021-10-24] MEDS ORDERED: NALOXONE 0.4 MG/ML VIAL. ONE (11:08)
[2021-10-24] MEDS ORDERED: fentaNYL PF VIAL 100 MCG/2 ML VIAL ONE (11:08)
[2021-10-24] MEDS ORDERED: MIDAZOLAM HCL/PF 2 MG/2 ML VIAL. ONE (11:08)
[2021-10-24] MEDS ORDERED: LIDOCAINE WITH 8.4% SOD BICARB 3 ML DISP.SYRIN. IJ ONE (11:45)
[2021-10-24] MEDS ORDERED: fentaNYL PF VIAL 100 MCG/2 ML VIAL IV ONE (11:45)
[2021-10-24] MEDS ORDERED: MIDAZOLAM HCL/PF 5 MG/5 ML VIAL. IV ONE (11:45)
[2021-10-24] MEDS ORDERED: MIDAZOLAM HCL/PF 2 MG/2 ML VIAL. IV ONE (12:00)
--- NOTE | 2021-10-24 13:36 | RAD ---
Site ID: [id number] EXAMINATION: XR CHEST 1V. HISTORY: 60 years Male Reason: check for pneumo post procedure. COMPARISON: February 16, 2021. Findings: There is slightly increased the dwllf-dw-sexiqqjs right pleural effusion loculated laterall y in the right the hemithorax with associated the right basilar infiltrate and perihilar consolidatio n and fullness. The left lung is clear. No pneumothorax after adrenal biopsy with needle passes near the lung base. There is an infusion port through the left IJ vein with the tip of the catheter at the SVC level. Impression: No pneumothorax after left adrenal biopsy. Right lung perihilar consolidation, increased basilar infiltrate and atelectasis and small to moderate right effusion. Electronically signed by: Johnie Ann MD (10/24/2021 1:34 PM) [id number]
--- NOTE | 2021-10-24 14:08 | NUR ---
Discharge Note: KENDRICK AGRAWAL Discharge instructions and discharge home medications reviewed with Patient and a copy given. All questions have been answered and understanding verbalized. Dressing to back clean and dry The following instructions and handouts were given: sedation, biopsy post care Discontinued lines and drains: Peripheral IV intact. Patient discharged to Home or Self Care with Family Member via Wheelchair JN
--- NOTE | 2021-10-24 16:46 | RAD ---
Site ID: [id number] EXAMINATION: CT Guided needle placement (CPT 68212) Biopsy of adrenal. (92844) Moderate sedation (CPT fill) One or more of the following radiation dose reduction techniques was used: automated exposure control , adjustment of mA and/or KV according to patient size, and/or utilization of iterative reconstructio n technique. INDICATION: Left adrenal nodule. SEDATION: Under physician supervision, Versed and fentanyl were administered intravenously for moder ate sedation. Pulse oximetry, heart rate, and BP were continuously monitored by a dedicated qualifie d nurse. The physician spent 42 minutes of czoz-wc-uncg sedation time with the patient. Current history and physical and other medical records are reviewed prior to the procedure. CONSENT: Informed consent was obtained. The risks, benefits, potential complications and alternatives were reviewed and all questions answered. PROCEDURE: After maximal sterile barrier technique preparation and draping, 1% lidocaine was utilized for local anesthesia. With the patient in prone position, and via posterior subcostal approach, a 17-gauge guide needle is introduced into the left adrenal mass under CT scan guidance. After confirming adequate positioning w ith saved CT images, multiple 18 gauge core biopsy specimens were obtained. Tract embolization is per formed with Gelfoam injected in the tract via the guide needle and then the needle was removed. The patient tolerated the procedure well with no immediate complications. FINDINGS: Left adrenal solid mass. No pneumothorax seen. IMPRESSION: Successful CT-guided biopsy of left adrenal mass. Electronically signed by: Johnie Ann MD (10/24/2021 4:44 PM) [id number]
--- NOTE | 2021-10-25 08:29 | RAD ---
Site ID: [id number] EXAMINATION: CT Guided needle placement (CPT 42998) Biopsy of adrenal. (86294) Moderate sedation (CPT fill) One or more of the following radiation dose reduction techniques was used: automated exposure control , adjustment of mA and/or KV according to patient size, and/or utilization of iterative reconstructio n technique. INDICATION: Left adrenal nodule. SEDATION: Under physician supervision, Versed and fentanyl were administered intravenously for moder ate sedation. Pulse oximetry, heart rate, and BP were continuously monitored by a dedicated qualifie d nurse. The physician spent 42 minutes of ldbr-vm-abxi sedation time with the patient. Current history and physical and other medical records are reviewed prior to the procedure. CONSENT: Informed consent was obtained. The risks, benefits, potential complications and alternatives were reviewed and all questions answered. PROCEDURE: After maximal sterile barrier technique preparation and draping, 1% lidocaine was utilized for local anesthesia. With the patient in prone position, and via posterior subcostal approach, a 17-gauge guide needle is introduced into the left adrenal mass under CT scan guidance. After confirming adequate positioning w ith saved CT images, multiple 18 gauge core biopsy specimens were obtained. Tract embolization is per formed with Gelfoam injected in the tract via the guide needle and then the needle was removed. The patient tolerated the procedure well with no immediate complications. FINDINGS: Left adrenal solid mass. No pneumothorax seen. IMPRESSION: Successful CT-guided biopsy of left adrenal mass. Electronically signed by: Johnie Ann MD (10/24/2021 4:44 PM) [id number]
--- NOTE | 2021-10-28 17:06 | PATHOLOGY ---
[facility] Accession Number: [id number] . 01 Material submitted: . adrenal gland - LEFT ADRENAL MASS. Modifiers: left . 01 Clinical history: . LUNG CA WITH METS LEFT ADRENAL BIOPSY . 02 Diagnosis: Segments of fibroadipose and skeletal muscle tissue, left adrenal mass CT-guided needle biopsies: - METASTATIC SMALL CELL UNDIFFERENTIATED CARCINOMA. SEE COMMENT. (JPM:patricia; 10/25/2021) MBR 10/28/2021 1002 Local . 02 Comment: Sections of the left adrenal mass CT-guided needle biopsy reveal segments of fibroadipose tissue in addition to small fragment of skeletal muscle tissue and blood vessel. There is extensive replacement of fibroadipose tissue by a malignant epithelial neoplasm. The tumor cells are present in solid nests and show no evidence of acinar formation or squamous differentiation. The tumor cells are small and have a high N/C ratio. The tumor cells possess rounded to ovoid nuclei having a finely dispersed chromatin. There is nuclear molding. Mitotic figures are present. A panel of immunoperoxidase stains is obtained on A3 and yields the following results: . Cytokeratin 7: Tumor cells positive. AE1/AE3: Tumor cells positive. Synaptophysin: Tumor cells positive. TTF-1: Tumor cells positive. CD56: Tumor cells positive. MART-1: Tumor cells negative; no residual adrenal cortical cells identified. Inhibin: Tumor cells negative; no residual adrenal cortical cells identified. . The morphologic and immunophenotypic findings are supportive of the diagnosis of metastatic small cell undifferentiated carcinoma. The case is also examined by Dr. Butler, who concurs with the diagnosis. The results are reported to Dr. Burns on 10/28/2021 at 4:35 PM. . (VINCENT:patricia; 10/25/2021) . . Special stains performed: Immunoperoxidase stains for CK7, AE1/AE3, TTF-1, synaptophysin, CD56, melan-a and inhibin on A3. . 02 Electronically signed: . Dez Patterson MD, Pathologist NPI- [id number] . 01 Gross description: . The specimen is received in formalin, labeled "Michele Abdul, Lt. adrenal mass" and consists of eight ramos, hemorrhagic and cylindrical tissues ranging in length from 0.5 cm to 1.0 cm and each averaging 0.1 cm in diameter. The specimen is submitted in toto in A1-A3.([place]; 10/24/2021) DKA/DKA 10/24/2021 1742 Local . 02 Pathologist provided ICD-10: C74.92 . 02 CPT . 532985, [id number], [id number] Specimen Comment: A courtesy copy of this report has been sent to [phone], [phone] Specimen Comment: [id number], Specimen Comment: Report sent to , DR HORN / DR BURNS Specimen Comment: A duplicate report has been generated due to demographic updates. Performed at: 01 [facility] [address], [place], [place] [id number] MD Lamonte Barth MD Phone: [phone] Performed at: 02 [facility] [address], [place] [id number] MD Dez Patterson MD Phone: [phone]
== END 2021-10-24 14:00 | disposition home or self-care (01) ==
LOC: INTRAD 08:20
PROVIDERS: ATTEND Internal Medicine Hematology & Oncology
DX: C74.92 Malignant neoplasm of unspecified part of left adrenal gland (principal); I25.10 Atherosclerotic heart disease of native coronary artery without angina pectoris; I10 Essential (primary) hypertension; E78.00 Pure hypercholesterolemia, unspecified; K21.9 Gastro-esophageal reflux disease without esophagitis; E11.9 Type 2 diabetes mellitus without complications; F41.9 Anxiety disorder, unspecified; F32.9 Major depressive disorder, single episode, unspecified; E03.9 Hypothyroidism, unspecified; M19.90 Unspecified osteoarthritis, unspecified site; G47.30 Sleep apnea, unspecified; Z87.891 Personal history of nicotine dependence; Z79.82 Long term (current) use of aspirin; Z79.899 Other long term (current) drug therapy; Z98.890 Other specified postprocedural states
CPT/HCPCS: 36415; 49180; 71045; 77012; 85027; 85610; 88307; 88341; 88342; 99152; 99153; J2250; J3010; J3490

== ENCOUNTER → 2021-10-30 | Outpatient (CLI) | payer MEDICARE, MEDICAID ==
[2021-10-24 14:00] VITALS: BP 96/67
[~2021-10-30] MED LIST changes: +ACYC-12 PO; +CALC500T54 PO; +CARV25TA2 PO; +GABA600T7 PO; +ISOS120T4 PO; +LOSA50TA15 PO; +TRAZ-118 PO
[2021-10-30 13:39] LABS: BASO % 1 % (0-3); EOS # 0.1 x10^3/uL (0.0-0.7); EOS % 3 % (0-3); HEMATOCRIT 34.9 % (39.0-53.0); HEMOGLOBIN 11.2 g/dL (13.0-17.5); LYMPH # 0.8 x10^3/uL (1.0-4.8); LYMPH % 20 % (24-48); MEAN CORPUSCULAR HEMOGLOBIN 29 pg (25-35); MEAN CORPUSCULAR HGB CONC 32 g/dL (31-37); MEAN CORPUSCULAR VOLUME 92 fL (79-100); MONO # 0.4 x10^3/uL (0.0-1.1); MONO % 10 % (0-9); NEUT # 2.6 x10^3/uL (1.8-7.7); NEUT % 66 % (31-73); PLATELET COUNT 103 x10^3/uL (140-400); RED BLOOD COUNT 3.81 x10^6/uL (4.30-5.70); WHITE BLOOD COUNT 3.9 x10^3/uL (4.0-11.0)
[2021-10-30 13:47] LABS: CREATININE 1.3 mg/dL (0.7-1.3); GFR 55.9; POTASSIUM 4.1 mmol/L (3.5-5.1)
[2021-10-30 13:52] LABS: ALBUMIN/GLOBULIN RATIO 0.7 (1.0-1.7); TOTAL BILIRUBIN 0.4 mg/dL (0.2-1.0); TOTAL PROTEIN 7.5 g/dL (6.4-8.2)
== END ==
LOC: ONCLAB 13:18
PROVIDERS: ATTEND Internal Medicine Hematology & Oncology
DX: C79.31 Secondary malignant neoplasm of brain (principal)
CPT/HCPCS: 36415; 80053; 85025

== ENCOUNTER → 2021-11-04 | Outpatient (CLI) | payer MEDICARE, MEDICAID ==
[2021-10-24 14:00] VITALS: BP 96/67
--- NOTE | 2021-11-04 15:57 | RAD ---
EXAM: CT OF THE CHEST WITHOUT CONTRAST. HISTORY: Lung cancer. Preprocedural planning. TECHNIQUE: Computed tomography of the chest was performed without intravenous contrast. One or more o f the following individualized dose reduction techniques were utilized for this examination: 1. Automated exposure control. 2. Adjustment of the mA and/or kV according to patient size. 3. Use of iterative reconstruction technique. COMPARISON: 10/15/2021. FINDINGS: Images of the upper abdomen reveal a left adrenal nodule measures 2.4 x 1.5 cm and is consi stent with a metastasis. Bone windows reveal no suspicious lesions. A left-sided port catheter has it s tip in the superior cavoatrial junction. Post radiation scarring is noted in the right perihilar region. No clear recurrent hilar mass is appr eciable by this technique. A right lower lobe is mostly consolidated secondary to scarring and is les s well aerated than on the recent study. There is a small to moderate right pleural effusion with dif fuse pleural thickening. No focal pleural masses are seen. There is no pericardial effusion. The heart is not enlarged. There are atherosclerotic calcifications of the coronary arteries. Calcified mediastinal lymph nodes are likely secondary to old granulomatou s disease. There is a calcified granuloma in the left lower lobe. There is mild paraseptal emphysema in the apic es. IMPRESSION: 1. Increased consolidation of the right lower lobe may reflect progression of posttreatment scarring or atelectasis. Correlate to exclude superimposed infection. 2. Stable right pleural thickening with a [id number]-xq-okrmhtbn right pleural effusion. 3. 2.4 cm left adrenal metastasis. Electronically signed by: Madalyn Silva MD (11/04/2021 3:55 PM) [id number]
== END ==
LOC: CT 12:13
PROVIDERS: ATTEND Radiology Radiation Oncology
DX: C79.31 Secondary malignant neoplasm of brain (principal); C34.31 Malignant neoplasm of lower lobe, right bronchus or lung; J90 Pleural effusion, not elsewhere classified; J84.10 Pulmonary fibrosis, unspecified; J43.9 Emphysema, unspecified
CPT/HCPCS: 36415; 76380; 80053; 85025

== ENCOUNTER → 2021-11-04 | Outpatient (CLI) | payer MEDICARE, MEDICAID ==
[2021-10-24 14:00] VITALS: BP 96/67
[2021-11-04 14:18] LABS: BASO % 1 % (0-3); EOS # 0.1 x10^3/uL (0.0-0.7); EOS % 3 % (0-3); HEMOGLOBIN 10.2 g/dL (13.0-17.5); LYMPH # 0.6 x10^3/uL (1.0-4.8); LYMPH % 25 % (24-48); MEAN CORPUSCULAR HEMOGLOBIN 29 pg (25-35); MEAN CORPUSCULAR HGB CONC 32 g/dL (31-37); MEAN CORPUSCULAR VOLUME 92 fL (79-100); MONO % 1 % (0-9); NEUT # 1.6 x10^3/uL (1.8-7.7); NEUT % 70 % (31-73); PLATELET COUNT 71 x10^3/uL (140-400); WHITE BLOOD COUNT 2.3 x10^3/uL (4.0-11.0)
[2021-11-04 14:24] LABS: CALCIUM 8.3 mg/dL (8.5-10.1); CREATININE 1.5 mg/dL (0.7-1.3); GFR 47.4; POTASSIUM 4.5 mmol/L (3.5-5.1)
[2021-11-04 14:40] LABS: ALBUMIN 2.9 g/dL (3.4-5.0); ALBUMIN/GLOBULIN RATIO 0.7 (1.0-1.7); TOTAL BILIRUBIN 0.4 mg/dL (0.2-1.0)
== END ==
LOC: ONCLAB 13:55
PROVIDERS: ATTEND Internal Medicine Hematology & Oncology
DX: C79.31 Secondary malignant neoplasm of brain (principal)
CPT/HCPCS: 36415; 80053; 85025

== ENCOUNTER → 2021-11-11 | Outpatient (CLI) | payer MEDICARE, MEDICAID ==
[2021-10-24 14:00] VITALS: BP 96/67
[2021-11-11 12:38] LABS: BASO % 0 % (0-3); EOS % 5 % (0-3); HEMATOCRIT 29.8 % (39.0-53.0); HEMOGLOBIN 9.9 g/dL (13.0-17.5); LYMPH # 0.5 x10^3/uL (1.0-4.8); LYMPH % 61 % (24-48); MEAN CORPUSCULAR HEMOGLOBIN 30 pg (25-35); MEAN CORPUSCULAR HGB CONC 33 g/dL (31-37); MEAN CORPUSCULAR VOLUME 90 fL (79-100); MONO # 0.1 x10^3/uL (0.0-1.1); MONO % 15 % (0-9); NEUT # 0.1 x10^3/uL (1.8-7.7); NEUT % 19 % (31-73); RED BLOOD COUNT 3.33 x10^6/uL (4.30-5.70); RED CELL DISTRIBUTION WIDTH 15.9 % (11.5-14.5)
[2021-11-11 12:48] LABS: PLATELET COUNT 25 x10^3/uL (140-400); WHITE BLOOD COUNT 0.8 x10^3/uL (4.0-11.0)
[2021-11-11 12:55] LABS: CALCIUM 8.2 mg/dL (8.5-10.1); CREATININE 1.5 mg/dL (0.7-1.3); GFR 47.4; POTASSIUM 4.6 mmol/L (3.5-5.1)
[2021-11-11 13:01] LABS: ALBUMIN/GLOBULIN RATIO 0.7 (1.0-1.7); TOTAL BILIRUBIN 0.4 mg/dL (0.2-1.0); TOTAL PROTEIN 7.3 g/dL (6.4-8.2)
[2021-11-11 13:17] LABS: % LYMPHS 56 % (24-48); % MONOS 14 % (0-10); % SEGS 30 % (35-66)
[2021-11-11 13:18] LABS: ANISOCYTOSIS SLIGHT; PLT ESTIMATE DECREASED (ADEQUATE); POLYCHROMASIA OCCASIONAL
== END ==
LOC: ONCLAB 12:18
PROVIDERS: ATTEND Internal Medicine Hematology & Oncology
DX: C79.31 Secondary malignant neoplasm of brain (principal)
CPT/HCPCS: 36415; 80053; 85007; 85025

== ENCOUNTER → 2021-11-13 | Outpatient (CLI) | payer MEDICARE, MEDICAID ==
[2021-10-24 14:00] VITALS: BP 96/67
[2021-11-13 10:44] LABS: BASO % 0 % (0-3); EOS # 0.1 x10^3/uL (0.0-0.7); EOS % 4 % (0-3); HEMATOCRIT 29.8 % (39.0-53.0); HEMOGLOBIN 9.9 g/dL (13.0-17.5); LYMPH # 0.5 x10^3/uL (1.0-4.8); LYMPH % 34 % (24-48); MEAN CORPUSCULAR HEMOGLOBIN 30 pg (25-35); MEAN CORPUSCULAR HGB CONC 33 g/dL (31-37); MEAN CORPUSCULAR VOLUME 90 fL (79-100); MONO # 0.4 x10^3/uL (0.0-1.1); MONO % 27 % (0-9); NEUT # 0.5 x10^3/uL (1.8-7.7); PLATELET COUNT 31 x10^3/uL (140-400); RED BLOOD COUNT 3.32 x10^6/uL (4.30-5.70); RED CELL DISTRIBUTION WIDTH 16.4 % (11.5-14.5)
[2021-11-13 10:48] LABS: WHITE BLOOD COUNT 1.4 x10^3/uL (4.0-11.0)
[2021-11-13 11:41] LABS: NEUT % 35 % (31-73)
== END ==
LOC: ONCLAB 10:22
PROVIDERS: ATTEND Physician Assistant
DX: D70.1 Agranulocytosis secondary to cancer chemotherapy (principal)
CPT/HCPCS: 36415; 85025

== ENCOUNTER → 2021-11-15 | Outpatient (CLI) | payer MEDICARE, MEDICAID ==
[2021-10-24 14:00] VITALS: BP 96/67
[2021-11-15 12:21] LABS: BASO % 0 % (0-3); EOS % 1 % (0-3); HEMATOCRIT 29.3 % (39.0-53.0); HEMOGLOBIN 9.7 g/dL (13.0-17.5); LYMPH # 0.4 x10^3/uL (1.0-4.8); LYMPH % 8 % (24-48); MEAN CORPUSCULAR HEMOGLOBIN 30 pg (25-35); MEAN CORPUSCULAR HGB CONC 33 g/dL (31-37); MEAN CORPUSCULAR VOLUME 91 fL (79-100); MONO # 0.9 x10^3/uL (0.0-1.1); MONO % 16 % (0-9); NEUT # 4.2 x10^3/uL (1.8-7.7); NEUT % 76 % (31-73); PLATELET COUNT 60 x10^3/uL (140-400); RED BLOOD COUNT 3.22 x10^6/uL (4.30-5.70); RED CELL DISTRIBUTION WIDTH 16.7 % (11.5-14.5); WHITE BLOOD COUNT 5.6 x10^3/uL (4.0-11.0)
[2021-11-15 13:04] LABS: % BANDS 20 % (0-9); % EOS 1 % (0-5); % LYMPHS 13 % (24-48); % MONOS 16 % (0-10); % MYELOS 2 % (0-0); % SEGS 48 % (35-66); NUCLEATED RBC 1; PLT ESTIMATE DECREASED (ADEQUATE)
== END ==
LOC: ONCLAB 11:57
PROVIDERS: ATTEND Physician Assistant
DX: D70.1 Agranulocytosis secondary to cancer chemotherapy (principal)
CPT/HCPCS: 36415; 85007; 85025

== ENCOUNTER → 2021-11-21 | Outpatient (CLI) | payer MEDICARE, MEDICAID ==
[2021-10-24 14:00] VITALS: BP 96/67
[2021-11-21 09:13] LABS: BASO % 1 % (0-3); EOS % 1 % (0-3); HEMATOCRIT 30.5 % (39.0-53.0); HEMOGLOBIN 9.8 g/dL (13.0-17.5); LYMPH # 0.3 x10^3/uL (1.0-4.8); LYMPH % 10 % (24-48); MEAN CORPUSCULAR HEMOGLOBIN 29 pg (25-35); MEAN CORPUSCULAR HGB CONC 32 g/dL (31-37); MEAN CORPUSCULAR VOLUME 91 fL (79-100); MONO # 0.5 x10^3/uL (0.0-1.1); MONO % 15 % (0-9); NEUT # 2.3 x10^3/uL (1.8-7.7); PLATELET COUNT 106 x10^3/uL (140-400); RED BLOOD COUNT 3.35 x10^6/uL (4.30-5.70); RED CELL DISTRIBUTION WIDTH 16.9 % (11.5-14.5); WHITE BLOOD COUNT 3.2 x10^3/uL (4.0-11.0)
[2021-11-21 09:15] LABS: NEUT % 74 % (31-73)
[2021-11-21 09:23] LABS: CALCIUM 8.2 mg/dL (8.5-10.1); CREATININE 1.3 mg/dL (0.7-1.3); GFR 55.9; POTASSIUM 3.7 mmol/L (3.5-5.1)
[2021-11-21 09:29] LABS: ALBUMIN/GLOBULIN RATIO 0.7 (1.0-1.7); TOTAL BILIRUBIN 0.5 mg/dL (0.2-1.0); TOTAL PROTEIN 7.4 g/dL (6.4-8.2)
== END ==
LOC: ONCLAB 08:56
PROVIDERS: ATTEND Internal Medicine Hematology & Oncology
DX: C34.01 Malignant neoplasm of right main bronchus (principal)
CPT/HCPCS: 36415; 80053; 85025

== ENCOUNTER → 2021-11-29 | Outpatient (CLI) | payer MEDICARE, MEDICAID ==
[2021-10-24 14:00] VITALS: BP 96/67
[~2021-11-29] MED LIST changes: +CONTRAST GIVEN. MC PRN; +IOHEXOL 240 MG/ML 50ML VIAL. PO ONE; +IOHEXOL 300 MG/ML 100ML VIAL. IV ONE
--- NOTE | 2021-11-29 11:49 | RAD ---
CT CHEST+ABD+PELVIS W History: Lung cancer Comparison: CT chest, abdomen and pelvis 10/15/2021, 08/08/2021. CT chest 11/19/2020. Technique: CT of the chest, abdomen and pelvis with oral and intravenous contrast. Findings: Chest: Devices: Accessed left chest Mediport with IJ approach catheter tip terminating at the cavoatrial ela ction. Pulmonary arteries: No large or central pulmonary embolism. Aorta and great vessels: No aneurysm of the aortic arch or thoracic aorta is seen. Heavy atherosclero tic calcification. Heart: Normal size. Small pericardial fluid. Heavy coronary artery calcification. Thyroid: No significant abnormalities. Mediastinum and tomasa: Ill-defined density at the right lower pretracheal station appears similar to c omparison as does density at the right hilum. Large heavily calcified left hilar lymph nodes. Esophagus: Patulous esophagus. Airways, Lungs, Pleura: Stable moderate right pleural effusion. Mild right bronchiectasis redemonstra maia. Wedge-shaped consolidation superior segment right lower lobe not significantly changed as are re ticular and groundglass opacities involving the right upper, middle and lower lobe. Findings similar to July and October 2021 exams. Soft tissue and osseous: Degenerative changes of the thoracic spine and shoulders. No acute osseous l esions. Abdomen/Pelvis: General abdomen: No ascites. No free air. Liver : Normal in size and attenuation. Right hepatic 1.4 cm cyst and adjacent 4 mm hypodensity likel y also representing cyst unchanged from November 2020. The possible new hepatic lesion discussed on immediate prior exam is not visualized, likely representing artifact on prior exam. Gallbladder/Biliary Tree: Normal gallbladder. No intrahepatic or extrahepatic biliary ductal dilatati on. Pancreas: Normal. Spleen: Granulomatous calcifications. Adrenal glands: Recently biopsied left adrenal nodule, decreased in size, 1.2 x 0.7 cm. Kidneys: No hydronephrosis or hydroureter. No renal masses identified. Gastrointestinal: Stomach and small bowel are unremarkable. No obstruction. Mild sigmoid diverticulos is. No evidence of diverticulitis. Lymph nodes: No lymphadenopathy. Vessels: Aortoiliac atherosclerosis and tortuosity. Pelvic Organs: Unremarkable reproductive organs. No pelvic masses. The bladder is unremarkable. Soft tissues: Unremarkable. Bones: Subtle left iliac sclerosis unchanged. No new lytic or blastic lesion identified. Degenerative changes of the lumbar spine. Impression: 1. History of right lung cancer with stable moderate right pleural effusion, right lung consolidatio ns and groundglass opacities which may represent posttreatment changes. Similarly stable mediastinal and hilar ill-defined opacity, likely posttreatment appearance of lymph nodes. 2. Recently biopsied left adrenal mass, now decreased in size approximately 1.2 x 0.7 cm. 3. Previously described questionable new hepatic lesion not persistent on current exam, likely artif act. 4. No new or enlarging metastatic disease identified. ------ Exposure: One or more of the following individualized dose reduction techniques were utilized for thi s examination: 1. Automated exposure control 2. Adjustment of the mA and/or kV according to patient size 3. Use of iterative reconstruction technique. Electronically signed by: Rich Canales MD (11/29/2021 11:47 AM) [id number]
== END ==
LOC: CT 09:17
PROVIDERS: ATTEND Internal Medicine Hematology & Oncology
DX: C34.01 Malignant neoplasm of right main bronchus (principal); J90 Pleural effusion, not elsewhere classified; J47.9 Bronchiectasis, uncomplicated; R13.0 Aphagia; I25.10 Atherosclerotic heart disease of native coronary artery without angina pectoris; K57.30 Diverticulosis of large intestine without perforation or abscess without bleeding; M47.816 Spondylosis without myelopathy or radiculopathy, lumbar region
CPT/HCPCS: 71260; 74177; Q9966; Q9967

== ENCOUNTER → 2021-11-29 | Outpatient (CLI) | payer MEDICARE, MEDICAID ==
[2021-10-24 14:00] VITALS: BP 96/67
[~2021-11-29] MED LIST changes: -CONTRAST GIVEN. MC PRN; -IOHEXOL 240 MG/ML 50ML VIAL. PO ONE; -IOHEXOL 300 MG/ML 100ML VIAL. IV ONE
[2021-11-29 09:29] LABS: BASO % 1 % (0-3); EOS # 0.1 x10^3/uL (0.0-0.7); EOS % 2 % (0-3); HEMATOCRIT 32.2 % (39.0-53.0); HEMOGLOBIN 10.5 g/dL (13.0-17.5); LYMPH # 0.5 x10^3/uL (1.0-4.8); LYMPH % 15 % (24-48); MEAN CORPUSCULAR HEMOGLOBIN 30 pg (25-35); MEAN CORPUSCULAR HGB CONC 33 g/dL (31-37); MEAN CORPUSCULAR VOLUME 91 fL (79-100); MONO # 0.4 x10^3/uL (0.0-1.1); MONO % 12 % (0-9); NEUT # 2.4 x10^3/uL (1.8-7.7); NEUT % 70 % (31-73); PLATELET COUNT 126 x10^3/uL (140-400); RED BLOOD COUNT 3.53 x10^6/uL (4.30-5.70); RED CELL DISTRIBUTION WIDTH 17.9 % (11.5-14.5); WHITE BLOOD COUNT 3.5 x10^3/uL (4.0-11.0)
[2021-11-29 09:45] LABS: CALCIUM 8.2 mg/dL (8.5-10.1); CREATININE 1.2 mg/dL (0.7-1.3); GFR 61.3
[2021-11-29 09:51] LABS: ALBUMIN 3.2 g/dL (3.4-5.0); ALBUMIN/GLOBULIN RATIO 0.8 (1.0-1.7); TOTAL BILIRUBIN 0.6 mg/dL (0.2-1.0)
== END ==
LOC: ONCLAB 08:41
PROVIDERS: ATTEND Internal Medicine Hematology & Oncology
DX: C79.31 Secondary malignant neoplasm of brain (principal); C74.92 Malignant neoplasm of unspecified part of left adrenal gland
CPT/HCPCS: 36415; 80053; 85025

== ENCOUNTER → 2021-12-06 | Outpatient (CLI) | payer MEDICARE, MEDICAID ==
[2021-10-24 14:00] VITALS: BP 96/67
[2021-12-06 10:06] LABS: BASO % 1 % (0-3); EOS # 0.2 x10^3/uL (0.0-0.7); EOS % 8 % (0-3); HEMATOCRIT 33.1 % (39.0-53.0); HEMOGLOBIN 10.8 g/dL (13.0-17.5); LYMPH # 0.5 x10^3/uL (1.0-4.8); LYMPH % 17 % (24-48); MEAN CORPUSCULAR HEMOGLOBIN 30 pg (25-35); MEAN CORPUSCULAR HGB CONC 33 g/dL (31-37); MEAN CORPUSCULAR VOLUME 92 fL (79-100); MONO # 0.4 x10^3/uL (0.0-1.1); MONO % 13 % (0-9); NEUT # 1.9 x10^3/uL (1.8-7.7); NEUT % 62 % (31-73); PLATELET COUNT 117 x10^3/uL (140-400); RED BLOOD COUNT 3.59 x10^6/uL (4.30-5.70); RED CELL DISTRIBUTION WIDTH 19.3 % (11.5-14.5)
[2021-12-06 10:16] LABS: CALCIUM 8.6 mg/dL (8.5-10.1); CREATININE 1.2 mg/dL (0.7-1.3); GFR 61.3; POTASSIUM 3.5 mmol/L (3.5-5.1)
[2021-12-06 10:22] LABS: ALBUMIN 3.1 g/dL (3.4-5.0); ALBUMIN/GLOBULIN RATIO 0.7 (1.0-1.7); TOTAL BILIRUBIN 0.5 mg/dL (0.2-1.0); TOTAL PROTEIN 7.4 g/dL (6.4-8.2)
== END ==
LOC: ONCLAB 09:53
PROVIDERS: ATTEND Internal Medicine Hematology & Oncology
DX: C34.01 Malignant neoplasm of right main bronchus (principal)
CPT/HCPCS: 36415; 80053; 85025

== ENCOUNTER 2021-12-13 14:05 | Inpatient (IN) | payer MEDICARE, MEDICAID ==
[~2021-12-13] VITALS: Ht 177.8 cm; Wt 78.5 kg
--- NOTE | 2021-12-13 14:07 | PHYS DOC ---
Past Medical History Past Medical History: Hypertension, [place] Additional Past Medical Histor: LUNG CANCER STAGE 4 Past Surgical History: Other Additional Past Surgical Histo: LEFT PORT PLACEMENT, 11 STENTS Smoking Status: Former Smoker Alcohol Use: None General Adult EDM: Chief Complaint: WEAKNESS/GENERALIZED HPI: HPI: Patient is a 60 year old male here with report of several days of progressively worsening generalized malaise and fatigue. He has had multiple falls. He reports that his legs "give out." He denies chest pain. He has chronic dyspnea and chronic cough, which is unchanged. He denies hemoptysis or purulent sputum production. He does report nausea, decreased appetite. He is having significant difficulty swallowing, as he recently had an esophageal stent placed earlier this week. He has chronic fatigue, but it seems worse recently. He has had markedly decreased oral intake of solids and liquids. He reports decreased urine output. He denies urinary symptoms otherwise. He denies abdominal pain. And he denies syncope, head injury or loss of consciousness. He denies any focal weakness, numbness or tingling. He has a history of known metastatic sma ll cell lung cancer, with adrenal mets and brain mets. He sees oncology services here. Review of Systems: Review of Systems: Constitutional: Denies fever or chills. Generalized malaise and fatigue. Eyes: Denies change in visual acuity. [] HENT: Denies nasal congestion or sore throat. [] Respiratory: He has a chronic but unchanged cough, chronic dyspnea, unchanged. Denies hemoptysis. Cardiovascular: Denies chest pain or edema. [] GI: Denies abdominal pain, reports nausea, no vomiting, no bowel habit changes : Denies urinary symptoms other than decreased urine output. Musculoskeletal: Denies back pain or joint pain. [] Integument: Denies rash. [] Neurologic: Denies headache, focal weakness or sensory changes. Generalized, nonfocal weakness. Denies dizziness, syncope, head injury Endocrine: Denies polyuria or polydipsia. [] Lymphatic: Denies swollen glands. [] Psychiatric: Denies depression or anxiety. [] Heart Score: C/O Chest Pain: No Risk Factors: Risk Factors: DM, Current or recent (<one month) smoker, HTN, HLP, family history of CAD, obesity. Risk Scores: Score 0 - 3: 2.5% MACE over next 6 weeks - Discharge Home Score 4 - 6: 20.3% MACE over next 6 weeks - Admit for Clinical Observation Score 7 - 10: 72.7% MACE over next 6 weeks - Early Invasive Strategies Allergies: Allergies: Allergies Coded Allergies Type Severity Reaction Last Updated Verified No Known Drug Allergies 03/12/21 No Physical Exam: PE: Constitutional: He is frail and chronically ill-appearing, pale. Mildly acutely ill appearing. HENT: Normocephalic, atraumatic, pharynx is patent and clear, mucous membranes are dry, TMs are clear bilaterally, nares are patent without rhinorrhea epistaxis Eyes: PERRL, EOMI, conjunctival pallor noted, no icterus, no discharge. [] Neck: Normal range of motion, no tenderness, supple, no stridor. No JVD, trachea midline, no meningismus Cardiovascular: Echocardiac, regular, +2 radial and +2 posterior tibial pulses bilaterally Lungs & Thorax: Managed breath sounds in right lung base. Upper and midlung myers are clear to auscultation bilaterally, no tachypnea, no wheezing, no stridor, no distress Abdomen: Martell is soft, nondistended, nontender to palpation. Skin: Warm, dry, no erythema, no rash. Skin turgor, diffuse pallor. Back: No tenderness, no CVA tenderness. [] Extremities: No tenderness, no cyanosis, no clubbing, ROM intact, no edema. No calf tenderness. Neurologic: He is awake, alert, oriented x3, cranial nerves II through XII grossly intact, he demonstrates diffuse but nonfocal generalized motor weakness, sensation grossly intact, speech is clear and fluent Psychologic: Affect is flat, he is pleasant cooperative. EKG: EKG: EKG is interpreted at 1415 Rhythm sinus tachycardia Rate is 123 bpm low voltage marked artifact No obvious STEMI Radiology/Procedures: Radiology/Procedures: IMAGING REPORT Signed PATIENT: KENDRICK AGRAWAL ACCOUNT: [id number] : 1960 LOCATION: ER AGE: 60 SEX: M EXAM STATUS: PRE ER ORD. PHYSICIAN: JESSICA ARAYA DO REASON: weakness, dyspnea PROCEDURE: PORTABLE CHEST 1V XR CHEST 1V History: Reason: weakness, dyspnea / Spl. Instructions: / History: Comparison: October 24, 2021 Findings: Moderate right loculated pleural effusion, unchanged. Elevation the right hemidiaphragm, unchanged. Patchy right lung opacities, unchanged. Esophageal stent noted. Left chest wall port. Unchanged heart size. No pneumothorax. Chronic humeral DJD. Impression: 1. Unchanged loculated moderate right pleural effusion with right lung opacities. Electronically signed by: Harshil Smart DO (12/13/2021 3:01 PM) [facility] DICTATED and SIGNED BY: HARSHIL SMART DO DATE: 12/13/21 [id number] IMAGING REPORT Signed PATIENT: KENDRICK AGRAWAL ACCOUNT: [id number] : 1960 LOCATION: ER AGE: 60 SEX: M EXAM STATUS: REG ER ORD. PHYSICIAN: JESSICA ARAYA DO REASON: weakness, falls PROCEDURE: CT HEAD WO CONTRAST Exam: CT head INDICATION: Weakness, falls TECHNIQUE: Sequential axial images through the head were obtained without the administration of IV contrast. Exposure: One or more of the following in the visualized dose reduction tech niques were utilized for this examination: 1. Automated exposure control 2. Adjustment of the MA and/or KV according to patient size 3. Use of iterative of reconstructive technique Comparisons: 02/16/2021 FINDINGS: No focal parenchymal lesion or hemorrhage is identified. There is no midline shift or sulcal effacement. Patchy hypodensity at the periventricular white matter, similar to prior. No acute vascular territory infarction is identified. Lees-white distinction is preserved. The ventricular system is within normal limits without compression hydrocephalus. The basal cisterns are well maintained. The visualized portions of the paranasal sinuses and mastoid air cells are well- pneumatized. No acute fractures. IMPRESSION: No acute intracranial abnormality. Electronically signed by: Isabelel Angel MD (12/13/2021 3:05 PM) [facility] DICTATED and SIGNED BY: ISABELLE ANGEL MD DATE: 12/13/21 [id number] IMAGING REPORT Signed PATIENT: KENDRICK AGRAWAL ACCOUNT: [id number] : 1960 LOCATION: ER AGE: 60 SEX: M EXAM STATUS: REG ER ORD. PHYSICIAN: JESSICA ARAYA DO REASON: lung cancer, dyspnea, tachycardia;OMNI 350, 90ML PROCEDURE: CT ANGIOGRAPHY CHEST CT angiography chest with contrast PQRS statement: CT scans at this facility use dose reduction including either automated exposure control, iterative reconstructions, and /or weight based radiation dosing via mA and kV modification when appropriate to reduce radiation dose to as low as reasonably achievable. Contrast: 90 mL Omnipaque 350 intravenous contrast. 3-D MIP reconstructions of the arteries were acquired. HISTORY: Lung cancer, dyspnea, tachycardia. COMPARISON: CT chest November 29, 2021 and prior studies FINDINGS: Ascending aorta 3.4 cm. Extensive coronary calcified plaque. Heart size is normal. 1.5 cm right hepatic lobe cyst stable. There is been placement of an esophageal stent from the upper to the lower thoracic esophagus since the prior exam there is fluid filling much of the stent, there is indistinct soft tissue density surrounding the stent to be inflammatory as this is new from the prior study from 2 weeks ago. No pneumomediastinum to suggest esophageal perforation. Left jugular portacatheter tip SVC. Small volume of pericardial fluid stable. No pulmonary artery emboli. No is enlarged adenopathy in the [address]. There is a mild loculated right pleural effusion surrounding the long circumferentially this is stable. There is mild right lung volume loss which is stable, no bronchial cut off or occlusion evident, and there are heterogeneous opacities in interstitial thickening throughout the right lung which is also stable, some of this is geographic along the medial right upper lobe which is typical of radiation pneumonitis/fibrosis, the other opacities could represent posttreatment change or areas of treated malignancy or chronic recurrent infection. No new pulmonary opacities or nodularity evident. Bones unremarkable. IMPRESSION: 1. No pulmonary artery emboli. 2. Since the prior exam there is been placement of an esophageal stent. There is some fluid pooling within the lumen of the stent which could be due to poor emptying and stasis, or could be due to gastroesophageal reflux. 3. Loculated right pleural effusion along with mild right lung volume loss and pulmonary opacities are stable as described above. Electronically signed by: Raine Michelle MD (12/13/2021 5:24 PM) [facility] DICTATED and SIGNED BY: RAINE MICHELLE MD DATE: 12/13/21 [id number] 0 Course & Med Decision Making: Course & Med Decision Making Pertinent Labs and Imaging studies reviewed. (See chart for details) IV fluid boluses given. IV Zofran given for nausea. He has not vomited here. Tachycardia is improving. He manifests no evidence of hypoxia. Imaging studies are unremarkable for any acute life-threatening process. I have discussed all the findings, differential diagnosis and plan of care with the patient. His sister, with whom he lives, reports that he has fallen multiple times, and she has significant concerns that he will fall and injure himself seriously. He does manifest nonfocal, generalized weakness. He is not able to get up and ambulate without assistance. I have recommended hospitalization, for continued IV fluid resuscitation as well as PT consult. The patient was initially hesitant but ultimately agrees to this. His sister is comfortable with this plan as well. I contacted Dr. Castrejon, who accepts him for admission. Dragon Disclaimer: Dragon Disclaimer: This electronic medical record was generated, in whole or in part, using a voice recognition dictation system. Departure Departure Impression: Primary Impression: Dehydration Additional Impressions: Multiple falls Metastatic cancer Generalized weakness Disposition: ADMITTED INPATIENT Admitting Physician: CRISTAL (Dr. Castrejon) Condition: STABLE Referrals: PALMER HORN MD (PCP) JESSICA ARAYA DO Dec 13, 2021 14:07
[2021-12-13] MEDS ORDERED: IV NORMAL SALINE 1000ML BAG 1,000 ML IV ONE ×3 (14:30→20:00)
--- NOTE | 2021-12-13 15:03 | RAD ---
XR CHEST 1V History: Reason: weakness, dyspnea / Spl. Instructions: / History: Comparison: October 24, 2021 Findings: Moderate right loculated pleural effusion, unchanged. Elevation the right hemidiaphragm, unchanged. P atchy right lung opacities, unchanged. Esophageal stent noted. Left chest wall port. Unchanged heart size. No pneumothorax. Chronic humeral DJD. Impression: 1. Unchanged loculated moderate right pleural effusion with right lung opacities. Electronically signed by: Harshil Smart DO (12/13/2021 3:01 PM) [facility]
--- NOTE | 2021-12-13 15:07 | RAD ---
Exam: CT head INDICATION: Weakness, falls TECHNIQUE: Sequential axial images through the head were obtained without the administration of IV co ntrast. Exposure: One or more of the following in the visualized dose reduction techniques were utilized for this examination: 1. Automated exposure control 2. Adjustment of the MA and/or KV according to patient size 3. Use of iterative of reconstructive technique Comparisons: 02/16/2021 FINDINGS: No focal parenchymal lesion or hemorrhage is identified. There is no midline shift or sulcal effaceme nt. Patchy hypodensity at the periventricular white matter, similar to prior. No acute vascular territory infarction is identified. Lees-white distinction is preserved. The ventricular system is within normal limits without compression hydrocephalus. The basal cisterns are well maintained. The visualized portions of the paranasal sinuses and mastoid air cells are well-pneumatized. No acute fractures. IMPRESSION: No acute intracranial abnormality. Electronically signed by: Isabelle Fabian MD (12/13/2021 3:05 PM) [facility]
[2021-12-13 15:25] LABS: BASO # 0.1 x10^3/uL (0.0-0.2); BASO % 1 % (0-3); EOS # 0.1 x10^3/uL (0.0-0.7); EOS % 1 % (0-3); HEMATOCRIT 36.4 % (39.0-53.0); LYMPH # 0.6 x10^3/uL (1.0-4.8); LYMPH % 7 % (24-48); MEAN CORPUSCULAR HEMOGLOBIN 31 pg (25-35); MEAN CORPUSCULAR HGB CONC 33 g/dL (31-37); MEAN CORPUSCULAR VOLUME 92 fL (79-100); MONO # 0.7 x10^3/uL (0.0-1.1); MONO % 8 % (0-9); NEUT # 7.9 x10^3/uL (1.8-7.7); NEUT % 84 % (31-73); PLATELET COUNT 96 x10^3/uL (140-400); RED BLOOD COUNT 3.94 x10^6/uL (4.30-5.70); RED CELL DISTRIBUTION WIDTH 19.3 % (11.5-14.5); WHITE BLOOD COUNT 9.4 x10^3/uL (4.0-11.0)
[2021-12-13 15:35] LABS: PROTHROMBIN TIME PATIENT 14.7 SEC (11.7-14.0)
[2021-12-13 15:44] LABS: CALCIUM 8.5 mg/dL (8.5-10.1); CREATININE 1.5 mg/dL (0.7-1.3); GFR 47.4; POTASSIUM 3.9 mmol/L (3.5-5.1)
[2021-12-13 15:50] LABS: ALBUMIN 3.2 g/dL (3.4-5.0); ALBUMIN/GLOBULIN RATIO 0.8 (1.0-1.7); MAGNESIUM 2.1 mg/dL (1.8-2.4); TOTAL BILIRUBIN 0.8 mg/dL (0.2-1.0)
[2021-12-13] MEDS ORDERED: ONDANSETRON PF 4 MG/2 ML VIAL. IVP ONE (16:15)
[2021-12-13] MEDS ORDERED: CONTRAST GIVEN. MC PRN (16:45)
[2021-12-13] MEDS ORDERED: IOHEXOL 350 MG/ML 100 ML VIAL. IV ONE (16:45)
--- NOTE | 2021-12-13 17:26 | RAD ---
CT angiography chest with contrast PQRS statement: CT scans at this facility use dose reduction including either automated exposure cont rol, iterative reconstructions, and /or weight based radiation dosing via mA and kV modification when appropriate to reduce radiation dose to as low as reasonably achievable. Contrast: 90 mL Omnipaque 350 intravenous contrast. 3-D MIP reconstructions of the arteries were acqu ired. HISTORY: Lung cancer, dyspnea, tachycardia. COMPARISON: CT chest November 29, 2021 and prior studies FINDINGS: Ascending aorta 3.4 cm. Extensive coronary calcified plaque. Heart size is normal. 1.5 cm r ight hepatic lobe cyst stable. There is been placement of an esophageal stent from the upper to the l ower thoracic esophagus since the prior exam there is fluid filling much of the stent, there is indis tinct soft tissue density surrounding the stent to be inflammatory as this is new from the prior stud y from 2 weeks ago. No pneumomediastinum to suggest esophageal perforation. Left jugular portacathete r tip SVC. Small volume of pericardial fluid stable. No pulmonary artery emboli. No is enlarged adeno edward in the chest. There is a mild loculated right pleural effusion surrounding the long circumferen tially this is stable. There is mild right lung volume loss which is stable, no bronchial cut off or occlusion evident, and there are heterogeneous opacities in interstitial thickening throughout the ri ght lung which is also stable, some of this is geographic along the medial right upper lobe which is typical of radiation pneumonitis/fibrosis, the other opacities could represent posttreatment change o r areas of treated malignancy or chronic recurrent infection. No new pulmonary opacities or nodularit y evident. Bones unremarkable. IMPRESSION: 1. No pulmonary artery emboli. 2. Since the prior exam there is been placement of an esophageal stent. There is some fluid pooling w ithin the lumen of the stent which could be due to poor emptying and stasis, or could be due to gastr oesophageal reflux. 3. Loculated right pleural effusion along with mild right lung volume loss and pulmonary opacities ar e stable as described above. Electronically signed by: Naveed Ross MD (12/13/2021 5:24 PM) [facility]
[2021-12-13 18:28] LABS: BILIRUBIN,URINE NEGATIVE (NEG); CLARITY,URINE CLEAR; COLOR,URINE YELLOW; NITRITE,URINE NEGATIVE (NEG); PH,URINE 6.5 (<5.0-8.0); PROTEIN,URINE NEGATIVE (NEG-TRACE); UROBILINOGEN,URINE 0.2 mg/dL (0.2 mg/dL)
[2021-12-13 18:40] LABS: BACTERIA,URINE FEW /HPF (0-FEW); RBC,URINE 0 /HPF (0-2)
[2021-12-13] MEDS ORDERED: ONDANSETRON PF 4 MG/2 ML VIAL. IVP PRN (19:15)
[2021-12-13 19:45] VITALS: BP 115/81
--- NOTE | 2021-12-13 19:48 | PDOC1 ---
History and Physical Date of Admission Date of Admission DATE: 12/13/21 TIME: 19:41 Source Source: Chart review, Patient History of Present Illness History of Present Illness Mr. Abdul is a 60 year old male admit for waekness, and falls. he has not been able to eat much lately, has decreased PO intake. Compalins of generalized malaise and fatigue, and his sister is here with him and is worried, due to multiple falls. no prodrome, just weak legs. he had chest pain twice yesteday and took nitro for angina. He has chronic dyspnea and chronic cough, which is unchanged. He has a history of known metastatic small cell lung cancer, with adrenal mets and brain mets, Dr. Reece was called by his sister when EMS came to the house. he had a Esophageal stent placed a few days ago but still cannot eat very well, mostly soup Past Medical History Cardiovascular: CAD, HTN, Hyperlipidemia Pulmonary: COPD Heme/Onc: Cancer (lung) Endocrine: Diabetes, Hypothyroidism Past Surgical History Past Surgical History: Other Family History Family History: Cancer, Hypertension Social History Smoke: No ALCOHOL: none Drugs: None Current Problem List Problem List Problems Medical Problems: (1) Dehydration Status: Acute (2) Generalized weakness Status: Acute (3) Metastatic cancer Status: Acute (4) Multiple falls Status: Acute Current Medications Current Medications Current Medications Sodium Chloride 1,000 ml @ 1,000 mls/hr 1X ONCE IV Last administered on 12/13/21at 15:13; Start 12/13/21 at 14:30; Stop 12/13/21 at 15:29; Status DC Ondansetron HCl (Zofran) 4 mg 1X ONCE IVP Last administered on 12/13/21at 16:15; Start 12/13/21 at 16:15; Stop 12/13/21 at 16:16; Status DC Iohexol (Omnipaque 350 Mg/ml) 80 ml 1X ONCE IV Last administered on 12/13/21at 17:00; Start 12/13/21 at 16:45; Stop 12/13/21 at 16:46; Status DC Info (CONTRAST GIVEN -- Rx MONITORING) 1 each PRN DAILY PRN MC SEE COMMENTS; Start 12/13/21 at 16:45; Stop 12/15/21 at 16:44 Ondansetron HCl (Zofran) 4 mg PRN Q8HRS PRN IVP NAUSEA/VOMITING; Start 12/13/21 at 19:15; Stop 12/14/21 at 19:14 Sodium Chloride 1,000 ml @ 100 mls/hr 1X ONCE IV ; Start 12/13/21 at 19:15; Stop 12/14/21 at 05:14 Active Scripts Active Reported Calcium (Calcium Carbonate) 500 Mg Tab.chew 1 Tab PO BID 30 Days Gabapentin 600 Mg Tablet 300 Mg PO TID Isosorbide Mononitrate Er (Isosorbide Mononitrate) 120 Mg Tab.er.24h 1 Tab PO DAILY 30 Days Acyclovir 400 Mg Tablet 1 Tab PO BID Trazodone Hcl 50 Mg Tablet 1 Tab PO QHS Losartan Potassium 50 Mg Tablet 50 Mg PO DAILY Carvedilol 25 Mg Tablet 25 Mg PO DAILY Magnesium (Magnesium Oxide) 400 Mg Capsule 1 Cap PO DAILY 30 Days Sertraline Hcl 25 Mg Tablet 25 Mg PO DAILY Cyclobenzaprine Hcl 10 Mg Tablet 1 Tab PO TID Aspirin 81 Mg Tab.chew 2 Tab PO HS Famotidine 40 Mg Tablet 40 Mg PO BID Levothyroxine Sodium 50 Mcg Tablet 1 Tab PO DAILY Crestor (Rosuvastatin Calcium) 40 Mg Tablet 20 Mg PO HS Allergies Allergies: Coded Allergies: No Known Drug Allergies (Unverified , 03/12/21) ROS General: YES: Fatigue, Malaise; No: Chills, Night Sweats, Appetite, Other PSYCHOLOGICAL ROS: No: Anxiety, Behavioral Disorder, Concentration difficultie, Decreased libido, Depression, Disorientation, Hallucinations, Hostility, Irritablity, Memory difficulties, Mood Swings, Obsessive thoughts, Physical abuse, Sexual abuse, Sleep disturbances, Suicidal ideation, Other Eyes: No Blurry vision, No Decreased vision, No Double vision, No Dry eyes, No Excessive tearing, No Eye Pain, No Itchy Eyes, No Loss of vision, No Photophobia, No Scotomata, No Uses contacts, No Uses glasses, No Other HEENT: YES: Heacaches; No: Visual Changes, Hearing change, Nasal congestion, Nasal discharge, Oral lesions, Sinus pain, Sore Throat, Epistaxis, Sneezing, Snoring, Tinnitus, Vertigo, Vocal changes, Other Respiratory: No: Cough, Hemoptysis, Orthopnea, Pleuritic Pain, Shortness of breath, SOB with excertion, Sputum Changes, Stridor, Tachypnea, Wheezing, Other Cardiovascular: yes Chest Pain; No Palpitations, No Orthopnea, No Paroxysmal Noc. Dyspnea, No Edema, No Lt Headedness, No Other Gastrointestinal: Yes Nausea; No Vomiting, No Abdominal Pain, No Diarrhea, No Constipation, No Melena, No Hematochezia, No Other Genitourinary: No Dysuria, No Frequency, No Incontinence, No Hematuria, No Retention, No Discharge, No Urgency, No Pain, No Flank Pain, No Other, No , No , No , No , No , No , No Musculoskeletal: Yes Muscular Weakness; No Gait Disturbance, No Joint Pain, No Joint Stiffness, No Joint Swelling, No Muscle Pain, No Pain In:, No Swelling In:, No Other Neurological: Yes Gait Disturbance; No Behavorial Changes, No Bowel/Bladder ControlChng, No Confusion, No Headaches, No Impaired Coord/balance, No Memory Loss, No Numbness/Tingling, No Seizures, No Speech Problems, No Tremors, No Visual Changes, No Weakness, No Other Skin: No Dry Skin, No Eczema, No Hair Changes, No Lumps, No Mole Changes, No Mottling, No Nail Changes, No Pruritus, No Rash, No Skin Lesion Changes, No Other, No Acne Physical Exam General: Alert, Oriented X3, Cooperative, mild distress HEENT: PERRLA, Mucous membr. moist/pink Lungs: Normal air movement Heart: S1S2, other (tachy, reg) Abdomen: Normal bowel sounds, Soft Extremities: No cyanosis, No edema Skin: No breakdown, No significant lesion Neuro: Sensation intact Psych/Mental Status: Mental status NL, Mood NL Vitals Vitals Vital Signs Date Time Temp Pulse Resp B/P (MAP) Pulse Ox O2 Delivery O2 Flow Rate FiO2 12/13/21 17:04 23 122/71 (88) Room Air 12/13/21 16:26 122 12/13/21 15:56 97 12/13/21 14:05 99.3 99.3 Labs Labs Laboratory Tests Test 12/13/21 15:02 12/13/21 16:11 White Blood Count 9.4 x10^3/uL (4.0-11.0) Red Blood Count 3.94 x10^6/uL (4.30-5.70) Hemoglobin 12.0 g/dL (13.0-17.5) Hematocrit 36.4 % (39.0-53.0) Mean Corpuscular Volume 92 fL (79-100) Mean Corpuscular Hemoglobin 31 pg (25-35) Mean Corpuscular Hemoglobin Concent 33 g/dL (31-37) Red Cell Distribution Width 19.3 % (11.5-14.5) Platelet Count 96 x10^3/uL (140-400) Neutrophils (%) (Auto) 84 % (31-73) Lymphocytes (%) (Auto) 7 % (24-48) Monocytes (%) (Auto) 8 % (0-9) Eosinophils (%) (Auto) 1 % (0-3) Basophils (%) (Auto) 1 % (0-3) Neutrophils # (Auto) 7.9 x10^3/uL (1.8-7.7) Lymphocytes # (Auto) 0.6 x10^3/uL (1.0-4.8) Monocytes # (Auto) 0.7 x10^3/uL (0.0-1.1) Eosinophils # (Auto) 0.1 x10^3/uL (0.0-0.7) Basophils # (Auto) 0.1 x10^3/uL (0.0-0.2) Prothrombin Time 14.7 SEC (11.7-14.0) Prothromb Time International Ratio 1.2 (0.8-1.1) Activated Partial Thromboplast Time 39 SEC (24-38) Sodium Level 139 mmol/L (136-145) Potassium Level 3.9 mmol/L (3.5-5.1) Chloride Level 101 mmol/L (98-107) Carbon Dioxide Level 30 mmol/L (21-32) Anion Gap 8 (6-14) Blood Urea Nitrogen 12 mg/dL (8-26) Creatinine 1.5 mg/dL (0.7-1.3) Estimated GFR (Cockcroft-Gault) 47.4 BUN/Creatinine Ratio 8 (6-20) Glucose Level 103 mg/dL (70-99) Lactic Acid Level 1.9 mmol/L (0.4-2.0) Calcium Level 8.5 mg/dL (8.5-10.1) Phosphorus Level 3.0 mg/dL (2.6-4.7) Magnesium Level 2.1 mg/dL (1.8-2.4) Total Bilirubin 0.8 mg/dL (0.2-1.0) Aspartate Amino Transf (AST/SGOT) 15 U/L (15-37) Alanine Aminotransferase (ALT/SGPT) 11 U/L (16-63) Alkaline Phosphatase 157 U/L (46-116) Creatine Kinase 73 U/L (39-308) Troponin I High Sensitivity 8 ng/L (4-75) SB-Hvh-O-Type Natriuretic Peptide 1242 pg/mL (0-124) Total Protein 7.0 g/dL (6.4-8.2) Albumin 3.2 g/dL (3.4-5.0) Albumin/Globulin Ratio 0.8 (1.0-1.7) Lipase 58 U/L (73-393) Urine Collection Type Void Urine Color Yellow Urine Clarity Clear Urine pH 6.5 (<5.0-8.0) Urine Specific [place] <=1.005 (1.000-1.030) Urine Protein Negative mg/dL (NEG-TRACE) Urine Glucose (UA) Negative mg/dL (NEG) Urine Ketones (Stick) Negative mg/dL (NEG) Urine Blood Negative (NEG) Urine Nitrite Negative (NEG) Urine Bilirubin Negative (NEG) Urine Urobilinogen Dipstick 0.2 mg/dL (0.2 mg/dL) Urine Leukocyte Esterase Negative (NEG) Urine RBC 0 /HPF (0-2) Urine WBC 1-4 /HPF (0-4) Urine Squamous Epithelial Cells Occ /LPF Urine Bacteria Few /HPF (0-FEW) Laboratory Tests Test 12/13/21 15:02 12/13/21 16:11 White Blood Count 9.4 x10^3/uL (4.0-11.0) Red Blood Count 3.94 x10^6/uL (4.30-5.70) Hemoglobin 12.0 g/dL (13.0-17.5) Hematocrit 36.4 % (39.0-53.0) Mean Corpuscular Volume 92 fL (79-100) Mean Corpuscular Hemoglobin 31 pg (25-35) Mean Corpuscular Hemoglobin Concent 33 g/dL (31-37) Red Cell Distribution Width 19.3 % (11.5-14.5) Platelet Count 96 x10^3/uL (140-400) Neutrophils (%) (Auto) 84 % (31-73) Lymphocytes (%) (Auto) 7 % (24-48) Monocytes (%) (Auto) 8 % (0-9) Eosinophils (%) (Auto) 1 % (0-3) Basophils (%) (Auto) 1 % (0-3) Neutrophils # (Auto) 7.9 x10^3/uL (1.8-7.7) Lymphocytes # (Auto) 0.6 x10^3/uL (1.0-4.8) Monocytes # (Auto) 0.7 x10^3/uL (0.0-1.1) Eosinophils # (Auto) 0.1 x10^3/uL (0.0-0.7) Basophils # (Auto) 0.1 x10^3/uL (0.0-0.2) Prothrombin Time 14.7 SEC (11.7-14.0) Prothromb Time International Ratio 1.2 (0.8-1.1) Activated Partial Thromboplast Time 39 SEC (24-38) Sodium Level 139 mmol/L (136-145) Potassium Level 3.9 mmol/L (3.5-5.1) Chloride Level 101 mmol/L (98-107) Carbon Dioxide Level 30 mmol/L (21-32) Anion Gap 8 (6-14) Blood Urea Nitrogen 12 mg/dL (8-26) Creatinine 1.5 mg/dL (0.7-1.3) Estimated GFR (Cockcroft-Gault) 47.4 BUN/Creatinine Ratio 8 (6-20) Glucose Level 103 mg/dL (70-99) Lactic Acid Level 1.9 mmol/L (0.4-2.0) Calcium Level 8.5 mg/dL (8.5-10.1) Phosphorus Level 3.0 mg/dL (2.6-4.7) Magnesium Level 2.1 mg/dL (1.8-2.4) Total Bilirubin 0.8 mg/dL (0.2-1.0) Aspartate Amino Transf (AST/SGOT) 15 U/L (15-37) Alanine Aminotransferase (ALT/SGPT) 11 U/L (16-63) Alkaline Phosphatase 157 U/L (46-116) Creatine Kinase 73 U/L (39-308) Troponin I High Sensitivity 8 ng/L (4-75) IZ-Ehr-L-Type Natriuretic Peptide 1242 pg/mL (0-124) Total Protein 7.0 g/dL (6.4-8.2) Albumin 3.2 g/dL (3.4-5.0) Albumin/Globulin Ratio 0.8 (1.0-1.7) Lipase 58 U/L (73-393) Urine Collection Type Void Urine Color Yellow Urine Clarity Clear Urine pH 6.5 (<5.0-8.0) Urine Specific [place] <=1.005 (1.000-1.030) Urine Protein Negative mg/dL (NEG-TRACE) Urine Glucose (UA) Negative mg/dL (NEG) Urine Ketones (Stick) Negative mg/dL (NEG) Urine Blood Negative (NEG) Urine Nitrite Negative (NEG) Urine Bilirubin Negative (NEG) Urine Urobilinogen Dipstick 0.2 mg/dL (0.2 mg/dL) Urine Leukocyte Esterase Negative (NEG) Urine RBC 0 /HPF (0-2) Urine WBC 1-4 /HPF (0-4) Urine Squamous Epithelial Cells Occ /LPF Urine Bacteria Few /HPF (0-FEW) VTE Prophylaxis Ordered VTE Prophylaxis Devices: Yes VTE Pharmacological Prophylaxi: Yes Assessment/Plan Assessment/Plan weakness, debility, mult falls, PT and OT Stage 4 lung cancer CAD, mult stents, mult CV meds, htn, angina, dysphagia, recent esophageal stent, GI consult, ST hypothyroid, recent TSH 2 mos ago 2.9, cont 50 synthroid he is a , his sister has been living with him for the last year to assist, she needs DPOA paperwork filled out, FULL Code, options for no code reviewed, discussed ADVANCED care plan for 19 minutes Justifications for Admission Other Justification Syncope NATALIA MCCARTHY MD Dec 13, 2021 19:48
[2021-12-13] MEDS: POTASSIUM CL 20MEQ D5-0.45NACL 1,000 ML IV SCH (21:27)
[2021-12-13] MEDS: ATORVASTATIN CALCIUM 40 MG TABLET. PO SCH (21:28)
[2021-12-13] MEDS: ACYCLOVIR 200 MG CAPSULE. PO SCH (21:28)
[2021-12-13] MEDS: ASPIRIN CHEWABLE 81 MG TABLET. PO SCH (21:28)
[2021-12-13] MEDS: traZODone 50 MG TABLET. PO SCH (21:28)
[2021-12-13] MEDS: GABAPENTIN 300 MG CAPSULE. PO SCH (21:28)
[2021-12-13] MEDS: FAMOTIDINE 20 MG TABLET. PO SCH (21:28)
[2021-12-13] MEDS: CYCLOBENZAPRINE 10 MG TABLET. PO SCH (21:28)
[2021-12-13 23:00] VITALS: BP 100/69
[2021-12-14 03:00] VITALS: BP 111/76
[2021-12-14] MEDS: LEVOTHYROXINE 50 MCG TABLET PO SCH (05:52)
[2021-12-14 07:00] VITALS: BP 118/80
[2021-12-14] MEDS: CALCIUM CARBONATE 500 MG TABLET PO SCH ×2 (09:14→20:40)
[2021-12-14] MEDS: MAGNESIUM OXIDE 400 MG TABLET PO SCH (09:14)
[2021-12-14] MEDS: GABAPENTIN 300 MG CAPSULE. PO SCH ×3 (09:15→20:26)
[2021-12-14] MEDS: LOSARTAN POTASSIUM 50 MG TABLET. PO SCH (09:15)
[2021-12-14] MEDS: CYCLOBENZAPRINE 10 MG TABLET. PO SCH ×3 (09:15→20:26)
[2021-12-14] MEDS: FAMOTIDINE 20 MG TABLET. PO SCH ×2 (09:15→20:25)
[2021-12-14] MEDS: ACYCLOVIR 200 MG CAPSULE. PO SCH ×2 (09:15→20:25)
[2021-12-14] MEDS: CARVEDILOL 12.5 MG TABLET. PO SCH (09:15)
[2021-12-14] MEDS: POTASSIUM CL 20MEQ D5-0.45NACL 1,000 ML IV SCH (09:16)
[2021-12-14] MEDS: ISOSORBIDE MONONITRATE ER 30 MG TAB.ER.24H PO SCH (09:16)
[2021-12-14] MEDS: SERTRALINE 25 MG TABLET. PO SCH (09:16)
[2021-12-14 10:55] VITALS: BP 97/68
--- NOTE | 2021-12-14 10:55 | PDOC ---
[employer] PROGRESS NOTE Date of Service DOS: DATE: 12/14/21 TIME: 10:50 Chief Complaint Chief Complaint Weakness, falls, decreased PO intake, difficulty swallowing, fatigue, chronic cough, chest pain, CAD, HTN, Lung cancer, COPD, Diabetes, Hypothyroidism History of Present Illness History of Present Illness 12/14/2021: Patient seen and examined Chart reviewed Discussed with RN Patient feels better and is excited to work with PT today Patient affirms difficulty with swallowing History of Present Illness Mr. Abdul is a 60 year old male admit for weakness, and falls. He has not been able to eat much lately, has decreased PO intake. Complains of generalized malaise and fatigue and multiple falls. No prodrome, just weak legs. He had chest pain twice prior to admission and took nitro for angina. He has chronic dyspnea and chronic cough, which is unchanged. He has a history of known metastatic small cell lung cancer, with adrenal mets and brain mets, Dr. Reece was called by his sister when EMS came to the house. he had a Esophageal stent placed a few days ago but still cannot eat very well, mostly soup Past Medical History Cardiovascular: CAD, HTN, Hyperlipidemia Pulmonary: COPD Heme/Onc: Cancer (lung) Endocrine: Diabetes, Hypothyroidism Vitals/I&O Vitals/I&O: Vital Signs Date Time Temp Pulse Resp B/P (MAP) Pulse Ox O2 Delivery O2 Flow Rate FiO2 12/14/21 09:16 61 118/80 12/14/21 07:00 97.3 16 93 97.3 12/13/21 19:50 Room Air I & O 12/13/21 12/13/21 12/14/21 15:00 23:00 07:00 Intake Total 1000 ml Output Total 1200 ml Balance 1000 ml -1200 ml Physical Exam General: Alert, Oriented X3, Cooperative, No acute distress Heart: Regular rate Lungs: Clear Abdomen: Normal bowel sounds, Soft Extremities: No cyanosis, No edema Skin: No breakdown, No significant lesion Labs Labs: Laboratory Tests Test 12/13/21 15:02 12/13/21 16:11 12/13/21 20:58 White Blood Count 9.4 x10^3/uL (4.0-11.0) Red Blood Count 3.94 x10^6/uL (4.30-5.70) Hemoglobin 12.0 g/dL (13.0-17.5) Hematocrit 36.4 % (39.0-53.0) Mean Corpuscular Volume 92 fL (79-100) Mean Corpuscular Hemoglobin 31 pg (25-35) Mean Corpuscular Hemoglobin Concent 33 g/dL (31-37) Red Cell Distribution Width 19.3 % (11.5-14.5) Platelet Count 96 x10^3/uL (140-400) Neutrophils (%) (Auto) 84 % (31-73) Lymphocytes (%) (Auto) 7 % (24-48) Monocytes (%) (Auto) 8 % (0-9) Eosinophils (%) (Auto) 1 % (0-3) Basophils (%) (Auto) 1 % (0-3) Neutrophils # (Auto) 7.9 x10^3/uL (1.8-7.7) Lymphocytes # (Auto) 0.6 x10^3/uL (1.0-4.8) Monocytes # (Auto) 0.7 x10^3/uL (0.0-1.1) Eosinophils # (Auto) 0.1 x10^3/uL (0.0-0.7) Basophils # (Auto) 0.1 x10^3/uL (0.0-0.2) Prothrombin Time 14.7 SEC (11.7-14.0) Prothromb Time International Ratio 1.2 (0.8-1.1) Activated Partial Thromboplast Time 39 SEC (24-38) Sodium Level 139 mmol/L (136-145) Potassium Level 3.9 mmol/L (3.5-5.1) Chloride Level 101 mmol/L (98-107) Carbon Dioxide Level 30 mmol/L (21-32) Anion Gap 8 (6-14) Blood Urea Nitrogen 12 mg/dL (8-26) Creatinine 1.5 mg/dL (0.7-1.3) Estimated GFR (Cockcroft-Gault) 47.4 BUN/Creatinine Ratio 8 (6-20) Glucose Level 103 mg/dL (70-99) Lactic Acid Level 1.9 mmol/L (0.4-2.0) Calcium Level 8.5 mg/dL (8.5-10.1) Phosphorus Level 3.0 mg/dL (2.6-4.7) Magnesium Level 2.1 mg/dL (1.8-2.4) Total Bilirubin 0.8 mg/dL (0.2-1.0) Aspartate Amino Transf (AST/SGOT) 15 U/L (15-37) Alanine Aminotransferase (ALT/SGPT) 11 U/L (16-63) Alkaline Phosphatase 157 U/L (46-116) Creatine Kinase 73 U/L (39-308) Troponin I High Sensitivity 8 ng/L (4-75) WX-Zwp-I-Type Natriuretic Peptide 1242 pg/mL (0-124) Total Protein 7.0 g/dL (6.4-8.2) Albumin 3.2 g/dL (3.4-5.0) Albumin/Globulin Ratio 0.8 (1.0-1.7) Lipase 58 U/L (73-393) Urine Collection Type Void Urine Color Yellow Urine Clarity Clear Urine pH 6.5 (<5.0-8.0) Urine Specific [place] <=1.005 (1.000-1.030) Urine Protein Negative mg/dL (NEG-TRACE) Urine Glucose (UA) Negative mg/dL (NEG) Urine Ketones (Stick) Negative mg/dL (NEG) Urine Blood Negative (NEG) Urine Nitrite Negative (NEG) Urine Bilirubin Negative (NEG) Urine Urobilinogen Dipstick 0.2 mg/dL (0.2 mg/dL) Urine Leukocyte Esterase Negative (NEG) Urine RBC 0 /HPF (0-2) Urine WBC 1-4 /HPF (0-4) Urine Squamous Epithelial Cells Occ /LPF Urine Bacteria Few /HPF (0-FEW) Glucose (Fingerstick) 84 mg/dL (70-99) Assessment and Plan Assessmemt and Plan Problems Medical Problems: (1) Dehydration Status: Acute (2) Generalized weakness Status: Acute (3) Metastatic cancer Status: Acute (4) Multiple falls Status: Acute ASSESSMENT: weakness debility multiple falls Stage 4 lung cancer CAD s/p multiple stents HTN Angina dysphagia s/p recent esophageal stent hypothyroid PLAN: Appreciate subspecialty input Speech therapy consult PT and OT IV fluids Home meds Full code DVT prophylaxis Comment Review of Relevant I have reviewed the following items ranjit (where applicable) has been applied. Medications: Current Medications Medications (Trade) Dose Ordered Sig/Tom Route PRN Reason Start Time Stop Time Status Last Admin Dose Admin Sodium Chloride 1,000 ml @ 1,000 mls/hr 1X ONCE IV 12/13/21 14:30 12/13/21 15:29 DC 12/13/21 15:13 Ondansetron HCl (Zofran) 4 mg 1X ONCE IVP 12/13/21 16:15 12/13/21 16:16 DC 12/13/21 16:15 Iohexol (Omnipaque 350 Mg/ml) 80 ml 1X ONCE IV 12/13/21 16:45 12/13/21 16:46 DC 12/13/21 17:00 Sodium Chloride 1,000 ml @ 1,000 mls/hr 1X ONCE IV 12/13/21 20:00 12/13/21 21:00 DC 12/13/21 20:10 Potassium Chloride/Dextrose/ Sod Cl 1,000 ml @ 80 mls/hr [id number] IV 12/13/21 21:00 12/14/21 09:16 Aspirin (Aspirin Chewable) 162 mg QHS PO 12/13/21 21:00 12/13/21 21:28 Cyclobenzaprine HCl (Flexeril) 10 mg TID PO 12/13/21 21:00 12/14/21 09:15 Levothyroxine Sodium (Synthroid) 50 mcg DAILY06 PO 12/14/21 06:00 12/14/21 05:52 Losartan Potassium (Cozaar) 50 mg DAILY PO 12/14/21 09:00 12/14/21 09:15 Sertraline HCl (Zoloft) 25 mg DAILY PO 12/14/21 09:00 12/14/21 09:16 Trazodone HCl (Desyrel) 50 mg QHS PO 12/13/21 21:00 12/13/21 21:28 Acyclovir (Zovirax) 400 mg BID PO 12/13/21 21:00 12/14/21 09:15 Calcium Carbonate/ Glycine (Oscal) 500 mg BIDPC PO 12/14/21 09:00 12/14/21 09:14 Carvedilol (Coreg) 25 mg DAILY PO 12/14/21 09:00 12/14/21 09:15 Famotidine (Pepcid) 20 mg BID PO 12/13/21 21:00 12/14/21 09:15 Gabapentin (Neurontin) 300 mg TID PO 12/13/21 21:00 12/14/21 09:15 Isosorbide Mononitrate (Imdur) 120 mg DAILY PO 12/14/21 09:00 12/14/21 09:16 Magnesium Oxide (Magnesium Oxide) 400 mg DAILY PO 12/14/21 09:00 12/14/21 09:14 Atorvastatin Calcium (Lipitor) 80 mg QHS PO 12/13/21 21:00 12/13/21 21:28 Justifications for Admission Other Justification Syncope SHADE INGRAM III DO Dec 14, 2021 10:55
--- NOTE | 2021-12-14 12:19 | NUR ---
Bedside Swallow Evaluation completed. Please refer to full report in intervention section for additional information. Impressions: Minimal oropharyngeal dysphagia appears r/t generalized weakness and mild confusion. No overt s/s aspiration w/ limited trials of thin and honey thick liquids and puree r/t GI recommendations for full liquid diet and recent history of esophageal stent placement. Anticipate functional oropharyngeal swallow for additional consistencies when approved by GI. Recommendations: Full liquid diet per GI. General swallow precautions r/t generalized weakness and mild confusion. ST f/u 1-2 additional visits to further assess swallow and additional consistencies if appropriate. D/w Olu.
[2021-12-14 14:53] VITALS: BP 83/56
--- NOTE | 2021-12-14 16:37 | PDOC2 ---
CONSULT Date of Consult Date of Consult DATE: 12/14/21 TIME: 16:31 Reason for Consult Reason for Consult: Weakness, recent significant dysphagia resulting in endoscopic placement of esophageal stent last week History of Present Illness Reason for Visit: This is a 60-year-old gentleman who was referred to me several weeks ago for persistent dysphagia. He had extrinsic compression of his esophagus from either angy disease or active disease from his lung cancer. Initial dilation was not helpful so we set up an elective Wallstent placement which was done last week. It was successful but since then he has had difficulties not only with eating but also generally with hydration and weakness. He was not sure about the type of diet he could tolerate. He denies any vomiting. Imaging done both at the time of placement and now with his CT angiogram show the stent in good position. There was some fluid pooling in the esophagus on the CT done yesterday but this may be from reflux. No evidence for obstruction at this point. In fact he tolerated a liquid diet this morning. Past Medical History Cardiovascular: CAD, HTN, Hyperlipidemia Pulmonary: COPD Heme/Onc: Cancer (lung) Endocrine: Diabetes, Hypothyroidism Past Surgical History Past Surgical History: Other Family History Family History: Cancer, Hypertension Social History No ALCOHOL: none Drugs: None Lives: with Family Current Problem List Problem List Problems Medical Problems: (1) Dehydration Status: Acute (2) Generalized weakness Status: Acute (3) Metastatic cancer Status: Acute (4) Multiple falls Status: Acute Current Medications Current Medications Current Medications Sodium Chloride 1,000 ml @ 1,000 mls/hr 1X ONCE IV Last administered on 12/13/21at 15:13; Start 12/13/21 at 14:30; Stop 12/13/21 at 15:29; Status DC Ondansetron HCl (Zofran) 4 mg 1X ONCE IVP Last administered on 12/13/21at 16:15; Start 12/13/21 at 16:15; Stop 12/13/21 at 16:16; Status DC Iohexol (Omnipaque 350 Mg/ml) 80 ml 1X ONCE IV Last administered on 12/13/21at 17:00; Start 12/13/21 at 16:45; Stop 12/13/21 at 16:46; Status DC Info (CONTRAST GIVEN -- Rx MONITORING) 1 each PRN DAILY PRN MC SEE COMMENTS; Start 12/13/21 at 16:45; Stop 12/15/21 at 16:44 Ondansetron HCl (Zofran) 4 mg PRN Q8HRS PRN IVP NAUSEA/VOMITING; Start 12/13/21 at 19:15; Stop 12/14/21 at 19:14 Sodium Chloride 1,000 ml @ 100 mls/hr 1X ONCE IV ; Start 12/13/21 at 19:15; Stop 12/14/21 at 05:14; Status Cancel Sodium Chloride 1,000 ml @ 1,000 mls/hr 1X ONCE IV Last administered on 12/13/21at 20:10; Start 12/13/21 at 20:00; Stop 12/13/21 at 21:00; Status DC Potassium Chloride/Dextrose/ Sod Cl 1,000 ml @ 80 mls/hr [id number] IV Last administered on 12/14/21at 09:16; Start 12/13/21 at 21:00 Aspirin (Aspirin Chewable) 162 mg QHS PO Last administered on 12/13/21at 21:28; Start 12/13/21 at 21:00 Cyclobenzaprine HCl (Flexeril) 10 mg TID PO Last administered on 12/14/21at 09:15; Start 12/13/21 at 21:00 Levothyroxine Sodium (Synthroid) 50 mcg DAILY06 PO Last administered on 12/14/21at 05:52; Start 12/14/21 at 06:00 Losartan Potassium (Cozaar) 50 mg DAILY PO Last administered on 12/14/21at 09:15; Start 12/14/21 at 09:00 Sertraline HCl (Zoloft) 25 mg DAILY PO Last administered on 12/14/21at 09:16; Start 12/14/21 at 09:00 Trazodone HCl (Desyrel) 50 mg QHS PO Last administered on 12/13/21at 21:28; St art 12/13/21 at 21:00 Acyclovir (Zovirax) 400 mg BID PO Last administered on 12/14/21at 09:15; Start 12/13/21 at 21:00 Calcium Carbonate/ Glycine (Oscal) 500 mg BIDPC PO Last administered on 12/14/21at 09:14; Start 12/14/21 at 09:00 Carvedilol (Coreg) 25 mg DAILY PO Last administered on 12/14/21at 09:15; Start 12/14/21 at 09:00 Famotidine (Pepcid) 20 mg BID PO Last administered on 12/14/21at 09:15; Start 12/13/21 at 21:00 Gabapentin (Neurontin) 300 mg TID PO Last administered on 12/14/21at 09:15; Start 12/13/21 at 21:00 Isosorbide Mononitrate (Imdur) 120 mg DAILY PO Last administered on 12/14/21at 09:16; Start 12/14/21 at 09:00 Magnesium Oxide (Magnesium Oxide) 400 mg DAILY PO Last administered on 12/14/21at 09:14; Start 12/14/21 at 09:00 Atorvastatin Calcium (Lipitor) 80 mg QHS PO Last administered on 12/13/21at 21:28; Start 12/13/21 at 21:00 Active Scripts Active Reported Calcium (Calcium Carbonate) 500 Mg Tab.chew 1 Tab PO BID 30 Days Gabapentin 600 Mg Tablet 300 Mg PO TID Isosorbide Mononitrate Er (Isosorbide Mononitrate) 120 Mg Tab.er.24h 1 Tab PO DAILY 30 Days Acyclovir 400 Mg Tablet 1 Tab PO BID Trazodone Hcl 50 Mg Tablet 1 Tab PO QHS Losartan Potassium 50 Mg Tablet 50 Mg PO DAILY Carvedilol 25 Mg Tablet 25 Mg PO DAILY Magnesium (Magnesium Oxide) 400 Mg Capsule 1 Cap PO DAILY 30 Days Sertraline Hcl 25 Mg Tablet 25 Mg PO DAILY Cyclobenzaprine Hcl 10 Mg Tablet 1 Tab PO TID Aspirin 81 Mg Tab.chew 2 Tab PO HS Famotidine 40 Mg Tablet 40 Mg PO BID Levothyroxine Sodium 50 Mcg Tablet 1 Tab PO DAILY Crestor (Rosuvastatin Calcium) 40 Mg Tablet 20 Mg PO HS Allergies Allergies: Coded Allergies: No Known Drug Allergies (Unverified , 03/12/21) Physical Exam General: Alert, Cooperative, Other (Mildly somnolent) Heart: Regular rate, Normal S1, Normal S2 Abdomen: Normal bowel sounds, Soft Psych/Mental Status: Mental status NL Vitals VITALS Vital Signs Date Time Temp Pulse Resp B/P (MAP) Pulse Ox O2 Delivery O2 Flow Rate FiO2 12/14/21 14:53 97.7 96 16 83/56 (65) 95 Room Air 97.7 Labs Labs Laboratory Tests Test 12/13/21 15:02 12/13/21 16:11 12/13/21 20:58 White Blood Count 9.4 x10^3/uL (4.0-11.0) Red Blood Count 3.94 x10^6/uL (4.30-5.70) Hemoglobin 12.0 g/dL (13.0-17.5) Hematocrit 36.4 % (39.0-53.0) Mean Corpuscular Volume 92 fL (79-100) Mean Corpuscular Hemoglobin 31 pg (25-35) Mean Corpuscular Hemoglobin Concent 33 g/dL (31-37) Red Cell Distribution Width 19.3 % (11.5-14.5) Platelet Count 96 x10^3/uL (140-400) Neutrophils (%) (Auto) 84 % (31-73) Lymphocytes (%) (Auto) 7 % (24-48) Monocytes (%) (Auto) 8 % (0-9) Eosinophils (%) (Auto) 1 % (0-3) Basophils (%) (Auto) 1 % (0-3) Neutrophils # (Auto) 7.9 x10^3/uL (1.8-7.7) Lymphocytes # (Auto) 0.6 x10^3/uL (1.0-4.8) Monocytes # (Auto) 0.7 x10^3/uL (0.0-1.1) Eosinophils # (Auto) 0.1 x10^3/uL (0.0-0.7) Basophils # (Auto) 0.1 x10^3/uL (0.0-0.2) Prothrombin Time 14.7 SEC (11.7-14.0) Prothromb Time International Ratio 1.2 (0.8-1.1) Activated Partial Thromboplast Time 39 SEC (24-38) Sodium Level 139 mmol/L (136-145) Potassium Level 3.9 mmol/L (3.5-5.1) Chloride Level 101 mmol/L (98-107) Carbon Dioxide Level 30 mmol/L (21-32) Anion Gap 8 (6-14) Blood Urea Nitrogen 12 mg/dL (8-26) Creatinine 1.5 mg/dL (0.7-1.3) Estimated GFR (Cockcroft-Gault) 47.4 BUN/Creatinine Ratio 8 (6-20) Glucose Level 103 mg/dL (70-99) Lactic Acid Level 1.9 mmol/L (0.4-2.0) Calcium Level 8.5 mg/dL (8.5-10.1) Phosphorus Level 3.0 mg/dL (2.6-4.7) Magnesium Level 2.1 mg/dL (1.8-2.4) Total Bilirubin 0.8 mg/dL (0.2-1.0) Aspartate Amino Transf (AST/SGOT) 15 U/L (15-37) Alanine Aminotransferase (ALT/SGPT) 11 U/L (16-63) Alkaline Phosphatase 157 U/L (46-116) Creatine Kinase 73 U/L (39-308) Troponin I High Sensitivity 8 ng/L (4-75) OX-Uag-F-Type Natriuretic Peptide 1242 pg/mL (0-124) Total Protein 7.0 g/dL (6.4-8.2) Albumin 3.2 g/dL (3.4-5.0) Albumin/Globulin Ratio 0.8 (1.0-1.7) Lipase 58 U/L (73-393) Urine Collection Type Void Urine Color Yellow Urine Clarity Clear Urine pH 6.5 (<5.0-8.0) Urine Specific [place] <=1.005 (1.000-1.030) Urine Protein Negative mg/dL (NEG-TRACE) Urine Glucose (UA) Negative mg/dL (NEG) Urine Ketones (Stick) Negative mg/dL (NEG) Urine Blood Negative (NEG) Urine Nitrite Negative (NEG) Urine Bilirubin Negative (NEG) Urine Urobilinogen Dipstick 0.2 mg/dL (0.2 mg/dL) Urine Leukocyte Esterase Negative (NEG) Urine RBC 0 /HPF (0-2) Urine WBC 1-4 /HPF (0-4) Urine Squamous Epithelial Cells Occ /LPF Urine Bacteria Few /HPF (0-FEW) Glucose (Fingerstick) 84 mg/dL (70-99) Laboratory Tests Test 12/13/21 20:58 Glucose (Fingerstick) 84 mg/dL (70-99) Images Images CTA PQRS statement: CT scans at this facility use dose reduction including either automated exposure control, iterative reconstructions, and /or weight based radiation dosing via mA and kV modification when appropriate to reduce radiation dose to as low as reasonably achievable. Contrast: 90 mL Omnipaque 350 intravenous contrast. 3-D MIP reconstructions of the arteries were acquired. HISTORY: Lung cancer, dyspnea, tachycardia. COMPARISON: CT chest November 29, 2021 and prior studies FINDINGS: Ascending aorta 3.4 cm. Extensive coronary calcified plaque. Heart size is normal. 1.5 cm right hepatic lobe cyst stable. There is been placement of an esophageal stent from the upper to the lower thoracic esophagus since the prior exam there is fluid filling much of the stent, there is indistinct soft tissue density surrounding the stent to be inflammatory as this is new from the prior study from 2 weeks ago. No pneumomediastinum to suggest esophageal perforation. Left jugular portacatheter tip SVC. Small volume of pericardial fluid stable. No pulmonary artery emboli. No is enlarged adenopathy in the chest. There is a mild loculated right pleural effusion surrounding the long circumferentially this is stable. There is mild right lung volume loss which is stable, no bronchial cut off or occlusion evident, and there are heterogeneous opacities in interstitial thickening throughout the right lung which is also stable, some of this is geographic along the medial right upper lobe which is typical of radiation pneumonitis/fibrosis, the other opacities could represent posttreatment change or areas of treated malignancy or chronic recurrent infection. No new pulmonary opacities or nodularity evident. Bones unremarkable. IMPRESSION: 1. No pulmonary artery emboli. 2. Since the prior exam there is been placement of an esophageal stent. There is some fluid pooling within the lumen of the stent which could be due to poor emptying and stasis, or could be due to gastroesophageal reflux. 3. Loculated right pleural effusion along with mild right lung volume loss and pulmonary opacities are stable as described above. Assessment/Plan Assessment/Plan Dysphagia from angy disease compressing the esophagus. He underwent a Wallstent placement last week successfully. Since then he has had some difficulty not only with eating but just general debilitation and weakness. He has not described any vomiting or any symptoms of obstruction of the stent. Plan: He needs to be either on a full liquid diet or a mechanically soft diet with ground foods and meats to avoid any obstruction. This should be supplemented with liquids such as boost or Ensure to maintain his p.o. intake. Unfortunately some of his debilitation weakness etc. are probably from his underlying metastatic lung cancer. I had advised him to consider gastrostomy tube placement prior to putting in the stent but he did not want to proceed with PEG last week. Now that the stent is in place, elective percutaneous endoscopic gastrostomy tube placement is not an option. If a feeding tube is to be considered in the future it will have to be placed either with interventional radiology or surgery NHI THOMPSON MD Dec 14, 2021 16:37
[2021-12-14 19:00] VITALS: BP 87/49
[2021-12-14] MEDS: ASPIRIN CHEWABLE 81 MG TABLET. PO SCH (20:25)
[2021-12-14] MEDS: ATORVASTATIN CALCIUM 40 MG TABLET. PO SCH (20:26)
[2021-12-14] MEDS: traZODone 50 MG TABLET. PO SCH (20:26)
[2021-12-14 23:00] VITALS: BP 82/54
[2021-12-15] VITALS (7 sets, daily range): BP systolic 69–104; BP diastolic 43–66
[2021-12-15] MEDS: POTASSIUM CL 20MEQ D5-0.45NACL 1,000 ML IV SCH ×2 (02:14→11:18)
[2021-12-15] MEDS: LEVOTHYROXINE 50 MCG TABLET PO SCH (05:51)
[2021-12-15 08:25] LABS: CALCIUM 8.5 mg/dL (8.5-10.1); CREATININE 1.2 mg/dL (0.7-1.3); GFR 61.3; POTASSIUM 4.3 mmol/L (3.5-5.1)
[2021-12-15] MEDS: GABAPENTIN 300 MG CAPSULE. PO SCH ×3 (09:00→21:45)
[2021-12-15] MEDS: MAGNESIUM OXIDE 400 MG TABLET PO SCH (09:15)
[2021-12-15] MEDS: SERTRALINE 25 MG TABLET. PO SCH (09:15)
[2021-12-15] MEDS: LOSARTAN POTASSIUM 50 MG TABLET. PO SCH (09:15)
[2021-12-15] MEDS: FAMOTIDINE 20 MG TABLET. PO SCH ×2 (09:15→21:46)
[2021-12-15] MEDS: CALCIUM CARBONATE 500 MG TABLET PO SCH ×2 (09:15→21:45)
[2021-12-15] MEDS: ISOSORBIDE MONONITRATE ER 30 MG TAB.ER.24H PO SCH (09:15)
[2021-12-15] MEDS: CYCLOBENZAPRINE 10 MG TABLET. PO SCH ×3 (09:15→21:00)
[2021-12-15] MEDS: ACYCLOVIR 200 MG CAPSULE. PO SCH ×2 (09:15→21:47)
[2021-12-15] MEDS ORDERED: GABA-585 PO (09:39)
[2021-12-15] MEDS: GABAPENTIN 100 MG CAPSULE. PO SCH ×3 (11:17→21:00)
[2021-12-15] MEDS: CARVEDILOL 12.5 MG TABLET. PO SCH (11:17)
--- NOTE | 2021-12-15 12:49 | PDOC ---
[facility] PROGRESS NOTE Date of Service DOS: DATE: 12/15/21 TIME: 12:48 Chief Complaint Chief Complaint Weakness, falls, decreased PO intake, difficulty swallowing, fatigue, chronic cough, chest pain, CAD, HTN, Lung cancer, COPD, Diabetes, Hypothyroidism History of Present Illness History of Present Illness 12/15/2019 Patient seen and examined He is up in the chair trying to eat breakfast clear liquids Chart reviewed Discussed with RN 12/14/2021: Patient seen and examined Chart reviewed Discussed with RN Patient feels better and is excited to work with PT today Patient affirms difficulty with swallowing History of Present Illness Mr. Abdul is a 60 year old male admit for weakness, and falls. He has not been able to eat much lately, has decreased PO intake. Complains of generalized malaise and fatigue and multiple falls. No prodrome, just weak legs. He had chest pain twice prior to admission and took nitro for angina. He has chronic dyspnea and chronic cough, which is unchanged. He has a history of known metastatic small cell lung cancer, with adrenal mets and brain mets, Dr. Reece was called by his sister when EMS came to the house. he had a Esophageal stent placed a few days ago but still cannot eat very well, mostly soup Past Medical History Cardiovascular: CAD, HTN, Hyperlipidemia Pulmonary: COPD Heme/Onc: Cancer (lung) Endocrine: Diabetes, Hypothyroidism Vitals/I&O Vitals/I&O: Vital Signs Date Time Temp Pulse Resp B/P (MAP) Pulse Ox O2 Delivery O2 Flow Rate FiO2 12/15/21 11:17 97 104/66 12/15/21 11:00 97.8 18 97 Room Air 97.8 I & O 12/14/21 12/14/21 12/15/21 14:59 22:59 06:59 Intake Total 1660 ml 320 ml Balance 1660 ml 320 ml Physical Exam General: Alert, Cooperative, Other (Mildly somnolent) Heart: Regular rate, Normal S1, Normal S2 Lungs: Clear Abdomen: Normal bowel sounds, Soft Extremities: No cyanosis, No edema Skin: No breakdown, No significant lesion Labs Labs: Laboratory Tests Test 12/15/21 07:40 Sodium Level 143 mmol/L (136-145) Potassium Level 4.3 mmol/L (3.5-5.1) Chloride Level 105 mmol/L (98-107) Carbon Dioxide Level 27 mmol/L (21-32) Anion Gap 11 (6-14) Blood Urea Nitrogen 13 mg/dL (8-26) Creatinine 1.2 mg/dL (0.7-1.3) Estimated GFR (Cockcroft-Gault) 61.3 Glucose Level 113 mg/dL (70-99) Calcium Level 8.5 mg/dL (8.5-10.1) Assessment and Plan Assessmemt and Plan Problems Medical Problems: (1) Dehydration Status: Acute (2) Generalized weakness Status: Acute (3) Metastatic cancer Status: Acute (4) Multiple falls Status: Acu Metastatic lung cancer with mets to the brain Recent esophageal stent placement due to angy compression from his cancer Probable early failure to thrive Weakness, falls, decreased PO intake, difficulty swallowing, fatigue, chronic cough, chest pain, CAD, HTN, Lung cancer, COPD, Diabetes, Hypothyroidism Plan Encourage p.o. intake (soft foods) Per GI he is no longer a candidate for a feeding tube unless it was placed surgically or through IR Trend labs Home meds DVT prophylaxis Full code Long-term prognosis guarded at best Probably needs to go to [facility] after discharge? Might be a candidate for hospice in the near future? Per GI recommendations please see the following and we certainly agree and appreciate their input; Dysphagia from angy disease compressing the esophagus. He underwent a Wallstent placement last week successfully. Since then he has had some difficulty not only with eating but just general debilitation and weakness. He has not described any vomiting or any symptoms of obstruction of the stent. Plan: He needs to be either on a full liquid diet or a mechanically soft diet with ground foods and meats to avoid any obstruction. This should be supplemented with liquids such as boost or Ensure to maintain his p.o. intake. Unfortunately some of his debilitation weakness etc. are probably from his underlying metastatic lung cancer. I had advised him to consider gastrostomy tube placement prior to putting in the stent but he did not want to proceed with PEG last week. Now that the stent is in place, elective percutaneous endoscopic gastrostomy tube placement is not an option. If a feeding tube is to be considered in the future it will have to be placed either with interventional radiology or surgery Comment Review of Relevant I have reviewed the following items ranjit (where applicable) has been applied. Medications: Current Medications Medications (Trade) Dose Ordered Sig/Tom Route PRN Reason Start Time Stop Time Status Last Admin Dose Admin Gabapentin (Neurontin) 100 mg TID PO 12/15/21 10:00 12/15/21 11:17 Justifications for Admission Other Justification Syncope SHADE INGRAM III DO Dec 15, 2021 12:49
--- NOTE | 2021-12-15 12:52 | PDOC ---
[facility] PROGRESS NOTE Date of Service DOS: DATE: 12/15/21 TIME: 12:50 Chief Complaint Chief Complaint Metastatic lung cancer with mets to the brain Recent esophageal stent placement due to angy compression from his cancer Probable early failure to thrive Weakness, falls, decreased PO intake, difficulty swallowing, fatigue, chronic cough, chest pain, CAD, HTN, Lung cancer, COPD, Diabetes, Hypothyroidism History of Present Illness History of Present Illness 12/15/2021 Patient seen and examined He is up in the chair Trying to eat breakfast Chart reviewed Discussed with RN 12/14/2021: Patient seen and examine Chart reviewed Discussed with RN Patient feels better and is excited to work with PT today Patient affirms difficulty with swallowing History of Present Illness Mr. Abdul is a 60 year old male admit for weakness, and falls. He has not been able to eat much lately, has decreased PO intake. Complains of generalized malaise and fatigue and multiple falls. No prodrome, just weak legs. He had chest pain twice prior to admission and took nitro for angina. He has chronic dyspnea and chronic cough, which is unchanged. He has a history of known metastatic small cell lung cancer, with adrenal mets and brain mets, Dr. Reece was called by his sister when EMS came to the house. he had a Esophageal stent placed a few days ago but still cannot eat very well, mostly soup Past Medical History Cardiovascular: CAD, HTN, Hyperlipidemia Pulmonary: COPD Heme/Onc: Cancer (lung) Endocrine: Diabetes, Hypothyroidism Vitals/I&O Vitals/I&O: Vital Signs Date Time Temp Pulse Resp B/P (MAP) Pulse Ox O2 Delivery O2 Flow Rate FiO2 12/15/21 11:17 97 104/66 12/15/21 11:00 97.8 18 97 Room Air 97.8 I & O 0 12/14/21 12/14/21 12/15/21 14:59 22:59 06:59 Intake Total 1660 ml 320 ml Balance 1660 ml 320 ml Physical Exam General: Alert, Cooperative, Other (Mildly somnolent) Heart: Regular rate, Normal S1, Normal S2 Lungs: Clear Abdomen: Normal bowel sounds, Soft Extremities: No cyanosis, No edema Skin: No breakdown, No significant lesion Labs Labs: Laboratory Tests Test 12/15/21 07:40 Sodium Level 143 mmol/L (136-145) Potassium Level 4.3 mmol/L (3.5-5.1) Chloride Level 105 mmol/L (98-107) Carbon Dioxide Level 27 mmol/L (21-32) Anion Gap 11 (6-14) Blood Urea Nitrogen 13 mg/dL (8-26) Creatinine 1.2 mg/dL (0.7-1.3) Estimated GFR (Cockcroft-Gault) 61.3 Glucose Level 113 mg/dL (70-99) Calcium Level 8.5 mg/dL (8.5-10.1) Assessment and Plan Assessmemt and Plan Problems Medical Problems: (1) Dehydration Status: Acute (2) Generalized weakness Status: Acute (3) Metastatic cancer Status: Acute (4) Multiple falls Status: Acute Metastatic lung cancer with mets to the brain Recent esophageal stent placement due to angy compression from his cancer Probable early failure to thrive Weakness, falls, decreased PO intake, difficulty swallowing, fatigue, chronic cough, chest pain, CAD, HTN, Lung cancer, COPD, Diabetes, Hypothyroidism Plan Encourage p.o. intake (soft foods) Per GI he is no longer a candidate for a feeding tube unless it was placed surgically or through IR Trend labs Home meds DVT prophylaxis Full code Long-term prognosis guarded at best Probably needs to [facility]? Might be a candidate for hospice in the near future? Per GI recommendations please see the following and we certainly agree and appreciate their input; Dysphagia from angy disease compressing the esophagus. He underwent a Wallstent placement last week successfully. Since then he has had some difficul ty not only with eating but just general debilitation and weakness. He has not described any vomiting or any symptoms of obstruction of the stent. Plan: He needs to be either on a full liquid diet or a mechanically soft diet with ground foods and meats to avoid any obstruction. This should be supplemented with liquids such as boost or Ensure to maintain his p.o. intake. Unfortunately some of his debilitation weakness etc. are probably from his underlying metastatic lung cancer. I had advised him to consider gastrostomy tube placement prior to putting in the stent but he did not want to proceed with PEG last week. Now that the stent is in place, elective percutaneous endoscopic gastrostomy tube placement is not an option. If a feeding tube is to be considered in the future it will have to be placed either with interventional radiology or surgery Comment Review of Relevant I have reviewed the following items ranjit (where applicable) has been applied. Medications: Current Medications Medications (Trade) Dose Ordered Sig/Tom Route PRN Reason Start Time Stop Time Status Last Admin Dose Admin Gabapentin (Neurontin) 100 mg TID PO 12/15/21 10:00 12/15/21 11:17 Justifications for Admission Other Justification Syncope SHADE INGRAM III DO Dec 15, 2021 12:52
--- NOTE | 2021-12-15 13:14 | PDOC ---
GI PROGRESS NOTES Date of Service: Date/Time DATE: 12/15/21 TIME: 13:12 Subjective Subjective No vomiting. Tolerated a full liquid diet well so we advance to a pured diet. However he does not find the pured foods very palatable. Objective Vitals Vital Signs Date Time Temp Pulse Resp B/P (MAP) Pulse Ox O2 Delivery O2 Flow Rate FiO2 12/15/21 11:17 97 104/66 12/15/21 11:00 97.8 99 18 92/56 (68) 97 Room Air 97.8 12/15/21 09:15 97 104/66 12/15/21 09:15 97 104/66 12/15/21 07:00 97.8 97 17 104/66 (79) 94 Room Air 97.8 12/15/21 03:00 98.4 89 20 89/51 (64) 94 Room Air 98.4 12/14/21 23:00 97.8 87 20 82/54 (63) 92 Room Air 97.8 12/14/21 20:30 Room Air 12/14/21 19:00 97.9 82 20 87/49 (62) 92 Room Air 97.9 12/14/21 14:53 97.7 96 16 83/56 (65) 95 Room Air 97.7 Labs Labs Laboratory Tests Test 12/15/21 07:40 Sodium Level 143 mmol/L (136-145) Potassium Level 4.3 mmol/L (3.5-5.1) Chloride Level 105 mmol/L (98-107) Carbon Dioxide Level 27 mmol/L (21-32) Anion Gap 11 (6-14) Blood Urea Nitrogen 13 mg/dL (8-26) Creatinine 1.2 mg/dL (0.7-1.3) Estimated GFR (Cockcroft-Gault) 61.3 Glucose Level 113 mg/dL (70-99) Calcium Level 8.5 mg/dL (8.5-10.1) Physical Exam Physical Exam Neck supple Chest clear Abdomen soft Assessment Assessment Dysphagia from extrinsic pressure of the esophagus due to lymph nodes and lung cancer. Status post Wallstent placement last week. He seems to be tolerating the stent reasonably well now. There are limitations to what can be ingested, either full liquids, pured foods or mechanically soft foods. Part of his lack of intake is from anorexia probably related to his lung cancer is much is anything. Plan Plan I will switch him back to a full liquid diet at his request. We will supplement that with Ensure or boost. No further GI suggestions at this time. Justicifation of Admission Dx: Justifications for Admission: Justification of Admission Dx: Yes Respiratory Failure: Severe Resp Distress Comminuty Aquired Pneumonia: Complicated pleural effus NHI THOMPSON MD Dec 15, 2021 13:14
[2021-12-15] MEDS: ASPIRIN CHEWABLE 81 MG TABLET. PO SCH (21:46)
[2021-12-15] MEDS: traZODone 50 MG TABLET. PO SCH (21:46)
[2021-12-15] MEDS: ATORVASTATIN CALCIUM 40 MG TABLET. PO SCH (21:46)
[2021-12-16 03:00] VITALS: BP 90/51
[2021-12-16] MEDS: POTASSIUM CL 20MEQ D5-0.45NACL 1,000 ML IV SCH ×3 (05:09→23:50)
[2021-12-16] MEDS: LEVOTHYROXINE 50 MCG TABLET PO SCH (05:09)
[2021-12-16 07:00] VITALS: BP 82/43
--- NOTE | 2021-12-16 08:28 | PDOC2 ---
CONSULT Date of Consult Date of Consult DATE: 12/16/21 TIME: 08:17 Reason for Consult Reason for Consult: Small cell lung cancer Referring Physician Referring Physician: Dr. Bradshaw Identification/Chief Complaint Chief Complaint Weakness Source Source: Chart review, Patient History of Present Illness Reason for Visit: Michele is a 60-year-old male with extensive stage small cell lung cancer who has been admitted to the hospital with generalized weakness. Michele is known to me from the office for his diagnosis of small cell lung cancer. He was initially diagnosed last year. He received concurrent chemoradiotherapy with carboplatin, etoposide With subsequent disease control. He was found to have metastatic disease with bone mets. He was started on atezolizumab maintenance. Restaging scans in October 2021 showed disease progression. He started second line palliative systemic therapy with Lurbinectidin at that time and has tolerated treatment well. He also developed brain metastasis for which he received whole brain radiation therapy. His clinical course recently has been complicated by new onset dysphagia. CT of the chest, abdomen and pelvis was obtained to evaluate this further and did not show any evidence of progression of small cell lung cancer. CT did show an atretic right lung, expansion of the left lung leading to mediastinal shift and compression of the esophagus by the left mainstem bronchus. He was seen by Dr. Ga last week and received stent placement. Notes improvement in dysphagia since then. He however, continued to develop progressive weakness and per his sister had been falling at home. He also reported chest discomfort recently. He was therefore asked to go to the emergency room for further evaluation management. CT angiogram of the chest was obtained and did not show pne umomediastinum or clear evidence of perforation of the esophagus. Labs and blood cultures were obtained and did not show an additional etiology for his weakness and altered mental status. Medical oncology has been consulted due to his diagnosis of extensive stage small cell lung cancer Past Medical History Cardiovascular: CAD, HTN, Hyperlipidemia Pulmonary: COPD Heme/Onc: Cancer (lung) Endocrine: Diabetes, Hypothyroidism Past Surgical History Past Surgical History: Other Family History Family History: Cancer, Hypertension Social History No ALCOHOL: none Drugs: None Lives: with Family Current Problem List Problem List Problems Medical Problems: (1) Dehydration Status: Acute (2) Generalized weakness Status: Acute (3) Metastatic cancer Status: Acute (4) Multiple falls Status: Acute Current Medications Current Medications Current Medications Sodium Chloride 1,000 ml @ 1,000 mls/hr 1X ONCE IV Last administered on 12/13/21at 15:13; Start 12/13/21 at 14:30; Stop 12/13/21 at 15:29; Status DC Ondansetron HCl (Zofran) 4 mg 1X ONCE IVP Last administered on 12/13/21at 16:15; Start 12/13/21 at 16:15; Stop 12/13/21 at 16:16; Status DC Iohexol (Omnipaque 350 Mg/ml) 80 ml 1X ONCE IV Last administered on 12/13/21at 17:00; Start 12/13/21 at 16:45; Stop 12/13/21 at 16:46; Status DC Info (CONTRAST GIVEN -- Rx MONITORING) 1 each PRN DAILY PRN MC SEE COMMENTS; Start 12/13/21 at 16:45; Stop 12/15/21 at 16:44; Status DC Ondansetron HCl (Zofran) 4 mg PRN Q8HRS PRN IVP NAUSEA/VOMITING; Start 12/13/21 at 19:15; Stop 12/14/21 at 19:14; Status DC Sodium Chloride 1,000 ml @ 100 mls/hr 1X ONCE IV ; Start 12/13/21 at 19:15; Stop 12/14/21 at 05:14; Status Cancel Sodium Chloride 1,000 ml @ 1,000 mls/hr 1X ONCE IV Last administered on 12/13/21at 20:10; Start 12/13/21 at 20:00; Stop 12/13/21 at 21:00; Status DC Potassium Chloride/Dextrose/ Sod Cl 1,000 ml @ 80 mls/hr [id number] IV Last a dministered on 12/16/21at 05:09; Start 12/13/21 at 21:00 Aspirin (Aspirin Chewable) 162 mg QHS PO Last administered on 12/15/21at 21:46; Start 12/13/21 at 21:00 Cyclobenzaprine HCl (Flexeril) 10 mg TID PO Last administered on 12/15/21at 14:56; Start 12/13/21 at 21:00 Levothyroxine Sodium (Synthroid) 50 mcg DAILY06 PO Last administered on 12/16/21at 05:09; Start 12/14/21 at 06:00 Losartan Potassium (Cozaar) 50 mg DAILY PO Last administered on 12/15/21 09:15; Start 12/14/21 at 09:00 Sertraline HCl (Zoloft) 25 mg DAILY PO Last administered on 12/15/21 09:15; Start 12/14/21 at 09:00 Trazodone HCl (Desyrel) 50 mg QHS PO Last administered on 12/15/21 21:46; Start 12/13/21 at 21:00 Acyclovir (Zovirax) 400 mg BID PO Last administered on 12/15/21 21:47; Start 12/13/21 at 21:00 Calcium Carbonate/ Glycine (Oscal) 500 mg BIDPC PO Last administered on 12/15/21 21:45; Start 12/14/21 at 09:00 Carvedilol (Coreg) 25 mg DAILY PO Last administered on 12/15/21 11:17; Start 12/14/21 at 09:00 Famotidine (Pepcid) 20 mg BID PO Last administered on 12/15/21 21:46; Start 12/13/21 at 21:00 Gabapentin (Neurontin) 300 mg TID PO Last administered on 12/14/21 20:26; Start 12/13/21 at 21:00; Stop 12/15/21 at 09:45; Status DC Isosorbide Mononitrate (Imdur) 120 mg DAILY PO Last administered on 12/15/21 09:15; Start 12/14/21 at 09:00 Magnesium Oxide (Magnesium Oxide) 400 mg DAILY PO Last administered on 12/15/21 09:15; Start 12/14/21 at 09:00 Atorvastatin Calcium (Lipitor) 80 mg QHS PO Last administered on 12/15/21 21:46; Start 12/13/21 at 21:00 Gabapentin (Neurontin) 100 mg TID PO Last administered on 12/15/21 14:56; Start 12/15/21 at 10:00 Gabapentin (Neurontin) 300 mg HS PO Last administered on 12/15/21 21:45; Start 12/15/21 at 21:00 Active Scripts Active Reported Gabapentin (Gabapentin) 100 Mg Capsule 100 Mg PO TID Calcium (Calcium Carbonate) 500 Mg Tab.chew 1 Tab PO BID 30 Days Isosorbide Mononitrate Er (Isosorbide Mononitrate) 120 Mg Tab.er.24h 1 Tab PO DAILY 30 Days Acyclovir 400 Mg Tablet 1 Tab PO BID Trazodone Hcl 50 Mg Tablet 1 Tab PO QHS Losartan Potassium 50 Mg Tablet 50 Mg PO DAILY Carvedilol 25 Mg Tablet 25 Mg PO DAILY Magnesium (Magnesium Oxide) 400 Mg Capsule 1 Cap PO DAILY 30 Days Sertraline Hcl 25 Mg Tablet 25 Mg PO DAILY Cyclobenzaprine Hcl 10 Mg Tablet 1 Tab PO TID Aspirin 81 Mg Tab.chew 2 Tab PO HS Famotidine 40 Mg Tablet 40 Mg PO BID Levothyroxine Sodium 50 Mcg Tablet 1 Tab PO DAILY Crestor (Rosuvastatin Calcium) 40 Mg Tablet 20 Mg PO HS Allergies Allergies: Coded Allergies: No Known Drug Allergies (Unverified , 03/12/21) ROS Review of System Negative unless stated otherwise in interval history Physical Exam Physical Exam Alert and oriented No distress Lungs clear to auscultation Heart sounds normal Abdomen soft Vitals VITALS Vital Signs Date Time Temp Pulse Resp B/P (MAP) Pulse Ox O2 Delivery O2 Flow Rate FiO2 12/16/21 03:00 98.1 90 18 90/51 (64) 92 Room Air 98.1 Labs Labs Laboratory Tests Test 12/15/21 07:40 Sodium Level 143 mmol/L (136-145) Potassium Level 4.3 mmol/L (3.5-5.1) Chloride Level 105 mmol/L (98-107) Carbon Dioxide Level 27 mmol/L (21-32) Anion Gap 11 (6-14) Blood Urea Nitrogen 13 mg/dL (8-26) Creatinine 1.2 mg/dL (0.7-1.3) Estimated GFR (Cockcroft-Gault) 61.3 Glucose Level 113 mg/dL (70-99) Calcium Level 8.5 mg/dL (8.5-10.1) Assessment/Plan Assessment/Plan Assessment: Extensive stage small cell lung cancer Generalized weakness Dysphagia Coronary artery disease Anemia secondary to antineoplastic therapy Thrombocytopenia, likely secondary antineoplastic therapy Recommendations: -Reviewed CT angiogram and recent CT CAP. CT scans do not show significant cancer burden or cancer progression. -Do not believe patient's current presentation is related to disease progression. Suspect malnutrition from recent onset dysphagia is contributing to this. -Continue supportive care and optimizing nutrition at this time. Recommend nutrition consult -Continue physical therapy efforts -Continue to monitor mental status. Consider brain MRI if not improved given history of brain metastasis -Rest per Dr. Bradshaw -Will continue to see while inpatient ANASTASIYA BURNS MD Dec 16, 2021 08:28
[2021-12-16] MEDS: ISOSORBIDE MONONITRATE ER 30 MG TAB.ER.24H PO SCH (09:00)
[2021-12-16] MEDS: CARVEDILOL 12.5 MG TABLET. PO SCH (09:00)
[2021-12-16] MEDS ORDERED: IV NORMAL SALINE 1000ML BAG 1,000 ML IV ONE (09:00)
[2021-12-16] MEDS: LOSARTAN POTASSIUM 50 MG TABLET. PO SCH (09:00)
[2021-12-16 09:45] LABS: BASO % 0 % (0-3); EOS # 0.1 x10^3/uL (0.0-0.7); EOS % 1 % (0-3); HEMATOCRIT 28.8 % (39.0-53.0); HEMOGLOBIN 9.5 g/dL (13.0-17.5); LYMPH # 0.4 x10^3/uL (1.0-4.8); LYMPH % 5 % (24-48); MEAN CORPUSCULAR HEMOGLOBIN 31 pg (25-35); MEAN CORPUSCULAR HGB CONC 33 g/dL (31-37); MEAN CORPUSCULAR VOLUME 93 fL (79-100); MONO # 0.6 x10^3/uL (0.0-1.1); MONO % 8 % (0-9); NEUT # 6.6 x10^3/uL (1.8-7.7); NEUT % 85 % (31-73); PLATELET COUNT 92 x10^3/uL (140-400); RED BLOOD COUNT 3.11 x10^6/uL (4.30-5.70); RED CELL DISTRIBUTION WIDTH 19.5 % (11.5-14.5); WHITE BLOOD COUNT 7.7 x10^3/uL (4.0-11.0)
[2021-12-16 10:16] LABS: ALBUMIN 2.6 g/dL (3.4-5.0); ALBUMIN/GLOBULIN RATIO 0.6 (1.0-1.7); CALCIUM 8.5 mg/dL (8.5-10.1); CREATININE 1.2 mg/dL (0.7-1.3); GFR 61.3; TOTAL BILIRUBIN 0.6 mg/dL (0.2-1.0); TOTAL PROTEIN 6.9 g/dL (6.4-8.2)
[2021-12-16] MEDS: CALCIUM CARBONATE 500 MG TABLET PO SCH ×2 (10:21→20:03)
[2021-12-16] MEDS: SERTRALINE 25 MG TABLET. PO SCH (10:21)
[2021-12-16] MEDS: GABAPENTIN 100 MG CAPSULE. PO SCH ×3 (10:21→21:03)
[2021-12-16] MEDS: CYCLOBENZAPRINE 10 MG TABLET. PO SCH ×3 (10:21→21:03)
[2021-12-16] MEDS: ACYCLOVIR 200 MG CAPSULE. PO SCH ×2 (10:21→21:03)
[2021-12-16] MEDS: FAMOTIDINE 20 MG TABLET. PO SCH ×2 (10:21→21:03)
[2021-12-16] MEDS: MAGNESIUM OXIDE 400 MG TABLET PO SCH (10:21)
[2021-12-16 11:00] VITALS: BP 103/64
--- NOTE | 2021-12-16 12:25 | PDOC ---
[employer] PROGRESS NOTE Date of Service DOS: DATE: 12/16/21 TIME: 12:25 Chief Complaint Chief Complaint Metastatic lung cancer with mets to the brain Recent esophageal stent placement due to angy compression from his cancer Probable early failure to thrive Weakness, falls, decreased PO intake, difficulty swallowing, fatigue, chronic cough, chest pain, CAD, HTN, Lung cancer, COPD, Diabetes, Hypothyroidism History of Present Illness History of Present Illness 12/16/2021 Patient seen and examined Discussed with RN Chart reviewed He is going for MRI today 12/15/2019 Patient seen and examined He is up in the chair trying to eat breakfast clear liquids Chart reviewed Discussed with RN 12/14/2021: Patient seen and examined Chart reviewed Discussed with RN Patient feels better and is excited to work with PT today Patient affirms difficulty with swallowing History of Present Illness Mr. Abdul is a 60 year old male admit for weakness, and falls. He has not been able to eat much lately, has decreased PO intake. Complains of generalized malaise and fatigue and multiple falls. No prodrome, just weak legs. He had chest pain twice prior to admission and took nitro for angina. He has chronic dyspnea and chronic cough, which is unchanged. He has a history of known metastatic small cell lung cancer, with adrenal mets and brain mets, Dr. Reece was called by his sister when EMS came to the house. he had a Esophageal stent placed a few days ago but still cannot eat very well, mostly soup Past Medical History Cardiovascular: CAD, HTN, Hyperlipidemia Pulmonary: COPD Heme/Onc: Cancer (lung) Endocrine: Diabetes, Hypothyroidism Vitals/I&O Vitals/I&O: Vital Signs Date Time Temp Pulse Resp B/P (MAP) Pulse Ox O2 Delivery O2 Flow Rate FiO2 12/16/21 11:00 97.9 90 18 103/64 (77) 97 Room Air 97.9 I & O 12/15/21 12/15/21 12/16/21 15:00 23:00 07:00 Intake Total 120 ml Balance 120 ml Physical Exam General: Alert, Cooperative, Other (Mildly somnolent) Heart: Regular rate, Normal S1, Normal S2 Lungs: Clear Abdomen: Normal bowel sounds, Soft Extremities: No cyanosis, No edema Skin: No breakdown, No significant lesion Labs Labs: Laboratory Tests Test 12/16/21 09:10 White Blood Count 7.7 x10^3/uL (4.0-11.0) Red Blood Count 3.11 x10^6/uL (4.30-5.70) Hemoglobin 9.5 g/dL (13.0-17.5) Hematocrit 28.8 % (39.0-53.0) Mean Corpuscular Volume 93 fL (79-100) Mean Corpuscular Hemoglobin 31 pg (25-35) Mean Corpuscular Hemoglobin Concent 33 g/dL (31-37) Red Cell Distribution Width 19.5 % (11.5-14.5) Platelet Count 92 x10^3/uL (140-400) Neutrophils (%) (Auto) 85 % (31-73) Lymphocytes (%) (Auto) 5 % (24-48) Monocytes (%) (Auto) 8 % (0-9) Eosinophils (%) (Auto) 1 % (0-3) Basophils (%) (Auto) 0 % (0-3) Neutrophils # (Auto) 6.6 x10^3/uL (1.8-7.7) Lymphocytes # (Auto) 0.4 x10^3/uL (1.0-4.8) Monocytes # (Auto) 0.6 x10^3/uL (0.0-1.1) Eosinophils # (Auto) 0.1 x10^3/uL (0.0-0.7) Basophils # (Auto) 0.0 x10^3/uL (0.0-0.2) Sodium Level 140 mmol/L (136-145) Potassium Level 4.0 mmol/L (3.5-5.1) Chloride Level 104 mmol/L (98-107) Carbon Dioxide Level 25 mmol/L (21-32) Anion Gap 11 (6-14) Blood Urea Nitrogen 15 mg/dL (8-26) Creatinine 1.2 mg/dL (0.7-1.3) Estimated GFR (Cockcroft-Gault) 61.3 BUN/Creatinine Ratio 13 (6-20) Glucose Level 119 mg/dL (70-99) Calcium Level 8.5 mg/dL (8.5-10.1) Total Bilirubin 0.6 mg/dL (0.2-1.0) Aspartate Amino Transf (AST/SGOT) 70 U/L (15-37) Alanine Aminotransferase (ALT/SGPT) 34 U/L (16-63) Alkaline Phosphatase 143 U/L (46-116) Total Protein 6.9 g/dL (6.4-8.2) Albumin 2.6 g/dL (3.4-5.0) Albumin/Globulin Ratio 0.6 (1.0-1.7) Assessment and Plan Assessmemt and Plan Problems Medical Problems: (1) Dehydration Status: Acute (2) Generalized weakness Status: Acute (3) Metastatic cancer Status: Acute (4) Multiple falls Status: Acute Metastatic lung cancer with mets to the brain Recent esophageal stent placement due to angy compression from his cancer Probable early failure to thrive Weakness, falls, decreased PO intake, difficulty swallowing, fatigue, chronic cough, chest pain, CAD, HTN, Lung cancer, COPD, Diabetes, Hypothyroidism Plan Going for MRI today Encourage p.o. intake (soft foods) Per GI he is no longer a candidate for a feeding tube unless it was placed surgically or through IR Trend labs Home meds DVT prophylaxis Full code Long-term prognosis guarded at best Probably needs to go to long-term after discharge? Might be a candidate for hospice in the near future? Comment Review of Relevant I have reviewed the following items ranjit (where applicable) has been applied. Medications: Current Medications Medications (Trade) Dose Ordered Sig/Tom Route PRN Reason Start Time Stop Time Status Last Admin Dose Admin Gabapentin (Neurontin) 300 mg HS PO 12/15/21 21:00 12/15/21 21:45 Sodium Chloride 1,000 ml @ 1,000 mls/hr 1X ONCE IV 12/16/21 09:00 12/16/21 09:59 DC 12/16/21 10:19 Justifications for Admission Other Justification Syncope SHADE INGRAM III DO Dec 16, 2021 12:25
--- NOTE | 2021-12-16 14:00 | NUR ---
SW following. Discussed with RN, pt from home with sister, room air, full liquid diet. Therapy recommending SNF but maybe home if progresses more. GI and Oncology following. MRI planned. SW requested COVID PCR for possible placement. Physician may discuss hospice after MRI results. SW will continue to follow.
[2021-12-16 15:00] VITALS: BP 134/74
[2021-12-16] MEDS ORDERED: GADOTERATE 7.5 MMOL/15ML VIAL. IVP ONE (15:45)
--- NOTE | 2021-12-16 16:47 | RAD ---
EXAM: Brain MRI with and without contrast. HISTORY: Altered mental status. Metastatic lung cancer. TECHNIQUE: Multiplanar, multisequence magnetic resonance imaging of the brain was performed prior to and following the administration of intravenous contrast. COMPARISON: 10/15/2021 and 08/08/2021 FINDINGS: There has been no significant change in a peripherally enhancing likely internally necrotic lesion within the right occipital lobe measuring 1.6 cm in maximum dimension. The adjacent smaller r ight occipital lobe lesion in the posterior left temporal lobe lesion on the study performed is not conspicuous on the current exam. There is no convincing new enhancing lesion. There is no acute or subacute infarction. There is no mass effect or midline shift. There are bilater al cerebral white matter changes likely due to combination of chronic small vessel disease and chemot herapy or radiation therapy. There is cerebral volume loss. There is no hemorrhage. There is near complete opacification of the left maxillary sinus due to fluid and mucosal thickening. There is a small amount of fluid within the mastoid air cells. There are normal flow voids within th e cerebral vessels. There is no suspicious calvarial lesion. IMPRESSION: 1. No acute intracranial finding. 2. No significant change in a peripheral enhancing lesion within the right occipital lobe measuring 1 .6 cm, consistent with stable active or treated metastatic disease. The additional lesions demonstrat ed on a study performed 08/08/2021 not seen and there is no new lesion. 3. Cerebral white matter changes, likely due to chronic small vessel disease in a patient of this age . The possibility of superimposed changes due to chemotherapy or radiation therapy is not excluded gi balwinder the patient history. 4. Cerebral volume loss. 5. Left maxillary sinus disease. Electronically signed by: Reta Watson MD (12/16/2021 4:45 PM) [id number]
[2021-12-16 19:00] VITALS: BP 115/78
[2021-12-16] MEDS: ASPIRIN CHEWABLE 81 MG TABLET. PO SCH (21:03)
[2021-12-16] MEDS: GABAPENTIN 300 MG CAPSULE. PO SCH (21:03)
[2021-12-16] MEDS: traZODone 50 MG TABLET. PO SCH (21:03)
[2021-12-16] MEDS: ATORVASTATIN CALCIUM 40 MG TABLET. PO SCH (21:03)
[2021-12-16 23:00] VITALS: BP 101/67
[2021-12-17 03:00] VITALS: BP 112/75
[2021-12-17] MEDS: LEVOTHYROXINE 50 MCG TABLET PO SCH (05:58)
[2021-12-17 07:00] VITALS: BP 106/62
[2021-12-17] MEDS: LOSARTAN POTASSIUM 50 MG TABLET. PO SCH (09:00)
[2021-12-17] MEDS: ISOSORBIDE MONONITRATE ER 30 MG TAB.ER.24H PO SCH (09:00)
[2021-12-17] MEDS: ACYCLOVIR 200 MG CAPSULE. PO SCH (09:07)
[2021-12-17] MEDS: CARVEDILOL 12.5 MG TABLET. PO SCH (09:07)
[2021-12-17] MEDS: MAGNESIUM OXIDE 400 MG TABLET PO SCH (09:07)
[2021-12-17] MEDS: FAMOTIDINE 20 MG TABLET. PO SCH (09:07)
[2021-12-17] MEDS: CALCIUM CARBONATE 500 MG TABLET PO SCH (09:07)
[2021-12-17] MEDS: GABAPENTIN 100 MG CAPSULE. PO SCH ×2 (09:07→15:01)
[2021-12-17] MEDS: CYCLOBENZAPRINE 10 MG TABLET. PO SCH ×2 (09:07→14:00)
[2021-12-17] MEDS: SERTRALINE 25 MG TABLET. PO SCH (09:07)
--- NOTE | 2021-12-17 10:59 | PDOC ---
[employer] PROGRESS NOTE Date of Service DOS: DATE: 12/17/21 TIME: 10:59 Chief Complaint Chief Complaint Metastatic lung cancer with mets to the brain Recent esophageal stent placement due to angy compression from his cancer Probable early failure to thrive Weakness, falls, decreased PO intake, difficulty swallowing, fatigue, chronic cough, chest pain, CAD, HTN, Lung cancer, COPD, Diabetes, Hypothyroidism History of Present Illness History of Present Illness 12/17/2021 Patient seen and examined He is up in the chair Kind of weak but seems to be at his baseline We will go ahead and discharge with home health 12/16/2021 Patient seen and examined Discussed with RN Chart reviewed He is going for MRI today 12/15/2019 Patient seen and examined He is up in the chair trying to eat breakfast clear liquids Chart reviewed Discussed with RN 12/14/2021: Patient seen and examined Chart reviewed Discussed with RN Patient feels better and is excited to work with PT today Patient affirms difficulty with swallowing History of Present Illness Mr. Abdul is a 60 year old male admit for weakness, and falls. He has not been able to eat much lately, has decreased PO intake. Complains of generalized malaise and fatigue and multiple falls. No prodrome, just weak legs. He had chest pain twice prior to admission and took nitro for angina. He has chronic dyspnea and chronic cough, which is unchanged. He has a history of known metastatic small cell lung cancer, with adrenal mets and brain mets, Dr. Reece was called by his sister when EMS came to the house. he had a Esophageal stent placed a few days ago but still cannot eat very well, mostly soup Past Medical History Cardiovascular: CAD, HTN, Hyperlipidemia Pulmonary: COPD Heme/Onc: Cancer (lung) Endocrine: Diabetes, Hypothyroidism Vitals/I&O Vitals/I&O: Vital Signs Date Time Temp Pulse Resp B/P (MAP) Pulse Ox O2 Delivery O2 Flow Rate FiO2 12/17/21 09:07 108 106/62 12/17/21 07:00 18 98 Room Air 12/17/21 03:00 97.4 97.4 I & O 12/16/21 12/16/21 12/17/21 15:00 23:00 07:00 Output Total 300 ml 400 ml 400 ml Balance -300 ml -400 ml -400 ml Physical Exam General: Alert, Cooperative, Other (Mildly somnolent) Heart: Regular rate, Normal S1, Normal S2 Lungs: Clear Abdomen: Normal bowel sounds, Soft Extremities: No cyanosis, No edema Skin: No breakdown, No significant lesion Labs Labs: Laboratory Tests Test 12/16/21 11:34 SARS-CoV-2 RNA (RONDA) Negative (Negative) Assessment and Plan Assessmemt and Plan Problems Medical Problems: (1) Dehydration Status: Acute (2) Generalized weakness Status: Acute (3) Metastatic cancer Status: Acute (4) Multiple falls Status: Acute Metastatic lung cancer with mets to the brain Recent esophageal stent placement due to angy compression from his cancer Probable early failure to thrive Weakness, falls, decreased PO intake, difficulty swallowing, fatigue, chronic cough, chest pain, CAD, HTN, Lung cancer, COPD, Diabetes, Hypothyroidism Plan Probable discharge with home health later today For now continue the following; Encourage p.o. intake (soft foods) Per GI he is no longer a candidate for a feeding tube unless it was placed surgically or through IR Trend labs Home meds DVT prophylaxis Full code Long-term prognosis guarded at best Discharge with home health Might be a candidate for hospice in the near future? Comment Review of Relevant I have reviewed the following items ranjit (where applicable) has been applied. Medications: Current Medications Medications (Trade) Dose Ordered Sig/Tom Route PRN Reason Start Time Stop Time Status Last Admin Dose Admin Gadoterate Meglumine (Clariscan) 15 ml 1X ONCE IVP 12/16/21 15:45 12/16/21 15:47 DC 12/16/21 16:13 Justifications for Admission Other Justification Syncope SHADE INGRAM III DO Dec 17, 2021 10:59
[2021-12-17 11:00] VITALS: BP 79/49
--- NOTE | 2021-12-17 11:02 | SNU/HH DC ---
DISCHARGE WITH HOME HEALTH DISCHARGE INFORMATION: Final Diagnosis: Problems Medical Problems: (1) Dehydration Status: Acute (2) Generalized weakness Status: Acute (3) Metastatic cancer Status: Acute (4) Multiple falls Status: Acute Condition on Discharge: Stable CODE STATUS: Code Status: Full HOME HEALTH: Face to Face: I certify this patient is under my care and that I, or a nurse practitioner or physician's automotive service assistant working with me, had a face to face encounter that meets the physician face to face encounter requirements with this patient on []. Medical Complications: Other (Metastatic lung cancer) Care Home For: Assess & Educate Safety RN For Eval/Treatment: Yes Physical Therapy For: Evalulation/Treatment Occupational Therapy For: Evaluation/Treatment Home Health Aide For: Self-care LOT TECHNICIAN For: Community Resources Pt Meets Homebound Status: Unsteady balance w/ amb, POST DISCHARGE ORDERS: Activity Instructions for Disc: Activity as tolerated Weight Bearing Status after Di: Full weight bearing Bathing Instructions: No Tub Bath until see DIET AFTER DISCHARGE: Cardiac Wound/Incision Care: Ice to area for comfort, Change dressing, May get incision wet CHECKS AFTER DISCHARGE: Checks after discharge: Check blood press - daily TREATMENT/EQUIPMENT ORDERS: Adaptive Equipment Issued: None CERTIFICATION STATEMENT: Certification Statement: Certification Statement: Based on the above finding, I certify that this patient is confined to the home and needs intermittent alf care, physical therapy and/or speech therapy, or continues to need occupational therapy.~ This patient is under my care, and I have initiated the establishment of the plan of care.~ This patient will be followed by myself or a community physician who will periodically review the plan of care. Home Meds Reported Medications Gabapentin (GABAPENTIN ) 100 Mg Capsule, 100 MG PO TID for NEUROGENIC PAIN, CAP 12/15/21 Calcium Carbonate (CALCIUM) 500 Mg Tab.chew, 1 TAB PO BID for supplement for 30 Days, #60 TAB 0 Refills 10/24/21 Isosorbide Mononitrate (ISOSORBIDE MONONITRATE ER) 120 Mg Tab.er.24h, 1 TAB PO DAILY for htn for 30 Days, #30 TAB 0 Refills 10/24/21 Acyclovir (ACYCLOVIR) 400 Mg Tablet, 1 TAB PO BID for viral, #60 TAB 3 Refills 10/24/21 Trazodone Hcl (TRAZODONE HCL) 50 Mg Tablet, 1 TAB PO QHS for sleep, #30 TAB 1 Refill 10/24/21 Losartan Potassium (Losartan Potassium) 50 Mg Tablet, 50 MG PO DAILY for htn, TAB 10/24/21 Carvedilol (CARVEDILOL) 25 Mg Tablet, 25 MG PO DAILY for htn, TAB 10/24/21 Magnesium Oxide (MAGNESIUM) 400 Mg Capsule, 1 CAP PO DAILY for supplement for 30 Days, #30 CAP 0 Refills 02/16/21 Sertraline Hcl (SERTRALINE HCL) 25 Mg Tablet, 25 MG PO DAILY for ANTI- DEPRESSANT, TAB 0 Refills 11/28/20 Cyclobenzaprine Hcl (CYCLOBENZAPRINE HCL) 10 Mg Tablet, 1 TAB PO TID for pain, #90 TAB 11/28/20 Aspirin (ASPIRIN) 81 Mg Tab.chew, 2 TAB PO HS for ANTIPLATELET, #30 TAB 3 Refills 11/19/20 Famotidine (FAMOTIDINE) 40 Mg Tablet, 40 MG PO BID for indigestion, TAB 11/19/20 Levothyroxine Sodium (LEVOTHYROXINE SODIUM) 50 Mcg Tablet, 1 TAB PO DAILY for thyroid, #30 TAB 5 Refills 11/19/20 Rosuvastatin Calcium (CRESTOR) 40 Mg Tablet, 20 MG PO HS for FOR CHOLESTEROL, #30 TAB 0 Refills 11/19/20 Discontinued Reported Medications Gabapentin (GABAPENTIN) 600 Mg Tablet, 300 MG PO TID for NEUROGENIC PAIN, TAB 10/24/21 SHADE INGRAM III DO Dec 17, 2021 11:02
--- NOTE | 2021-12-17 11:10 | NUR ---
SW following. Discussed with RN, therapy now recommending home health. SW met with pt, pt agreeable to home health, could not remember the home health company his used but is agreeable to [facility]. Cooper Valle RN notified. Discharge order for home with home health. Pt requested SW notify his sister, Lauren. SW notified Lauren, she is requesting a call from Dr. Reece. RN notified - paging Dr. Reece.
--- NOTE | 2021-12-17 11:31 | DS ---
DATE OF DISCHARGE: 12/17/2021 ADMITTING DIAGNOSES: Weakness with history of metastatic lung cancer. DISCHARGE DIAGNOSES: Progression of metastatic lung cancer and weakness, suspect early failure to thrive, debility, falls, history of coronary artery disease with stents, dysphagia, recent esophageal stent placement, hypothyroidism. CONSULTS: GI and Hematology/Oncology. PROCEDURES: None. HOSPITAL COURSE: The patient is a pleasant middle-aged male who used to smoke and developed lung cancer. He now has metastatic lung cancer. He has been undergoing chemotherapy, radiation therapy. He also had an esophageal stent placed recently. Basically, we admitted him, did some physical therapy and occupational therapy. The above consults were obtained. Today, I saw and examined him. He probably is at his baseline. We plan to discharge with home health. DISPOSITION: Home with home health. ACTIVITY: As tolerated. DIET: Low sodium. DISCHARGE MEDICATIONS: Please see the MRAD. Acyclovir 400 b.i.d., aspirin 81 a day, calcium carbonate 500 b.i.d., carvedilol 25 daily, cyclobenzaprine 10 t.i.d., famotidine 40 a day, gabapentin 100 t.i.d., Imdur 120 a day, Synthroid 50 a day, losartan 50 a day, magnesium oxide 400 a day, Crestor 20 a day, sertraline 25 a day and trazodone 50 at bedtime. TOTAL TIME: 32 minutes. GABRIEL/STACI DR: Melo TID: [id number]
[2021-12-17] MEDS: POTASSIUM CL 20MEQ D5-0.45NACL 1,000 ML IV SCH (12:30)
--- NOTE | 2021-12-17 17:32 | NUR ---
Patient discharge home with [facility] today, via wheelchair, accompanied by aid. Patient is stable, IV removed, and discharge paperwork given to patient and sister. Patient bought a front wheel walker and sister was in the room and she was aware of it.
== END 2021-12-17 17:36 | disposition home health service (06) | DRG 181 ==
LOC: ER 14:05 → 4 NORTH 17:50 → OBSVTOIN 12-14 23:36
PROVIDERS: ADMIT Internal Medicine; ATTEND Internal Medicine
DX: C34.90 Malignant neoplasm of unspecified part of unspecified bronchus or lung (principal); C79.31 Secondary malignant neoplasm of brain; R53.1 Weakness; T45.1X5A Adverse effect of antineoplastic and immunosuppressive drugs, initial encounter; D64.81 Anemia due to antineoplastic chemotherapy; D69.6 Thrombocytopenia, unspecified; E03.9 Hypothyroidism, unspecified; E11.9 Type 2 diabetes mellitus without complications; E78.5 Hyperlipidemia, unspecified; E86.0 Dehydration; I10 Essential (primary) hypertension; I25.10 Atherosclerotic heart disease of native coronary artery without angina pectoris; J44.9 Chronic obstructive pulmonary disease, unspecified; R13.10 Dysphagia, unspecified; Z82.49 Family history of ischemic heart disease and other diseases of the circulatory system; Z85.118 Personal history of other malignant neoplasm of bronchus and lung; Z87.891 Personal history of nicotine dependence; Z95.5 Presence of coronary angioplasty implant and graft; R62.7 Adult failure to thrive; I25.2 Old myocardial infarction; Y92.89 Other specified places as the place of occurrence of the external cause; Z20.822 Contact with and (suspected) exposure to COVID-19
CPT/HCPCS: 36415; 70450; 70553; 71045; 71275; 80048; 80053; 81001; 82550; 82962; 83605; 83690; 83735; 83880; 84100; 84484; 85025; 85610; 85730; 87040; 96361; 96374; A9575; G0378; G0379; J2405; J3480; J7030; Q9967; U0003; U0005; 92526-GN; 92610-GN; 97110-GP; 97116-GP; 97535-GO; 99285-25